=== PATIENT | female | born 2000 ===

== ENCOUNTER 2020-03-01 15:16 | Emergency (ER) | payer MEDICAID, SELFPAY ==
[2020-03-01 15:18] VITALS: BP 119/71; PULSE 86; RESP 17; TEMP 35.9; O2SAT 100; BMI 20.7
--- NOTE | 2020-03-01 15:30 | ED.EYEPROB ---
HPI - Eye Problem General Chief complaint: Eye Problems Stated complaint: swollen eye Time Seen by Provider: 03/01/20 15:27 Source: patient Mode of arrival: ambulatory Limitations: no limitations History of Present Illness HPI Narrative: Patient was putting lashes in her left eye and was having difficulty and slipped causing the lashes to hit her eye. She started itching her eye which she tells me she did persistently for about 15 minutes. She then started having pain, irritation, and drainage from the eye. No vision changes. She does not believe she got glue in the eye. MD chief complaint: eye pain and eye redness Onset (ago): minute(s) Onset description: gradual Duration: constant Location: left eye Eye Symptoms: burning, redness, pain, itching and discharge Place: home Mechanism: other (trying to put in lashes ) Severity: mild If Pain, Quality: burning Associated symptoms: none Treatments Prior to Arrival: none Related Data Previous Rx's Medication Instructions Recorded erythromycin 0.5 inch OPHTHALMIC (EYE) BID 7 03/01/20 Days #3.5 g ibuprofen 600 mg PO Q8H PRN #20 tab 03/01/20 Allergies Allergy/AdvReac Type Severity Reaction Status Date / Time No Known Allergies Allergy Unverified 01/23/20 17:01 Review of Systems Review of Systems: Yes all other systems are reviewed and are negative Constitutional: Constitutional: Reports no additional constitutional complaints, Denies body ache(s), Denies chills, Denies fever(s), Denies headache(s) and Denies weakness Eyes: Eyes: Reports no additional eye complaints, Denies change in vision, Reports eye discharge (clear ), Reports irritation, Reports itchy eyes and Reports eye pain ENT: Reports system reviewed and no additional complaints, except as documented, Denies dizziness, Denies headache(s), Denies nasal congestion, Denies nasal discharge and Denies neck pain Cardiovascular: Cardiovascular: Reports no additional cardiovascular complaints, Denies chest pain, Denies leg edema and Denies dyspnea Respiratory: Respiratory: Reports no additional respiratory complaints, Denies cough and Denies dyspnea Gastrointestinal: Gastrointestinal: Reports no additional gastrointestinal complaints, Denies abdominal pain, Denies diarrhea, Denies nausea and Denies vomiting Genitourinary: Genitourinary: Reports no additional female genitourinary complaints and Denies urinary incontinence Musculoskeletal: Musculoskeletal: Reports no additional musculoskeletal complaints, Denies back pain, Denies arthralgias, Denies joint swelling, Denies neck pain, Denies numbness and Denies tingling Integumentary/Breasts: Skin/Breast: Reports system reviewed and no additional complaints, except as docu and Denies rash Neurologic: Reports system reviewed and no additional complaints, except as documented, Denies Abnormal speech present, Denies dizziness, Denies headache(s), Denies numbness, Denies tingling and Denies weakness Allergic/Immunologic: Allergic/Immunologic: Reports itchy eyes PMFSH Past Medical History Attestation statement: The following information was validated with the patient. Source: obtained from family and nursing notes reviewed Social History Social History Advance Directives: No Advance Directives Information Provided: Yes Physical Exam Vital Signs: Vital Signs: Vital Signs Temp Pulse Resp BP Pulse Ox 03/01/20 15:18 96.7 F L 86 17 119/71 100 Body Mass Index 20.7 Const: General: cooperative, healthy appearing, comfortable and no acute distress Orientation/consciousness: patient oriented x3 Limitations: no limitations HENMT: Head: Yes normal to inspection Ears: hearing grossly normal bilaterally General nose exam: Normal external nose present Face and sinus: Yes normal facial exam Mouth: Normal oral and palatal mucosa present Throat: Yes posterior oropharynx normal Eyes: General: appearance normal, both eyes and all related structures Visual Gu: normal visual gu by confrontation Alignment and Position: alignment normal Periorbital: periorbital findings normal Eyelids: Yes eyelids normal Conjunctivae: conjunctival abnormal (injection ) left Sclerae: sclerae normal Corneas: corneas abnormal on the left fluorescein used and abrasion central and linear; without edema and with no foreign body noted Pupils: Equal, round and reactive pupils present EOM: EOMs intact bilaterally Direct Ophthalmoscopy: normal light reflex, no photophobia, no papilledema, fundi normal bilaterally and anterior chamber normal Neck: Neck: Yes normal visual inspection Chest: Chest palpation & inspection: normal inspection of the chest Resp: Effort & Inspection: normal respiratory effort Auscultation: clear to auscultation bilaterally Cardio: Rate: regular rate Rhythm: regular rhythm Peripheral pulses: Peripheral pulses 2+ throughout GI: Inspection: Yes normal to inspection Palpation (GI): Soft to palpation and nontender Auscultation: normal bowel sounds Back/Spine/Pelvis: Thoracic/Lumbar Spine: thoracic and lumbar spine normal to inspection Skin: General skin exam: no rashes or lesions noted Neuro: General: patient oriented x3, no focal motor deficits and normal sensation to monofilament Cranial nerves: Yes Equal, round and reactive pupils present Cognition (Neuro): normal cognition Speech: No Abnormal speech present Gait exam (Neuro): Normal gait present Motor exam (neuro): 5/5 motor strength present throughout Extrem: General: Yes normal to inspection Course Course Course Narrative: L corneal abrasion noted. pain improved with tetracaine. See visual acuity. 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 Reviewed worrisome signs and symptoms of when to return to the emergency department. Comfortable discharge home. Discharge Plan Discharge Clinical Impression: Corneal abrasion Patient Disposition: Home, Self-Care Instructions: Corneal Abrasion (ED) Additional Instructions: cool compresses to the eye If no improvement after several days follow-up with your eye doctor Prescriptions: New erythromycin 5 mg/gram (0.5 %) ointment 0.5 inch ophthalmic (eye) BID 7 Days Qty: 3.5 RF: 0 ibuprofen 600 mg tablet 600 mg PO Q8H PRN (Reason: fever or pain) Qty: 20 RF: 0 Referrals: Pamela Barakat DO [Primary Care Provider] - 2 days
[2020-03-01] MEDS: Tetracaine HCl/PF 0.5% Oph Sol 4 ML DROPS 1 DROP EYE-BOTH (15:33)
[2020-03-01] MEDS: Fluorescein Sodium STRIP 1 STRIP EYE-BOTH (15:33)
== END 2020-03-01 16:20 | disposition home or self-care (01) ==
PROVIDERS: Emergency Provider Emergency Medicine; PCP Pediatrics
DX: S05.02XA Injury of conjunctiva and corneal abrasion without foreign body, left eye, initial encounter (principal); X58.XXXA Exposure to other specified factors, initial encounter; Y93.89 Activity, other specified; Y92.012 Bathroom of single-family (private) house as the place of occurrence of the external cause; Y99.9 Unspecified external cause status
CPT/HCPCS: 99283; 99284

== ENCOUNTER → 2020-03-27 09:35 | Outpatient (BNVA) | payer MEDICAID, SELFPAY | PROVIDERS: PCP Pediatrics; Visit Provider Internal Medicine Gastroenterology | DX: Z76.89 Persons encountering health services in other specified circumstances (principal) ==

== ENCOUNTER 2020-06-11 08:36 | Inpatient (IN) | payer MEDICAID, SELFPAY ==
--- NOTE | ~2020-06-11 | CT_ITS ---
EXAMINATION: CT ANGIOGRAM OF THE CHEST WITH AND WITHOUT CONTRAST (CT PULMONARY ANGIOGRAM FOR PE) CLINICAL INFORMATION: Reason for Exam chest pain, tachycardic, new EKG changes COMPARISON: 12/25/2019 TECHNIQUE: Prior to contrast administration, noncontrast localization images were obtained. Subsequently, multidetector volumetric imaging was performed from the thoracic inlet to below the diaphragms following the administration of 65 mL Omnipaque 350 intravenous contrast. No contrast reaction reported Sagittal, coronal, and MIP oblique sagittal reformatted images were obtained on the CT workstation, uploaded to PACS, and reviewed. This CT examination was performed using dose optimization techniques as appropriate, variously including the following: *Automated exposure control *Adjustment of mA and/or kV according to patient size (this includes techniques or standardized protocols for targeted exams where dose is matched to indication/reason for exam; i.e. extremities or head) *Use of iterative reconstruction technique Total exam dose-length product 153 mGy-cm FINDINGS: QUALITY OF STUDY/CONTRAST BOLUS: Satisfactory. PULMONARY ARTERIES: No central or segmental pulmonary emboli. THORACIC AORTA: No aneurysm or dissection. 2 vessel branching configuration of the aortic arch. LUNG: No focal consolidation, nodules or masses. The central airways are patent. Suggestion of mild air trapping at the right base. PLEURA: No pleural effusion or pneumothorax. MEDIASTINUM: Normal heart size. No pericardial effusion. No hilar or mediastinal lymphadenopathy. No evidence of septal bowing or right heart strain. CHEST WALL/AXILLA: No axillary or internal mammary lymphadenopathy. OSSEOUS STRUCTURES: No acute or suspicious osseous abnormality. UPPER ABDOMEN: Mild intrahepatic biliary ductal dilatation involving the left hepatic ducts. No reflux of contrast into the hepatic veins to suggest elevated right heart pressures. CT/CT angio chest PE protocol IMPRESSION: 1. No pulmonary embolism or other acute intrathoracic abnormality. 2. There appears to be mild dilatation of the left intrahepatic ducts. This is increased from prior. Of note, prior ultrasound from 01/23/2017 showed biliary ductal dilatation with cholelithiasis. VTE: negative
[2020-06-11 09:11] VITALS: BP 132/80; PULSE 110; RESP 16; TEMP 37.1; O2SAT 98; BMI 21.9
--- NOTE | 2020-06-11 10:46 | ED_ITS ---
HPI - General Adult General Chief complaint: General Medical <Usha Fisher NP - Last Filed: 06/11/20 10:49> Stated complaint: arthritis flare up <Usha Fisher NP - Last Filed: 06/11/20 10:49> Time Seen by Provider: 06/11/20 10:13 <Usha Fisher NP - Last Filed: 06/11/20 10:49> Source: patient and old records reviewed <IRMA Mccarthy - Last Filed: 06/11/20 17:05> Mode of arrival: ambulatory <IRMA Mccarthy - Last Filed: 06/11/20 17:05> Limitations: no limitations <IRMA Mccarthy - Last Filed: 06/11/20 17:05> History of Present Illness HPI narrative: 19 y/o female with history of rheumatoid arthritis, autoimmune hepatitis, pericarditis in Apr 2020 who presents to the ED with 3-4 weeks of worsening pain all over her body. She states every muscle & joint hurts. She has significant chest pain that is worse when laying flat and taking deep breaths. It sometimes makes her SOB. She denies fever, chill, cough, abdominal pain, diarrhea. She was admitted at [facility] 04/23/20-04/26/20 for pericarditis - was treated with steroids and colchicine. She was weaned off of prednisone and her pain got worse. She denies COVID symptoms or exposure. <IRMA Mccarthy - Last Filed: 06/11/20 17:05> MD complaint: all over body pain <IRMA Mccarthy - Last Filed: 06/11/20 17:05> Onset (ago): week(s) (3-4) <IRMA Mccarthy - Last Filed: 06/11/20 17:05> Location: head, chest, back, left, right, upper extremity and lower extremity <IRMA Mccarthy - Last Filed: 06/11/20 17:05> Radiation: non-radiation <IRMA Mccarthy - Last Filed: 06/11/20 17:05> Severity: severe and similar to prior episodes <IRMA Mccarthy - Last Filed: 06/11/20 17:05> Severity scale (1-10): 10 <IRMA Mccarthy - Last Filed: 06/11/20 17:05> Quality: aching and constant <IRMA Mccarthy Last Filed: 06/11/20 17:05> Pain Consistency: constant <IRMA Mccarthy Last Filed: 06/11/20 17:05> Relieving factors: immobilization <IRMA Mccarthy Last Filed: 06/11/20 17:05> Exacerbating factors: movement <IRMA Mccarthy Last Filed: 06/11/20 17:05> Associated symptoms: chest pain and shortness of breath <IRMA Mccarthy Last Filed: 06/11/20 17:05> Treatments prior to arrival: NSAID <IRMA Mccarthy Last Filed: 06/11/20 17:05> Related Data Home medications: Home Medications Medication Instructions Recorded Confirmed hydroxychloroquine [Plaquenil] 200 mg PO DAILY 06/11/20 06/11/20 <Usha Fisher NP - Last Filed: 06/11/20 10:49> Allergies/adverse reactions: Allergies Allergy/AdvReac Type Severity Reaction Status Date / Time No Known Allergies Allergy Verified 06/11/20 09:11 <Usha Fisher NP - Last Filed: 06/11/20 10:49> Review of Systems Review of Systems: Constitutional: No Fever, No Chills ENT/Mouth: No sore throat, No Rhinorrhea, No Swallowing Difficulty Eyes: No Eye Pain, No Swelling, No Redness Cardiovascular: + Chest Pain, + SOB, No Orthopnea, No Edema Respiratory: No Cough, No Sputum, No Wheezing, No dyspnea Gastrointestinal: + Nausea, No Vomiting, No Diarrhea, No abdominal Pain Genitourinary: No Dysuria, No Urinary Frequency, No Hematuria Musculoskeletal: + joint pain, + Myalgias Skin: No Skin Lesions, No rash Neuro: No Weakness, No Numbness, No Dizziness, +Headache Psych: No Anxiety/Panic, + Depression Heme/Lymph: No Bruising, No Lymphadenopathy Endocrine: No Polyuria, No Polydipsia <IRMA Mccarthy Last Filed: 06/11/20 17:05> PMFSH Past Medical History Attestation statement: The following information was validated with the patient. <IRMA Mccarthy - Last Filed: 06/11/20 17:05> Surgical History: Surgical History (Updated 03/27/20 @ 09:32 by Jo-Ann Hopkins CMA) History of colonoscopy Hx of cholecystectomy Hx of endoscopy <Usha Fisher NP - Last Filed: 06/11/20 10:49> Family History Family History: Family History (Updated 03/27/20 @ 09:33 by Jo-Ann Hopkins CMA) Father Alive and well Mother Alive and well <Usha Fisher NP - Last Filed: 06/11/20 10:49> Social History Social History: Social History (Updated 03/27/20 @ 09:33 by Jo-Ann Hopkins CMA) Alcohol intake: never Smoking Status: Never smoker Use of substances other than those prescribed or required for medical reasons: No Advance Directives: No Advance Directives Information Provided: No <Usha Fisher NP - Last Filed: 06/11/20 10:49> Physical Exam Vital Signs: Vital Signs: Last Vital Signs Temp 98.8 F 06/11/20 09:11 Pulse 110 H 06/11/20 09:11 Resp 16 06/11/20 09:11 BP 132/80 06/11/20 09:11 Pulse Ox 98 06/11/20 09:11 Body Mass Index 21.9 <Usha Fisher NP - Last Filed: 06/11/20 10:49> Vital Signs: Last Vital Signs Temp 98.8 F 06/11/20 09:11 Pulse 110 H 06/11/20 09:11 Resp 16 06/11/20 09:11 BP 132/80 06/11/20 09:11 Pulse Ox 98 06/11/20 09:11 Body Mass Index 21.9 Appearance: Alert. Oriented X3. Appears uncomfortable. Eyes: Pupils equal, round and reactive to light. ENT: Pharynx normal. Neck: Normal inspection. Neck supple. CVS: Normal heart rate and rhythm. Pulses normal. Anterior chest wall tenderness Respiratory: No respiratory distress. Breath sounds normal. Abdomen: Soft and nontender. +BS x4 Skin: Skin warm and dry. Normal skin color. Normal skin turgor. No rashes. Extremities: Bilateral knee tenderness and swelling medially, no erythema or warmth. Diffuse muscle pain throughout. Bilateral hand swelling and tenderness, fingers swollen with painful flexion at DIP/PIP joints. Neuro: Oriented X 3. Flat affect. No motor or sensory deficits. <IRMA Mccarthy - Last Filed: 06/11/20 17:05> Course Course Course Narrative: 1045-This is a rapid medical exam. 19 yo female here with RA, lupus here with chest pain, body aches x 1 month. No fevers, chills. Will need EKG, CXR, labs including inflammatory markers. Seen at [facility] 2 months ago and diagnosed with ?pericarditis with admit x 1 week. Deferred additional HPI, ROS, PE to primary provider. <Usha Fisher NP - Last Filed: 06/11/20 10:49> 19 y/o female with hx RA and autoimmunne hepatitis here with chest pain and diffuse polyarthralgias x1 month since being off steroids. Concern for recurrent pericarditis with new EKG changed. Will give dose of prednisone, Toradol, and morphine now. Will get CTA chest to r/o PE given tachycardia, chest pain and SOB. Anticipate admission. <IRMA Mccarthy - Last Filed: 06/11/20 17:05> Reevaluation(s) Reevaluation #1: CTA negative for PE. No pericardial effusion seen. Case d/w Dr. Figueroa via TT - he has seen her in the office in the Fall. He is recommending ECHO - concern for pericarditis vs myocarditis with diffuse t-wave inversions on EKG. Compared to prior done in Apr 2020 at [facility] these are new. Will plan to admit. TT Jeniffer Ramone @ 16:20. <IRMA Mccarthy - Last Filed: 06/11/20 17:05> Consultations Consultation #1: Dr. Figueroa Cardiology - rec ECHO <IRMA Mccarthy - Last Filed: 06/11/20 17:05> Medical Decision Making Lab Data Result diagrams: : 06/11/20 11:10 06/11/20 11:10 <Usha Fisher NP - Last Filed: 02/04/21 10:49> Labs: Lab Results 06/11/20 06/11/20 06/11/20 Range/Units 11:10 11:10 11:10 WBC 3.3 L (4.8-10.8) X10*3/uL RBC 5.12 (4.20-5.50) X10*6/uL Hgb 11.8 L (12.0-16.0) g/dl Hct 38.5 (37-47) % MCV 75.2 L (80-98) fL MCH 23.0 L (27.0-33.0) pg MCHC 30.6 L (31.0-35.0) g/dl RDW 14.7 (11.0-16.0) % Plt Count 378 (160-400) X10*3/uL MPV 11.6 (9.4-12.3) fL Immature Gran % (Auto) 1.8 H (0.0-0.4) % Neut % (Auto) 67.4 (45-73) % Lymph % (Auto) 23.2 (20-40) % [place] % (Auto) 6.7 (2-11) % Eos % (Auto) 0.9 (0-4) % Baso % (Auto) 0.0 (0-2) % Lymph # (Auto) 0.8 L (1.2-4.9) X10*3/uL [place] # (Auto) 0.2 (0.1-1.2) X10*3/uL Eos # (Auto) 0.0 (0.0-0.4) X10*3/uL Baso # (Auto) 0.0 (0.0-0.2) X10*3/uL Abs Immat Gran (auto) 0.06 H (0.00-0.03) X10*3/uL Absolute Neuts (auto) 2.2 (2.0-8.3) X10*3/uL Absolute Nucleated RBC 0.000 (0.0-0.012) X10*3/uL Nucleated RBC % (auto) 0.0 (0.0-0.2) /100WBC ESR 43 H (0-20) MM/HR Sodium 137 (135-145) mmol/L Potassium 3.4 (3.3-5.1) mmol/L Chloride 105 (96-108) mmol/L Carbon Dioxide 24 (22-29) mmol/L Anion Gap 11 L (12-20) BUN 8 L (9-16) mg/dL Creatinine 0.64 (0.5-1.4) mg/dL Estim Creat Clear Calc 106.7 Estimated GFR > 60 Random Glucose 93 (60-115) mg/dL Calcium 8.4 (8.4-10.2) mg/dL Total Bilirubin 0.9 (0.0-1.0) mg/dL Direct Bilirubin 0.5 (0.0-0.5) mg/dL AST 63 H (5-31) U/L ALT 61 H (0-31) U/L Alkaline Phosphatase 74 (39-117) U/L Troponin I High Sens (<3.5-17.0) ng/L C-Reactive Protein 2.08 H (< or = 0.50) mg/dL Total Protein 7.9 (6.5-8.0) g/dL Albumin 3.6 (3.5-5.0) g/dL Urine Color Urine Appearance Urine pH (5.0-8.0) Ur Specific Nitro (1.005-1.025) Urine Protein (NEG-TRACE) MG/DL Urine Glucose (UA) (NEG) MG/DL Urine Ketones (NEG) MG/DL Urine Blood (NEG) Urine Nitrite (NEG) Ur Leukocyte Esterase (NEG) Urine Test (NEGATIVE) 06/11/20 06/11/20 06/11/20 Range/Units 11:10 11:30 11:35 WBC (4.8-10.8) X10*3/uL RBC (4.20-5.50) X10*6/uL Hgb (12.0-16.0) g/dl Hct (37-47) % MCV (80-98) fL MCH (27.0-33.0) pg MCHC (31.0-35.0) g/dl RDW (11.0-16.0) % Plt Count (160-400) X10*3/uL MPV (9.4-12.3) fL Immature Gran % (Auto) (0.0-0.4) % Neut % (Auto) (45-73) % Lymph % (Auto) (20-40) % [place] % (Auto) (2-11) % Eos % (Auto) (0-4) % Baso % (Auto) (0-2) % Lymph # (Auto) (1.2-4.9) X10*3/uL [place] # (Auto) (0.1-1.2) X10*3/uL Eos # (Auto) (0.0-0.4) X10*3/uL Baso # (Auto) (0.0-0.2) X10*3/uL Abs Immat Gran (auto) (0.00-0.03) X10*3/uL Absolute Neuts (auto) (2.0-8.3) X10*3/uL Absolute Nucleated RBC (0.0-0.012) X10*3/uL Nucleated RBC % (auto) (0.0-0.2) /100WBC ESR (0-20) MM/HR Sodium (135-145) mmol/L Potassium (3.3-5.1) mmol/L Chloride (96-108) mmol/L Carbon Dioxide (22-29) mmol/L Anion Gap (12-20) BUN (9-16) mg/dL Creatinine (0.5-1.4) mg/dL Estim Creat Clear Calc Estimated GFR Random Glucose (60-115) mg/dL Calcium (8.4-10.2) mg/dL Total Bilirubin (0.0-1.0) mg/dL Direct Bilirubin (0.0-0.5) mg/dL AST (5-31) U/L ALT (0-31) U/L Alkaline Phosphatase (39-117) U/L Troponin I High Sens < 3.5 (<3.5-17.0) ng/L C-Reactive Protein (< or = 0.50) mg/dL Total Protein (6.5-8.0) g/dL Albumin (3.5-5.0) g/dL Urine Color NADIA Urine Appearance HAZY Urine pH 6.5 (5.0-8.0) Ur Specific Nitro 1.020 (1.005-1.025) Urine Protein NEG (NEG-TRACE) MG/DL Urine Glucose (UA) NEG (NEG) MG/DL Urine Ketones NEG (NEG) MG/DL Urine Blood NEG (NEG) Urine Nitrite NEG (NEG) Ur Leukocyte Esterase NEG (NEG) Urine Test NEGATIVE (NEGATIVE) <Usha Natalia, [employer] - Last Filed: 06/11/20 10:49> Lab Results 06/11/20 06/11/20 06/11/20 Range/Units 11:10 11:10 11:10 WBC 3.3 L (4.8-10.8) X10*3/uL RBC 5.12 (4.20-5.50) X10*6/uL Hgb 11.8 L (12.0-16.0) g/dl Hct 38.5 (37-47) % MCV 75.2 L (80-98) fL MCH 23.0 L (27.0-33.0) pg MCHC 30.6 L (31.0-35.0) g/dl RDW 14.7 (11.0-16.0) % Plt Count 378 (160-400) X10*3/uL MPV 11.6 (9.4-12.3) fL Immature Gran % (Auto) 1.8 H (0.0-0.4) % Neut % (Auto) 67.4 (45-73) % Lymph % (Auto) 23.2 (20-40) % [place] % (Auto) 6.7 (2-11) % Eos % (Auto) 0.9 (0-4) % Baso % (Auto) 0.0 (0-2) % Lymph # (Auto) 0.8 L (1.2-4.9) X10*3/uL [place] # (Auto) 0.2 (0.1-1.2) X10*3/uL Eos # (Auto) 0.0 (0.0-0.4) X10*3/uL Baso # (Auto) 0.0 (0.0-0.2) X10*3/uL Abs Immat Gran (auto) 0.06 H (0.00-0.03) X10*3/uL Absolute Neuts (auto) 2.2 (2.0-8.3) X10*3/uL Absolute Nucleated RBC 0.000 (0.0-0.012) X10*3/uL Nucleated RBC % (auto) 0.0 (0.0-0.2) /100WBC ESR 43 H (0-20) MM/HR Sodium 137 (135-145) mmol/L Potassium 3.4 (3.3-5.1) mmol/L Chloride 105 (96-108) mmol/L Carbon Dioxide 24 (22-29) mmol/L Anion Gap 11 L (12-20) BUN 8 L (9-16) mg/dL Creatinine 0.64 (0.5-1.4) mg/dL Estim Creat Clear Calc 106.7 Estimated GFR > 60 Random Glucose 93 (60-115) mg/dL Calcium 8.4 (8.4-10.2) mg/dL Total Bilirubin 0.9 (0.0-1.0) mg/dL Direct Bilirubin 0.5 (0.0-0.5) mg/dL AST 63 H (5-31) U/L ALT 61 H (0-31) U/L Alkaline Phosphatase 74 (39-117) U/L Troponin I High Sens (<3.5-17.0) ng/L C-Reactive Protein 2.08 H (< or = 0.50) mg/dL Total Protein 7.9 (6.5-8.0) g/dL Albumin 3.6 (3.5-5.0) g/dL Urine Color Urine Appearance Urine pH (5.0-8.0) Ur Specific Nitro (1.005-1.025) Urine Protein (NEG-TRACE) MG/DL Urine Glucose (UA) (NEG) MG/DL Urine Ketones (NEG) MG/DL Urine Blood (NEG) Urine Nitrite (NEG) Ur Leukocyte Esterase (NEG) Urine Test (NEGATIVE) 06/11/20 06/11/20 06/11/20 Range/Units 11:10 11:30 11:35 WBC (4.8-10.8) X10*3/uL RBC (4.20-5.50) X10*6/uL Hgb (12.0-16.0) g/dl Hct (37-47) % MCV (80-98) fL MCH (27.0-33.0) pg MCHC (31.0-35.0) g/dl RDW (11.0-16.0) % Plt Count (160-400) X10*3/uL MPV (9.4-12.3) fL Immature Gran % (Auto) (0.0-0.4) % Neut % (Auto) (45-73) % Lymph % (Auto) (20-40) % [place] % (Auto) (2-11) % Eos % (Auto) (0-4) % Baso % (Auto) (0-2) % Lymph # (Auto) (1.2-4.9) X10*3/uL [place] # (Auto) (0.1-1.2) X10*3/uL Eos # (Auto) (0.0-0.4) X10*3/uL Baso # (Auto) (0.0-0.2) X10*3/uL Abs Immat Gran (auto) (0.00-0.03) X10*3/uL Absolute Neuts (auto) (2.0-8.3) X10*3/uL Absolute Nucleated RBC (0.0-0.012) X10*3/uL Nucleated RBC % (auto) (0.0-0.2) /100WBC ESR (0-20) MM/HR Sodium (135-145) mmol/L Potassium (3.3-5.1) mmol/L Chloride (96-108) mmol/L Carbon Dioxide (22-29) mmol/L Anion Gap (12-20) BUN (9-16) mg/dL Creatinine (0.5-1.4) mg/dL Estim Creat Clear Calc Estimated GFR Random Glucose (60-115) mg/dL Calcium (8.4-10.2) mg/dL Total Bilirubin (0.0-1.0) mg/dL Direct Bilirubin (0.0-0.5) mg/dL AST (5-31) U/L ALT (0-31) U/L Alkaline Phosphatase (39-117) U/L Troponin I High Sens < 3.5 (<3.5-17.0) ng/L C-Reactive Protein (< or = 0.50) mg/dL Total Protein (6.5-8.0) g/dL Albumin (3.5-5.0) g/dL Urine Color NADIA Urine Appearance HAZY Urine pH 6.5 (5.0-8.0) Ur Specific Nitro 1.020 (1.005-1.025) Urine Protein NEG (NEG-TRACE) MG/DL Urine Glucose (UA) NEG (NEG) MG/DL Urine Ketones NEG (NEG) MG/DL Urine Blood NEG (NEG) Urine Nitrite NEG (NEG) Ur Leukocyte Esterase NEG (NEG) Urine Test NEGATIVE (NEGATIVE) <IRMA Mccarthy - Last Filed: 06/11/20 17:05> ECG Data Attestation: I personally reviewed and interpreted this ECG as follows: <IRMA Mccarthy - Last Filed: 06/11/20 17:05> Prior ECG tracings: available for review <IRMA Mccarthy - Last Filed: 06/11/20 17:05> Interpretation: normal sinus rhythm - HR 96 bpm, diffuse t-wave inversions in leads II,III,aVF, V3-V6 which are new from prior EKG in December 2019 <IRMA Mccarthy - Last Filed: 06/11/20 17:05> Discharge Plan Discharge Clinical Impression: Pericarditis Qualifiers: Pericarditis type: associated with rheumatoid arthritis Chronicity: unspecified Qualified Code(s): I31.9 - Disease of pericardium, unspecified <Usha Fisher NP - Last Filed: 06/11/20 10:49> Patient Disposition: Admitted As Inpatient <Usha Fisher NP - Last Filed: 06/11/20 10:49>
--- NOTE | 2020-06-11 10:49 | XR_ITS ---
EXAMINATION: XR CHEST CLINICAL INFORMATION: Chest pain COMPARISON: 12/31/2019 TECHNIQUE: 2 views of the chest were obtained. FINDINGS: The lungs are well expanded. There is no focal consolidation, edema, or effusion. No pneumothorax. The cardiomediastinal silhouette is within normal limits. No acute osseous abnormality. XR/XR chest 2V IMPRESSION: Clear lungs.
--- NOTE | 2020-06-11 10:49 | ECG_ITS ---
Test Reason : GENERAL MEDICAL Blood Pressure : / mmHG Vent. Rate : 096 BPM Atrial Rate : 096 BPM P-R Int : 144 ms QRS Dur : 076 ms QT Int : 328 ms P-R-T Axes : 058 066 247 degrees QTc Int : 414 ms Normal sinus rhythm cannot exclude old Septal infarct (cited on or before but could be from body habitus and lead placement T wave abnormality, consider inferior ischemia T wave abnormality, consider anterolateral ischemia Abnormal ECG When compared with ECG of 31-DEC-2019 03:42, T wave inversion now evident in Inferior leads Inverted T waves have replaced nonspecific T wave abnormality in Lateral leads Referred By: Usha Fisher Electronically Signed By:DANAY JONES
[2020-06-11 11:18] LABS: MANUAL DIFF FLAG NO
[2020-06-11 11:21] LABS: Eosinophils Percent Auto 0.9 % (0-4); Hematocrit 38.5 % (37-47); Hemoglobin 11.8 g/dl (12.0-16.0); Imm Gran Abs Auto 0.06 X10*3/uL (0.00-0.03); Imm Gran Pct Auto 1.8 % (0.0-0.4); Lymphocytes Absolute Auto 0.8 X10*3/uL (1.2-4.9); Lymphocytes Percent Auto 23.2 % (20-40); Mean Corpuscular HGB Conc 30.6 g/dl (31.0-35.0); Mean Corpuscular Volume 75.2 fL (80-98); Mean Platelet Volume 11.6 fL (9.4-12.3); Monocytes Absolute Auto 0.2 X10*3/uL (0.1-1.2); Monocytes Percent Auto 6.7 % (2-11); Neutrophils Absolute Auto 2.2 X10*3/uL (2.0-8.3); Neutrophils Percent Auto 67.4 % (45-73); Platelet Count 378 X10*3/uL (160-400); Red Blood Count 5.12 X10*6/uL (4.20-5.50); Red Cell Distribution Width 14.7 % (11.0-16.0); White Blood Count 3.3 X10*3/uL (4.8-10.8)
[2020-06-11 11:47] LABS: Alanine Aminotransferase 61 U/L (0-31); Albumin Level 3.6 g/dL (3.5-5.0); Alkaline Phosphatase 74 U/L (39-117); Anion Gap 11 (12-20); Aspartate Amino Transferase 63 U/L (5-31); Bilirubin Direct 0.5 mg/dL (0.0-0.5); Bilirubin Total 0.9 mg/dL (0.0-1.0); Blood Urea Nitrogen 8 mg/dL (9-16); C Reactive Protein 2.08 mg/dL (< or = 0.50); Calcium 8.4 mg/dL (8.4-10.2); Carbon Dioxide 24 mmol/L (22-29); Chloride 105 mmol/L (96-108); Creatinine Clr Calc Pharmacy 106.7; Estimated Glomerular Filt Rate > 60; Glucose Random 93 mg/dL (60-115); Potassium 3.4 mmol/L (3.3-5.1); Sodium 137 mmol/L (135-145); Total Protein 7.9 g/dL (6.5-8.0)
[2020-06-11 11:51] LABS: Troponin-I High Sensitivity < 3.5 ng/L (<3.5-17.0)
[2020-06-11 11:53] LABS: UPreg QC Valid YES; Urine Pregnancy NEGATIVE (NEGATIVE)
[2020-06-11 12:11] LABS: Erythrocyte Sedimentation Rate 43 MM/HR (0-20)
[2020-06-11] MEDS: Ketorolac Tromethamine 30 MG/ML VIAL IVPUSH (13:35)
[2020-06-11] MEDS: predniSONE 20 MG TABLET 40 MG PO (13:37)
[2020-06-11] MEDS: Morphine Sulfate 2 MG/ML CARTRIDGE IVPUSH (13:40)
[2020-06-11 13:41] LABS: Glucose Urine UA NEG (NEG); Leukocyte Esterase Urine NEG (NEG); Nitrite Urine NEG (NEG); PH 6.5 (5.0-8.0); Urine Blood NEG (NEG); Urine Ketones NEG (NEG); Urine Protein NEG (NEG-TRACE)
[2020-06-11 13:42] LABS: Appearance Urine HAZY; Color Urine AMBER
[2020-06-11] MEDS: iohexoL 350 MG/ML 100 ML INFUS..BTL 65 ML IV (15:00)
--- NOTE | 2020-06-11 17:03 | PM.EVENT ---
Event Note Date of Service: 06/11/20 Event Note: Patient seen and examined independently and was present during campos portion of E/M service. Agree with midlevel's history, physical, assessment, and plan. 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
[2020-06-11 18:14] LABS: COVID-19 Test Negative (Negative); IDNOW Serial# 9DD0AD1C
--- NOTE | 2020-06-11 18:53 | HP_ITS ---
DATE OF SERVICE: 06/11/2020 CHIEF COMPLAINT: Chest pain. HISTORY OF PRESENT ILLNESS: This 19-year-old woman presenting with complaints of chest pain, body pain over the last several weeks. She reports multiple muscle and joint pain throughout her body. She had chest pain that became worse when lying flat and when taking deep breaths. She did report some occasional shortness of breath. She denied fever, chills, nausea, vomiting, diarrhea, recent illness. She was admitted to [facility] on April 23 and discharged on April 26 and at that time was treated with pericarditis. She was treated with steroids and colchicine. She denied any exposure to COVID-19. She did have a TTE during that hospitalization, which did show pericardial effusion, normal LV systolic function with EF of 55% to 65%, normal LV diastolic function, normal LV size, normal RV systolic function, and normal RV size. No significant valvular abnormalities. Small pericardial effusion and no suggestion of cardiac tamponade. She does have a history of connective tissue disorders including lupus, rheumatoid arthritis, autoimmune hepatitis. In the ED, she was noted to be mildly tachycardic with heart rate of 110, stable blood pressure, no hypoxia or fever. White blood cell count 3.3. CRP 2.08, AST 63, ALT 61. Urinalysis negative. Chest CTA showed no pulmonary embolus. She was given a dose of prednisone, Toradol, morphine. She will be admitted for further management and treatment of acute pericarditis. PAST MEDICAL HISTORY: 1. Pericarditis. 2. Rheumatoid arthritis. 3. Connective tissue disorder. 4. Lupus. 5. Autoimmune hepatitis. PAST SURGICAL HISTORY: Cholecystectomy. SOCIAL HISTORY: Denies any alcohol, tobacco, or illicit drug use. FAMILY HISTORY: Denies any cardiac disease. ALLERGIES: NO KNOWN ALLERGIES. MEDICATIONS: Plaquenil 200 mg daily. REVIEW OF SYSTEMS: CONSTITUTIONAL: Denies any recent fever, chills, or decrease in appetite. RESPIRATORY: See HPI. CARDIOVASCULAR: See HPI. GASTROINTESTINAL: Denies any dysphagia, abdominal pain, nausea, vomiting, or diarrhea. GENITOURINARY: Denies any dysuria, frequency, or hematuria. MUSCULOSKELETAL: Denies any joint pain or swelling. NEUROPSYCH: Denies any weakness or seizures. All other systems are reviewed and are negative. PHYSICAL EXAMINATION: CONSTITUTIONAL: Resting in bed, appearing in no acute distress. VITAL SIGNS: 98.8, 110, 16, 132/80, 98% on room air. SKIN: Intact without rash or open sores. HEENT: Head is normocephalic, atraumatic. Eyes, pupils are PERRLA. Sclerae are anicteric. Mouth and throat: Mucous membranes are intact and moist. NECK: Supple. No lymphadenopathy. No JVD noted. CHEST: Clear to auscultation without wheezes, rhonchi, or rales. HEART: Regular rate and rhythm. Clear S1, S2. No murmurs, rubs, or gallops. ABDOMEN: Positive bowel sounds. Soft, nontender. No hepatomegaly or splenomegaly noted. NEURO: The patient is alert and oriented x3. Cranial nerves II through XII grossly intact without focal deficits. LABORATORY DATA: WBC 3.3, hemoglobin 11.8, hematocrit 38.5, platelets 378. Sodium is 137, potassium is 3.4, chloride is 105, bicarb is 24, BUN is 8, creatinine is 0.64. COVID pending. ASSESSMENT AND PLAN: A 19-year-old woman, admitted with likely pericarditis secondary to lupus, connective tissue disorder. She was recently hospitalized at [facility] in April for similar symptoms. At that time, she was treated with steroids, NSAIDs, and at some point had colchicine as well. Echocardiogram showed normal heart function with pericarditis. 1. Pericarditis. We will treat with prednisone, NSAIDs, cardio consult, echocardiogram, supportive care. 2. Multiple autoimmune diseases. Continue Plaquenil. Should follow up with outpatient Rheumatology. 3. Deep vein thrombosis prophylaxis with early ambulation. 4. Case discussed with Dr. Jj. 5. Full code. KATERYNA Paula MD JR/ZAFAR / [id number] MTDD
[2020-06-11 18:54] VITALS: BP 95/53; PULSE 81; RESP 16; TEMP 36.4; O2SAT 98
[2020-06-11 20:00] VITALS: BP 102/66; PULSE 80; RESP 18; TEMP 36.4; O2SAT 98
[2020-06-11 22:00] VITALS: BP 105/68; PULSE 76; RESP 12; TEMP 37.1; O2SAT 98
[2020-06-12] VITALS (10 sets, daily range): BP systolic 98–117; BP diastolic 63–81; PULSE 64–77; RESP 13–18; TEMP 36.4–37.1; O2SAT 96–100
--- NOTE | 2020-06-12 01:14 | PC.NURSE ---
REPORT ON PT GIVEN TO SHERLYN MILLS. PT HAS BEEN EATING ANFD DRINKING WITHOUT ISSUE SEVERAL TIMES TONIGHT NOW SLEEPING COMFORTABLY.
--- NOTE | 2020-06-12 03:39 | PC.NURSE ---
pt reports pain. no prn orders for pain managment noted. contact made to hospitalist
[2020-06-12] MEDS: Ibuprofen 800 MG TABLET PO ×2 (04:28→14:35)
[2020-06-12 06:44] LABS: Basophils Percent Auto 0.2 % (0-2); Eosinophils Percent Auto 0.5 % (0-4); Hematocrit 36.6 % (37-47); Imm Gran Abs Auto 0.03 X10*3/uL (0.00-0.03); Imm Gran Pct Auto 0.7 % (0.0-0.4); Lymphocytes Absolute Auto 0.6 X10*3/uL (1.2-4.9); Lymphocytes Percent Auto 15.1 % (20-40); MANUAL DIFF FLAG SCAN; Mean Corpuscular HGB Conc 30.1 g/dl (31.0-35.0); Mean Corpuscular Hemoglobin 22.8 pg (27.0-33.0); Mean Corpuscular Volume 75.9 fL (80-98); Mean Platelet Volume 12.4 fL (9.4-12.3); Monocytes Absolute Auto 0.4 X10*3/uL (0.1-1.2); Monocytes Percent Auto 8.8 % (2-11); Neutrophils Absolute Auto 3.1 X10*3/uL (2.0-8.3); Neutrophils Percent Auto 74.7 % (45-73); Platelet Count 393 X10*3/uL (160-400); Red Blood Count 4.82 X10*6/uL (4.20-5.50); Red Cell Distribution Width 14.7 % (11.0-16.0); SCAN SMEAR FLAG 1; White Blood Count 4.1 X10*3/uL (4.8-10.8)
[2020-06-12 07:19] LABS: Anion Gap 12 (12-20); Blood Urea Nitrogen 13 mg/dL (9-16); Calcium 8.2 mg/dL (8.4-10.2); Carbon Dioxide 24 mmol/L (22-29); Chloride 107 mmol/L (96-108); Creatinine Clr Calc Pharmacy 106.7; Estimated Glomerular Filt Rate > 60; Glucose Random 90 mg/dL (60-115); Potassium 3.8 mmol/L (3.3-5.1); Sodium 139 mmol/L (135-145)
[2020-06-12 07:35] LABS: SLIDE REVIEW VERIFIED
[2020-06-12] MEDS: 0.9 % Sodium Chloride Flush 3 ML SYRINGE IVFLUSH ×2 (08:12→15:43)
--- NOTE | 2020-06-12 10:10 | PM.CNCAR ---
History of Present Illness History of Present Illness Date of Service: 06/12/20 Chief complaint: pericarditis Narrative: This is a cardiology consultation regarding chest pain and abnormal EKG. She has a history of rheumatoid arthritis as well as mixed connective tissue disease. And she also take steroids intermittently. It appears that she was in [facility] in April for presumed pericarditis. She was given steroids and colchicine. Subsequently it appears that the steroids were tapered over time. Patient states that whenever the steroids get tapered, she immediately gets chest pain again. Currently she is admitted for chest pain along with multiple other constitutional symptoms including body aches among others. Her EKG was also thought to be abnormal and hence we have been asked to see her. Review of Systems Review of Systems: Yes all other systems are reviewed and are negative Cardiovascular: Cardiovascular: Reports as per HPI, Reports no additional cardiovascular complaints, Denies acrocyanosis, Denies cool extremities, Denies painful fingertips, Reports chest pain, Reports chest pain at rest, Denies diaphoresis, Denies syncope, Denies irregular heart rhythm, Denies claudication, Denies leg edema, Denies lightheadedness, Denies palpitations and Reports dyspnea Respiratory: Respiratory: Reports dyspnea Neurologic: Denies syncope Endocrine: Endocrine: Denies palpitations [facility] Past Medical History Medical History (Updated 06/12/20 @ 10:13 by Maximiliano Figueroa MD) Rheumatoid arthritis Family History Family History (Updated 03/27/20 @ 09:33 by Jo-Ann Hopkins CMA) Father Alive and well Mother Alive and well Pertinent family history: No significant family history of any rheumatological or immunological illness Surgical History Surgical History (Updated 03/27/20 @ 09:32 by Jo-Ann Hopkins CMA) History of colonoscopy Hx of cholecystectomy Hx of endoscopy Social History Social History (Updated 03/27/20 @ 09:33 by Jo-Ann Hopkins CMA) Alcohol intake: never Smoking Status: Never smoker Use of substances other than those prescribed or required for medical reasons: No Advance Directives: No Advance Directives Information Provided: No Meds Allergies Allergy/AdvReac Type Severity Reaction Status Date / Time No Known Allergies Allergy Verified 06/11/20 09:11 Home Medications Medication Instructions Recorded Confirmed Type hydroxychloroquine [Plaquenil] 200 mg PO DAILY 06/11/20 06/11/20 History Physical Exam Vital Signs: Vital Signs: Last Vital Signs Temp 97.6 F 06/12/20 08:09 Pulse 64 06/12/20 08:09 Resp 18 06/12/20 08:09 BP 112/69 06/12/20 08:09 Pulse Ox 99 06/12/20 08:09 Body Mass Index 21.9 Const: General: cooperative, comfortable and no acute distress Orientation/consciousness: patient oriented x3 HENMT: Other: Unremarkable Neck: Neck: Yes normal visual inspection Chest: Chest palpation & inspection: normal inspection of the chest Resp: Auscultation: clear to auscultation bilaterally, no crackles and no wheezes Cardio: Jugular venous distension: no JVD Palpation: normal PMI Heart sounds: S1 normal heart sound present, S2 normal heart sound present, no gallops, no murmurs and no rubs GI: Palpation (GI): Soft to palpation Back/Spine/Pelvis: Other: unremarkable Skin: General skin exam: no rashes or lesions noted Neuro: General: patient oriented x3 Extrem: General: Yes no clubbing, cyanosis or edema Psych: Mental Status: mental status grossly normal Results Labs and Meds Result diagrams: 06/12/20 05:56 06/12/20 05:56 Lab results: Laboratory Results - last 24 hr 06/11/20 06/11/20 06/11/20 11:10 11:10 11:10 WBC 3.3 L RBC 5.12 Hgb 11.8 L Hct 38.5 MCV 75.2 L MCH 23.0 L MCHC 30.6 L RDW 14.7 Plt Count 378 MPV 11.6 Immature Gran % (Auto) 1.8 H Neut % (Auto) 67.4 Lymph % (Auto) 23.2 Jay % (Auto) 6.7 Eos % (Auto) 0.9 Baso % (Auto) 0.0 Lymph # (Auto) 0.8 L Jay # (Auto) 0.2 Eos # (Auto) 0.0 Baso # (Auto) 0.0 Abs Immat Gran (auto) 0.06 H Absolute Neuts (auto) 2.2 Absolute Nucleated RBC 0.000 Nucleated RBC % (auto) 0.0 Smear Tech's Comments ESR 43 H Sodium 137 Potassium 3.4 Chloride 105 Carbon Dioxide 24 Anion Gap 11 L BUN 8 L Creatinine 0.64 Estim Creat Clear Calc 106.7 Estimated GFR > 60 Random Glucose 93 Calcium 8.4 Total Bilirubin 0.9 Direct Bilirubin 0.5 AST 63 H ALT 61 H Alkaline Phosphatase 74 Troponin I High Sens C-Reactive Protein 2.08 H Total Protein 7.9 Albumin 3.6 Urine Color Urine Appearance Urine pH Ur Specific [place] Urine Protein Urine Glucose (UA) Urine Ketones Urine Blood Urine Nitrite Ur Leukocyte Esterase Urine Test COVID-19 ([facility]) COVID-19 Clin Com 06/11/20 06/11/20 06/11/20 11:10 11:30 11:35 WBC RBC Hgb Hct MCV MCH MCHC RDW Plt Count MPV Immature Gran % (Auto) Neut % (Auto) Lymph % (Auto) Jay % (Auto) Eos % (Auto) Baso % (Auto) Lymph # (Auto) Jay # (Auto) Eos # (Auto) Baso # (Auto) Abs Immat Gran (auto) Absolute Neuts (auto) Absolute Nucleated RBC Nucleated RBC % (auto) Smear Tech's Comments ESR Sodium Potassium Chloride Carbon Dioxide Anion Gap BUN Creatinine Estim Creat Clear Calc Estimated GFR Random Glucose Calcium Total Bilirubin Direct Bilirubin AST ALT Alkaline Phosphatase Troponin I High Sens < 3.5 C-Reactive Protein Total Protein Albumin Urine Color NADIA Urine Appearance HAZY Urine pH 6.5 Ur Specific [place] 1.020 Urine Protein NEG Urine Glucose (UA) NEG Urine Ketones NEG Urine Blood NEG Urine Nitrite NEG Ur Leukocyte Esterase NEG Urine Test NEGATIVE COVID-19 ([facility]) COVID-19 [place] 06/11/20 06/12/20 06/12/20 17:53 05:56 05:56 WBC 4.1 L RBC 4.82 Hgb 11.0 L Hct 36.6 L MCV 75.9 L MCH 22.8 L MCHC 30.1 L RDW 14.7 Plt Count 393 MPV 12.4 H Immature Gran % (Auto) 0.7 H Neut % (Auto) 74.7 H Lymph % (Auto) 15.1 L Jay % (Auto) 8.8 Eos % (Auto) 0.5 Baso % (Auto) 0.2 Lymph # (Auto) 0.6 L Jay # (Auto) 0.4 Eos # (Auto) 0.0 Baso # (Auto) 0.0 Abs Immat Gran (auto) 0.03 Absolute Neuts (auto) 3.1 Absolute Nucleated RBC 0.000 Nucleated RBC % (auto) 0.0 Smear Tech's Comments VERIFIED ESR Sodium 139 Potassium 3.8 Chloride 107 Carbon Dioxide 24 Anion Gap 12 BUN 13 D Creatinine 0.64 Estim Creat Clear Calc 106.7 Estimated GFR > 60 Random Glucose 90 Calcium 8.2 L Total Bilirubin Direct Bilirubin AST ALT Alkaline Phosphatase Troponin I High Sens C-Reactive Protein Total Protein Albumin Urine Color Urine Appearance Urine pH Ur Specific [place] Urine Protein Urine Glucose (UA) Urine Ketones Urine Blood Urine Nitrite Ur Leukocyte Esterase Urine Test COVID-19 ([facility]) Negative COVID-19 Clin Com See Note ECG Attestation: I personally reviewed and interpreted this ECG as follows: Interpretation: With sinus rhythm at 96/Min; inferior and anterolateral T inversions. Compared to prior EKG from April in [facility] these seem more prominent. Imaging Radiologist's impression: Impressions Chest X-Ray 06/11/20 10:49 IMPRESSION: Clear lungs. Chest CTA 06/11/20 12:39 IMPRESSION: 1. No pulmonary embolism or other acute intrathoracic abnormality. 2. There appears to be mild dilatation of the left intrahepatic ducts. This is increased from prior. Of note, prior ultrasound from 01/23/2017 showed biliary ductal dilatation with cholelithiasis. VTE: negative Assessment and Plan (1) Acute pericarditis: Qualifiers: Pericarditis type: associated with rheumatoid arthritis Qualified Code(s): I30.9 - Acute pericarditis, unspecified; M06.9 - Rheumatoid arthritis, unspecified Status: Acute (2) Rheumatoid arthritis: Qualifiers: Rheumatoid arthritis location: multiple sites Rheumatoid factor presence: unspecified presence Qualified Code(s): M06.9 - Rheumatoid arthritis, unspecified Status: Acute Labs show elevated CRP and sed rate. EKG changes are bit more pronounced than last study. Possibly pericarditic pain related to autoimmune disease. Need to discuss with rheumatology about her regimen. May need immunosuppressive therapy. Can consider resuming her on colchicine and keeping her long-term. Check echocardiogram for pericardial effusion. She had a small effusion in prior study at [facility] but no tamponade physiology.
[2020-06-12] MEDS: predniSONE 10 MG TABLET 30 MG PO (11:34)
[2020-06-12] MEDS: Famotidine 20 MG TABLET PO (11:35)
[2020-06-12] MEDS: Hydroxychloroquine Sulfate 200 MG TABLET PO (11:35)
--- NOTE | 2020-06-12 13:15 | HO.PM.IMPN ---
Subjective Subjective Date of Service: 06/12/20 Interval History: pain better today Cardiovascular Cardiovascular: Reports no additional cardiovascular complaints Respiratory Respiratory: Reports no additional respiratory complaints Physical Exam Vital Signs: Vital Signs: Last Vital Signs Temp 97.8 F 06/12/20 11:53 Pulse 68 06/12/20 11:53 Resp 16 06/12/20 11:53 BP 104/67 06/12/20 11:53 Pulse Ox 98 06/12/20 11:53 Body Mass Index 21.9 General: AO X 3, no acute distress Resp: CTA bilateral CVS: S1,S2,RRR GI: soft, non tender, non distended Neuro: motor grossly intact Psych: appropriate affect Objective Data Current Medications Generic Name Dose Route Start Last Admin Trade Name Freq PRN Reason Stop Dose Admin Famotidine 20 mg 06/12/20 09:00 06/12/20 11:35 Famotidine 20 Mg Tablet PO 20 mg DAILY RUPERTO Administration Hydroxychloroquine Sulfate 200 mg 06/12/20 09:00 06/12/20 11:35 Hydroxychloroquine Sulfate 200 Mg Tablet PO 200 mg DAILY RUPERTO Administration Ibuprofen 800 mg 06/12/20 03:41 06/12/20 04:28 Ibuprofen 800 Mg Tablet PO 800 mg Q8H PRN Administration Breakthrough Pain Ondansetron HCl 4 mg 06/11/20 17:41 Ondansetron Hcl 4 Mg/2 Ml Vial IVPUSH Q8H PRN Nausea and Vomiting Pharmacy Consult 1 each 06/11/20 16:21 Consult Rx Perform Med Rec MISCELLANE ONCE PRN Consult order Prednisone 40 mg 06/13/20 09:00 Prednisone 20 Mg Tablet PO DAILY RUPERTO Sodium Chloride 3 ml 06/12/20 00:00 06/12/20 08:12 0.9 % Sodium Chloride Flush 3 Ml Syringe IVFLUSH 3 ml QSHIFT RUPERTO Administration Labs CBC & Chem 7: 06/12/20 05:56 06/12/20 05:56 Assessment and Plan (1) Rheumatoid arthritis: Status: Acute (2) Acute pericarditis: Status: Acute (3) Pericarditis: Status: Acute (4) Mixed connective tissue disease: Status: Acute Assessment and Plan: 19F presented with chest pain and body aches mixed connective tissue diseaes with flare and recurrent acute pericarditis prednisone 40mg daily plaquenil echo discussed with dr. link (rheumatology), continue prednisone on discharge once better and follow up, may start back on rituxin.
--- NOTE | 2020-06-12 14:28 | MHC.CM.PN ---
EMR REVIEWED, CM MET WITH PT WHO IS ALERT AND ORIENTED, REPORTS SHE LIVES WITH HER MOM, PT IS INDEPENDENT WITH ALL CARE AND HAS NO DME OR HOME SERVICES. 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 PT REPORTS SHE HAD NO APPT FOR CARDIOLOGY AND HAS AN APPT WITH DR. RAMOS ON 06/18/20. 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 DISCHARGE PLAN: HOME SELF-CARE, MOTHER TO TRANSPORT MOTHER RUDI GOLDSTEIN [phone] RHEUMATOLOGY: DR RAMOS
--- NOTE | 2020-06-12 15:15 | CA_ITS ---
Transthoracic Echocardiogram Patient (Last, First, Middle): Gwendolyn Zuñiga, Gender: Female Date of : 2000 Age: 19 Procedure Date: 06/12/2020 Procedure Type: Transthoracic Echocardiogram Location: ER Height: 154.94 cm Weight: 52.62 kg BSA: 1.50 m2 Heart Rate: bpm BP: 107 / 69 mmHg [employer] Permit Agent: NANCY Referring MD: Tia SOLIS Symptoms: chest pain, new EKG changes, pericarditis vs myocarditis Study Quality: Good ECG Rhythm: Sinus Conclusions: - The left ventricular systolic function is normal. The visually estimated ejection fraction is between 60-65%. - There is mild tricuspid valve regurgitation. - There is no evidence of pericardial effusion. Findings Left Ventricle Normal left ventricular cavity size. There is normal left ventricular wall thickness. The left ventricular systolic function is normal. The visually estimated ejection fraction is between 60-65%. There is no evidence of regional wall motion abnormalities. Diastolic function is normal for age. Right Ventricle Normal right ventricular cavity size and systolic function. Atria Both atria are normal in size. Aortic Valve There is a normal trileaflet aortic valve. There is no aortic valve stenosis. There is no aortic valve regurgitation. Mitral Valve The mitral valve appears normal. There is trace mitral valve regurgitation. There is no mitral valve stenosis. Pulmonic Valve The pulmonic valve was not well visualized. There is trace pulmonic valve regurgitation. Tricuspid Valve Normal tricuspid valve structure. There is mild tricuspid valve regurgitation. The pulmonary artery systolic pressure is normal. Great Vessels The aortic annulus, sinuses of valsalva, and asc aorta are normal in size. Venous The inferior vena cava is normal in size and collapses greater than 50% with inspiration. Pericardium/Pleural There is no evidence of pericardial effusion. Prior Study Comparison No prior study available for comparison. Measurements 2D Linear Measurements IVSd: 0.93 0.6-0.9/0.6-1.0 cm LVIDd: 4.02 3.9-5.3/4.2-5.9 cm LVIDd Index: 2.68 2.4-3.2/2.2-3.1 cm/m2 LVIDs: 2.47 2.0-3.6 cm LVPWd: 0.89 0.7-1.1 cm Ao Root: 2.80 2.1-3.5 cm LA Diam: 2.50 2.7-3.8/3.0-4.0 cm LAIDs Index: 1.67 1.5-2.3 cm/m2 LV Mass: 139.69 67-162/88-224 g LV Mass Index: 93.12 43-95/49-115 g/m2 LVOT Diam: 2.00 3.0+(-)1.3 cm 2D Systolic Function EF 4C: 61.90 >55% EF 2C: 64.10 >55% EF BiP: 62.70 >55% Mitral Valve MV Pk E: 0.99 MV PK A: 0.61 MV Decel Time: 187.00 E/A: 1.60 E'Lateral: 11.30 E'Medial: 9.25 E/E' Med: 10.60 E/E' Lat: 8.70 PHT: 55.00 MVA PHT: 4.00 Decel [place]: 5.28 Aortic Valve AoV Pk Marc: 1.13 AoV Mn Marc: 0.71 AoV VTI: 0.23 AoV Pk Grad: 5.00 Aov Mn Grad: 2.00 INNA Cont.VTI: 2.67 LVOT LVOT Pk Marc: 0.91 LVOT Mn Marc: 0.61 LVOT VTI: 0.20 LVOT Pk Grad: 3.00 LVOT Mn Grad: 2.00 LVOT Diam: 2.00 LVOT Area: 3.14 Diastolic Function MV Pk E: 0.99 MV Pk A: 0.61 E/A: 1.60 E'Medial: 9.25 E/E' Med: 10.60 E' Laterial: 11.30 E/E' Lat: 8.70 Tricuspid Valve TR Pk Marc: 2.12 TR Pk Grad: 18.00 RA Press: 3.00 RVSP: 21.00 Great Vessels Aorta Ao Root-2D: 2.80 2.0-3.7 cm Ao Asc: 2.50 2.1-3.4 cm Ao Arch: 2.10 Updated in Other Vendor System with Status of Final Maximiliano Figueroa MD electronically signed on 06/12/2020 3:30:18 PM with status of Final
--- NOTE | 2020-06-12 18:00 | PC.NURSE ---
pt states she would rather be home in a more comfortable bed and if the md is only going to be giving her motrin for her 8/10 pain with is not effective she can be taking that at home dr. levine aware.
--- NOTE | 2020-06-12 18:18 | P.DS_ITS ---
DS: Providers Provider Date of Service: 06/12/20 Date of admission: 06/11/20 17:41 Primary care physician: Pamela Barakat DO Consults: 06/11/20 15:16 Consult to Cardiology Stat Consulting Provider: Maximiliano Figueroa Reason for consultation: pericarditis vs myocarditis Has provider been notified: Yes 06/11/20 17:43 Consult to Cardiology Routine Consulting Provider: Maximiliano Figueroa Reason for consultation: pericarditis Has provider been notified: No DS: Diagnosis Discharge Diagnosis (1) Rheumatoid arthritis: Status: Acute (2) Acute pericarditis: Status: Acute (3) Pericarditis: Status: Acute (4) Mixed connective tissue disease: Status: Acute DS: Medications Discharge Medications Home Medications: Home Medications Medication Instructions Recorded Confirmed hydroxychloroquine [Plaquenil] 200 mg PO DAILY 06/11/20 06/11/20 Previous Rx's Medication Instructions Recorded oxycodone 5 mg PO Q8H PRN #7 cap 06/12/20 prednisone 40 mg PO DAILY #28 tab 06/12/20 DS: Summary Hospital Course Hospital Course: patient was admitted for acute pericarditis due to mixed connective tissue disease. she was given prednisone and continued on plaquenil. her pain improved. echo was unremarkable. she will be discharged on prednisone 40mg daily and should follow up with rheumatology for further management. Time Spent with Patient Time attestation: Total time spent providing and/or coordinating discharge services: Discharge coordination time: Greater than 30 minutes Physical Exam Vital Signs: Vital Signs: Last Vital Signs Temp 97.7 F 06/12/20 17:56 Pulse 67 06/12/20 17:56 Resp 15 06/12/20 17:56 BP 113/75 06/12/20 17:56 Pulse Ox 100 06/12/20 17:56 Body Mass Index 21.9 General: AO X 3, no acute distress Resp: CTA bilateral CVS: S1,S2,RRR GI: soft, non tender, non distended Neuro: motor grossly intact Psych: appropriate affect DS: Data Data Completed and Pending Labs on day of discharge: Laboratory Tests 06/11/20 06/11/20 06/11/20 11:10 11:10 11:10 WBC 3.3 L RBC 5.12 Hgb 11.8 L Hct 38.5 MCV 75.2 L MCH 23.0 L MCHC 30.6 L RDW 14.7 Plt Count 378 MPV 11.6 Immature Gran % (Auto) 1.8 H Neut % (Auto) 67.4 Lymph % (Auto) 23.2 [place] % (Auto) 6.7 Eos % (Auto) 0.9 Baso % (Auto) 0.0 Lymph # (Auto) 0.8 L [place] # (Auto) 0.2 Eos # (Auto) 0.0 Baso # (Auto) 0.0 Abs Immat Gran (auto) 0.06 H Absolute Neuts (auto) 2.2 Absolute Nucleated RBC 0.000 Nucleated RBC % (auto) 0.0 Smear Tech's Comments ESR 43 H Sodium 137 Potassium 3.4 Chloride 105 Carbon Dioxide 24 Anion Gap 11 L BUN 8 L Creatinine 0.64 Estim Creat Clear Calc 106.7 Estimated GFR > 60 Random Glucose 93 Calcium 8.4 Total Bilirubin 0.9 Direct Bilirubin 0.5 AST 63 H ALT 61 H Alkaline Phosphatase 74 Troponin I High Sens C-Reactive Protein 2.08 H Total Protein 7.9 Albumin 3.6 Urine Color Urine Appearance Urine pH Ur Specific [place] Urine Protein Urine Glucose (UA) Urine Ketones Urine Blood Urine Nitrite Ur Leukocyte Esterase Urine Test COVID-19 ([facility]) COVIDFoodfly 06/11/20 06/11/20 06/11/20 11:10 11:30 11:35 WBC RBC Hgb Hct MCV MCH MCHC RDW Plt Count MPV Immature Gran % (Auto) Neut % (Auto) Lymph % (Auto) [place] % (Auto) Eos % (Auto) Baso % (Auto) Lymph # (Auto) [place] # (Auto) Eos # (Auto) Baso # (Auto) Abs Immat Gran (auto) Absolute Neuts (auto) Absolute Nucleated RBC Nucleated RBC % (auto) Smear Tech's Comments ESR Sodium Potassium Chloride Carbon Dioxide Anion Gap BUN Creatinine Estim Creat Clear Calc Estimated GFR Random Glucose Calcium Total Bilirubin Direct Bilirubin AST ALT Alkaline Phosphatase Troponin I High Sens < 3.5 C-Reactive Protein Total Protein Albumin Urine Color NADIA Urine Appearance HAZY Urine pH 6.5 Ur Specific [place] 1.020 Urine Protein NEG Urine Glucose (UA) NEG Urine Ketones NEG Urine Blood NEG Urine Nitrite NEG Ur Leukocyte Esterase NEG Urine Test NEGATIVE COVID-19 ([place]) COVID[employer]fly 06/11/20 06/12/20 06/12/20 17:53 05:56 05:56 WBC 4.1 L RBC 4.82 Hgb 11.0 L Hct 36.6 L MCV 75.9 L MCH 22.8 L MCHC 30.1 L RDW 14.7 Plt Count 393 MPV 12.4 H Immature Gran % (Auto) 0.7 H Neut % (Auto) 74.7 H Lymph % (Auto) 15.1 L [place] % (Auto) 8.8 Eos % (Auto) 0.5 Baso % (Auto) 0.2 Lymph # (Auto) 0.6 L [place] # (Auto) 0.4 Eos # (Auto) 0.0 Baso # (Auto) 0.0 Abs Immat Gran (auto) 0.03 Absolute Neuts (auto) 3.1 Absolute Nucleated RBC 0.000 Nucleated RBC % (auto) 0.0 Smear Tech's Comments VERIFIED ESR Sodium 139 Potassium 3.8 Chloride 107 Carbon Dioxide 24 Anion Gap 12 BUN 13 D Creatinine 0.64 Estim Creat Clear Calc 106.7 Estimated GFR > 60 Random Glucose 90 Calcium 8.2 L Total Bilirubin Direct Bilirubin AST ALT Alkaline Phosphatase Troponin I High Sens C-Reactive Protein Total Protein Albumin Urine Color Urine Appearance Urine pH Ur Specific [place] Urine Protein Urine Glucose (UA) Urine Ketones Urine Blood Urine Nitrite Ur Leukocyte Esterase Urine Test COVID-19 ([facility]) Negative COVID-19 Clin Com See Note Discharge Plan Discharge Patient Disposition: Home, Self-Care Referrals: Kika Diaz MD [Physician] - 1 Week Pamela Barakat DO [Primary Care Provider] - Discharge Medications: New prednisone 20 mg Tablet 40 mg PO DAILY Qty: 28 RF: 0 oxycodone 5 mg capsule 5 mg PO Q8H PRN (Reason: pain) Qty: 7 RF: 0 Continued hydroxychloroquine [Plaquenil] 200 mg Tablet 200 mg PO DAILY RF: 0 Discharge Orders: Discharge Order (Routine); Ordered 06/12/20 Ordered By: David Jj Activity on Discharge: As tolerated Stand Alone Forms: Patient Portal Discharge page, Work/School Release Visit Report Forms: Patient Portal Discharge page Care Plan Goals: recovery Health Concerns: mixed connective tissue disease pericarditis Plan of Treatment: prednisone
== END 2020-06-12 19:00 | disposition home or self-care (01) | DRG 207 ==
LOC: HO.ED 16:23 → HO.EDOVER 17:53
PROVIDERS: Nurse Practitioner Acute Care; Nurse Practitioner Family; Physician Assistant; Admitting Provider Internal Medicine; Emergency Provider Emergency Medicine; PCP Pediatrics; Visit Provider Internal Medicine
DX: I30.9 Acute pericarditis, unspecified (principal); M35.1 Other overlap syndromes; M06.9 Rheumatoid arthritis, unspecified; Z20.822 Contact with and (suspected) exposure to COVID-19; Z79.899 Other long term (current) drug therapy
CPT/HCPCS: 36415; 71046; 71275; 80048; 80076; 81003; 81025; 84484; 85025; 85652; 86140; 87635; 93005; 93306; 96374; 96375; 99284; 99285; J1885; J2270; Q9967

== ENCOUNTER 2020-06-13 07:31 | Outpatient (REF) | payer MEDICAID, SELFPAY | END 2020-06-13 07:32 | disposition home or self-care (01) | LOC: HO.LAB 07:31 | PROVIDERS: PCP Pediatrics; Visit Provider Internal Medicine | DX: Z20.822 Contact with and (suspected) exposure to COVID-19 (principal) | CPT/HCPCS: 36415; C9803; U0003; U0005 ==

== ENCOUNTER 2020-06-18 13:44 | Outpatient (REF) | payer MEDICAID, SELFPAY ==
[2020-06-18 15:07] LABS: Basophils Percent Auto 0.3 % (0-2); Hematocrit 39.9 % (37-47); Hemoglobin 11.8 g/dl (12.0-16.0); Imm Gran Abs Auto 0.13 X10*3/uL (0.00-0.03); Imm Gran Pct Auto 1.9 % (0.0-0.4); Lymphocytes Absolute Auto 0.5 X10*3/uL (1.2-4.9); MANUAL DIFF FLAG SCAN; Mean Corpuscular HGB Conc 29.6 g/dl (31.0-35.0); Mean Corpuscular Volume 77.6 fL (80-98); Mean Platelet Volume 11.4 fL (9.4-12.3); Monocytes Absolute Auto 0.1 X10*3/uL (0.1-1.2); Monocytes Percent Auto 2.1 % (2-11); Neutrophils Absolute Auto 5.9 X10*3/uL (2.0-8.3); Neutrophils Percent Auto 87.7 % (45-73); Platelet Count 514 X10*3/uL (160-400); Red Blood Count 5.14 X10*6/uL (4.20-5.50); Red Cell Distribution Width 15.8 % (11.0-16.0); SCAN SMEAR FLAG 1; White Blood Count 6.8 X10*3/uL (4.8-10.8)
[2020-06-18 15:28] LABS: Alanine Aminotransferase 56 U/L (0-31); Albumin Level 3.9 g/dL (3.5-5.0); Alkaline Phosphatase 66 U/L (39-117); Anion Gap 13 (12-20); Aspartate Amino Transferase 37 U/L (5-31); Bilirubin Total 0.5 mg/dL (0.0-1.0); Blood Urea Nitrogen 16 mg/dL (9-16); C Reactive Protein 0.18 mg/dL (< or = 0.50); Calcium 9.2 mg/dL (8.4-10.2); Carbon Dioxide 29 mmol/L (22-29); Chloride 104 mmol/L (96-108); Estimated Glomerular Filt Rate > 60; Glucose Random 116 mg/dL (60-115); Potassium 3.9 mmol/L (3.3-5.1); Sodium 142 mmol/L (135-145)
[2020-06-18 15:37] LABS: SLIDE REVIEW VERIFIED
[2020-06-18 16:06] LABS: Erythrocyte Sedimentation Rate 25 MM/HR (0-20)
[2020-06-18 17:23] LABS: Glucose Urine UA NEG (NEG); Leukocyte Esterase Urine NEG (NEG); Nitrite Urine NEG (NEG); Specific Gravity - Urine 1.025 (1.005-1.025); Urine Blood NEG (NEG); Urine Ketones NEG (NEG); Urine Protein NEG (NEG-TRACE)
[2020-06-18 17:48] LABS: Creatinine Urine 115.06 mg/dL; Total Protein Urine Random 11 mg/dL (<12)
[2020-06-18 17:56] LABS: Appearance Urine CLEAR; Color Urine YELLOW
[2020-06-18 17:57] LABS: Bacteria Urine 2+ /LPF; RBC Urine 0 /HPF (0); Squamous Epithelial Cell Urine 2+ /LPF
[2020-06-19 03:54] LABS: HBsAGNum1 0.18 S/CO (0.00-0.99); Hepatitis B Surface Antigen Negative (Negative)
[2020-06-19 04:08] LABS: HBS Num1 0.02 mIU/mL (0-7.99); HBc Num1 0.17 S/CO (0.00-0.79); Hepatitis A Antibody IgM 0.13 Index (0-0.79); Hepatitis B Core Antibody Nonreactive (Nonreactive); ~HepC Num1 0.13 S/CO (0.00-0.79); ~Hepatitis A Antibody IgM Nonreactive (Nonreactive); ~Hepatitis B Surface Antibody NONREACTIVE (Nonreactive); ~Hepatitis C Antibody Nonreactive (Nonreactive)
[2020-06-19 12:12] LABS: IgA 408 mg/dL (47-310); IgG 2450 mg/dL (600-1640); IgM 159 mg/dL (50-300)
[2020-06-19 12:32] LABS: Complement C3 78 mg/dL (83-193)
[2020-06-19 12:58] LABS: Anti DNA DS Antibody 52 IU/mL
== END 2020-06-18 13:45 | disposition home or self-care (01) ==
LOC: HO.LAB 13:44
PROVIDERS: PCP Pediatrics; Visit Provider Student in an Organized Health Care Education/Training Program
DX: M35.1 Other overlap syndromes (principal); M05.9 Rheumatoid arthritis with rheumatoid factor, unspecified; K75.4 Autoimmune hepatitis; Z79.52 Long term (current) use of systemic steroids; Z79.899 Other long term (current) drug therapy
CPT/HCPCS: 36415; 80053; 81001; 82784; 84156; 85025; 85652; 86140; 86160; 86225; 86704; 86706; 86709; 86803; 87340; 99212

== ENCOUNTER 2020-09-17 12:53 | Outpatient (REF) | payer MEDICAID, SELFPAY ==
[2020-09-17 14:23] LABS: Basophils Percent Auto 0.4 % (0-2); Eosinophils Percent Auto 0.8 % (0-4); Hematocrit 45.8 % (37-47); Hemoglobin 13.7 g/dl (12.0-16.0); Imm Gran Abs Auto 0.16 X10*3/uL (0.00-0.03); Lymphocytes Absolute Auto 0.5 X10*3/uL (1.2-4.9); Lymphocytes Percent Auto 9.6 % (20-40); MANUAL DIFF FLAG SCAN; Mean Corpuscular HGB Conc 29.9 g/dl (31.0-35.0); Mean Corpuscular Hemoglobin 23.2 pg (27.0-33.0); Mean Corpuscular Volume 77.6 fL (80-98); Monocytes Absolute Auto 0.3 X10*3/uL (0.1-1.2); Monocytes Percent Auto 5.7 % (2-11); Neutrophils Absolute Auto 4.3 X10*3/uL (2.0-8.3); Neutrophils Percent Auto 80.5 % (45-73); Platelet Count 311 X10*3/uL (160-400); Red Cell Distribution Width 15.1 % (11.0-16.0); SCAN SMEAR FLAG 1; White Blood Count 5.3 X10*3/uL (4.8-10.8)
[2020-09-17 14:46] LABS: Alanine Aminotransferase 21 U/L (0-31); Albumin Level 3.8 g/dL (3.5-5.0); Alkaline Phosphatase 58 U/L (39-117); Anion Gap 11 (12-20); Aspartate Amino Transferase 21 U/L (5-31); Bilirubin Total 0.6 mg/dL (0.0-1.0); Blood Urea Nitrogen 14 mg/dL (9-16); C Reactive Protein 0.31 mg/dL (< or = 0.50); Calcium 8.7 mg/dL (8.4-10.2); Carbon Dioxide 26 mmol/L (22-29); Chloride 106 mmol/L (96-108); Estimated Glomerular Filt Rate > 60; Glucose Random 93 mg/dL (60-115); Potassium 3.9 mmol/L (3.3-5.1); Sodium 139 mmol/L (135-145); Total Protein 6.9 g/dL (6.5-8.0)
[2020-09-17 15:01] LABS: SLIDE REVIEW VERIFIED
[2020-09-17 15:25] LABS: Glucose Urine UA NEG (NEG); Leukocyte Esterase Urine NEG (NEG); Nitrite Urine NEG (NEG); Specific Gravity - Urine 1.025 (1.005-1.025); Urine Blood NEG (NEG); Urine Ketones NEG (NEG); Urine Protein NEG (NEG-TRACE)
[2020-09-17 15:28] LABS: Appearance Urine HAZY; Color Urine YELLOW
[2020-09-17 15:39] LABS: Erythrocyte Sedimentation Rate 8 MM/HR (0-20)
[2020-09-17 16:06] LABS: RBC Urine 0-2 /HPF (0); WBC Urine 0-2 /HPF (0-4)
[2020-09-17 16:07] LABS: Mucus Urine 2+ /LPF
[2020-09-18 12:21] LABS: Anti DNA DS Antibody 15 IU/mL; SM/Ribonucleoprotein Ab >8.0 POS AI (<1.0 NEG); Smith Protein 1.8 POS AI (<1.0 NEG)
[2020-09-18 12:47] LABS: Complement C3 103 mg/dL (83-193)
== END 2020-09-17 12:54 | disposition home or self-care (01) ==
LOC: HO.LAB 12:53
PROVIDERS: PCP Pediatrics; Visit Provider Student in an Organized Health Care Education/Training Program
DX: M35.1 Other overlap syndromes (principal); M06.9 Rheumatoid arthritis, unspecified; K75.4 Autoimmune hepatitis
CPT/HCPCS: 36415; 80053; 81001; 85025; 85652; 86140; 86160; 86225; 86235; 99212

== ENCOUNTER → 2020-11-04 12:40 | Outpatient (BNVA) | payer MEDICAID, SELFPAY | PROVIDERS: PCP Pediatrics; Referring Provider Pediatrics; Visit Provider Physician Assistant | DX: K75.4 Autoimmune hepatitis (principal) | CPT/HCPCS: 99212 ==

== ENCOUNTER 2020-11-05 09:06 | Outpatient (REF) | payer MEDICAID, SELFPAY ==
--- NOTE | ~2020-11-05 | XR_ITS ---
EXAMINATION: XR LUMBOSACRAL SPINE CLINICAL INFORMATION: Lupus COMPARISON: January 23, 2015 TECHNIQUE: Three views of the lumbosacral spine. FINDINGS: There are 5 nonrib bearing lumbar vertebra. Disc spaces are maintained. No acute fracture, spondylolisthesis, or spondylolysis identified. Pedicles intact. Sacroiliac joints unremarkable. XR/XR lumbar spine 2-3V IMPRESSION: No significant bony abnormality of the lumbar spine identified.
[2020-11-05 10:10] LABS: MANUAL DIFF FLAG NO
[2020-11-05 10:19] LABS: Basophils Percent Auto 0.2 % (0-2); Eosinophils Absolute Auto 0.1 X10*3/uL (0.0-0.4); Eosinophils Percent Auto 1.4 % (0-4); Hematocrit 40.4 % (37-47); Hemoglobin 12.1 g/dl (12.0-16.0); Lymphocytes Absolute Auto 1.1 X10*3/uL (1.2-4.9); Lymphocytes Percent Auto 21.7 % (20-40); Mean Corpuscular Hemoglobin 23.4 pg (27.0-33.0); Mean Corpuscular Volume 78.3 fL (80-98); Mean Platelet Volume 10.4 fL (9.4-12.3); Monocytes Absolute Auto 0.5 X10*3/uL (0.1-1.2); Monocytes Percent Auto 10.1 % (2-11); Neutrophils Absolute Auto 3.1 X10*3/uL (2.0-8.3); Neutrophils Percent Auto 62.6 % (45-73); Platelet Count 345 X10*3/uL (160-400); Red Blood Count 5.16 X10*6/uL (4.20-5.50); Red Cell Distribution Width 14.8 % (11.0-16.0)
[2020-11-05 10:35] LABS: Alanine Aminotransferase 13 U/L (0-31); Albumin Level 3.7 g/dL (3.5-5.0); Alkaline Phosphatase 53 U/L (39-117); Anion Gap 11 (12-20); Aspartate Amino Transferase 15 U/L (5-31); Bilirubin Total 0.5 mg/dL (0.0-1.0); Blood Urea Nitrogen 13 mg/dL (9-16); Calcium 8.5 mg/dL (8.4-10.2); Carbon Dioxide 25 mmol/L (22-29); Chloride 108 mmol/L (96-108); Estimated Glomerular Filt Rate > 60; Glucose Random 93 mg/dL (60-115); Potassium 3.5 mmol/L (3.3-5.1); Sodium 140 mmol/L (135-145); Total Protein 6.7 g/dL (6.5-8.0)
[2020-11-05 11:24] LABS: Erythrocyte Sedimentation Rate 13 MM/HR (0-20)
[2020-11-06 04:30] LABS: HBS Num1 0.96 mIU/mL (0-7.99); HBc Num1 0.25 S/CO (0.00-0.79); HBsAGNum1 0.19 S/CO (0.00-0.99); Hepatitis A Antibody IgM 0.18 Index (0-0.79); Hepatitis B Core Antibody Nonreactive (Nonreactive); Hepatitis B Surface Antigen Negative (Negative); ~Hepatitis A Antibody IgM Nonreactive (Nonreactive); ~Hepatitis B Surface Antibody NONREACTIVE (Nonreactive)
[2020-11-06 04:39] LABS: ~HepC Num1 0.07 S/CO (0.00-0.79); ~Hepatitis C Antibody Nonreactive (Nonreactive)
[2020-11-06 11:31] LABS: Complement C3 72 mg/dL (83-193)
[2020-11-06 14:27] LABS: Anti DNA DS Antibody 17 IU/mL
[2020-11-08 14:27] LABS: TS Negative Control Passed; TS Panel A 1; TS Panel B 0; TS Positive Control Passed; TSpotTB Negative (SeeBelow)
== END 2020-11-05 09:07 | disposition home or self-care (01) ==
LOC: HO.XRAY 09:06
PROVIDERS: PCP Pediatrics; Visit Provider Student in an Organized Health Care Education/Training Program
DX: Z01.84 Encounter for antibody response examination (principal); Z11.59 Encounter for screening for other viral diseases; M35.1 Other overlap syndromes; M06.9 Rheumatoid arthritis, unspecified; M54.5 Low back pain; K75.4 Autoimmune hepatitis; Z79.899 Other long term (current) drug therapy
CPT/HCPCS: 36415; 72100; 80053; 85025; 85652; 86140; 86160; 86225; 86481; 86704; 86706; 86709; 86803; 87340; 99212

== ENCOUNTER 2020-12-24 15:10 | Outpatient (REF) | payer MEDICAID, SELFPAY ==
[2020-12-24 16:29] LABS: Glucose Urine UA NEG (NEG); Leukocyte Esterase Urine NEG (NEG); Nitrite Urine NEG (NEG); Specific Gravity - Urine >= 1.030 (1.005-1.025); Urine Blood NEG (NEG); Urine Ketones NEG (NEG); Urine Protein NEG (NEG-TRACE)
[2020-12-24 16:31] LABS: Appearance Urine CLEAR; Color Urine YELLOW
[2020-12-24 16:32] LABS: MANUAL DIFF FLAG NO
[2020-12-24 16:41] LABS: Basophils Percent Auto 0.3 % (0-2); Hematocrit 41.6 % (37-47); Hemoglobin 12.5 g/dl (12.0-16.0); Imm Gran Abs Auto 0.18 X10*3/uL (0.00-0.03); Imm Gran Pct Auto 2.6 % (0.0-0.4); Lymphocytes Absolute Auto 0.4 X10*3/uL (1.2-4.9); Lymphocytes Percent Auto 5.7 % (20-40); Mean Corpuscular Hemoglobin 23.1 pg (27.0-33.0); Mean Corpuscular Volume 76.9 fL (80-98); Mean Platelet Volume 10.5 fL (9.4-12.3); Monocytes Absolute Auto 0.3 X10*3/uL (0.1-1.2); Monocytes Percent Auto 3.7 % (2-11); Neutrophils Percent Auto 87.7 % (45-73); Platelet Count 340 X10*3/uL (160-400); Red Blood Count 5.41 X10*6/uL (4.20-5.50); Red Cell Distribution Width 14.7 % (11.0-16.0); White Blood Count 6.8 X10*3/uL (4.8-10.8)
[2020-12-24 17:12] LABS: Alanine Aminotransferase 28 U/L (0-31); Alkaline Phosphatase 61 U/L (39-117); Anion Gap 14 (12-20); Aspartate Amino Transferase 20 U/L (5-31); Bilirubin Total 0.5 mg/dL (0.0-1.0); Blood Urea Nitrogen 16 mg/dL (9-16); Calcium 8.9 mg/dL (8.4-10.2); Carbon Dioxide 21 mmol/L (22-29); Chloride 107 mmol/L (96-108); Estimated Glomerular Filt Rate > 60; Glucose Random 133 mg/dL (60-115); Sodium 138 mmol/L (135-145); Total Protein 7.4 g/dL (6.5-8.0)
[2020-12-24 19:21] LABS: Amorphous Sediment Urine 3+ /LPF; RBC Urine 0 /HPF (0); Squamous Epithelial Cell Urine 2+ /LPF; WBC Urine 0 /HPF (0-4)
== END 2020-12-24 15:11 | disposition home or self-care (01) ==
LOC: HO.LAB 15:10
PROVIDERS: Visit Provider Student in an Organized Health Care Education/Training Program
DX: M35.1 Other overlap syndromes (principal)
CPT/HCPCS: 36415; 80053; 81001; 85025

== ENCOUNTER → 2020-12-25 13:53 | Outpatient (BNVA) | payer MEDICAID, SELFPAY | PROVIDERS: PCP Pediatrics; Visit Provider Student in an Organized Health Care Education/Training Program | DX: M06.9 Rheumatoid arthritis, unspecified (principal); M35.1 Other overlap syndromes; M32.9 Systemic lupus erythematosus, unspecified; K75.4 Autoimmune hepatitis; Z79.52 Long term (current) use of systemic steroids; Z79.899 Other long term (current) drug therapy | CPT/HCPCS: 99212 ==

== ENCOUNTER 2021-09-14 16:56 | Emergency (ER) | payer MEDICAID, SELFPAY ==
--- NOTE | 2021-09-14 17:18 | PC.NURSE ---
no repsonse for triage call at this time
== END 2021-09-14 21:19 | disposition left against medical advice (07) ==
PROVIDERS: Emergency Provider Emergency Medicine; PCP Nurse Practitioner
DX: R10.30 Lower abdominal pain, unspecified (principal)

== ENCOUNTER 2021-10-21 15:28 | Outpatient (REF) | payer MEDICAID, SELFPAY ==
--- NOTE | ~2021-10-21 | XR_ITS ---
EXAMINATION: XR ANKLE, LEFT CLINICAL INFORMATION: Left lateral posterior ankle pain after rolling injury COMPARISON: Left ankle radiograph from 02/16/2014 TECHNIQUE: AP, lateral, and mortise views of the left ankle. FINDINGS: No acute visible fracture or dislocation. Ankle mortise is symmetric. Joint spaces and alignment are maintained. No large ankle joint effusion. Soft tissue prominence about the ankle. XR/XR ankle LT min 3V IMPRESSION: 1. No acute visible fracture or dislocation. 2. Soft tissue prominence about the ankle.
== END 2021-10-21 15:29 | disposition home or self-care (01) ==
LOC: HO.XRAY 15:28
PROVIDERS: PCP Nurse Practitioner; Visit Provider Emergency Medicine
DX: M25.472 Effusion, left ankle (principal); M25.572 Pain in left ankle and joints of left foot
CPT/HCPCS: 73610

== ENCOUNTER 2022-12-30 18:46 | Outpatient (REF) | payer MEDICAID, SELFPAY ==
[2022-12-30 19:46] LABS: Influenza A PCR NEGATIVE (Negative); Influenza B PCR NEGATIVE (Negative); Resp Syncy Virus RNA Qual PCR NEGATIVE (Negative); SARS COV2 PCR INHOUSE POSITIVE (Negative)
== END 2022-12-30 18:47 | disposition home or self-care (01) ==
LOC: HO.LNP 18:46
PROVIDERS: Visit Provider Emergency Medicine
DX: Z20.822 Contact with and (suspected) exposure to COVID-19 (principal)
CPT/HCPCS: 0241U

== ENCOUNTER 2023-03-07 18:29 | Outpatient (REF) | payer MEDICAID, SELFPAY | END 2023-03-07 18:30 | disposition home or self-care (01) | LOC: HO.HHCLNP 18:29 | PROVIDERS: Visit Provider Emergency Medicine | DX: R10.9 Unspecified abdominal pain (principal) | CPT/HCPCS: 87086; 87088; 87186 ==

== ENCOUNTER 2023-06-12 11:27 | Emergency (ER) | payer MEDICAID, SELFPAY ==
--- NOTE | ~2023-06-12 | CT_ITS ---
EXAMINATION: CT ABDOMEN AND PELVIS WITH CONTRAST CLINICAL INFORMATION: Right lower quadrant pain and tenderness. COMPARISON: Abdomen ultrasound 01/23/2017. TECHNIQUE: Multidetector volumetric images were obtained from the superior aspect of the liver through the pubic symphysis following administration 85 mL of Omnipaque 350 intravenous contrast. Sagittal and coronal reformatted images were obtained on the technologist's workstation. Oral contrast: No This CT examination was performed using dose optimization techniques as appropriate, variously including the following: *Automated exposure control *Adjustment of mA and/or kV according to patient size (this includes techniques or standardized protocols for targeted exams where dose is matched to indication/reason for exam; i.e. extremities or head) *Use of iterative reconstruction technique DLP: 503 mGy-cm FINDINGS: LUNG BASES: The visualized lung bases are unremarkable. LIVER, GALLBLADDER, AND BILIARY TREE: The liver is normal in size, shape, and attenuation. No focal hepatic lesion or biliary ductal dilatation is present. The gallbladder is surgically absent.. PANCREAS: Unremarkable. SPLEEN: Unremarkable. ADRENAL GLANDS: Unremarkable. KIDNEYS AND URETERS: The kidneys are normal in size, shape, and attenuation. No hydronephrosis, hydroureter, or calculi seen. No perinephric stranding. BLADDER: Unremarkable. GASTROINTESTINAL TRACT: There is moderate stool and gas seen throughout the colon especially right lower quadrant without significant distention. The small bowel loops are normal caliber. Appendix is normal caliber. ABDOMINAL WALL: Tiny umbilical hernia containing fat. LYMPH NODES: Normal. VASCULAR: Unremarkable. PELVIC VISCERA: The uterus is anteverted and appears unremarkable. There is no free fluid or free air. OSSEOUS STRUCTURES: No aggressive lytic or sclerotic process seen. CT/CT abdomen pelvis w IV con IMPRESSION: 1. No acute intra-abdominal process seen. 2. Moderate constipation with stool most prominent in the right ascending colon and cecum. Appendix is normal. Fleischner guidelines were followed.
[2023-06-12 13:14] VITALS: BP 147/89; PULSE 97; RESP 18; TEMP 36.5; O2SAT 100; BMI 30.9
[2023-06-12 13:46] LABS: Basophils Percent Auto 0.2 % (0-2); Hematocrit 43.5 % (37.0-47.0); Hemoglobin 13.1 g/dl (12.0-16.0); Imm Gran Abs Auto 0.28 X10*3/uL (0.00-0.03); Imm Gran Pct Auto 2.3 % (0.0-0.4); Lymphocytes Absolute Auto 0.5 X10*3/uL (1.2-4.9); Lymphocytes Percent Auto 3.9 % (20-40); MANUAL DIFF FLAG SCAN; Mean Corpuscular HGB Conc 30.1 g/dl (31.0-35.0); Mean Corpuscular Hemoglobin 21.7 pg (27.0-33.0); Mean Corpuscular Volume 71.9 fL (80.0-98.0); Mean Platelet Volume 9.9 fL (9.4-12.3); Monocytes Absolute Auto 0.3 X10*3/uL (0.1-1.2); Monocytes Percent Auto 2.2 % (2-11); Neutrophils Absolute Auto 11.1 x10*3/uL (2.0-8.3); Neutrophils Percent Auto 91.4 % (45-73); Platelet Count 423 X10*3/uL (160-400); Red Blood Count 6.05 X10*6/uL (4.20-5.50); SCAN SMEAR FLAG 1; White Blood Count 12.1 X10*3/uL (4.8-10.8)
[2023-06-12 14:01] LABS: Alanine Aminotransferase 17 U/L (0-31); Albumin Level 3.9 g/dL (3.5-5.0); Alkaline Phosphatase 72 U/L (39-117); Anion Gap 14 (12-20); Aspartate Amino Transferase 16 U/L (5-31); Bilirubin Total 0.3 mg/dL (0.0-1.0); Blood Urea Nitrogen 12 mg/dL (9-16); Calcium 8.8 mg/dL (8.4-10.2); Carbon Dioxide 22 mmol/L (22-29); Chloride 109 mmol/L (96-108); Creatinine Clr Calc Pharmacy 108.5; Estimated Glomerular Filt Rate > 60; Glucose Random 119 mg/dL (60-115); Potassium 4.2 mmol/L (3.3-5.1); Sodium 141 mmol/L (135-145); Total Protein 7.6 g/dL (6.5-8.0)
[2023-06-12 14:04] LABS: SLIDE REVIEW VERIFIED
[2023-06-12 14:22] LABS: HCG Quantitative < 2 mIU/mL
--- NOTE | 2023-06-12 16:24 | ED.ABDPAIN ---
HPI - Abdominal Pain General Chief Complaint: Abdominal Pain Stated Complaint: Lower abd pain sent by [facility] Time Seen by Provider: 06/12/23 20:55 History of Present Illness HPI narrative: The patient is a 22-year-old female with a history of lupus on chronic prednisone who presents with 2 weeks of worsening right lower quadrant pain. This has not been associated with any nausea or vomiting or loss of appetite. It has not been associated with any change in bowel habits. She has not had any flank pain. She has had no dysuria. She has had some dyspareunia but no vaginal discharge. No fever, sweats, chills. The patient had a 6 months ago. She says she has not followed up recently with gynecology. She sees a vp project at [facility] in [place]. Related Data Previous Rx's Medication Instructions Recorded omeprazole 40 mg capsule,delayed 40 mg PO DAILY #30 caps 06/18/20 release cyclobenzaprine 5 mg tablet 5 mg PO BEDTIME PRN muscle spasm 11/05/20 #30 tabs hydroxychloroquine 200 mg tablet 200 mg PO DAILY #30 tabs 12/25/20 (Plaquenil) prednisone 20 mg tablet 20 mg PO DAILY #30 tabs 12/25/20 cephalexin 500 mg capsule 500 mg PO BID #10 caps 06/12/23 Allergies Allergy/AdvReac Type Severity Reaction Status Date / Time No Known Allergies Allergy Verified 12/25/20 13:58 Review of Systems Review of Systems Yes all other systems are reviewed and are negative COUNTS INCLUDE 234 BEDS AT THE [facility] Past Medical History Medical History (Updated 06/12/23 @ 23:47 by Kirk Castro MD) Screening for viral disease Encounter for testing for latent tuberculosis infection Systemic lupus Autoimmune hepatitis Mixed connective tissue disease Rheumatoid arthritis Surgical History Hx of cholecystectomy Hx of endoscopy History of colonoscopy Family History Family History Father Alive and well Mother Alive and well Social History Social History Household Members Other:: lives with mom and sisters Alcohol intake: never Patient Tobacco Use Status: Never used Tobacco Smoked in Last 30 Days: No Use of substances other than those prescribed or required for medical reasons: No Advance Directives: No Advance Directives Information Provided: No Patient : No service: No Current occupational status: employed Current occupation: [employer] Physical Exam ED Vital Signs: Vital Signs - 24 hr 06/12/23 13:14 06/12/23 16:45 06/12/23 23:27 Temperature 97.7 F 98.0 F 98.1 F Pulse Rate 97 70 76 Respiratory Rate 18 18 14 Blood Pressure 147/89 H 147/94 H 129/89 Pulse Oximetry 100 99 100 Oxygen Delivery Method Room Air Room Air Room Air BMI result Body Mass Index 30.9 Const Other: The patient has a cushingoid appearance. She is awake and alert. Pleasant cooperative. No obvious distress. HENMT Other: The patient has a cushingoid appearance to her face. Face is otherwise unremarkable. Face is symmetrical. Mucous membranes moist. Eyes Other: Pupils are round equal, conjunctivae are clear, extraocular movements intact Neck Other: Moving her neck easily Resp Effort & Inspection: normal respiratory effort Auscultation: clear to auscultation bilaterally Cardio Rate: regular rate Rhythm: regular rhythm Heart sounds: S1 normal heart sound present and S2 normal heart sound present GI Other: The patient has diffuse abdominal tenderness, most tender in the right lower quadrant. General: Yes no CVA tenderness Back/Spine/Pelvis Back: no CVA tenderness Skin Other: Pale and dry Neuro Other: Awake, alert, pleasant, normal mental status, grossly neurologically intact Extrem Other: No peripheral edema Course Course Course Narrative: This is an RME: Additional HPI, ROS, PE not included below will be deferred to primary provider. This is a 22-year-old female presenting to the emergency department for evaluation of abdominal pain x2 weeks. Patient states that the pain is right under her incision site from , delivered 6 months ago. Also reporting urinary frequency and urgency. No fevers or chills. Further ER evaluation needed. Plan: labs, UA Medical Decision Making Medical Decision Making MDM Narrative: Patient is a 22-year-old female with a history of lupus on chronic prednisone who presents with 2 weeks of right lower quadrant pain. She has a mild white count elevation but labs are otherwise unremarkable aside from a urinalysis which is potentially consistent with a urinary tract infection. The patient does not really have symptoms highly suggestive of urinary tract infection however. She has no CVA percussion tenderness on either side. She is tender in the right lower quadrant but her history is not highly suggestive of appendicitis. A CT scan of the abdomen and pelvis does not show any obvious acute abnormalities to explain the patient's symptoms. The initial reading of the CT scan did not comment on the patient's ovaries. I called Radiology and spoke to radiologist (not the radiologist with the original reading who had gone off duty) and was told that the ovaries are unremarkable. Given the unremarkable CT of the abdomen and pelvis in the patient's unremarkable labs (aside from the urinalysis) think the patient may be discharged. Patient will be put on a course of cephalexin in case she does have urinary tract infection which might account for her symptoms. She should follow up with regular doctor. She should also follow-up with her vp project. Lab Data 06/12/23 13:40 06/12/23 13:40 Labs: Lab Results 06/12/23 06/12/23 Range/Units 13:40 Unknown WBC 12.1 H (4.8-10.8) X10*3/uL RBC 6.05 H (4.20-5.50) X10*6/uL Hgb 13.1 (12.0-16.0) g/dl Hct 43.5 (37.0-47.0) % MCV 71.9 L (80.0-98.0) fL MCH 21.7 L (27.0-33.0) pg MCHC 30.1 L (31.0-35.0) g/dl RDW 19.0 H (11.0-16.0) % Plt Count 423 H (160-400) X10*3/uL MPV 9.9 (9.4-12.3) fL Immature Gran % (Auto) 2.3 H (0.0-0.4) % Neut % (Auto) 91.4 H (45-73) % Lymph % (Auto) 3.9 L (20-40) % [place] % (Auto) 2.2 (2-11) % Eos % (Auto) 0.0 (0-4) % Baso % (Auto) 0.2 (0-2) % Lymph # (Auto) 0.5 L (1.2-4.9) X10*3/uL [place] # (Auto) 0.3 (0.1-1.2) X10*3/uL Eos # (Auto) 0.0 (0.0-0.4) X10*3/uL Baso # (Auto) 0.0 (0.0-0.2) X10*3/uL Abs Immat Gran (auto) 0.28 H (0.00-0.03) X10*3/uL Absolute Neuts (auto) 11.1 H (2.0-8.3) x10*3/uL Absolute Nucleated RBC 0.000 (0.0-0.012) X10*3/uL Nucleated RBC % (auto) 0.0 (0.0-0.2) /100WBC Smear Tech's Comments VERIFIED Sodium 141 (135-145) mmol/L Potassium 4.2 (3.3-5.1) mmol/L Chloride 109 H (96-108) mmol/L Carbon Dioxide 22 (22-29) mmol/L Anion Gap 14 (12-20) BUN 12 (9-16) mg/dL Creatinine 0.75 (0.5-1.4) mg/dL Estim Creat Clear Calc 108.5 Estimated GFR > 60 Random Glucose 119 H (60-115) mg/dL Calcium 8.8 (8.4-10.2) mg/dL Total Bilirubin 0.3 (0.0-1.0) mg/dL AST 16 (5-31) U/L ALT 17 (0-31) U/L Alkaline Phosphatase 72 (39-117) U/L C-Reactive Protein 0.39 (< or = 0.50) mg/dL Total Protein 7.6 (6.5-8.0) g/dL Albumin 3.9 (3.5-5.0) g/dL Beta HCG, Quant < 2 mIU/mL Urine Color Yellow Urine Appearance Cloudy Urine pH 6.0 (5.0-9.0) Ur Specific [place] 1.025 (1.005-1.025) Urine Protein Negative (Neg-Trace) mg/dL Urine Glucose (UA) Negative (Negative) mg/dL Urine Ketones Trace (Negative) mg/dL Urine Blood Negative (Negative) Urine Nitrite Positive H (Negative) Ur Leukocyte Esterase Moderate (2+) H (Negative) Urine RBC 0-2 (0-2) /HPF Urine WBC 21-50 H (0-5) /HPF Ur Squamous Epith Cells 6-10 (0-2) /HPF Urine Bacteria 4+ (None Seen) Hyaline Casts 3-5 (0-2) /LPF Medications Administered Discontinued Medications Generic Name Dose Route Start Last Admin Trade Name Ida PRN Reason Stop Dose Admin Iohexol 100 ml 06/12/23 21:54 06/12/23 21:55 Iohexol 350 Mg/Ml 100 Ml Infus..Btl IV 06/12/23 21:55 85 ml ONCE ONE Administration Discharge Plan Discharge Clinical Impression: Right lower quadrant abdominal pain, Abnormal urinalysis Patient Disposition: Home, Self-Care Additional Instructions: You have an abnormal urinalysis today that might indicate the presence of urinary tract infection. You have been started on a course of antibiotics, cephalexin. Please take this 2 times a day, approximately every 12 hours. Otherwise your testing in the emergency room today is very reassuring from the point of view of any acutely dangerous process. Drink lot of fluids. Use acetaminophen as needed for pain. Please follow-up soon with your regular doctor. Also please contact your vp project to try to make follow-up appointment with your vp project. Return to the emergency room if significantly worse. Prescriptions: New cephalexin 500 mg capsule 500 mg PO BID Qty: 10 0RF No Action omeprazole 40 mg capsule,delayed release(DR/EC) 40 mg PO DAILY Qty: 30 4RF cyclobenzaprine 5 mg tablet 5 mg PO BEDTIME PRN (Reason: muscle spasm) Qty: 30 2RF prednisone 20 mg tablet 20 mg PO DAILY Qty: 30 3RF hydroxychloroquine [Plaquenil] 200 mg tablet 200 mg PO DAILY Qty: 30 3RF Referrals: [facility] [Primary Care Provider] - (abdominal pain, abnormal urinalysis)
[2023-06-12 16:45] VITALS: BP 147/94; PULSE 70; RESP 18; TEMP 36.7; O2SAT 99
[2023-06-12 16:56] LABS: Appearance Urine Cloudy; Color Urine Yellow; Glucose Urine UA Negative (Negative); Leukocyte Esterase Urine Moderate (2+) (Negative); Nitrite Urine Positive (Negative); Specific Gravity - Urine 1.025 (1.005-1.025); UMIC TRIGGER UACC YES; Urine Blood Negative (Negative); Urine Ketones Trace mg/dL (Negative); Urine Protein Negative (Neg-Trace)
[2023-06-12 16:58] LABS: Bacteria Urine 4+ (None Seen); RBC Urine 0-2 /HPF (0-2); UACC Culture Trigger YES; WBC Urine 21-50 /HPF (0-5)
[2023-06-12 21:10] LABS: C Reactive Protein 0.39 mg/dL (< or = 0.50)
[2023-06-12] MEDS: iohexoL 350 MG/ML 100 ML INFUS..BTL IV (21:55)
[2023-06-12 23:27] VITALS: BP 129/89; PULSE 76; RESP 14; TEMP 36.7; O2SAT 100
[2023-06-13] MEDS: cephALEXin 500 MG CAPSULE PO (00:12)
--- NOTE | 2023-06-13 00:17 | PC.NURSE ---
pt medicated according to mar calm and cooperative vss. pt ambulatory at discharge. iv removed at discharge. pt provided with discharge packet pt verbalized understanding of discharge plan
== END 2023-06-13 00:19 | disposition home or self-care (01) ==
PROVIDERS: Physician Assistant Medical; Emergency Provider Emergency Medicine
DX: R10.31 Right lower quadrant pain (principal); R11.2 Nausea with vomiting, unspecified; R79.89 Other specified abnormal findings of blood chemistry; Z79.899 Other long term (current) drug therapy
CPT/HCPCS: 36415; 74177; 80053; 81001; 84702; 85025; 86140; 87086; 87088; 87186; 99284; Q9967

== ENCOUNTER 2023-07-04 13:48 | Outpatient (AMB) | payer MEDICAID, SELFPAY ==
--- NOTE | 2023-07-04 13:49 | A.OFFVIS_ITS ---
Intake Vital Signs 07/04/23 14:01 Height 5 ft 1 in Weight 167 lb 15.876 oz BMI 31.7 BP 110/96 H Blood Pressure Location Rt brachial Position Sitting Pulse 84 Pulse Source Pulse Oximeter Temp 97 F Temp Source Skin Pulse Oximetry (%) 98 Oxygen Delivery Method Room Air Intake Visit Reasons: Raynauds phenomenon Intake Note: Patient last seen 12/25/[address] Diaz, presents today for [facility]'s follow up. Referred back by [facility]. 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 Snow 22yoF with a history of overlap autoimmune disease including MCTD (diagnosed at age 8), seropositive rheumatoid arthritis (RF++ CCP-) and autoimmune hepatitis presents for follow-up. She has been lost to follow up the past 2 years. Her PCP has been prescribing her rheumatology medications. She was told by her PCP to come back to reestablish rheumatology care. The patient presents today with complaint of groin pain that radiates down the front of her right thigh. She describes the pain as starting from her pelvic, just below the C-sections incision site. She describes the pain as sudden and gripping ? and sometimes makes it difficult to walk (additional information on work up is outlined below in her hospital visit). She continues with pain, swelling and redness to all fingers and low back pain with very tender paraspinal areas to the lower back. She is currently on prednisone 30 mg q.d. and hydroxychloroquine 200 mg q.d.. Recent hospital visit HPI 06/11/2023 Patient is a 22-year-old female with a history of lupus on chronic prednisone who presents with 2 weeks of right lower quadrant pain. She has a mild white count elevation but labs are otherwise unremarkable aside from a urinalysis which is potentially consistent with a urinary tract infection. The patient does not really have symptoms highly suggestive of urinary tract infection however. She has no CVA percussion tenderness on either side. She is tender in the right lower quadrant but her history is not highly suggestive of appendicitis. A CT scan of the abdomen and pelvis does not show any obvious acute abnormalities to explain the patient's symptoms. The initial reading of the CT scan did not comment on the patient's ovaries. I called Radiology and spoke to radiologist (not the radiologist with the original reading who had gone off duty) and was told that the ovaries are unremarkable. Given the unremarkable CT of the abdomen and pelvis in the patient's unremarkable labs (aside from the urinalysis) think the patient may be discharged. Patient will be put on a course of cephalexin in case she does have urinary tract infection which might account for her symptoms. She should follow up with regular doctor. She should also follow-up with her breaker engineer. Last visit 12/25/2020 Dr. Diaz 20yoF with a history of overlap autoimmu ne disease including MCTD (diagnosed at age 8), seropositive rheumatoid arthritis (RF++ CCP-) and autoimmune hepatitis presents for follow-up. Last seen in November 2020. On Plaquenil 200 mg daily and Prednisone 20mg daily. She was previously taking azathioprine 75mg daily for autoimmune hepatitis but has been off the medication for some time as she stopped following with her previous bisque brusher. No hospitalizations since her last visit. Patient continues to have pain and swelling in her hands but it is stable with prednisone. The low-back pain she had reported at the last visit has improved. She has not yet seen Gastroenterology for her autoimmune hepatitis. She currently denies any chest pain or shortness of breath. September 2020: After last visit, patient received 1 dose of rituximab 1000 mg on 07/13/2020. She then began to experience worsening shortness breath and stabbing chest pain. She was admitted to [facility] on 07/17/2020 for chest pain and ST changes on her EKG. It was thought she may possibly have pericarditis. She did not receive a 2nd dose of rituximab due to her adverse reaction to the 1st dose. While at [facility], she was given pulse dose steroid 1000 mg IV Solu-Medrol x3 and then placed on a prednisone taper. She completed the prednisone taper yesterday. Since being off prednisone, she has worsening swelling in her joints. She denies any chest pain or dyspnea today. Initial history: Patient was being treated with Plaquenil 400 mg daily, azathioprine 75 mg once daily for autoimmune hepatitis. In the past, she was also treated with Humira for her rheumatoid arthritis as well as rituximab x 2 (03/04/19 and 03/19/19). Patient states that she felt the best when she was receiving rituximab infusions. Pt is currently on Plaquenil 200mg daily and Prednisone 40mg daily. Pt states that she re-started the Prednisone a few days ago when she started to experience L sided chest pain that radiated into her L arm. She was seen in the ER at [facility] yesterday and had a CT chest done which was negative. Also had a troponin drawn which was normal. She continues to have left-sided chest pain but states it is now moved down under her breast area. She does get some dyspnea with the chest pain. Her chest pain is not relieved when she bends forward, it is actually worsened. She does not have any tenderness to palpation of her chest wall. Pt denies Raynauds, photosensitivity, oral or nasal ulcers, Sicca symptoms, fevers, alopecia. [facility] Medical History (Updated 07/09/23 @ 19:00 by EDIN Wong) Long-term use of immunosuppressant medication Screening for viral disease Encounter for testing for latent tuberculosis infection Systemic lupus Autoimmune hepatitis Mixed connective tissue disease Rheumatoid arthritis Surgical History Hx of cholecystectomy Hx of endoscopy History of colonoscopy Family History Father Alive and well Mother Alive and well Social History Household Members Other:: lives with mom and sisters Alcohol intake: never Patient Tobacco Use Status: Never used Tobacco service: No Current occupational status: employed Current occupation: [employer] All systems reviewed & are unremarkable except as noted in HPI and below Physical Exam Vital Signs: Last Vital Signs Temp 97 F 07/04/23 14:01 Pulse 84 07/04/23 14:01 BP 110/96 H 07/04/23 14:01 Pulse Ox 98 07/04/23 14:01 Oxygen Delivery Method Room Air 07/04/23 14:01 BMI result Body Mass Index 31.7 APPEARANCE: Patient in no acute distress, cushingoid appearance EYES no redness, normal EARS:? External ear normal. NOSE/SINUS:? Airflow through both nares, no nasal discharge, no bleeding THROAT:? Oral mucosa moist, no ulcerations NECK:? No thyromegaly or masses, no adenopathy, trachea midline. HEART:? Regular rhythm, S1-S2 heard, no murmurs, rubs or gallops. LUNG:? Clear to percussion and auscultation EXTREMITIES:? No edema, no calf tenderness, normal peripheral pulses. NEURO:? Oriented and alert x3.? No focal weakness.? Reflexes symmetric.? Gait normal. SKIN:? There are no skin lesions evident. No objective signs of Raynaud's phenomenon. JOINT EXAM: Cervical Spine:.? Full range of motion without pain; no tenderness. Thoracic Spine:.? No scoliosis.? No tenderness on palpation. Lumbar Spine:.? Alignment normal.? Full range of motion without pain, no tenderness. Chest Wall:.? No tenderness, swelling, increased warmth or erythema. Hands:.? Normal range of motion with tenderness, swelling, increased warmth and erythema. Able to make a full fist with diminished advance scout strength. Wrists:.? Normal pain-free range of motion without tenderness, swelling, increased warmth or erythema. Elbows:. Normal pain-free range of motion without tenderness, swelling, increased warmth or erythema. Shoulders:.?? Full range of motion without pain. No tenderness, weakness, swelling, increased warmth or erythema. Hips:.? Full range of motion without pain. Hip bursa:.? No tenderness. Knees:.?? Normal pain-free range of motion without tenderness, swelling, increased warmth or erythema.? There is no effusion or crepitation Ankles:.? Normal pain-free range of motion without tenderness, swelling, increased warmth or erythema. Feet:.? Normal pain-free range of motion without tenderness, swelling, increased warmth or erythema. Tender points:?Tenderness to digital palpation at the occiput, trapezius, second rib, lateral epicondyle, knees, greater trochanter and gluteal area bilaterally. ? Results Reviewed Results Reviewed: Laboratory Tests 12/24/20 12/24/20 12/24/20 15:21 15:21 15:21 WBC 6.8 Hgb 12.5 Plt Count 340 Creatinine 0.71 Calcium 8.9 AST 20 ALT 28 Urine Protein NEG Laboratory Tests 09/17/20 09/17/20 11/05/20 13:49 13:49 09:50 WBC RBC Hgb Hct Urine Color Urine Appearance Urine pH Ur Specific [place] Urine Protein Urine Nitrite Ur Leukocyte Esterase Urine WBC Sm (Duran) Antibody 1.8 POS A SM/SENIOR JAVA SOFTWARE ENGINEER IgG Antibody >8.0 POS A Double Strand DNA Ab 15 H Complement C3 72 L Complement C4 13 L 11/05/20 06/12/23 06/12/23 09:50 13:40 13:40 WBC 12.1 H RBC 6.05 H Hgb 13.1 Hct 43.5 Urine Color Urine Appearance Urine pH Ur Specific [place] Urine Protein Urine Nitrite Ur Leukocyte Esterase Urine WBC Sm (Duran) Antibody SM/SENIOR JAVA SOFTWARE ENGINEER IgG Antibody Double Strand DNA Ab 17 H Complement C3 Complement C4 06/12/23 06/12/23 06/12/23 Unknown Unknown Unknown WBC RBC Hgb Hct Urine Color Yellow Urine Appearance Cloudy Urine pH 6.0 Ur Specific [place] 1.025 Urine Protein Negative Urine Nitrite Positive H Ur Leukocyte Esterase Moderate (2+) H Urine WBC 21-50 H Sm (Duran) Antibody SM/SENIOR JAVA SOFTWARE ENGINEER IgG Antibody Double Strand DNA Ab Complement C3 Complement C4 Assessment & Plan Assessment & Plan (1) Mixed connective tissue disease: Code(s): M35.1 - Other overlap syndromes (2) Rheumatoid arthritis: Code(s): M06.9 - Rheumatoid arthritis, unspecified Qualifiers: Rheumatoid arthritis location: multiple sites Rheumatoid factor presenc e: unspecified presence Qualified Code(s): M06.9 - Rheumatoid arthritis, unspecified Plan: Patient has had worsening of her overlap syndrome with features of mixed connective tissue disease, rheumatoid arthritis and a history of autoimmune hepatitis. She has symmetric small joint polyarthritis as well as elevated immunoglobulin levels, an elevated rheumatoid factor, and high titer SENIOR JAVA SOFTWARE ENGINEER antibodies. The primary manifestation of her disease has been arthritis and now pericarditis. She failed therapy with Humira in the past and did previously respond well to Rituxan infusion in 2019. An attempt was made to repeat her rituximab infusion in July 2020 however patient had an adverse reaction. She only received 1 dose of 1000 mg rituximab on 07/13/2020. She will continue taking 20 mg prednisone daily. May consider alternative Biologic to manage her RA symptoms. (3) Autoimmune hepatitis: Code(s): K75.4 - Autoimmune hepatitis Plan: History of autoimmune hepatitis, previously treated with azathioprine 75 mg daily. Patient states she stopped this medication as her old bisque brusher retired. She was evaluated once by GI at [facility] but per documentation, patient expressed interest in having her care continued at [facility]. Per patient, she never attended her follow-up with the bisque brusher at [facility] and would prefer to have her specialists all at [facility] at this time. She has been referred to GI at [facility]. (4) Long-term use of immunosuppressant medication: Code(s): Z79.60 - terminal operator (current) use of unspecified immunomodulators and immunosuppressants Plan #SLE/RA/MCTD: Gwendolyn is a 22-year-old female who returns to establish rheumatology care for lupus/mixed connective tissue disease after 2 years absent. 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 She does seem overwhelmed with her health care and this may also be compounded by the fact that she has a young mother. For now, we will continue her hydroxychloroquine but increase it to 200 mg b.i.d. and prednisone 30 mg q.d.. We will also consider to wean her off the prednisone and for this Benlysta and azathioprine may be appropriate alternatives. We will obtain updated labs to help assess the level disease activity. I think the pain that radiates from her pelvic may possibly be scar tissue or adhesions from her . All workup to date has been unremarkable. Follow-up in 2 weeks I spent 55 minutes reviewing history, evaluating and counseling patient and documenting Prior visit 12/25/2020 Dr. Diaz 20yoF with a history of overlap autoimmune disease including MCTD (diagnosed at age 8), RA and autoimmune hepatitis. Patient was being treated with Plaquenil 400 mg daily, azathioprine 75 mg once daily for autoimmune hepatitis. In the past, she was also treated with Humira for her rheumatoid arthritis as well as rituximab x 2 (03/04/19 and 03/19/19). An attempt was made to repeat rituximab infusions due to her previous positive response. Patient received the 1st infusion on 07/13/2020 of 1000 mg however she had an adverse reaction and ended up hospitalized at [facility] for possible pericarditis. She did not receive the 2nd rituximab infusion because of this. She was treated with pulse dose steroid 1000 mg IV Solu-Medrol x3 and then discharged on a prednisone taper which she has now completed. She is currently on Plaquenil and Prednisone 20mg daily. She continues to have signs of active synovitis on exam. Because patient received rituximab in July, it is too soon to start her on any other type of immunosuppressive medication. Per literature review, will need to wait 6 months before initiating any other type of biologic therapy. MTX and Leflunomide are not options for therapy due to her history of autoimmune hepatitis. Discussed with patient that she will continue prednisone at this time. I will send refills for both Plaquenil and prednisone to her pharmacy. Advised her to proceed immediately to the ER if she begins to feel unwell. Orders: Orders Aldolase 07/04/23 M60.9 - Myositis, unspecified Complement C4 Today M06.9 - Rheumatoid arthritis, unspecified, M32.9 - Systemic lupus erythematosus, unspecified, M35.1 - Other overlap syndromes, Z79.60 - terminal operator (current) use of unspecified immunomodulators and immunosuppressants Erythrocyte Sedimentation Rate Today M06.9 - Rheumatoid arthritis, unspecified, M32.9 - Systemic lupus erythematosus, unspecified, M35.1 - Other overlap syndromes, Z79.60 - senior living (current) use of unspecified immunomodulators and immunosuppressants Anti DNA DS Antibody Today M06.9 - Rheumatoid arthritis, unspecified, M32.9 - Systemic lupus erythematosus, unspecified, M35.1 - Other overlap syndromes, Z79.60 - terminal operator (current) use of unspecified immunomodulators and immunosuppressants Hepatitis A,B,C Profile Today M06.9 - Rheumatoid arthritis, unspecified, M32.9 - Systemic lupus erythematosus, unspecified, M35.1 - Other overlap syndromes, Z79.60 - senior living (current) use of unspecified immunomodulators and immunosuppressants T Spot TB Today M06.9 - Rheumatoid arthritis, unspecified, M32.9 - Systemic lupus erythematosus, unspecified, M35.1 - Other overlap syndromes, Z79.60 - senior living (current) use of unspecified immunomodulators and immunosuppressants Complement C3 Today M06.9 - Rheumatoid arthritis, unspecified, M32.9 - Systemic lupus erythematosus, unspecified, M35.1 - Other overlap syndromes, Z79.60 - senior living (current) use of unspecified immunomodulators and immunosuppressants C Reactive Protein Today M06.9 - Rheumatoid arthritis, unspecified, M32.9 - Systemic lupus erythematosus, unspecified, M35.1 - Other overlap syndromes, Z7 9.60 - senior living (current) use of unspecified immunomodulators and immunosuppressants Complete Blood Count Auto Diff Today M06.9 - Rheumatoid arthritis, unspecified, M32.9 - Systemic lupus erythematosus, unspecified, M35.1 - Other overlap syndromes, Z79.60 - terminal operator (current) use of unspecified immunomodulators and immunosuppressants Comprehensive Met. Panel Today M06.9 - Rheumatoid arthritis, unspecified, M32.9 - Systemic lupus erythematosus, unspecified, M35.1 - Other overlap syndromes, Z79.60 - senior living (current) use of unspecified immunomodulators and immunosuppressants Vitamin D 25-OH (D2 and D3) Today M06.9 - Rheumatoid arthritis, unspecified, M32.9 - Systemic lupus erythematosus, unspecified, M35.1 - Other overlap syndromes, Z79.60 - senior living (current) use of unspecified immunomodulators and immunosuppressants Immunoglobulins,IgG IgA IgM Today M06.9 - Rheumatoid arthritis, unspecified, M32.9 - Systemic lupus erythematosus, unspecified, M35.1 - Other overlap syndromes, Z79.60 - terminal operator (current) use of unspecified immunomodulators and immunosuppressants Coding Level of Care Code Est Pt Level 4 (52018) Diagnoses Mixed connective tissue disease M35.1 Rheumatoid arthritis involving multiple sites, unspecified whether rheumatoid factor present M06.9 Rheumatoid arthritis location: multiple sites Rheumatoid factor presence: unspecified presence Autoimmune hepatitis K75.4 Long-term use of immunosuppressant medication Z79.60
[2023-07-04 14:01] VITALS: BP 110/96; PULSE 84; TEMP 36.1; O2SAT 98; BMI 31.7
== END 2023-07-04 14:22 | disposition home or self-care (01) ==
PROVIDERS: PCP Registered Nurse; Visit Provider Nurse Practitioner Family
DX: M35.1 Other overlap syndromes (principal); M06.9 Rheumatoid arthritis, unspecified; K75.4 Autoimmune hepatitis; Z79.60 Long term (current) use of unspecified immunomodulators and immunosuppressants
CPT/HCPCS: 99214

== ENCOUNTER → 2023-07-04 13:48 | Outpatient (BNVA) | payer MEDICAID, SELFPAY | PROVIDERS: PCP Registered Nurse; Visit Provider Nurse Practitioner Family | DX: M35.1 Other overlap syndromes (principal); M06.9 Rheumatoid arthritis, unspecified; K75.4 Autoimmune hepatitis; Z79.60 Long term (current) use of unspecified immunomodulators and immunosuppressants | CPT/HCPCS: 99212 ==

== ENCOUNTER 2023-07-10 09:02 | Outpatient (REF) | payer MEDICAID, SELFPAY ==
[2023-07-10 11:32] LABS: MANUAL DIFF FLAG NO
[2023-07-10 11:55] LABS: INTERNATIONAL NORM RATIO 0.9 (0.9-1.1); Prothrombin Time 11.3 SEC (11.1-13.3)
[2023-07-10 11:57] LABS: Alanine Aminotransferase 22 U/L (0-31); Albumin Level 3.8 g/dL (3.5-5.0); Alkaline Phosphatase 77 U/L (39-117); Anion Gap 11 (12-20); Aspartate Amino Transferase 16 U/L (5-31); Bilirubin Total 0.5 mg/dL (0.0-1.0); Blood Urea Nitrogen 13 mg/dL (9-16); C Reactive Protein 0.19 mg/dL (< or = 0.50); Calcium 8.9 mg/dL (8.4-10.2); Carbon Dioxide 25 mmol/L (22-29); Chloride 109 mmol/L (96-108); Estimated Glomerular Filt Rate > 60; Glucose Random 92 mg/dL (60-115); Potassium 3.3 mmol/L (3.3-5.1); Sodium 142 mmol/L (135-145); Total Protein 7.3 g/dL (6.5-8.0)
[2023-07-10 11:58] LABS: Basophils Percent Auto 0.3 % (0-2); Eosinophils Absolute Auto 0.1 X10*3/uL (0.0-0.4); Eosinophils Percent Auto 0.7 % (0-4); Hemoglobin 13.5 g/dl (12.0-16.0); Imm Gran Abs Auto 0.26 X10*3/uL (0.00-0.03); Imm Gran Pct Auto 3.6 % (0.0-0.4); Lymphocytes Percent Auto 13.4 % (20-40); Mean Corpuscular Hemoglobin 21.8 pg (27.0-33.0); Mean Corpuscular Volume 72.7 fL (80.0-98.0); Mean Platelet Volume 10.6 fL (9.4-12.3); Monocytes Absolute Auto 0.5 X10*3/uL (0.1-1.2); Monocytes Percent Auto 6.8 % (2-11); Neutrophils Absolute Auto 5.4 x10*3/uL (2.0-8.3); Neutrophils Percent Auto 75.2 % (45-73); Partial Thromboplastin Time 30.4 SEC (26.0-36.8); Red Blood Count 6.19 X10*6/uL (4.20-5.50); White Blood Count 7.2 X10*3/uL (4.8-10.8)
[2023-07-10 11:59] LABS: Platelet Count 317 X10*3/uL (160-400)
[2023-07-10 12:43] LABS: HBc Num1 0.08 S/CO (0.00-0.79); HBsAGNum1 0.44 S/CO (0.00-0.99); Hepatitis A Antibody IgM 0.25 Index (0-0.79); Hepatitis B Core Antibody Nonreactive (Nonreactive); Hepatitis B Surface Antigen Negative (Negative); ~HepC Num1 0.13 S/CO (0.00-0.79); ~Hepatitis A Antibody IgM Nonreactive (Nonreactive); ~Hepatitis B Surface Antibody NONREACTIVE (Nonreactive); ~Hepatitis C Antibody Nonreactive (Nonreactive)
[2023-07-10 13:02] LABS: Erythrocyte Sedimentation Rate 11 MM/HR (0-20)
[2023-07-11 11:58] LABS: Complement C3 136 mg/dL (83-193)
[2023-07-11 13:37] LABS: Anti DNA DS Antibody 7 IU/mL
[2023-07-11 15:14] LABS: IgA 299 mg/dL (47-310); IgG 1592 mg/dL (600-1640); IgM 64 mg/dL (50-300)
[2023-07-13 00:28] LABS: TS Negative Control Passed; TS Panel A 0; TS Panel B 0; TS Positive Control Passed; TSpotTB Negative (Negative)
[2023-07-14 06:39] LABS: Aldolase 6.6 U/L (<=8.1)
[2023-07-14 13:53] LABS: Vitamin D 25-OH, D2 <4 ng/mL; Vitamin D 25-OH, D3 14 ng/mL; Vitamin D 25-OH, Total 14 ng/mL (30-100)
== END 2023-07-10 09:03 | disposition home or self-care (01) ==
LOC: HO.HHCL 09:02
PROVIDERS: Nurse Practitioner Family; Visit Provider Emergency Medicine
DX: O16.5 Unspecified maternal hypertension, complicating the puerperium (principal); O26.899 Other specified pregnancy related conditions, unspecified trimester; M32.9 Systemic lupus erythematosus, unspecified; R23.3 Spontaneous ecchymoses; M35.1 Other overlap syndromes; M06.9 Rheumatoid arthritis, unspecified; Z79.60 Long term (current) use of unspecified immunomodulators and immunosuppressants
CPT/HCPCS: 36415; 80053; 82085; 82306; 82784; 85025; 85610; 85652; 85730; 86140; 86160; 86225; 86481; 86704; 86706; 86709; 86803; 87340

== ENCOUNTER 2023-10-13 08:28 | Outpatient (AMB) | payer MEDICAID, SELFPAY ==
--- NOTE | 2023-10-13 08:30 | MHC.OFFVIS ---
Vital Signs 10/13/23 08:36 Height 5 ft 1 in Weight 169 lb 1.513 oz BMI 31.9 BP 120/82 Blood Pressure Location Rt brachial Position Sitting Pulse 87 Pulse Oximetry (%) 99 Intake Visit Reasons: MCTD Intake Note: Patient last seen 07/04/23 by Farhan, presents today for follow up and test results. Requesting prednisone refill today. Allergies No Known Allergies Allergy (Verified 10/13/23 08:36) HPI Comments Details: Ms. Gwendolyn AbebeyoAngelique with a history of overlap autoimmune disease including MCTD (diagnosed at age 8), seropositive rheumatoid arthritis (RF++ CCP-) and autoimmune hepatitis presents for follow-up to review labs and discuss treatment going forward. Ms. Gwendolyn AbebeyoAngelique with a history of overlap autoimmune disease including MCTD (diagnosed at age 8), seropositive rheumatoid arthritis (RF++ CCP-) and autoimmune hepatitis presents for follow-up. She has been lost to follow up the past 2 years. Her PCP has been prescribing her rheumatology medications. She was told by her PCP to come back to reestablish rheumatology care. The patient presents today with complaint of groin pain that radiates down the front of her right thigh. She describes the pain as starting from her pelvic, just below the C-sections incision site. She describes the pain as sudden and gripping ? and sometimes makes it difficult to walk (additional information on work up is outlined below in her hospital visit). She continues with pain, swelling and redness to all fingers and low back pain with very tender paraspinal areas to the lower back. She is currently on prednisone 30 mg q.d. and hydroxychloroquine 200 mg q.d.. Recent hospital visit HPI 06/11/2023 Patient is a 22-year-old female with a history of lupus on chronic prednisone who presents with 2 weeks of right lower quadrant pain. She has a mild white count elevation but labs are otherwise unremarkable aside from a urinalysis which is potentially consistent with a urinary tract infection. The patient does not really have symptoms highly suggestive of urinary tract infection however. She has no CVA percussion tenderness on either side. She is tender in the right lower quadrant but her history is not highly suggestive of appendicitis. A CT scan of the abdomen and pelvis does not show any obvious acute abnormalities to explain the patient's symptoms. The initial reading of the CT scan did not comment on the patient's ovaries. I called Radiology and spoke to radiologist (not the radiologist with the original reading who had gone off duty) and was told that the ovaries are unremarkable. Given the unremarkable CT of the abdomen and pelvis in the patient's unremarkable labs (aside from the urinalysis) think the patient may be discharged. Patient will be put on a course of cephalexin in case she does have urinary tract infection which might account for her symptoms. She should follow up with regular doctor. She should also follow-up with her joint finisher. Last visit 12/25/2020 Dr. Diaz 20yoF with a history of overlap autoimmune disease including MCTD (diagnosed at age 8), seropositive rheumatoid arthritis (RF++ CCP-) and autoimmune hepatitis presents for follow-up. Last seen in November 2020. On Plaquenil 200 mg daily and Prednisone 20mg daily. She was previously taking azathioprine 75mg daily for autoimmune hepatitis but has been off the medication for some time as she stopped following with her previous combination machine tool setter. No hospitalizations since her last visit. Patient continues to have pain and swelling in her hands but it is stable with prednisone. The low-back pain she had reported at the last visit has improved. She has not yet seen Gastroenterology for her autoimmune hepatitis. She currently denies any chest pain or shortness of breath. September 2020: After last visit, patient received 1 dose of rituximab 1000 mg on 07/13/2020. She then began to experience worsening shortness breath and stabbing chest pain. She was admitted to [facility] on 07/17/2020 for chest pain and ST changes on her EKG. It was thought she may possibly have pericarditis. She did not receive a 2nd dose of rituximab due to her adverse reaction to the 1st dose. While at [facility], she was given pulse dose steroid 1000 mg IV Solu-Medrol x3 and then placed on a prednisone taper. She completed the prednisone taper yesterday. Since being off prednisone, she has worsening swelling in her joints. She denies any chest pain or dyspnea today. Initial history: Patient was being treated with Plaquenil 400 mg daily, azathioprine 75 mg once daily for autoimmune hepatitis. In the past, she was also treated with Humira for her rheumatoid arthritis as well as rituximab x 2 (03/04/19 and 03/19/19). Patient states that she felt the best when she was receiving rituximab infusions. Pt is currently on Plaquenil 200mg daily and Prednisone 40mg daily. Pt states that she re-started the Prednisone a few days ago when she started to experience L sided chest pain that radiated into her L arm. She was seen in the ER at [facility] yesterday and had a CT chest done which was negative. Also had a troponin drawn which was normal. She continues to have left-sided chest pain but states it is now moved down under her breast area. She does get some dyspnea with the chest pain. Her chest pain is not relieved when she bends forward, it is actually worsened. She does not have any tenderness to palpation of her chest wall. Pt denies Raynauds, photosensitivity, oral or nasal ulcers, Sicca symptoms, fevers, alopecia. [facility] Medical History (Updated 10/13/23 @ 09:09 by JULES Wong-) Long-term use of immunosuppressant medication Screening for viral disease Encounter for testing for latent tuberculosis infection Systemic lupus Autoimmune hepatitis Mixed connective tissue disease Rheumatoid arthritis Surgical History Hx of cholecystectomy Hx of endoscopy History of colonoscopy Family History Father Alive and well Mother Alive and well Social History Household Members Other:: lives with mom and sisters Alcohol intake: never Patient Tobacco Use Status: Never used Tobacco service: No Current occupational status: employed Current occupation: [employer] Review of Systems Const All systems reviewed & are unremarkable except as noted in HPI and below Physical Exam Vital Signs: Last Vital Signs Pulse 87 10/13/23 08:36 BP 120/82 10/13/23 08:36 Pulse Ox 99 10/13/23 08:36 BMI result Body Mass Index 31.9 APPEARANCE: Patient in no acute distress, cushingoid appearance EYES no redness, normal EARS:? External ear normal. NOSE/SINUS:? Airflow through both nares, no nasal discharge, no bleeding THROAT:? Oral mucosa moist, no ulcerations NECK:? No thyromegaly or masses, no adenopathy, trachea midline. HEART:? Regular rhythm, S1-S2 heard, no murmurs, rubs or gallops. LUNG:? Clear to percussion and auscultation EXTREMITIES:? No edema, no calf tenderness, normal peripheral pulses. NEURO:? Oriented and alert x3.? No focal weakness.? Reflexes symmetric.? Gait normal. SKIN:? There are no skin lesions evident. No objective signs of Raynaud's phenomenon. JOINT EXAM: Cervical Spine:.? Full range of motion without pain; no tenderness. Thoracic Spine:.? No scoliosis.? No tenderness on palpation. Lumbar Spine:.? Alignment normal.? Full range of motion without pain, no tenderness. Chest Wall:.? No tenderness, swelling, increased warmth or erythema. Hands:.? Normal range of motion with tenderness, swelling, increased warmth and erythema. Able to make a full fist with diminished air purifier servicer strength. Wrists:.? Normal pain-free range of motion without tenderness, swelling, increased warmth or erythema. Elbows:. Normal pain-free range of motion without tenderness, swelling, increased warmth or erythema. Shoulders:.?? Full range of motion without pain. No tenderness, weakness, swelling, increased warmth or erythema. Hips:.? Full range of motion without pain. Hip bursa:.? No tenderness. Knees:.?? Normal pain-free range of motion without tenderness, swelling, increased warmth or erythema.? There is no effusion or crepitation Ankles:.? Normal pain-free range of motion without tenderness, swelling, increased warmth or erythema. Feet:.? Normal pain-free range of motion without tenderness, swelling, increased warmth or erythema. Tender points:?Tenderness to digital palpation at the occiput, trapezius, second rib, lateral epicondyle, knees, greater trochanter and gluteal area bilaterally. ? Results Reviewed Results Reviewed: Laboratory Tests 07/10/23 09:08 WBC 7.2 RBC 6.19 H Hgb 13.5 Hct 45.0 ESR 11 Chloride 109 H Creatinine 0.77 AST 16 ALT 22 Alkaline Phosphatase 77 C-Reactive Protein 0.19 25-OH Vitamin D Total 14 L IgG Total 1592 IgA Total 299 IgM 64 Double Strand DNA Ab 7 H Complement C3 136 Complement C4 31 Assessment & Plan Assessment & Plan (1) Mixed connective tissue disease: Comment: History: Patient has had worsening of her overlap syndrome with features of mixed connective tissue disease, rheumatoid arthritis and a history of autoimmune hepatitis. She has symmetric small joint polyarthritis as well as elevated immunoglobulin levels, an elevated rheumatoid factor, and high titer ASSISTANT SALES DIRECTOR antibodies. The primary manifestation of her disease has been arthritis and now pericarditis. She failed therapy with Humira in the past and did previously respond well to Rituxan infusion in 2019. An attempt was made to repeat her rituximab infusion in July 2020 however patient had an adverse reaction. She only received 1 dose of 1000 mg rituximab on 07/13/2020. She was then put on 20 mg prednisone daily. May consider alternative Biologic to manage her RA symptoms. Code(s): M35.1 - Other overlap syndromes Category: Medical (2) Rheumatoid arthritis: Comment: History: Patient has had worsening of her overlap syndrome with features of mixed connective tissue disease, rheumatoid arthritis and a history of autoimmune hepatitis. She has symmetric small joint polyarthritis as well as elevated immunoglobulin levels, an elevated rheumatoid factor, and high titer ASSISTANT SALES DIRECTOR antibodies. The primary manifestation of her disease has been arthritis and now pericarditis. She failed therapy with Humira in the past and did previously respond well to Rituxan infusion in 2019. An attempt was made to repeat her rituximab infusion in July 2020 however patient had an adverse reaction. She only received 1 dose of 1000 mg rituximab on 07/13/2020. She will continue taking 20 mg prednisone daily. May consider alternative Biologic to manage her RA symptoms. Code(s): M06.9 - Rheumatoid arthritis, unspecified Category: Medical Qualifiers: Rheumatoid arthritis location: multiple sites Rheumatoid factor presence: unspecified presence Qualified Code(s): M06.9 - Rheumatoid arthritis, unspecified (3) Autoimmune hepatitis: Comment: History of autoimmune hepatitis, previously treated with azathioprine 75 mg daily. Patient states she stopped this medication as her old combination machine tool setter retired. She was evaluated once by GI at [facility] but per documentation, patient expressed interest in having her care continued at [facility]. Per patient, she never attended her follow-up with the combination machine tool setter at [facility] and would prefer to have her specialists all at [facility] at this time. She has been referred to GI at [facility]. Code(s): K75.4 - Autoimmune hepatitis Category: Medical Plan: (4) Long-term use of immunosuppressant medication: Code(s): Z79.60 - retirement (current) use of unspecified immunomodulators and immunosuppressants Category: Medical Plan #MCTD:SLE overlapp RA: Gwendolyn is a 23-year-old returns for follow-up for lupus/mixed connective tissue disease. She is doing well and really wants to get off the Prednisone and I agree. She has developed a cushingoid appearance. We will continue her hydroxychloroquine 200 mg b.i.d. and start a biologic with the goal to wean her off the prednisone 30 mg q.d.. The initial thought was for Benlysta. However, her Lupus markers are grossly normal and she physically demonstrate more of an RA component. She also prefers an infusion over the self-injectables. Orencia infusion may be an appropriation option so I will order that. We will obtain updated labs to help assess the level disease activity. #UTI Symptoms: She inquired about treatment for UTI and wants to wait to discuss with the PCP. I reaffirm to her that this would need to be resolved if she is to start Orencia. Patient will call when ready. Patient will continue Prednisone for now. #Snf Use: We will monitor CBC and CMP. Patient knows to report fevers, infection and seek immediate medical attention if develops while taking immunosuppressives. Follow-up in 12 weeks I spent 20 minutes reviewing history, evaluating and counseling patient and documenting Prior visit 12/25/2020 Dr. Diaz 20yoF with a history of overlap autoimmune disease including MCTD (diagnosed at age 8), RA and autoimmune hepatitis. Patient was being treated with Plaquenil 400 mg daily, azathioprine 75 mg once daily for autoimmune hepatitis. In the past, she was also treated with Humira for her rheumatoid arthritis as well as rituximab x 2 (03/04/19 and 03/19/19). An attempt was made to repeat rituximab infusions due to her previous positive response. Patient received the 1st infusion on 07/13/2020 of 1000 mg however she had an adverse reaction and ended up hospitalized at [facility] for possible pericarditis. She did not receive the 2nd rituximab infusion because of this. She was treated with pulse dose steroid 1000 mg IV Solu-Medrol x3 and then discharged on a prednisone taper which she has now completed. She is currently on Plaquenil and Prednisone 20mg daily. She continues to have signs of active synovitis on exam. Because patient received rituximab in July, it is too soon to start her on any other type of immunosuppressive medication. Per literature review, will need to wait 6 months before initiating any other type of biologic therapy. MTX and Leflunomide are not options for therapy due to her history of autoimmune hepatitis. Discussed with patient that she will continue prednisone at this time. I will send refills for both Plaquenil and prednisone to her pharmacy. Advised her to proceed immediately to the ER if she begins to feel unwell. Medications: New prednisone 30 mg (1.5 x 20 mg) PO DAILY 60 tabs 1RF M35.1 - Other overlap syndromes Refilled prednisone 30 mg (1.5 x 20 mg) PO DAILY 60 tabs 1RF M35.1 - Other overlap syndromes Coding Level of Care Code Est Pt Level 4 (56537) Complex EM visit Add On G2211 Diagnoses Mixed connective tissue disease M35.1 Rheumatoid arthritis involving multiple sites, unspecified whether rheumatoid factor present M06.9 Rheumatoid arthritis location: multiple sites Rheumatoid factor presence: unspecified presence Autoimmune hepatitis K75.4 Long-term use of immunosuppressant medication Z79.60
[2023-10-13 08:36] VITALS: BP 120/82; PULSE 87; O2SAT 99; BMI 31.9
== END 2023-10-13 08:54 | disposition home or self-care (01) ==
PROVIDERS: PCP Registered Nurse; Referring Provider Registered Nurse; Visit Provider Nurse Practitioner Family
DX: M35.1 Other overlap syndromes (principal); M06.9 Rheumatoid arthritis, unspecified; K75.4 Autoimmune hepatitis; Z79.60 Long term (current) use of unspecified immunomodulators and immunosuppressants
CPT/HCPCS: 99214; G2211

== ENCOUNTER → 2023-10-13 08:28 | Outpatient (BNVA) | payer MEDICAID, SELFPAY | PROVIDERS: PCP Registered Nurse; Visit Provider Nurse Practitioner Family | DX: M35.1 Other overlap syndromes (principal); M06.9 Rheumatoid arthritis, unspecified; K75.4 Autoimmune hepatitis; Z79.60 Long term (current) use of unspecified immunomodulators and immunosuppressants | CPT/HCPCS: 99212 ==

== ENCOUNTER 2023-10-20 16:11 | Outpatient (REF) | payer MEDICAID, SELFPAY ==
[2023-10-25 12:07] LABS: C. trachomatis RNA TMA NOT DETECTED (NOT DETECTED); N. gonorrhoeae RNA TMA NOT DETECTED (NOT DETECTED); Trichomonas (NAAT) NOT DETECTED (NOT DETECTED)
== END 2023-10-20 16:12 | disposition home or self-care (01) ==
LOC: HO.HHCLNP 16:11
PROVIDERS: Visit Provider Advanced Practice Midwife
DX: R82.90 Unspecified abnormal findings in urine (principal)
CPT/HCPCS: 36415; 87086; 87088; 87186; 87491; 87591; 87661; 88142

== ENCOUNTER 2023-12-05 18:25 | Outpatient (REF) | payer MEDICAID, SELFPAY | END 2023-12-05 18:26 | disposition home or self-care (01) | LOC: HO.HHCLNP 18:25 | PROVIDERS: Visit Provider Internal Medicine | DX: N30.01 Acute cystitis with hematuria (principal) | CPT/HCPCS: 87086; 87088; 87186 ==

== ENCOUNTER → 2024-01-03 15:08 | Outpatient (RCR) | payer MEDICAID, SELFPAY ==
[2020-07-09 08:37] VITALS: BP 134/86; PULSE 101; RESP 18; TEMP 36.9; O2SAT 98; BMI 22.9
[2020-07-09 09:14] LABS: Basophils Percent Auto 0.3 % (0-2); Eosinophils Absolute Auto 0.1 X10*3/uL (0.0-0.4); Eosinophils Percent Auto 3.7 % (0-4); Hematocrit 37.8 % (37-47); Hemoglobin 11.5 g/dl (12.0-16.0); Imm Gran Abs Auto 0.06 X10*3/uL (0.00-0.03); Lymphocytes Absolute Auto 0.6 X10*3/uL (1.2-4.9); Lymphocytes Percent Auto 21.7 % (20-40); MANUAL DIFF FLAG SCAN; Mean Corpuscular HGB Conc 30.4 g/dl (31.0-35.0); Mean Corpuscular Hemoglobin 24.2 pg (27.0-33.0); Mean Corpuscular Volume 79.6 fL (80-98); Mean Platelet Volume 11.6 fL (9.4-12.3); Monocytes Absolute Auto 0.2 X10*3/uL (0.1-1.2); Monocytes Percent Auto 7.5 % (2-11); Neutrophils Absolute Auto 1.9 X10*3/uL (2.0-8.3); Neutrophils Percent Auto 64.8 % (45-73); Platelet Count 370 X10*3/uL (160-400); Red Blood Count 4.75 X10*6/uL (4.20-5.50); Red Cell Distribution Width 16.7 % (11.0-16.0); SCAN SMEAR FLAG 1
[2020-07-09 09:36] LABS: Alanine Aminotransferase 69 U/L (0-31); Albumin Level 3.6 g/dL (3.5-5.0); Alkaline Phosphatase 76 U/L (39-117); Anion Gap 13 (12-20); Aspartate Amino Transferase 57 U/L (5-31); Bilirubin Total 0.8 mg/dL (0.0-1.0); Blood Urea Nitrogen 11 mg/dL (9-16); Calcium 8.5 mg/dL (8.4-10.2); Carbon Dioxide 22 mmol/L (22-29); Chloride 108 mmol/L (96-108); Creatinine Clr Calc Pharmacy 111.9; Estimated Glomerular Filt Rate > 60; Glucose Random 95 mg/dL (60-115); Potassium 3.9 mmol/L (3.3-5.1); Sodium 139 mmol/L (135-145); Total Protein 7.7 g/dL (6.5-8.0)
[2020-07-09 09:42] LABS: SLIDE REVIEW VERIFIED
[2020-07-09] MEDS: Acetaminophen 325 MG TABLET 650 MG PO (10:21)
[2020-07-09] MEDS: diphenhydrAMINE HCL 25 MG TABLET 50 MG PO (10:22)
[2020-07-09] MEDS: methylPREDNISolone Sod Succ/PF 125 MG/2 ML VIAL 100 MG IVPUSH (10:23)
[2020-07-09] MEDS: ondansetron HCL 4 MG/2 ML VIAL IVPUSH (10:32)
--- NOTE | 2020-07-09 15:28 | MHC.HEMONC ---
Pt here for Rituximab cycle 1 day 1. Labs drawn by director of design. # 22 angio inserted in right hand without difficulty. 0.9% NS infusing. Lab results reviewed. Clinical summary updated by nurse. Bilateral pedal/ankle edema. C/O fatigue. Pre medicated with tylenol 650mg orally,benadryl 50mg orally, solumedrol 100mg IV and zofran 4mg IV for c/o nausea. Rituximab IV given as ordered with no apparent immediate reaction. Peripheral IV removed-site without edema or redness. Follow up appointment made.
--- NOTE | 2020-07-24 16:20 | MHC.HEMONC ---
I called pt as she cancelled c1d15 Rituxin which was scheduled for yesterday. She stated she talked with Dr Diaz and it was fine with to omit.
== END | disposition home or self-care (01) ==
LOC: HO.ONC 07-08 11:37
PROVIDERS: Visit Provider Student in an Organized Health Care Education/Training Program
DX: M05.79 Rheumatoid arthritis with rheumatoid factor of multiple sites without organ or systems involvement (principal)
CPT/HCPCS: 36415; 80053; 85025; 96375; 96413; 96415; J2405; J2930; J9312; Q0163

== ENCOUNTER 2024-01-25 13:10 | Outpatient (REF) | payer MEDICAID, SELFPAY | END 2024-01-25 13:11 | disposition home or self-care (01) | LOC: HO.CHCLNP 13:10 | PROVIDERS: Visit Provider Pediatrics | DX: R30.0 Dysuria (principal) | CPT/HCPCS: 87086; 87088; 87186 ==

== ENCOUNTER 2024-03-29 11:11 | Outpatient (RCR) | payer MEDICAID, SELFPAY | END 2024-04-29 08:50 | disposition home or self-care (01) | LOC: HO.PT 11:11 | PROVIDERS: PCP Registered Nurse; Visit Provider Registered Nurse | DX: M54.50 Low back pain, unspecified (principal) | CPT/HCPCS: 97110; 97161; 97535 ==

== ENCOUNTER 2024-04-11 11:23 | Outpatient (AMB) | payer MEDICAID, SELFPAY ==
--- NOTE | 2024-04-11 11:24 | MHC.OFFVIS ---
Vital Signs 04/11/24 11:31 Height 5 ft 1 in Weight 173 lb 4.533 oz BMI 32.7 BP 120/80 Blood Pressure Location Rt brachial Position Sitting Respiration 16 Pulse 88 Pulse Source Pulse Oximeter Pulse Oximetry (%) 99 Oxygen Delivery Method Room Air Intake Visit Reasons: SLE/Overlap Symdrome/cm Intake Note: Patient presents for SLE/Overlap Syndrome. Allergies No Known Allergies Allergy (Verified 04/11/24 11:27) Medication List - Last Reconciled 04/11/24 by Trenton Salinas MD amlodipine 5 mg PO DAILY cyclobenzaprine 5 mg PO BEDTIME PRN hydrochlorothiazide 25 mg PO DAILY hydroxychloroquine (Plaquenil) 200 mg PO BID prednisone 30 mg (3 x 10 mg) PO DAILY prednisone Take 5 tabs daily for 1 month then reduce to 4 tabs daily HPI Comments Details: This is a 23-year-old female with MCTD (seropositive RA, autoimmune hepatitis) who presents for follow-up. Patient is on prednisone 30 mg a day. She is not doing well. She continues to have diffuse pain. She is not on hydroxychloroquine. History by Dr. Diaz 20yoAngelique with a history of overlap autoimmune disease including MCTD (diagnosed at age 8), seropositive rheumatoid arthritis (RF++ CCP-) and autoimmune hepatitis presents for follow-up. Last seen in November 2020. On Plaquenil 200 mg daily and Prednisone 20mg daily. 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 No hospitalizations since her last visit. Patient continues to have pain and swelling in her hands but it is stable with prednisone. The low-back pain she had reported at the last visit has improved. She has not yet seen Gastroenterology for her autoimmune hepatitis. She currently denies any chest pain or shortness of breath. September 2020: After last visit, patient received 1 dose of rituximab 1000 mg on 07/13/2020. She then began to experience worsening shortness breath and stabbing chest pain. She was admitted to [facility] on 07/17/2020 for chest pain and ST changes on her EKG. It was thought she may possibly have pericarditis. She did not receive a 2nd dose of rituximab due to her adverse reaction to the 1st dose. While at [facility], she was given pulse dose steroid 1000 mg IV Solu-Medrol x3 and then placed on a prednisone taper. She completed the prednisone taper yesterday. Since being off prednisone, she has worsening swelling in her joints. She denies any chest pain or dyspnea today. Initial history: Patient was being treated with Plaquenil 400 mg daily, azathioprine 75 mg once daily for autoimmune hepatitis. In the past, she was also treated with Humira for her rheumatoid arthritis as well as rituximab x 2 (03/04/19 and 03/19/19). Patient states that she felt the best when she was receiving rituximab infusions. Pt is currently on Plaquenil 200mg daily and Prednisone 40mg daily. Pt states that she re-started the Prednisone a few days ago when she started to experience L sided chest pain that radiated into her L arm. She was [place] [facility] [place] and had a CT chest done which was negative. Also had a troponin drawn which was normal. She continues to have left-sided chest pain but states it is now moved down under her breast area. She does get some dyspnea with the chest pain. Her chest pain is not relieved when she bends forward, it is actually worsened. She does not have any tenderness to palpation of her chest wall. Pt denies Raynauds, photosensitivity, oral or nasal ulcers, Sicca symptoms, fevers, alopecia. [facility] Medical History (Updated 04/11/24 @ 12:44 by Trenton Salinas MD) Systemic lupus Autoimmune hepatitis Mixed connective tissue disease Rheumatoid arthritis Surgical History Hx of cholecystectomy Hx of endoscopy History of colonoscopy Family History Father Alive and well Mother Alive and well Social History Household Members Other:: lives with mom and sisters Alcohol intake: never Patient Tobacco Use Status: Never used Tobacco service: No Current occupational status: employed Current occupation: [employer] Review of Systems Const Reports fatigue, Reports weakness and Reports weight gain Resp Reports no additional complaints Musc Reports arthralgias and Reports joint swelling Skin/Breast Reports lesions, Reports rash and Reports unusual bruising Neuro Reports weakness Endo Reports fatigue Physical Exam Vital Signs: Last Vital Signs Pulse 88 04/11/24 11:31 Resp 16 04/11/24 11:31 BP 120/80 04/11/24 11:31 Pulse Ox 99 04/11/24 11:31 Oxygen Delivery Method Room Air 04/11/24 11:31 BMI result Body Mass Index 32.7 Const Other: Cushingoid General: cooperative, healthy appearing and comfortable Nutritional Appearance: obese Orientation/consciousness: patient oriented x3 Limitations: no limitations HEENT Other: Torres facies Head: Yes atraumatic Mouth: moist mucous membranes Resp Effort & Inspection: normal respiratory effort and able to speak in complete sentences Auscultation: clear to auscultation bilaterally Skin Other: Few superficial bruises on the flexor aspect of both forearms Multiple telangiectasias on face Subtle malar rash Neuro General: patient oriented x3 Extrem Other: There are no swollen joints today but she has diffuse fibromyalgia tender points Cool tapered digits consistent with Raynaud's Results Reviewed Results Reviewed: Laboratory Tests 01/08/20 06/18/20 09/17/20 11:30 14:40 13:49 ZOYA Titer >=1:1280 H Sm (Duran) Antibody 4.3 H 1.8 POS A SmRNP Antibodies >8.0 H SM/RADIATION PROTECTION SPECIALIST IgG Antibody >8.0 POS A Double Strand DNA Ab 37 H 52 H 15 H Complement C3 78 L 103 Complement C4 15 20 11/05/20 07/10/23 09:50 09:08 ZOYA Titer Sm (Duran) Antibody SmRNP Antibodies SM/RADIATION PROTECTION SPECIALIST IgG Antibody Double Strand DNA Ab 17 H 7 H Complement C3 72 L Complement C4 13 L Assessment & Plan Assessment & Plan (1) Systemic lupus: Comment: Initially diagnosed with MCTD at age 8 (inflammatory arthritis, Raynaud's, telangiectasias, autoimmune hepatitis, pericarditis +++ZOYA+++RADIATION PROTECTION SPECIALIST ++Duran +++Dsdna low C3 & low C4 failed azthiopurine Rituximab was effective but had a reaction to it 2020 Code(s): M32.9 - Systemic lupus erythematosus, unspecified Category: Medical Plan: This is a 23-year-old female with MCTD with features of SLE and rheumatoid arthritis who presents for follow-up. This is her 1st visit with me. Patient has been continuously on high doses of prednisone and has gained significant weight. She is cushingoid on exam. Discussed the numerous risks associated with prednisone and the need to taper it and add other DMARDs. I think patient's serologies are consistent with SLE given positive Duran, dsDNA and low complements. Advised patient to restart hydroxychloroquine at 200 mg Twice daily. This is slightly above the recommended dose of 5 milligram/kilogram, dose can be adjusted in subsequent visits In the past hydroxychloroquine was in adequate to treat her inflammatory arthritis. She will need additional DMARDs. Discussed risks and benefits of Benlysta infusions. Patient agreed to proceed. Will start prior authorization for Benlysta infusions Reduce prednisone to 25 mg daily for 1 month then 20 mg daily until next visit Labs today and before next visit in 2 months (2) Raynauds phenomenon: Code(s): I73.00 - Raynaud's syndrome without gangrene Category: Medical Qualifiers: Raynaud?s-associated gangrene presence: without gangrene Qualified Code(s): I73.00 - Raynaud's syndrome without gangrene Plan: Active Raynaud's today. Patient states that she gets wounds intermittently on her fingertips. Discussed management of Raynaud's. Advised patient on the importance of adhering to conservative measures for Raynaud's such as keeping core and extremity temperature warmth. Wearing gloves, glove warmers. Start amlodipine 5 mg daily (3) Long-term use of immunosuppressant medication: Code(s): Z79.60 - long term care administrator (current) use of unspecified immunomodulators and immunosuppressants Category: Medical Plan: Side effects of Benlysta were discussed with the patient in detail including increased risk of infection, demyelinating disease, reactivation of latent TB, possible increased risk of solid and skin tumors. Patient fully aware. Advised patient to seek medical care RAFI if patient has an infection and advised patient to stop the medication until the infection is resolved. (4) Long-term use of hydroxychloroquine: Code(s): Z79.899 - Other terminal operations manager (current) drug therapy Category: Medical Plan: Discussed risk of retinopathy associated with hydroxychloroquine. Advised patient to make an appointment with atomic welder Plan I spent 46 minutes reviewing patient's chart, evaluating patient, ordering diagnostic workup, counseling patient and documenting in the chart Orders: Orders C Reactive Protein 2 Months M32.9 - Systemic lupus erythematosus, unspecified Complement C4 2 Months M32.9 - Systemic lupus erythematosus, unspecified UA w Microscopic 2 Months M32.9 - Systemic lupus erythematosus, unspecified Comprehensive Met. Panel Today M32.9 - Systemic lupus erythematosus, unspecified Erythrocyte Sedimentation Rate Today M32.9 - Systemic lupus erythematosus, unspecified Anti DNA DS Antibody Today M32.9 - Systemic lupus erythematosus, unspecified Protein Creatinine Ratio, Ur Today M32.9 - Systemic lupus erythematosus, unspecified UA w Microscopic Today M32.9 - Systemic lupus erythematosus, unspecified Beta-2 Glycoprotein Antibody 2 Months D68.61 - Antiphospholipid syndrome Cardiolipin Antibodies 2 Months D68.61 - Antiphospholipid syndrome Lupus Anticoagulant Panel 2 Months D68.61 - Antiphospholipid syndrome Complete Blood Count Auto Diff 2 Months M32.9 - Systemic lupus erythematosus, unspecified Comprehensive Met. Panel 2 Months M32.9 - Systemic lupus erythematosus, unspecified Erythrocyte Sedimentation Rate 2 Months M32.9 - Systemic lupus erythematosus, unspecified Creatine Kinase Total 2 Months M32.9 - Systemic lupus erythematosus, unspecified Anti DNA DS Antibody 2 Months M32.9 - Systemic lupus erythematosus, unspecified Complement C3 2 Months M32.9 - Systemic lupus erythematosus, unspecified Protein Creatinine Ratio, Ur 2 Months M32.9 - Systemic lupus erythematosus, unspecified Complete Blood Count Auto Diff Today M32.9 - Systemic lupus erythematosus, unspecified C Reactive Protein Today M32.9 - Systemic lupus erythematosus, unspecified Complement C3 Today M32.9 - Systemic lupus erythematosus, unspecified Complement C4 Today M32.9 - Systemic lupus erythematosus, unspecified Medications: New amlodipine 5 mg PO DAILY 30 tabs 2RF prednisone Take 5 tabs daily for 1 month then reduce to 4 tabs daily 270 tabs 0RF Changed From hydroxychloroquine (Plaquenil) 200 mg PO DAILY 30 tabs 3RF To hydroxychloroquine (Plaquenil) 200 mg PO BID 180 tabs 1RF Coding Level of Care Code Est Pt Level 5 (34668) Complex EM visit Add On G2211 Diagnoses Systemic lupus M32.9 Raynaud's phenomenon without gangrene I73.00 Raynaud?s-associated gangrene presence: without gangrene Long-term use of immunosuppressant medication Z79.60 Long-term use of hydroxychloroquine Z79.899
[2024-04-11 11:31] VITALS: BP 120/80; PULSE 88; RESP 16; O2SAT 99; BMI 32.7
== END 2024-04-11 12:02 | disposition home or self-care (01) ==
PROVIDERS: PCP Registered Nurse; Visit Provider Student in an Organized Health Care Education/Training Program
DX: M32.9 Systemic lupus erythematosus, unspecified (principal); I73.00 Raynaud's syndrome without gangrene; Z79.60 Long term (current) use of unspecified immunomodulators and immunosuppressants; Z79.899 Other long term (current) drug therapy
CPT/HCPCS: 99215

== ENCOUNTER → 2024-04-11 11:23 | Outpatient (BNVA) | payer MEDICAID, SELFPAY | PROVIDERS: PCP Registered Nurse; Visit Provider Student in an Organized Health Care Education/Training Program | DX: M32.9 Systemic lupus erythematosus, unspecified (principal); I73.00 Raynaud's syndrome without gangrene; Z79.60 Long term (current) use of unspecified immunomodulators and immunosuppressants; Z79.899 Other long term (current) drug therapy | CPT/HCPCS: 99212 ==

== ENCOUNTER 2024-05-23 11:35 | Outpatient (AMB) | payer MEDICAID, SELFPAY ==
--- NOTE | 2024-05-23 11:44 | MHC.OFFVIS ---
Vital Signs 05/23/24 11:47 Height 5 ft 1 in Weight 173 lb 4.533 oz BMI 32.7 BP 120/90 H Blood Pressure Location Rt brachial Position Sitting Respiration 16 Pulse 88 Pulse Source Pulse Oximeter Pulse Oximetry (%) 99 Oxygen Delivery Method Room Air Intake Visit Reasons: Discuss possible reaction to Benlysta Intake Note: Patient presents to clydeuss possible reaction to Benlysta. Allergies No Known Allergies Allergy (Verified 05/23/24 11:47) Medication List - Last Reconciled 05/23/24 by Trenton Salinas MD amlodipine 5 mg PO DAILY cyclobenzaprine 5 mg PO BEDTIME PRN hydrochlorothiazide 25 mg PO DAILY hydroxychloroquine (Plaquenil) 200 mg PO BID prednisone 30 mg (3 x 10 mg) PO DAILY prednisone Take 5 tabs daily for 1 month then reduce to 4 tabs daily HPI Comments Details: This is a 23-year-old female with MCTD (seropositive RA, autoimmune hepatitis) who presents for an urgent visit. She received her 1st 2 loading doses of Benlysta infusion. Two days after her 1st Benlysta infusion she had a rash on the inner aspect of both her thighs, the rash was not burning itch PE on painful,. She did not feel well, she was tired and he all over after the infusion, she received her 2nd infusion 2 days ago. That infusion was uneventful. She is down to prednisone 20 mg a day. History by Dr. Diaz 20yoF with a history of overlap autoimmune disease including MCTD (diagnosed at age 8), seropositive rheumatoid arthritis (RF++ CCP-) and autoimmune hepatitis presents for follow-up. Last seen in November 2020. On Plaquenil 200 mg daily and Prednisone 20mg daily. 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 No hospitalizations since her last visit. Patient continues to have pain and swelling in her hands but it is stable with prednisone. The low-back pain she had reported at the last visit has improved. She has not yet seen Gastroenterology for her autoimmune hepatitis. She currently denies any chest pain or shortness of breath. September 2020: After last visit, patient received 1 dose of rituximab 1000 mg on 07/13/2020. She then began to experience worsening shortness breath and stabbing chest pain. She was admitted to [facility] on 07/17/2020 for chest pain and ST changes on her EKG. It was thought she may possibly have pericarditis. She did not receive a 2nd dose of rituximab due to her adverse reaction to the 1st dose. While at [facility], she was given pulse dose steroid 1000 mg IV Solu-Medrol x3 and then placed on a prednisone taper. She completed the prednisone taper yesterday. Since being off prednisone, she has worsening swelling in her joints. She denies any chest pain or dyspnea today. Initial history: Patient was being treated with Plaquenil 400 mg daily, azathioprine 75 mg once daily for autoimmune hepatitis. In the past, she was also treated with Humira for her rheumatoid arthritis as well as rituximab x 2 (03/04/19 and 03/19/19). Patient states that she felt the best when she was receiving rituximab infusions. Pt is currently on Plaquenil 200mg daily and Prednisone 40mg daily. Pt states that she re-started the Prednisone a few days ago when she started to experience L sided chest pain that radiated into her L arm. She was seen in the ER at [facility] [place] yesterday and had a CT chest done which was negative. Also had a troponin drawn which was normal. She continues to have left-sided chest pain but states it is now moved down under her breast area. She does get some dyspnea with the chest pain. Her chest pain is not relieved when she bends forward, it is actually worsened. She does not have any tenderness to palpation of her chest wall. Pt denies Raynauds, photosensitivity, oral or nasal ulcers, Sicca symptoms, fevers, alopecia. REPLACED BY [facility] Medical History Systemic lupus Autoimmune hepatitis Mixed connective tissue disease Rheumatoid arthritis Surgical History Hx of cholecystectomy Hx of endoscopy History of colonoscopy Family History Father Alive and well Mother Alive and well Social History Household Members Other:: lives with mom and sisters Alcohol intake: never Patient Tobacco Use Status: Never used Tobacco service: No Current occupational status: employed Current occupation: [employer] Review of Systems Const Reports fatigue, Reports weakness and Reports weight gain Resp Reports no additional complaints Musc Reports arthralgias Skin/Breast Reports lesions, Reports rash and Reports unusual bruising Neuro Reports weakness Endo Reports fatigue Physical Exam Vital Signs: Last Vital Signs Pulse 88 05/23/24 11:47 Resp 16 05/23/24 11:47 BP 120/90 H 05/23/24 11:47 Pulse Ox 99 05/23/24 11:47 Oxygen Delivery Method Room Air 05/23/24 11:47 BMI result Body Mass Index 32.7 Const Other: Cushingoid General: cooperative, healthy appearing and comfortable Nutritional Appearance: obese Orientation/consciousness: patient oriented x3 Limitations: no limitations HEENT Other: Torres facies Head: Yes atraumatic Mouth: moist mucous membranes Resp Effort & Inspection: normal respiratory effort and able to speak in complete sentences Auscultation: clear to auscultation bilaterally Skin Other: Few superficial bruises on the flexor aspect of both forearms Multiple telangiectasias on face Subtle malar rash Neuro General: patient oriented x3 Extrem Other: Skin inspection was done with CARLY Dumont present in the room as a project/production manager imaging The rashes on her thighs have resolved Her MSK exam is similar to last visit, there are no swollen joints, she has numerous fibromyalgia tender points She has bluish discoloration of her fingertips as well as some tapering of her fingertips all consistent with Raynaud's Assessment & Plan Assessment & Plan (1) Systemic lupus: Comment: Initially diagnosed with MCTD at age 8 (inflammatory arthritis, Raynaud's, telangiectasias, autoimmune hepatitis, pericarditis +++ZOYA+++BACTERIOLOGIST INDUSTRIAL ++Duran +++Dsdna low C3 & low C4 failed azthiopurine Rituximab was effective but had a reaction to it 2020 Hydroxychloroquine restarted 04/2024 Benlysta infusion started 04/2024 Code(s): M32.9 - Systemic lupus erythematosus, unspecified Category: Medical Plan: This is a 23-year-old female with MCTD with features of SLE and rheumatoid arthritis who presents for follow-up. She received a couple of the loading doses of Benlysta infusion. Two days after the 1st Benlysta infusion she developed rashes on the inner aspect of her thighs, rashes were not painful burning or itching. They self-resolved, they did not recur with the 2nd infusion of Benlysta. She also mentioned some fatigue and achiness after the infusions It is not clear to me whether this is a side effects to Benlysta. Patient has known history of lupus and rashes are a feature of lupus. She also has fibromyalgia which can cause generalized fatigue and achiness. Thankfully those rashes did not recur after her 2nd Benlysta infusion For now we will cautiously continue Benlysta infusions Continue hydroxychloroquine 200 mg daily Continue with prednisone 20 mg daily until June then reduce to 15 mg daily Labs today and before next visit in 2 months (2) Raynauds phenomenon: Code(s): I73.00 - Raynaud's syndrome without gangrene Category: Medical Qualifiers: Raynaud?s-associated gangrene presence: without gangrene Qualified Code(s): I73.00 - Raynaud's syndrome without gangrene Plan: Active Raynaud's today. Patient states that she gets wounds intermittently on her fingertips. Discussed management of Raynaud's. Advised patient on the importance of adhering to conservative measures for Raynaud's such as keeping core and extremity temperature warmth. Wearing gloves, glove warmers. Continue with amlodipine 5 mg daily (3) Long-term use of immunosuppressant medication: Code(s): Z79.60 - technician terminal and repeater (current) use of unspecified immunomodulators and immunosuppressants Category: Medical Plan: Side effects of Benlysta were discussed with the patient in detail including increased risk of infection, demyelinating disease, reactivation of latent TB, possible increased risk of solid and skin tumors. Patient fully aware. Advised patient to seek medical care RAFI if patient has an infection and advised patient to stop the medication until the infection is resolved. (4) Long-term use of hydroxychloroquine: Code(s): Z79.899 - Other technician terminal and repeater (current) drug therapy Category: Medical Plan: Discussed risk of retinopathy associated with hydroxychloroquine. Advised patient to make an appointment with solderer (5) Fibromyalgia, primary: Code(s): M79.7 - Fibromyalgia Category: Medical Plan: Discussed management of fibromyalgia with patient. Is a noninflammatory, non-autoimmune central afferent processing disorder leading to a diffuse pain syndrome. I suggested that patient try to address her underlying psychiatric issues, anxiety/depression. I suggested evaluation by a therapist and/or a psychiatrist. Consider a referral for a sleep study by PCP to rule out LOVE. Try to follow sleep hygiene practices. Discuss CBT for sleep with psychotherapist. Patient would benefit from increased physical activity, either through formal physical therapy or by joining a gym. Advised patient that she should start activity slowly and increase as tolerated. Consider low-impact exercises such as walking, swimming, aqua therapy stretching, yoga. Plan I spent 46 minutes reviewing patient's chart, evaluating patient, ordering diagnostic workup, counseling patient and documenting in the chart Orders: Orders Anti DNA DS Antibody 2 Months M06.9 - Rheumatoid arthritis, unspecified, Z79.60 - technician terminal and repeater (current) use of unspecified immunomodulators and immunosuppressants Complement C4 2 Months M06.9 - Rheumatoid arthritis, unspecified, Z79.60 - correction (current) use of unspecified immunomodulators and immunosuppressants C Reactive Protein 2 Months M06.9 - Rheumatoid arthritis, unspecified, Z79.60 - technician terminal and repeater (current) use of unspecified immunomodulators and immunosuppressants Erythrocyte Sedimentation Rate 2 Months M06.9 - Rheumatoid arthritis, unspecified, Z79.60 - correction (current) use of unspecified immunomodulators and immunosuppressants Protein Creatinine Ratio, Ur 2 Months M06.9 - Rheumatoid arthritis, unspecified, Z79.60 - technician terminal and repeater (current) use of unspecified immunomodulators and immunosuppressants Comprehensive Met. Panel 2 Months M06.9 - Rheumatoid arthritis, unspecified, Z79.60 - correction (current) use of unspecified immunomodulators and immunosuppressants Complement C3 2 Months M06.9 - Rheumatoid arthritis, unspecified, Z79.60 - technician terminal and repeater (current) use of unspecified immunomodulators and immunosuppressants UA w Microscopic 2 Months M06.9 - Rheumatoid arthritis, unspecified, Z79.60 - technician terminal and repeater (current) use of unspecified immunomodulators and immunosuppressants Complete Blood Count Auto Diff 2 Months M06.9 - Rheumatoid arthritis, unspecified, Z79.60 - correction (current) use of unspecified immunomodulators and immunosuppressants Coding Level of Care Code Est Pt Level 4 (88240) Complex EM visit Add On G2211 Diagnoses Systemic lupus M32.9 Raynaud's phenomenon without gangrene I73.00 Raynaud?s-associated gangrene presence: without gangrene Long-term use of immunosuppressant medication Z79.60 Long-term use of hydroxychloroquine Z79.899 Fibromyalgia, primary M79.7
[2024-05-23 11:47] VITALS: BP 120/90; PULSE 88; RESP 16; O2SAT 99; BMI 32.7
== END 2024-05-23 12:29 | disposition home or self-care (01) ==
PROVIDERS: PCP Registered Nurse; Visit Provider Student in an Organized Health Care Education/Training Program
DX: M32.9 Systemic lupus erythematosus, unspecified (principal); I73.00 Raynaud's syndrome without gangrene; Z79.60 Long term (current) use of unspecified immunomodulators and immunosuppressants; Z79.899 Other long term (current) drug therapy; M79.7 Fibromyalgia
CPT/HCPCS: 99214

== ENCOUNTER 2024-05-23 12:35 | Outpatient (REF) | payer MEDICAID, SELFPAY ==
[2024-05-23 13:10] LABS: Appearance Urine Clear; Color Urine Yellow; Glucose Urine UA Negative (Negative); Leukocyte Esterase Urine Trace (Negative); Nitrite Urine Negative (Negative); UMIC TRIGGER UA YES; Urine Blood Negative (Negative); Urine Ketones Negative (Negative); Urine Protein Negative (Neg-Trace)
[2024-05-23 13:11] LABS: Hemoglobin 13.5 g/dl (12.0-16.0); Mean Corpuscular HGB Conc 29.3 g/dl (31.0-35.0); Mean Corpuscular Hemoglobin 22.3 pg (27.0-33.0); Mean Corpuscular Volume 75.9 fL (80.0-98.0); Mean Platelet Volume 9.8 fL (9.4-12.3); Platelet Count 357 X10*3/uL (160-400); Red Blood Count 6.06 X10*6/uL (4.20-5.50); Red Cell Distribution Width 16.4 % (11.0-16.0); White Blood Count 2.7 X10*3/uL (4.8-10.8)
[2024-05-23 13:14] LABS: Bacteria Urine Trace (None Seen); Hyaline Casts Urine 0-2 /LPF (0-2); RBC Urine 0-2 /HPF (0-2); Squamous Epithelial Cell Urine 0-2 /HPF (0-2); WBC Urine 0-5 /HPF (0-5)
[2024-05-23 13:36] LABS: C Reactive Protein 0.71 mg/dL (< or = 0.50)
[2024-05-23 13:42] LABS: Creatinine Urine 111.37 mg/dL; Total Protein Urine Random < 7 mg/dL (<12)
[2024-05-23 14:02] LABS: Erythrocyte Sedimentation Rate 14 MM/HR (0-20)
[2024-05-23 15:20] LABS: Band Neutrophils Percent 10 % (3-5); Lymphocytes Absolute Manual 0.4 X10*3/uL (1.2-4.9); Lymphocytes Percent Manual 13 % (20-40); Metamyelocytes Absolute 0.1 X10*3/uL; Metamyelocytes Percent 2 %; Monocytes Absolute Manual 0.4 X10*3/uL (0.1-1.2); Monocytes Percent Manual 14 % (2-11); Myelocytes Percent 1 %; Neutrophils Absolute Manual 1.9 X10*3/uL (2.0-8.3); Neutrophils Percent Manual 60 % (45-73)
[2024-05-23 15:22] LABS: RBC Morphology NOTED
[2024-05-23 15:23] LABS: Burr Cells 1+ (0-2) /OIF; Microcytosis 2+ (15-30) /OIF; Ovalocytes 2+ (15-30) /OIF; Platelet Estimate NORMAL (NORMAL); Platelet Morphology Comment NORMAL; Schistocytes 1+ (0-2) /OIF; Tear Drop Cells 1+ (0-2) /OIF
[2024-05-25 06:28] LABS: Complement C3 150 mg/dL (83-193)
[2024-05-27 23:14] LABS: Anti DNA DS Antibody 4 IU/mL
== END 2024-05-23 12:36 | disposition home or self-care (01) ==
LOC: HO.10HDL 12:35
PROVIDERS: Visit Provider Student in an Organized Health Care Education/Training Program
DX: M32.9 Systemic lupus erythematosus, unspecified (principal)
CPT/HCPCS: 36415; 81001; 82570; 84156; 85007; 85027; 85652; 86140; 86160; 86225; 99212

== ENCOUNTER 2024-09-02 12:45 | Outpatient (REF) | payer MEDICAID, SELFPAY ==
--- OUTSIDE RECORDS SUMMARY | 2024-09-02 15:05 | XMS_ITS | Encounter Summary ---
Author Organization [employer] Address [address] [place] [address] 7 [place] [address] Care Team Providers Care Phone Screener Name Role Phone Cassie Saldana Primary Care Provider [phone] Reason for Visit * Reason Comments Med Refill Encounter Details Date Type Department Care Team ([facility] st Contact Info) Description 09/07/2023 Refill [facility] MED & PEDS [address] [place], [place] [phone] Cassie Saldana FNP [address] [place] [address] Rheumatoid arthritis involving multiple sites with positive rheumatoid factor (CMS/HCC) Social History Tobacco Use Types Packs/Day Years Used Date Smoking Tobacco: Never Smokeless Tobacco: Never Alcohol Use Standard Drinks/Week Comments Never 0 (1 standard drink = 0.6 oz pur e alcohol) Housing Stability Answer Date Recorded What is your housing situation today? I have housing today, but I am worried about losing housing in the future 04/28/[address] you li ve. Do you have problems with any of the following? None of the above 04/28/2023 Food Insecurity Answer Date Recorded Within the past 12 months, y ou worried that your food would run out before you got money to buy more: Never True 04/28/2023 Within the past 12 months,th e food you bought just didn't last and you didn't have enough money to get more: Never True Transportation Answer Date Recorded In the past 12 months, has l ack of transportation kept you from medical appts, meetings, work or from getting things needed for daily living? No 04/28/2023 Utilities Answer Date Recorded In the past 12 months, has t he electric, gas, oil or water company threatened to shut off services in your home? No 04/28/2023 Depression Answer Date Recorded Patient Health Questionnaire-2 Score 0 05/13/2022 Comments Unknown Sex and Gender Information Value Date Recorded Sex Assigned at Female 03/07/2022 10:16 AM EDT Legal Sex Female 10:16 AM EDT Gender Identity Female 03/07/2022 10:16 AM EDT Sexual Orientation Choose not to disclose 2021 10:16 AM EDT documented as of this encounter Plan of Treatment Upcoming Encounters Date Type Department Care Team (Late st Contact Info) Description 10/07/2024 3:30 PM EDT Office Visit [facility]EDS [address] [place], [place] [phone] Cassie Saldana FNP [address] [place] [address] 10/21/2024 10:30 AM EDT Procedure Visit [facility] MED[facility]INE [address] [place] [address] Elaine Bill CNM [address] [place] [address] documented as of this encounter Visit Diagnoses Diagnosis Rheumatoid arthritis involving multiple sites with positive rheumatoid factor (CMS/[facility]) documented in this encounter Care Teams Phone Screener Relationship Specialty Start Date End Date Cassie Saldana FNP [address] [place] [address] PCP - General Family Medicine 12/30/21 documented as of this encounter
--- OUTSIDE RECORDS SUMMARY | 2024-09-02 15:05 | XMS_ITS | Encounter Summary ---
Author Organization [employer] Address [address] [facility] 7 [place] [address] Care Team Providers Care Brand Advocate Name Role Phone Cassie Saldana Primary Care Provider [phone] Reason for Visit * Reason Comments Med Refill Encounter Details Date Type Department Care Team ([facility] st Contact Info) Description 03/30/2024 Refill [facility] [address] [place] [address] Cassie Saldana FNP [address] [place] [address] Social History Tobacco Use Types Packs/Day Years Used Date Smoking Tobacco: Never Passive Smoke Exposure: Never Smokeless Tobacco: Never Alcohol Use Standard Drinks/Week Comments Never 0 (1 standard drink = 0.6 oz pur e alcohol) Depression Answer Date Recorded Patient Health Questionnaire-9 Score 10 01/29/2024 Patient Health Questionnaire-9 Score 10 01/29/2024 Last PHQ-9: Questionnaire Data Not on file 0 01/29/2024 Housing Stability Answer Date Recorded What is [...] Answer Date Recorded Patient Health Questionnaire-2 Score 1 01/29/2024 Comments No Sex and Gender Information Value Date Recorded [...] Description 10/07/2024 3:30 PM EDT Office Visit [facility] MED [facility]EDS [address] [place], [place] [phone] Cassie Saldana FNP [address] [place] [address] 10/21/2024 10:30 AM EDT Procedure Visit [facility] [address] [place] [address] Elaine Bill CNM [address] [place] [address] documented as of this encounter Visit Diagnoses Not on filedocumented in this encounter Additional Health Concerns Assessment Noted Time PHQ-9 Depression Total Score: 10 024 11:22 AM EDT documented as of this encounter Care Teams Brand Advocate Relationship Specialty Start Date End Date Cassie Saldana FNP [address] [place] [address] PCP - General Family Medicine 12/30/21 documented as of this encounter
--- OUTSIDE RECORDS SUMMARY | 2024-09-02 15:05 | XMS_ITS | Encounter Summary ---
Author Organization [employer] Address [address] [facility] 7 [place] [address] Care Team Providers Care Epic Analyst Name Role Phone Cassie Saldana Primary Care Provider [phone] Reason for Visit * Reason Onset Date Comments Nurse Triage 04/02/2024 Encounter Details Date Type Department Care Team ([facility] Contact Info) Description 04/02/2024 Telephone [facility] MEDICINE [address] [place] [address] Cassie Saldana FNP [address] [place] [address] Nurse Triage Social History Tobacco Use Types Packs/Day Years [...] enough money to get more: Never True 12/ Transportation Answer Date Recorded In the past [...] AM EDT documented as of this encounter Miscellaneous Notes * Telephone Encounter - Mary Vincent RN - 04/02/2024 10:24 AM EST TC placed to pt to inform that PCP Cassie Saldana sent a two week supply of Prednisone to the pt preferred pharmacy. Pt advised that management for her current pain will need to be managed by [facility] rheumatology. Pt confirms that she missed her appt in February and [facility] Pt would also like PCP to be aware that she is now with a different underwriter solicitation director as her longstanding one has left the practice. * Telephone Encounter - JULES Macdonald - 04/02/2024 9:37 AM EST Hi, please call Gwendolyn to review Rheum plan. She is following with [facility] Rheum, and plan per last consult note in October 2023, plan was to wean off prednisone and start Orencia infusion. I just sent in another bridge rx for her x 2 weeks, but she needs to contact Rheum and follow up with them regarding further management. She was scheduled for [facility] Rheum Appt in Feb 2024, but I have not yet received their consult notes. Please ask if she attending appt. Thank you! * Telephone Encounter - Olga Hitchcock RN - 04/02/2024 8:37 AM EST Called pt. She states that she has no Prednisone left. Pt takes 30mg Prednisone daily for her Rheumatoid Arthritis and Lupus. Pt. States she has been on this medication everyday since she was 8 yearsold. Pt. States that the provider has been trying to ween her off the medication but every time sheruns out, her body shuts down. Pt has been without medication x 2 days now. Whole body, joints, muscles are hurting 9/10 pain scale. Pt. States she was given a RX on 03/18/24 for #30 pills but she takes Prednisone 10mg- 3tablets daily which would be a #90 supply. Pt. States I am in excruciating pain and I don't know if the RX. Was written wrong by mistake because I only got 30 pills instead of #90. Please advise as I see that pt. Is supposed to take Prednisone 10mg 3 tablets daily which wouldbe a total of #90 pills for the month. Please have team nurse call pt with update on RX. As pt. States she has been out for 2 days and needs her medication. Will send this message to PCP and also another provider working in [facility] today. * Telephone Encounter - Crow Pack - 04/02/2024 8:33 AM EST Symptom: Pain - Severe Outcome: Schedule an urgent appointment (within 1 hour) or talk to a nurse or provider soon Reason: Caller denied all higher acuity questions documented in this encounter Plan of Treatment Upcoming Encounters Date Type Department Care Team (Late st Contact Info) Description 10/07/2024 3:30 PM EDT Office Visit [facility] MED [facility] PEDS [address] [place] [address] Cassie Saldana FNP [address] [place] [address] 10/21/2024 10:30 AM EDT Procedure Visit [facility] MED[facility]INE [address] [place] [address] Elaine Bill CNM [address] [place] [address] documented as of this encounter Visit Diagnoses Diagnosis Systemic lupus erythematosus, unspecified SLE type, unspecified organ involvement status (CMS/HCC)- Primary documented in this encounter Additional Health Concerns Assessment Noted Time PHQ-9 Depression Total Score: 10 024 11:22 AM EDT documented as of this encounter Care Teams Epic Analyst Relationship Specialty Start Date End Date Cassie Saldana FNP [address] [place] [address] PCP - General Family Medicine 12/30/21 documented as of this encounter
--- OUTSIDE RECORDS SUMMARY | 2024-09-02 15:05 | XMS_ITS | Encounter Summary ---
Author Organization [employer] Address [address] [place] [address] 7 [place] [address] Care Team Providers Care Repair Tech Name Role Phone Cassie Saldana Primary Care Provider [phone] Reason for Visit * Reason Comments Med Refill Encounter Details Date Type Department Care Team ([facility] st Contact Info) Description 10/08/2023 Refill [facility] MED & PEDS [address] [place], [place] [phone] Cassie Saldana FNP [address] [place] [address] Rheumatoid arthritis involving multiple sites with positive [...] Patient Health Questionnaire-2 Score 0 05/13/2022 Comments No Sex and Gender Information Value [...] Description 10/07/2024 3:30 PM EDT Office Visit [facility] MED & PEDS [address] [place], [place] [phone] Cassie aSldana FNP [address] [place] [address] 10/21/2024 10:30 AM EDT Procedure Visit [facility] MEDICINE [address] [place] [address] Elaine Bill CNM [address] [place] [address] documented as of this encounter Visit Diagnoses Diagnosis Rheumatoid arthritis involving multiple sites with positive rheumatoid factor (CMS/[facility]) documented in this encounter Care Teams Repair Tech Relationship Specialty Start Date End Date Cassie Saldana FNP [address] [place] [address] PCP - General Family Medicine 12/30/21 documented as of this encounter
--- OUTSIDE RECORDS SUMMARY | 2024-09-02 15:05 | XMS_ITS | Clinical Summary ---
Author Organization [employer] Address [address] [facility] 7 [place] [address] Care Team Providers Care Bill Recapitulation Clerk Name Role Phone Teodoradawson Cassie JULES Primary Care Provider [phone] Allergies No known active allergies Medications Misc. Devices (Pulse Oximeter For Finger) miscIndications:R outine health maintenance Use as needed to monitor oxygen saturation at home 1 each 3 Active Blood Pressure Monitor kitIndications:Ro utine health maintenance Use as needed to monitor Blood pressure at home 1 kit 3 Active acetaminophen (Tylenol) 500 MG tablet Take 2 tablets (1,000 mg) by mouth every 6 (six) hours if needed for moderate pain or fever for up to 25 doses. 50 tablet 3 Active multivitamin () 27-0.8 MG tabletIndications :Family planning Take 1 tablet by mouth Once per day. 30 tablet 11 4 Active hydroCHLOROthiazi de 12.5 MG tabletIndications :Primary hypertension Take 1 tablet (12.5 mg) by mouth Once per day. 90 tablet 1 4 01/29/20 25 Active losartan (Cozaar) 50 MG tablet TAKE 1 TABLET BY MOUTH EVERY DAY 90 tablet 1 4 Active 28-0.8 MG tabletIndications :Menses, irregular Take 1 tablet by mouth Once per day. 90 tablet 3 5 09/03/19 26 Active labetalol (Normodyne) 100 MG tabletIndications :Primary hypertension Take 1 tablet (100 mg) by mouth Once per day. 90 tablet 1 5 Active Active Problems Problem Noted Date Diagnosed Date Alpha thalassemia silent carrier 01/23/2024 Anxiety 01/23/2024 Current chronic use of systemic steroids 024 Mixed collagen vascular disease 01/23/2024 Hypertension 07/10/2023 Assessment & Plan (01/29/2024 9:08 PM EDT): -Continues to be elevated despite increase in losartan to 50mg daily -Non-smoker, hx of alf prednisone use -Plan: start hydrochlorothiazide. Reviewed med safety and SE. Check BMP in 2 weeks -Cont monitoring home BP readings and bring to f/up appt in 2-4 weeks Assessment & Plan (12/05/2023 6:17 PM EDT): Repeatedly elevated, new onset HTN Start Losartan 25mg, her recent GFR is normal. She will get BMP in 2-3w to monitor K and change in GFR FU BP with RN in 2-3w and with PCP in 4-6w. Advised to discuss with rheumatology re changing PRD to another medication Counseled re low salt diet/increase moderate physical activity. Check home BP BIW and prn CP/BUENO/BOYD Non smoking patient. Assessment & Plan (09/26/2023 2:10 PM EDT): Elevated BP in office, asymptomatic Previously tx with nifedipine & followed by Cards Follow up precautions Myopericarditis 04/29/2023 Overview (01/29/2024): 10/20/22: Hx myopericarditis. Appt to establish with [facility] Cardiology. EKG stable, planning for an echo Following with Dr. Matthews Assessment & Plan (01/29/2024 9:06 PM EDT): ED precautions Scheduled for visit later this week 02/01/24 Assessment & Plan (04/29/2023 9:35 AM EST): Asymptomatic today in office, reviewed ED precautions Follow up with specialist History of pre-eclampsia 04/29/2023 Overview (04/29/2023): -Hx severe pre-eclampsia during -Prescribed Nifedipine 60mg daily upon post- discharge in November 2022 from [facility] Assessment & Plan (04/29/2023 9:37 AM EST): -DBP elevated, denies any chest pain, BUENO, SOB, palpitations, or other associated symptoms -Nifedipine 60mg daily sent to pharmacy -Encouraged to monitor BP readings at home, return precautions Healthcare maintenance 04/29/2023 Overview (04/29/2023): ?? Contraception: Nexplanon placed post- November 2022 at [facility] Raynaud's phenomenon (secondary) 05/13/2022 Rheumatoid arthritis 06/19/2020 Overview (01/29/2024): -Seropositive RA (RF++ CCP-) -Currently following with [facility] Current med regimen: hydroxychloroquine 200mg BID and prednisone 30mg daily Previous med trials: Humira, Rituxan infusion Per consult October 2023 - Goal: start biologic with plan to wean off prednisone daily. Plan to order Orencia infusion, follow up in 12 weeks Assessment & Plan (01/29/2024 9:19 PM EDT): Called [facility] with pt to discuss f/up regarding Orencia as Gwendolyn reports she has not heard from office since last appt. LVM with request to return call directly to pt. Assessment & Plan (05/13/2022 6:50 PM EST): -Seropositive RA (RF++ CCP-) previously managed with Plaquenil and prednisone by Dr. Diaz of [facility], who has since left. Has not followed up with Rheum > 6 months -Previously on plaquenil 200mg daily, not currently taking. Appears to be safe option for . Nonetheless pt reports she has not used med for > 1 year. -Currently using prednisone 40mg daily as monotherapy for symptom control -Previous [facility] referral suggested referral to rheumatology for initiation of DMARD therapy, although DMARD would not be ideal during -Pt currently with significant joint pains that impact daily functioning -Case discussion with [facility] pharmacy - risk of untreated RA/SLE > risk of prednisone to fetus. Discussed safest range of prednisone during , and per latest research, goal is the lowest dose needed to tx person's symptoms, but there is no ideal range/maximum dose. -DECREASE to prednisone 30mg daily. Reviewed med SE and safety regarding patient and fetus (I.e. delivery) -Follow up via televisit in 1 week to re-eval pain control. Consider increase to previous dose of prednisone 40mg if 30mg daily not sufficient. Consider referral to Rheum pending initial consult with OBGYN. Autoimmune hepatitis 03/25/2013 Assessment & Plan (04/29/2023 9:29 AM EST): -Previously tx w/ azathioprine 75 mg daily for autoimmune hepatitis -08/04/22: Established with [facility] GI for autoimmune hepatitis. Dr. Nhi white. 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 -Established with [facility] GI in September 2021 Low vision, both eyes 10/14/2011 Systemic lupus erythematosus 10/14/2011 Overview (09/23/2023): Seropositive RA (RF++ CCP-) previously managed with Plaquenil and prednisone by Dr. Diaz of [facility] Previously following with [facility], currently following with [facility] (last consult appt Jun 2023) Medication regimen through Rheum: -Hydroxychloroquine 200mg daily -Prednisone 30mg daily Assessment & Plan (09/23/2023 4:24 PM EDT): -Continues with arthralgias and swelling of hands despite adherence to tx above -Consideration of DMARD therapy now that pt no longer - pt has trialed Humira in the past w/o noted improvement. Plan to discuss further tx options with Rheum. -Pt to call to schedule follow up with specialist for further discussion of options Assessment & Plan (04/29/2023 9:41 AM EST): -Continues with arthralgias and swelling of hands despite adherence to tx above -Consideration of DMARD therapy now that pt no longer - pt has trialed Humira in the past w/o noted improvement. Plan to discuss further tx options with Rheum. Called office today with provider, they will plan to reach back out to pt to schedule. Assessment & Plan (06/05/2022 6:49 PM EST): -Called [facility] with patient to schedule appt. Discussed importance that pt be seen soon due to high risk -Continue with prednisone 30mg daily -Consider bridge rx of hydroxychloroquine in primary care until pt able to be established with Rheum. Will place [facility] consult Assessment & Plan (05/24/2022 12:43 PM EST): -Seropositive RA (RF++ CCP-) previously managed with Plaquenil and prednisone by Dr. Diaz of [facility], who has since left. Has not followed up with Rheum > 6 months -Previously on plaquenil 200mg daily, not currently taking. Appears to be safe option for . Nonetheless pt reports she has not used med for > 1 year. -Previously using prednisone 40mg daily as monotherapy for symptom control -Previous [facility] referral suggested referral to rheumatology for initiation of DMARD therapy, although DMARD would not be ideal during -Pt currently with significant joint pains that impact daily functioning -Case discussion with [facility] pharmacy - risk of untreated RA/SLE > risk of prednisone to fetus. Discussed safest range of prednisone during , and per latest research, goal is the lowest dose needed to tx person's symptoms, but there is no ideal range/maximum dose. -Decreased prednisone 30mg daily on 05/13/22. Reviewed med SE and safety regarding patient and fetus (I.e. delivery) -Referral to Rheum [facility]FI for assistance with management Assessment & Plan (05/13/2022 6:41 PM EST): -See RA Resolved Problems Problem Noted Date Diagnosed Date Resolved Date Abnormal liver enzymes 01/23/202401/28 Hepatitis, autoimmune 01/23/20242023 Myocarditis 01/23/2024 01/29/2024 Supervision of high-risk 01/23/2024 01/29/2024 Systemic lupus erythematosus affecting in second trimester 01/23/2024 01/29/2024 Acute cystitis with hematuria 12/05/2023 01/29/2024 Assessment & Plan (12/05/2023 6:20 PM EDT): Take levofloxacin x 5d (based on last Urine Cx) Order urine cx Nexplanon in place 09/23/2023 Assessment & Plan (09/26/2023 2:02 PM EDT): - Nexplanon placed November 2022 by [facility] following delivery - Pt reported interested in removal due to SE - feelings of weight gain, fatigue - Nexplanon removal 09/26/23 at [facility] Assessment & Plan (09/23/2023 4:17 PM EDT): - Nexplanon placed November 2022 by [facility] following delivery - Pt reported interested in removal due to SE - feelings of weight gain, fatigue - Plan to call next week to schedule appt for Nexplanon removal - List of alternative contraceptive methods provided for pt to review 06/05/2022 04/29/2023 Overview (06/05/2022): -LMP 04/02/22 -Referred to [facility] OBG[facility] - initial appt Jun 15, 2022 -Continue daily vitamins Eczema 05/13/2022 09/26/2023 Assessment & Plan (05/13/2022 6:41 PM EST): -Clinical presentation consistent with atopic derm -START compound triamcinolone 0.1% cream with CeraVe, may use daily from the neck down for control and prevention -Routine education from [employer] handout: ?? Moisturizing skin-care routines are essential. ?? Non-soap cleansers, such as Cetaphil, or moisturizing soaps, such as Dove, are recommended. ?? Thick moisturizers such as petroleum jelly, Aquaphor ointment, Eucerin cream, CeraVe cream, and Cetaphil cream should be applied to damp skin after daily bathing. ?? Attempt to minimize exposure to heat, humidity, detergents/soaps, abrasive clothing, chemicals, smoke, and stress. ?? Fragrance-free laundry detergent may be beneficial. ?? Keep the home from getting too dry by using a humidifier or by setting out bowls of water, especially in the bedroom. Helicobacter pylori gastritis 07/14/2016 01/29/2024 Chronic pain syndrome 08/06/20142023 Encounters Date Type Department Care Team Description 09/02/2024 10:00 AM EDT Office Visit [facility] MED & PEDS [address] [place] [address] Cassie Saldana FNP Menses, irregular (Primary Dx); Primary hypertension 09/02/2024 Travel 09/02/2024 Telephone [facility] MEDICINE [address] [place] [address] Cassie Saldana FNP Nurse Triage 08/09/2024 Outside Procedure [facility] OPTOMETRY [address] [place] [address] Alber, Camelia, OD Myopia of both eyes (Primary Dx); Regular astigmatism of both eyes 07/19/2024 Population Health Risk Score [facility] () Department [address] [place] [phone] Provider, Population Health Generic from Last 3 Months Immunizations Name Administration Dates Next Due DTaP 07/29/2005, 2,06/11/2001,03/26,2000 HPV, Quadrivalent 08/27/2014,12/31/2012,10/14/19 12 Hep A, Unspecified 10/21/2016,09/04/2015 Hep A, ped/adol, 2 dose 10/21/2016,09/04/2015 Hep B, Adolescent or Pediatric 11/01/2001,2001,2000 Hib (HbOC) 01/10/2002, 2,03/26/2001,12/05 IPV 07/29/2005, 2,03/26/2001,12/05 Influenza injectable quadriv alent preservative free 04/28/2023,06/24/2022,01/23/2015,04/23 Influenza, IIV3, injectable 01/23/2015,0 08/05/2014,04/23/2014,03/16 Influenza, Split (incl. salma fied surface antigen) 03/28/2012 Influenza, seasonal, injecta ble, preservative free 01/29/2024 MMR 07/29/2005,11/01/2001 Meningococcal ACWY, unspecified 10/21/2016,10/13 Meningococcal MCV4P ACYW-135 10/21/2016,10/14/19 12 Pneumococcal Conjugate PCV 7 05/05/2003, 06/11/2001,03/26/2001,12/05 Tdap 04/28/2023,10/14/2011 Varicella 11/29/2007,01/10/2002 Social History Tobacco Use Types Packs/Day Years [...] not to disclose 2021 10:16 AM EDT Last Filed Vital Signs Vital Sign Reading Time Taken Comments Blood Pressure 136/94 09/02/2024 10:12 AM EDT Pulse 100 09/02/2024 10:11 AM EDT Temperature 36.1 ??C (97 ??F) 09/02/2024 10:11 AM EDT Respiratory Rate 18 09/02/2024 10:11 AM EDT Oxygen Saturation 99% 09/02/2024 10:11 AM EDT Inhaled Oxygen Concentration - - Weight 78.6 kg (173 lb 4 oz) 09/02/2024 10:11 AM EDT Height 154.9 cm (5' 1 ) 09/02/2024 10:11 AM EDT Body Mass Index 32.74 09/02/2024 10:11 AM EDT Plan of Treatment Upcoming Encounters Date Type Department Care Team (Late st Contact Info) Description 10/07/2024 3:30 PM EDT Office Visit [facility] MED & PEDS [address] [place] [address] Cassie Saldana, JULES [address] [place] [address] 10/21/2024 10:30 AM EDT Procedure Visit [facility] MEDICINE [address] [place] [address] Elizabeth Wright CNM [address] [place], [place] [phone] Health Maintenance Due Date Last Done Comments HIV Screening 2000 Lipid Panel 2000 Alcohol/Substance Use Screening 2012 COVID-19 Vaccine ( season) 2024 SDOH Screening 04/28/2024 04/28/2023 Chlamydia and Gonorrhea Screening 10/18/2024 10/19/2023 Family Planning (PISQ) 10/18/2024 10/19/2023 Pap Smear 10/18/2024 10/19/2023 Depression Screening 01/28/2025 01/29/2024, 01/29/20 24 Tobacco Screening 09/02/2025 09/02/2024 DTaP/Tdap/Td Vaccines (8 - Td or Tdap) 04/28/2033 04/28/2023, 10/14/2011, 07/29/2005, Additional history exists Zoster Vaccines (1 of 2) 2050 RSV Patients and Patients Aged 60 years or older (1 - 1-dose 75+ series) 09/29/2075 Hepatitis B Vaccines Completed 11/01/2001, 06/11/2001, 2000 HIB Vaccines Completed 01/10/2002, 08/2001, 03/26/2001, Additional history exists Pneumococcal Vaccine: Pediatrics (0 to 5 Years) and At-Risk Patients (6 to 49) Years) Aged Out 05/05/2003, 06/11/2001, 03/26/2001, Additional history exists No longer eligible based on patient's age to complete this topic IPV Vaccines Completed 07/29/2005, 10/07, 03/26/2001, Additional history exists HPV Vaccines Completed 08/27/2014, 12/07, 10/14/2011 Hepatitis A Vaccines Completed 10/21/2016, 10/21/2016, 09/04/2015, Additional history exists Meningococcal Vaccine Completed 10/21/2016 , 10/21/2016, 10/14/2011, Additional history exists Hepatitis C Screening Completed 07/10/2023, 020 Influenza Vaccine Completed 01/29/2024, , 06/24/2022, Additional history exists RSV under 20 months Aged Out No longe r eligible based on patient's age to complete this topic Rotavirus Vaccines Aged Out No longer eligible based on patient's age to complete this topic Procedures Procedure Name Priority Date/Time Associated Diagnosis Comments POCT , URINE Routine 09/02/2024 10:52 AM EDT Menses, irregular PAP SMEAR Routine 10/19/2023 2:46 PM EDT Routine cervical smear Screening examination for venereal disease CHLAMYDIA/N. GONORRHOEAE AND T. VAGINALIS RNA, QUAL,TMA Routine 10/19/2023 2:46 PM EDT Routine cervical smear Screening examination for venereal disease HEPATITIS PANEL, GENERAL Routine 07/10/2023 9:08 AM EST from Last 3 Months or Most Recently Relevant to Health Maintenance Results * POCT Urine (09/02/2024 10:52 AM EDT) Preg Test, Ur Negative Negative, Indeterminate, None Detected, Invalid, Specimen unsatisfactory for evaluation, Weakly Positive QC Media Lot # [id number] Lot# Expiration Date [id number] Urine 09/02/2024 10:5 2 AM EDT Cassie Saldana [facility] POINT OF CARE TEST ENTER/EDIT ORDERABLES Final Result * Pap with NG,CT,Trich (10/19/2023 2:46 PM EDT) Trichomonas (NAAT) NOT DETECTED NOT DETECTED [facility] Comment:The analytical perfo rmance characteristics of thisassay have been determined by [employer]. Themodifications have not been cleared or approved bythe FDA. This assay has been validated pursuant to theIA regulations and is used for clinical purposes.For additional information, please refer tohttp://education.[employer]ia/faq/Trichomonastma(This link is being provided for information/educational purposes only.)THIS TEST WAS PERFORMED AT:[employer] [place] [phone] MARTINEZ MD CTNG Ref Lab NOT DETECTED NOT DETECTED [facility] NG Ref Lab NOT DETECTED NOT DETECTED [facility] ThinPrep?? vial Cervix uteri structure / Unknown 10/19/2023 2:46 PM EDT 10/20/2023 6:00 AM EDT us Elizabeth MCQUEEN LAB CYTOLOGY ORDERABLES F inal Result [facility] [address] [place] [phone] * Pap Smear (10/19/2023 2:46 PM EDT) Swab Cervix uteri structure / Unknown 10/19/2023 2:46 PM EDT 10/20/2023 6:00 AM EDT Narrative [facility] - 11/08/2023 11:52 AM EDT ----- ------- Name: Gwendolyn Zuñiga ? Age/Sex: 23/F ? : 2000 Unit#: [id number] ?? Attend Dr: ELIZABETH WRIGHT CNM ?Re10/20/23 ?Status: DEP REF ? Location: HO.HHCLNP ? Disch: ? ----- ------- SPEC : [id number] ?RECD: 10/20/23 ? STATUS: ??SOUT ? REQ NUM: [id number] ? GOPI: 10/19/23-1446 ? SUBM DR: ELIZABETH WRIGHT CNM ? ENTERED: ??10/20/23 ?SP TYPE: Pap Smr ?OTHR DR: ? ORDERED: ??Pap Smear, PAP path review ? Interpretation ?? General Category: ? Epithelial cell abnormality. ?? Adequacy: ? Endocervical component present. ?? Interpretation: ? Low grade squamous intraepithelial lesion (DAVID I). ?Fungal organisms consistent with Britta species. ?Clinical Information LMP: Unknown date/findings Previous PAP test: Initial PAP ? Material Received ?? ThinPrep-Cervical ----- ------- Signed (signature on file) Doreen Emeka 11/08/23 1152 ? ----- ------- ? END OF REPORT ? us Elizabeth Wright [facility] CYTOLOGY ORDERABLES F inal Result Performing Organization Address [facility] de Phone Number [facility] [address] [place] [phone] * Hepatitis Panel, General (07/10/2023 9:08 AM EST) Hepatitis A IgM Nonreactive Nonreactive [facility] Comment:IgM antibodies to BUENO V not detected; does not exclude earlyacute or recovered HAV infection. ~Hepatitis B Surface Antibody NONREACTIVE Nonreactive [facility] Comment:Nonreactive: < 8.00 mIU/mL Hepatitis B Core Antibody Nonreactive Nonreactive [facility] Hepatitis C Antibody Nonreactive Nonreactive [facility] Comment:Antibodies to HCV no t detected; does not exclude early acuteHCV infection. Hepatitis B Surface Ag Negative Negative [facility] 07/10/2023 9:08 AM EST 07/10/2023 11:31 AM EST us Generic External Data Provider LAB BLOOD ORDERAB LES Final Result Performing Organization Address [facility] Co de Phone Number [facility] [address] [place] [phone] from Last 3 Months or Most Recently Relevant to Health Maintenance Insurance [facility] C3 Care Teams Bill Recapitulation Clerk Relationship Specialty Start Date End Date Cassie Saldana FNP [address] [place] [phone] PCP - General Family Medicine 12/30/21
--- OUTSIDE RECORDS SUMMARY | 2024-09-02 15:06 | XMS_ITS | Encounter Summary ---
Author Organization [employer] Address [address] [facility] [address] [place] [address] Care Team Providers Care Forestry Conservation Worker Name Role Phone Cassie Saldana JULES Primary Care Provider [phone] Encounter Details Date Type Department Care Team (Latest Contact Info) Description 09/02/2024 Travel Social History Tobacco Use Types Packs/Day Years [...] 10/07/2024 3:30 PM EDT Office Visit [facility] [address] [place] [address] Cassie Saldana FNP [address] [place] [address] 10/21/2024 10:30 AM EDT Procedure Visit [facility] MED[facility] [address] [place] [address] Elaine Bill CNM [address] [place] [address] documented as of this encounter Visit Diagnoses Not on filedocumented in this encounter Additional Health Concerns Assessment Noted Time PHQ-9 Depression Total Score: 10 024 11:22 AM EDT documented as of this encounter Care Teams Forestry Conservation Worker Relationship Specialty Start Date End Date Cassie Saldana FNP [address] [place] [address] PCP - General Family Medicine 12/30/21 documented as of this encounter
--- OUTSIDE RECORDS SUMMARY | 2024-09-02 15:06 | XMS_ITS | Clinical Summary ---
Author Organization [facility] ity Address [address] [place] [address] Care Team Providers Care Operations Intelligence Superintendent Name Role Phone Unavailable Primary Care Provider Unavailabl e Social History Tobacco Use Types Packs/Day Years Used Date Smoking Tobacco: Never Assessed Comments Unknown Sex and Gender Information Value Date Recorded Sex Assigned at Not on file Legal Sex Female 8:28 PM EST Gender Identity Not on file Sexual Orientation Not on file Plan of Treatment Health Maintenance Due Date Last Done Comments Gonorrhea/Chlamydia Screening 2000 HPV Vaccines (1 - 3-dose series) 09/29/2015 Meningococcal B Vaccine (1 o f 2 - Standard) 2016 DTaP,Tdap,and Td Vaccines (1 - Tdap) 09/29/2019 Hepatitis B Vaccines (1 of 3 - 19+ 3-dose series) 09/29/2019 Cervical Cancer Screening: P ap Smear 2021 Depression Screening 06/02/2023 HIV Screening 06/02/2023 Hepatitis C Screening 06/02/2023 Social Influencers of Health Screening 06/02/2023 COVID-19 Vaccine (1 - 2023-2 5 season) 2024 Influenza Vaccine (Season Ended) 2025 HIB Vaccines Aged Out No longer eligi ble based on patient's age to complete this topic Hepatitis A Vaccines Aged Out No long er eligible based on patient's age to complete this topic IPV Vaccines Aged Out No longer eligi ble based on patient's age to complete this topic MMR Vaccines Aged Out No longer eligi ble based on patient's age to complete this topic Meningococcal ACWY Vaccine Aged Out N o longer eligible based on patient's age to complete this topic Pneumococcal Vaccine: Pediat rics (0 to 5 Years) and At-Risk Patients (6 to 64 Years) Aged Out No longer eligible b ased on patient's age to complete this topic RSV Immunization Patients Un yancy 20 months Aged Out No longer eligible b ased on patient's age to complete this topic Varicella Vaccines Aged Out No longer eligible based on patient's age to complete this topic
--- OUTSIDE RECORDS SUMMARY | 2024-09-02 15:06 | XMS_ITS | Encounter Summary ---
Author Organization [employer] Address [address] [facility] 7 [place] [address] Care Team Providers Care Fibre Optic Cable Splicer Name Role Phone Cassie Saldana Primary Care Provider [phone] Reason for Visit * Reason Onset Date Comments Nurse Triage 01/12/2024 Encounter Details Date Type Department Care Team ([facility] st Contact Info) Description 01/12/2024 Telephone [facility] [address] [place] [address] Cassie Saldana FNP [address] [place] [address] Nurse Triage Social History Tobacco Use Types [...] t he electric, gas, oil or water [employer] threatened to shut off services in your [...] encounter Miscellaneous Notes * Telephone Encounter - Zeinab Pelaez LPN - 01/12/2024 1:21 PM EDT Triage call returned to patient who reports concern with ongoing high blood pressures. Pressures 155-165 systolic and > 100 diastolic. Confirms compliance with BP medication as ordered Cozaar. Hasgeneralized fatigue and headaches. No loss of vision no limb weakness. No chest pain or pressure. Disposition reviewed and patient in agreement with plan. No PCP or team appts at time of call. Unable to come to [facility] today. Will attempt visit Monday. Reviewed with patient home care recommendations, reasons to call back and symptoms that require immediate evaluation in UC or ER. Pt verbalizedunderstanding and agrees. Team tasked to follow now with PCP and update patient if changes are indicated. Protocol Used: Blood Pressure - High (Adult) Protocol-Based Disposition: See in Office or Video Visit Today Override (Final) Disposition: Discuss with PCP and Callback by Nurse Today Override Reason: Nurse judgment Video visit not offered Positive Triage Question: * Systolic BP >= 180 OR Diastolic >= 110 * All higher-acuity triage questions were negative Care Advice Discussed: * High Blood Pressure * Reasons To Call Back - Headache, blurred vision, difficulty talking, or difficulty walking occurs - Chest pain or difficulty breathing occurs - You want to go into the office for a blood pressure check - You become worse * Telephone Encounter - Crow Pack - 01/12/2024 1:00 PM EDT Symptoms: Lethargic (Tired), Headache, High Blood Pressure - Caller Reports Outcome: Transfer to a nurse or provider NOW! Reason: Hard to wake up documented in this encounter Plan of Treatment Upcoming Encounters Date Type Department Care Team (Late st Contact Info) Description 10/07/2024 3:30 PM EDT Office Visit [facility] MED & PEDS [address] [place], [place] [phone] Cassie Saldana FNP [address] [place], [place] [phone] 10/21/2024 10:30 AM EDT Procedure [facility] [address] [place] [address] Elaine Bill CNM [address] [place] [address] documented as of this encounter Visit Diagnoses Not on filedocumented in this encounter Care Teams Fibre Optic Cable Splicer Relationship Specialty Start Date End Date Cassie Saldana FNP [address] [place] [address] PCP - General Family Medicine 12/30/21 documented as of this encounter
--- OUTSIDE RECORDS SUMMARY | 2024-09-02 15:06 | XMS_ITS | Encounter Summary ---
Author Organization [employer] Address [address] [place] [address] 7 [place] [address] Care Team Providers Care Director Enterprise Sales Name Role Phone Cassie Saldana Primary Care Provider [phone] Reason for Referral * Imaging (Routine) - Authorized Specialty Diagnoses / Procedures Referred By Contac t Referred To Contact Radiology Diagnoses Menses, irregular Procedures US Pelvis Transvaginal Cassie Saldana FNP [address] [place] [address] Phone: tel: fax: [address] Phone: tel: fax: Referral ID Status Reason Start Date Expiration Date V isits Requested Visits Authorized [id number] Authorized 09/02/2024 09/02/2025 1 1 * Imaging (Urgent) - Authorized Specialty Diagnoses / Procedures Referred By Contac t Referred To Contact Radiology Diagnoses Menses, irregular Procedures Us Pelvis complete Cassie Saldana FNP [address] [place] [address] Phone: tel: fax: [address] Phone: tel: fax: Referral ID Status Reason Start Date Expiration Date V isits Requested Visits Authorized [id number] Authorized 09/02/2024 09/02/2025 1 1 Encounter Details Date Type Department Care Team (Late st Contact Info) Description 09/02/2024 10:00 AM EDT Office Visit [facility]EDS [address] [place] [address] Cassie Saldana FNP [address] [place] [address] Menses, irregular (Primary Dx); Primary hypertension Social History Tobacco Use Types Packs/Day Years [...] AM EDT documented as of this encounter Last Filed Vital Signs Vital Sign Reading [...] Mass Index 32.74 09/02/2024 10:11 AM EDT documented in this encounter Plan of Treatment Upcoming Encounters Date Type Department Care Team (Late st Contact Info) Description 10/07/2024 3:30 PM EDT Office Visit [facility] MED [facility]EDS [address] [place] [address] Cassie Saldana, SAND CASTER APPRENTICE [address] [place] [address] 10/21/2024 10:30 AM EDT Procedure Visit [facility] MEDICINE [address] [place] [address] Elaine Bill, ODIN [address] [place] [address] Scheduled Orders Name Type Priority Associated Diagnoses Orde r Schedule hCG, Total, Quantitative Lab Routine Menses, irregular Expected: 09/02/2024 (Approximate), Expires: 09/02/2025 Us Pelvis complete Imaging Urgent Menses, irregular Expected: 09/02/2024, Expires: 09/02/2025 US Pelvis Transvaginal Imaging Routine Menses, irregular Expected: 09/02/2024, Expires: 09/02/2025 Chlamydia/N. Gonorrhoeae RNA, TMA, Urogenitial Microbiology Routine Menses, irregular Ordered: 09/02/2024 Bacterial Vaginosis Microbiology Routine Menses, irregular Ordered: 09/02/2024 documented as of this encounter Procedures Procedure Name Priority Date/Time Associated Diagnosis Comments POCT , URINE Routine 09/02/2024 10:52 AM EDT Menses, irregular documented in this encounter Results * POCT Urine (09/02/2024 10:52 AM EDT) Preg Test, Ur Negative Negative, Indeterminate, None Detected, Invalid, Specimen unsatisfactory for evaluation, Weakly Positive QC Media Lot # [id number] Lot# Expiration Date [id number] Urine 09/02/2024 10:5 2 AM EDT Cassie VICENTE POINT OF CARE TEST ENTER/EDIT ORDERABLES Final Result documented in this encounter Visit Diagnoses Diagnosis Menses, irregular- Primary Primary hypertension Unspecified essential hypertension documented in this encounter Additional Health Concerns Assessment Noted Time PHQ-9 Depression Total Score: 10 024 11:22 AM EDT documented as of this encounter Care Teams Director Enterprise Sales Relationship Specialty Start Date End Date Cassie Saldana FNP [address] [place] [address] PCP - General Family Medicine 12/30/21 documented as of this encounter
--- OUTSIDE RECORDS SUMMARY | 2024-09-02 15:06 | XMS_ITS | Encounter Summary ---
Author Organization [employer] Address [address] [facility] 7t [place] [address] Care Team Providers Care Concrete Smoother Name Role Phone Cassie Saldana Primary Care Provider [phone] Encounter Details Date Type Department Care Team (Late Contact Info) Description 03/09/2023 Orders Only [facility] [address] [place] [phone] Andrew Jorge MD [address] [place] [address] Social History Tobacco Use Types Packs/Day Years Used Date Smoking Tobacco: Never Smokeless Tobacco: Never Alcohol Use Standard Drinks/Week Comments Never 0 (1 standard drink = 0.6 oz pur e alcohol) Depression Answer Date Recorded Patient Health Questionnaire-2 [...] Description 10/07/2024 3:30 PM EDT Office Visit [facility] MED [facility] PEDS [address] [place], [place] [phone] Cassie Saldana FNP [address] [place], [place] [phone] 10/21/2024 10:30 AM EDT Procedure Visit [facility] MEDICINE [address] [place] [address] Elaine Bill CNM [address] [place] [address] documented as of this encounter Visit Diagnoses Not on filedocumented in this encounter Care Teams Concrete Smoother Relationship Specialty Start Date End Date Cassie Saldana FNP [address] [place] [address] PCP - General Family Medicine 12/30/21 Jeimy Hall water treatment technician 05/30/23 08/06/23 documented as of this encounter
--- OUTSIDE RECORDS SUMMARY | 2024-09-02 15:06 | XMS_ITS | Encounter Summary ---
Author Organization [employer] Address [address] [place] [address] 7 [place] [address] Care Team Providers Care Carver Hand Name Role Phone Cassie Saldana Primary Care Provider [phone] Reason for Visit * Reason Onset Date Comments Returning Call Back 05/26/2022 Encounter Details Date Type Department Care Team ([facility] st Contact Info) Description 05/26/2022 Telephone [facility] MEDICINE [address] [place] [address] Cassie Saldana FNP [address] [place] [address] Returning Call Back Social History Tobacco Use Types Packs/Day Years Used Date Smoking Tobacco: Never Smokeless Tobacco: Never Alcohol Use Standard Drinks/Week Comments Never 0 (1 standard drink = 0.6 oz pur e alcohol) Depression Answer Date Recorded Patient Health Questionnaire-2 Score 0 05/13/2022 Comments Yes Sex and Gender Information Value Date Recorded Sex Assigned at Female 03/07/2022 10:16 AM EDT Legal Sex Female 10:16 AM EDT Gender Identity Female 03/07/2022 10:16 AM EDT Sexual Orientation Choose not to disclose 2021 10:16 AM EDT COVID-19 Exposure Response Date Recorded In the last 10 days, have yo u been in contact with someone who was confirmed or suspected to have Coronavirus/COVID-19? No / Unsure 05/20/2022 1:55 PM EST documented as of this encounter Miscellaneous Notes * Telephone Encounter - Sayda Almendarez - 05/27/2022 10:09 AM EST Tc from patient returning call back, in regards to message below. documented in this encounter Plan of Treatment Upcoming Encounters Date Type Department Care Team (Late st Contact Info) Description 10/07/2024 3:30 PM EDT Office Visit [facility] MED & PEDS [address] [place], [place] [phone] Cassie Saldana FNP [address] [place], [place] [phone] 10/21/2024 10:30 AM EDT Procedure Visit [facility] MEDICINE [address] [place] [address] Elaine Bill CNM [address] [place] [address] documented as of this encounter Visit Diagnoses Not on filedocumented in this encounter Care Teams Carver Hand Relationship Specialty Start Date End Date Cassie Saldana FNP [address] [place] [address] PCP - General Family Medicine 12/30/21 Jeimy Hall paper machine supervisor 05/30/23 08/06/23 documented as of this encounter
--- OUTSIDE RECORDS SUMMARY | 2024-09-02 15:06 | XMS_ITS | Encounter Summary ---
Author Organization [employer] Address [address] [facility] 7 [place] [address] Care Team Providers Care Costuming Supervisor Name Role Phone Cassie Saldana Primary Care Provider [phone] Reason for Visit * Reason Onset Date Comments Nurse Triage 09/02/2024 Encounter Details Date Type Department Care Team ([facility] st Contact Info) Description 09/02/2024 Telephone [facility] MEDICINE [address] [place] [address] Cassie Saldana FNP [address] [place] [address] Nurse Triage Social History Tobacco Use Types [...] encounter Miscellaneous Notes * Telephone Encounter - Farzaneh Urena RN - 09/02/2024 8:14 AM EDT Call returned to Gwendolyn Yogesh to triage below. Reports having abnormal vaginal bleeding. Per ptLMP was on 08/12/24. Normal amount and duration. Per pt having iuntermittent vaginal bleeding. Lasting about 1-2 days then stops then recurs. Having vaginal bleeding today. Pt saturating a pad within 1to 2 hours. No large blood clots. No severe abd pain. Per pt not currently on any oral birthcontrol. No new meds. Pt endorses mild fatigue. Pt advised of disposition, agrees to sick on site today with PCP to discuss. Protocol Used: Vaginal Bleeding - Abnormal (Adult) Protocol-Based Disposition: See in Office or Video Visit within 2 Weeks Future Appointments Date Time Provider Department Center 09/02/2024 10:00 AM JULES Macdonald [facility] 10/21/2024 10:30 AM Elaine Bill CNM [facility] Insurance verified as active per Real Time Eligibility in [facility]. Positive Triage Question: * Periods with > 6 soaked pads or tampons per day * All higher-acuity triage questions were negative Care Advice Discussed: * Reassurance and Education - Normal Menses * Iron and Anemia * Reasons To Call Back - Severe abdomen pain or lightheadedness occurs - Bleeding worsens - You become worse * Telephone Encounter - Janell Arnoldo Carreno - 09/02/2024 8:02 AM EDT Symptom: Menstrual Periods Symptom Outcome: Schedule an appointment to be seen within 24 hours Reason: This is the only possible outcome for this symptom The caller accepted this outcome. [phone] documented in this encounter Plan of Treatment Upcoming Encounters Date Type Department Care Team (Late st Contact Info) Description 10/07/2024 3:30 PM EDT Office Visit [facility] MED & PEDS [address] [place], [place] [phone] Cassie Saldana FNP [address] [place] [address] 10/21/2024 10:30 AM EDT Procedure Visit [facility] MEDICINE [address] [place] [address] Elaine Bill CNM [address] [place] [address] documented as of this encounter Visit Diagnoses Not on filedocumented in this encounter Additional Health Concerns Assessment Noted Time PHQ-9 Depression Total Score: 10 024 11:22 AM EDT documented as of this encounter Care Teams Costuming Supervisor Relationship Specialty Start Date End Date Cassie Saldana FNP [address] [place] [address] PCP - General Family Medicine 12/30/21 documented as of this encounter
--- OUTSIDE RECORDS SUMMARY | 2024-09-02 15:06 | XMS_ITS | Encounter Summary ---
Author Organization [employer] Address [address] [facility] 7 [place] [address] Care Team Providers Care Channeling Machine Operator Name Role Phone Cassie Saldana Primary Care Provider [phone] Reason for Visit * Reason Onset Date Comments Call Back Request 12/11/2023 Encounter Details Date Type Department Care Team ([facility] Contact Info) Description 12/11/[address] [facility] MEDICINE [address] [place] [address] Cassie Saldana FNP [address] [place] [address] Call Back Request Social History Tobacco Use Types Packs/Day Years [...] encounter Miscellaneous Notes * Telephone Encounter - Amparo Benjamin RN - 12/11/2023 4:14 PM EDT Gwendolyn Zuñiga stating she dropped off housing paperwork and wants to ensure it is done quickly as she is currently couch surfing. Patient verbalized understanding and denied having any further questions or concerns at this time. * Telephone Encounter - Helga Munguia - 12/11/2023 3:19 PM EDT Tc from pt requesting a call back from PCP in regards paperwork drop at [facility] that pt needs to be filled out ivette. documented in this encounter Plan of Treatment Upcoming Encounters Date Type Department Care Team (Late st Contact Info) Description 10/07/2024 3:30 PM EDT Office Visit [facility] MED & PEDS [address] [place] [address] Cassie Saldana FNP [address] [place] [address] 10/21/2024 10:30 AM EDT Procedure Visit [facility] MEDICINE [address] [place] [address] Elaine Bill CNM [address] [place] [address] documented as of this encounter Visit Diagnoses Not on filedocumented in this encounter Care Teams Channeling Machine Operator Relationship Specialty Start Date End Date Cassie Saldana FNP [address] [place] [address] PCP - General Family Medicine 12/30/21 documented as of this encounter
[2024-09-02 15:49] LABS: Bacterial Vaginosis PCR POSITIVE (Negative); Candida Group PCR DETECTED (Not Detect); Candida glab krusei PCR NOT DETECTED (Not Detect); Trichomonas vaginalis PCR NOT DETECTED (Not Detect)
[2024-09-02 16:22] LABS: CT PCR NOT DETECTED (Not Detect.); NG PCR NOT DETECTED (Not Detect.)
== END 2024-09-02 12:46 | disposition home or self-care (01) ==
LOC: HO.CHCLNP 12:45
PROVIDERS: Visit Provider Registered Nurse
DX: N92.6 Irregular menstruation, unspecified (principal)
CPT/HCPCS: 81515; 87491; 87591

== ENCOUNTER 2024-09-06 10:07 | Outpatient (REF) | payer MEDICAID, SELFPAY ==
--- OUTSIDE RECORDS SUMMARY | 2024-09-06 11:06 | XMS_ITS | Encounter Summary ---
Author Organization [employer] Address [address] [place] [address] 7 [place] [address] Care Team Providers Care Heating Unit Mechanic Name Role Phone Cassie Saldana Primary Care Provider [phone] Reason for Visit * Reason Comments Med Refill Encounter Details Date Type Department Care Team ([facility] st Contact Info) Description 09/07/2023 Refill [facility] MED [facility] PEDS [address] [place], [place] [phone] Cassie aSldana FNP [address] [place] [address] Rheumatoid arthritis involving multiple sites with positive [...] Description 10/07/2024 3:30 PM EDT Office Visit [facility] MED [facility] PEDS [address] [place], [place] [phone] Cassie Saldana FNP [address] [place] [address] 10/21/2024 10:30 AM EDT Procedure Visit [facility] MEDICINE [address] [place] [address] Elaine Bill CNM [address] [place] [address] documented as of this encounter Visit Diagnoses Diagnosis Rheumatoid arthritis involving multiple sites with positive rheumatoid factor (CMS/[facility]) documented in this encounter Care Teams Heating Unit Mechanic Relationship Specialty Start Date End Date Cassie Saldana FNP [address] [place] [address] PCP - General Family Medicine 12/30/21 documented as of this encounter
--- OUTSIDE RECORDS SUMMARY | 2024-09-06 11:06 | XMS_ITS | Encounter Summary ---
Author Organization [employer] Address [address] [facility] 7 [place] [address] Care Team Providers Care Change Agent Name Role Phone Cassie Saldana Primary Care Provider [phone] Reason for Visit * Reason Comments Med Refill Encounter Details Date Type Department Care Team ([facility] st Contact Info) Description 03/30/2024 Refill [facility] MEDICINE [address] [place] [address] Cassie Saldana FNP [address] [place] [address] Social History Tobacco Use Types Packs/Day Years [...] Description 10/07/2024 3:30 PM EDT Office Visit [facility] MED [facility] PEDS [address] [place], [place] [phone] Cassie Saldana FNP [address] [place] [address] 10/21/2024 10:30 AM EDT Procedure Visit [facility] MEDICINE [address] [place] [address] Elaine Bill CNM [address] [place] [address] documented as of this encounter Visit Diagnoses Not on filedocumented in this encounter Additional Health Concerns Assessment Noted Time PHQ-9 Depression Total Score: 10 024 11:22 AM EDT documented as of this encounter Care Teams Change Agent Relationship Specialty Start Date End Date Cassie Saldana FNP [address] [place] [address] PCP - General Family Medicine 12/30/21 documented as of this encounter
--- OUTSIDE RECORDS SUMMARY | 2024-09-06 11:06 | XMS_ITS | Clinical Summary ---
Author Organization [employer] Address 75 [facility] 7 [place] [address] Care Team Providers Care Immigration Case Manager Name Role Phone Shana Cassie JULES Primary Care Provider [phone] Allergies No known active allergies Medications Misc. [...] per day. 90 tablet 1 5 Active metroNIDAZOLE (Flagyl) 500 MG tablet Take 1 tablet (500 mg) by mouth 2 times daily for 7 days. 14 tablet 5 09/11/19 25 Active fluconazole (Diflucan) 150 MG tablet Take 1 tablet by mouth today. Repeat in 72 hours if symptoms persist. 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 Reviewed med [...] 10/20/22: Hx myopericarditis. Appt to establish with [facility]. EKG stable, planning for an echo [...] upon post- discharge in November 2022 from [facility] Assessment & Plan (04/29/2023 9:37 AM EST): -DBP elevated, denies any chest pain, BUENO, SOB, palpitations, or other associated symptoms -Nifedipine 60mg daily sent to pharmacy -Encouraged to monitor BP readings at home, return precautions Healthcare maintenance 04/29/2023 Overview (04/29/2023): ?? Contraception: Nexplanon placed post- November 2022 at [facility] Raynaud's phenomenon (secondary) 05/13/2022 Rheumatoid arthritis 06/19/2020 Overview (01/29/2024): -Seropositive RA (RF++ CCP-) -Currently following with [facility] Rheum Current med regimen: hydroxychloroquine 200mg BID and prednisone 30mg daily Previous med trials: Humira, Rituxan infusion Per consult October 2023 - Goal: start biologic with plan to wean off prednisone daily. Plan to order Orencia infusion, follow up in 12 weeks Assessment & Plan (01/29/2024 9:19 PM EDT): Called [facility] Rheum with pt to discuss f/up regarding Orencia as Gwendolyn reports she has not heard from office since last appt. LVM with request to return call directly to pt. Assessment & Plan (05/13/2022 6:50 PM EST): -Seropositive RA (RF++ CCP-) previously managed with Plaquenil and prednisone by Dr. Diaz of [facility] Rheumatology, who has since left. Has [...] that impact daily functioning -Case discussion with [facility] pharmacy - risk of untreated RA/SLE [...] daily for autoimmune hepatitis -08/04/22: Established with [facility] for autoimmune hepatitis. Dr. Nhi white. They would like follow up first with lab work and then possibly liver biopsy if needed Assessment & Plan (05/13/2022 7:18 AM EST): -Previously took azathioprine 75 mg daily for autoimmune hepatitis, however she has not taken this medication in some time since she stopped seeing her electrician second. -Established with [facility] in September 2021 Low vision, both eyes 10/14/2011 Systemic lupus erythematosus 10/14/2011 Overview (09/23/2023): Seropositive RA (RF++ CCP-) previously managed with Plaquenil and prednisone by Dr. Diaz of [facility] Rheumatology Previously following with [facility], currently following with [facility] Rheum (last consult appt Jun 2023) [...] & Plan (06/05/2022 6:49 PM EST): -Called [facility] rheum with patient to schedule appt. [...] Plaquenil and prednisone by Dr. Diaz of [facility] Rheumatology, who has since left. Has [...] that impact daily functioning -Case discussion with [facility] pharmacy - risk of untreated RA/SLE [...] EDT): - Nexplanon placed November 2022 by [facility] following delivery - Pt reported interested in removal due to SE - feelings of weight gain, fatigue - Nexplanon removal 09/26/23 at [facility] Assessment & Plan (09/23/2023 4:17 PM EDT): - Nexplanon placed November 2022 by [facility] following delivery - Pt reported interested in removal due to SE - feelings of weight gain, fatigue - Plan to call next week to schedule appt for Nexplanon removal - List of alternative contraceptive methods provided for pt to review 06/05/2022 04/29/2023 Overview (06/05/2022): -LMP 04/02/22 -Referred to [facility] - initial appt Jun 15, 2022 [...] Encounters Date Type Department Care Team Description 09/03/2024 Orders Only [facility] [address] [place] [address] Cassie Saldana FNP 09/02/2024 10:00 AM EDT Office Visit [facility] [address] [place] [address] Cassie Saldana FNP Menses, irregular (Primary Dx); Primary hypertension 09/02/2024 Travel 09/02/2024 Telephone [facility] [address] [place] [address] Cassie Saldana FNP Nurse Triage 08/09/2024 Outside Procedure [facility] OPTOM[facility] [address] [place] [address] Alber, Camelia, OD Myopia of both eyes (Primary Dx); Regular astigmatism of both eyes 07/19/2024 Population Health Risk Score [facility] ([facility]) Department [address] [address] Provider, Population Health Generic from Last 3 Months Immunizations Name Administration Dates Next Due DTaP 07/29/2005, 2,06/11/2001,03/26,2000 HPV, Quadrivalent 08/27/2014,12/31/2012,06/08/20 12 Hep A, Unspecified 10/21/2016,09/04/2015 Hep A, [...] Description 10/07/2024 3:30 PM EDT Office Visit [facility] [address] [place] [address] Cassie Saldana FNP [address] [place] [address] 10/21/2024 10:30 AM EDT Procedure Visit [facility] MED[facility] [address] [place] [address] Elizabeth Wright, CNM [address] [place] [address] Health Maintenance Due Date Last Done Comments HIV Screening 2000 Lipid Panel 2000 Alcohol/Substance Use Screening 2012 COVID-19 Vaccine ( season) 2024 SDOH Screening 04/28/2024 04/28/2023 Family Planning (PISQ) 10/18/2024 10/19/2023 Pap Smear 10/18/2024 10/19/2023 Depression Screening 01/28/2025 01/29/2024, 01/29/20 Chlamydia and Gonorrhea Screening 09/02/2025 09/02/2024, 10/19/2023 Tobacco Screening 09/02/2025 09/02/2024 DTaP/Tdap/Td Vaccines (8 [...] Procedure Name Priority Date/Time Associated Diagnosis Comments BACTERIAL VAGINOSIS PANEL Routine 09/02/2024 10:59 AM EDT Menses, irregular CHLAMYDIA/N. GONORRHOEAE RNA, TMA, UROGENITAL Routine 09/02/2024 10:59 AM EDT Menses, irregular POCT , URINE Routine 09/02/2024 10:52 AM EDT Menses, irregular PAP SMEAR Routine 10/19/2023 2:46 PM EDT Routine cervical smear Screening examination for venereal disease HEPATITIS PANEL, GENERAL Routine 07/10/2023 9:08 AM EST from Last 3 Months or Most Recently Relevant to Health Maintenance Results * (ABNORMAL) Bacterial Vaginosis (09/02/2024 10:59 AM EDT) TRICHOMONAS VAGINALIS DETECTION BY PCR NOT DETECTED Not Detect [facility] BACTERIAL VAGINOSIS DETECTION BY PCR POSITIVE(A) Negative [facility] Comment:The BV organism targ ets of the Xpert Xpress MVP test can becommensal in women; Xpert Xpress MVP positive results forbacterial vaginosis should be considered in conjunction withother clinical and patient information to determine thedisease status. Organisms that are not detected by the XpertXpress MVP test have also been reported to be associatedwith BV and aerobic vaginitis.The Xpert Xpress MVP test performance has not been evaluatedin patients under the age of 14. BRITTA GROUP DETECTION BY PCR DETECTED(A) Not Detect [facility] Britta glab krusei PCR NOT DETECTED Not Detect [facility] Swab Vaginal structure / Unknown 09/02/2024 10:59 AM EDT 09/02/2024 1:59 PM EDT Cassie Saldana [facility] MICROBIOLOGY - GENERAL ORD ERABLES Final Result [facility] [address] [place] [phone] [phone] * Chlamydia/N. Gonorrhoeae RNA, TMA, Urogenitial (09/02/2024 10:59 AM EDT) CT PCR NOT DETECTED Not Detect. [facility] Comment:A not detected test result does not exclude the possibilityof infection because test results can be affected byimproper specimen collection, concurrent antibiotic therapy,or the number of organisms in the specimen which may bebelow the sensitivity of the test. As with many diagnostictests, results from the Xpert CT/NG assay should beinterpreted in conjunction with other laboratory andclinical data available to the clinician.Xpert CT/NG performance has not been evaluated in patientsless than 14 years of age. The assay should not be used forthe evaluationof suspected sexual abuse or for other medico-legalindications. Additional testing is recommended in anycircumstance when false positive or false negative resultscould lead to adverse medical, social or psychologicalconsequences. NG PCR NOT DETECTED Not Detect. [facility] Comment:A not detected test result does not exclude the possibilityof infection because test results can be affected byimproper specimen collection, concurrent antibiotic therapy,or the number of organisms in the specimen which may bebelow the sensitivity of the test. As with many diagnostictests, results from the Xpert CT/NG assay should beinterpreted in conjunction with other laboratory andclinical data available to the clinician.Xpert CT/NG performance has not been evaluated in patientsless than 14 years of age. The assay should not be used forthe evaluationof suspected sexual abuse or for other medico-legalindications. Additional testing is recommended in anycircumstance when false positive or false negative resultscould lead to adverse medical, social or psychologicalconsequences. Swab (Vaginal Swab) 09/02/2024 10:59 AM EDT 09/02/2024 1:59 PM EDT Narrative [facility] - 09/02/2024 4:22 PM EDT Vaginal Cassie Saldana [facility] MICROBIOLOGY - GENERAL ORD ERABLES Final Result [facility] [address] [place] [phone] * POCT Urine (09/02/2024 10:52 AM EDT) Preg Test, Ur Negative Negative, Indeterminate, None Detected, Invalid, Specimen unsatisfactory for evaluation, Weakly Positive QC Media Lot # [id number] Lot# Expiration Date ,[id number] Urine 09/02/2024 10:5 2 AM EDT Cassie Saldana [facility] POINT OF CARE TEST ENTER/EDIT ORDERABLES Final Result * Pap Smear (10/19/2023 2:46 PM EDT) Swab Cervix uteri structure / Unknown 10/19/2023 2:46 PM EDT 10/20/2023 6:00 AM EDT [facility] - 11/08/2023 11:52 AM EDT ----- ------- Name: Gwendolyn Zuñiga ? Age/Sex: 23/F ? : 2000 Unit#: [id number] ?? Attend Dr: ELIZABETH WRIGHT CNM ?Re10/20/23 ?Status: DEP REF ? Location: [facility] ? Disch: ? ----- ------- SPEC : [id number] ?RECD: 10/20/23 ? STATUS: ??SOUT ? REQ NUM: [id number] ? GOPI: 10/19/23-4732 ? SUBM DR: ELIZABETH WRIGHT CNM ? ENTERED: ??10/20/2320 ?SP TYPE: Pap Smr ?OTHR DR: ? [...] ----- ------- Signed (signature on file) Doreen Tavernier 11/08/23 1152 ? ----- ------- ? END OF REPORT ? us Elizabeth Wright [facility] CYTOLOGY ORDERABLES F inal Result [facility] [address] [place] [phone] * Hepatitis Panel, General (07/10/2023 9:08 AM EST) Hepatitis A IgM Nonreactive Nonreactive [facility] Comment:IgM antibodies to BUENO V not detected; does not exclude earlyacute or recovered HAV infection. ~Hepatitis B Surface Antibody NONREACTIVE Nonreactive [facility] Comment:Nonreactive: < 8.00 mIU/mL Hepatitis B Core Antibody Nonreactive Nonreactive [facility] Hepatitis C Antibody Nonreactive Nonreactive [facility] Comment:Antibodies to HCV no t detected; does not exclude early acuteHCV infection. Hepatitis B Surface Ag Negative Negative [facility] 07/10/2023 9:08 AM EST 07/10/2023 11:31 AM EST us Generic External Data Provider LAB BLOOD ORDERAB LES Final Result [facility] [address] [place] [address] [phone] from Last 3 Months or Most Recently Relevant to Health Maintenance Insurance [facility] C3 Care Teams Immigration Case Manager Relationship Specialty Start Date End Date Cassie Saldana FNP [address] [place] [address] PCP - General Family Medicine 12/30/21
--- OUTSIDE RECORDS SUMMARY | 2024-09-06 11:06 | XMS_ITS | Encounter Summary ---
Author Organization [employer] Address [address] [facility] 7 [place] [address] Care Team Providers Care Genetic Technologist Name Role Phone Cassie Saldana Primary Care Provider Reason for Visit * Reason Onset Date Comments Nurse Triage 04/02/2024 Encounter Details Date Type Department Care Team ([facility] Contact Info) Description 04/02/2024 Telephone [facility] [address] [place] [address] Cassie Saldana FNP [address] [place] [address] Nurse Triage Social History Tobacco Use Types [...] pain will need to be managed by [facility] rheumatology. Pt confirms that she missed her appt in February and [facility] [address] [facility] 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 * Telephone Encounter - JULES Madconald - 04/02/2024 9:37 AM EST Hi, please call Gwendolyn to review Rheum plan. She is following with [facility] Rheum, and plan per last consult note in October 2023, plan was to wean off prednisone and start Orencia infusion. I just sent in another bridge rx for her x 2 weeks, but she needs to contact Rheum and follow up with them regarding further management. She was scheduled for [facility] Rheum Appt in Feb 2024, but I [...] PCP and also another provider working in [facility] today. * Telephone Encounter - Crow [...] Description 10/07/2024 3:30 PM EDT Office Visit [facility] [address] [place] [address] Cassie Saldana FNP [address] [place] [address] 10/21/2024 10:30 AM EDT Procedure Visit [facility] [address] [place] [address] Elaine Bill CNM [address] [place] [address] documented as of this encounter Visit Diagnoses Diagnosis Systemic lupus erythematosus, unspecified SLE type, unspecified organ involvement status (CMS/HCC)- Primary documented in this encounter Additional Health Concerns Assessment Noted Time PHQ-9 Depression Total Score: 10 024 11:22 AM EDT documented as of this encounter Care Teams Genetic Technologist Relationship Specialty Start Date End Date Cassie Saldana FNP [address] [place] [address] PCP - General Family Medicine 12/30/21 documented as of this encounter
--- OUTSIDE RECORDS SUMMARY | 2024-09-06 11:07 | XMS_ITS | Clinical Summary ---
Author Organization [facility] ity Address [address] [place] [address] Care Team Providers Care Drilling Machine Operator Name Role Phone Unavailable Primary Care Provider [...] [employer] of Health Screening 06/02/2023 COVID-19 Vaccine ( - 2023-2 5 season) 2024 Influenza Vaccine [...]
--- OUTSIDE RECORDS SUMMARY | 2024-09-06 11:07 | XMS_ITS | Encounter Summary ---
Author Organization [email or web address] Address [address] [facility] 7t [place] [address] Care Team Providers Care Supervisor Assembly Department Name Role Phone Cassie Saldana JULES Primary Care Provider [phone] Encounter Details Date Type Department Care Team [...] Description 10/07/2024 3:30 PM EDT Office Visit [facility] [address] [place] [address] Cassie Saldana FNP [address] [place] [address] 10/21/2024 10:30 AM EDT Procedure Visit [facility] MEDICINE [address] [place] [address] Elaine Bill CNM [address] [place] [address] documented as of this encounter Visit Diagnoses Not on filedocumented in this encounter Additional Health Concerns Assessment Noted Time PHQ-9 Depression Total Score: 10 024 11:22 AM EDT documented as of this encounter Care Teams Supervisor Assembly Department Relationship Specialty Start Date End Date Cassie Saldana FNP [address] [place] [address] PCP - General Family Medicine 12/30/21 documented as of this encounter
--- OUTSIDE RECORDS SUMMARY | 2024-09-06 11:07 | XMS_ITS | Encounter Summary ---
Author Organization [employer] Address [address] [place] [address] [address] [place] [address] Care Team Providers Care Strategy Execution Consultant Name Role Phone Cassie Saldana Primary Care Provider [phone] Reason for Referral * Imaging (Routine) - Authorized Specialty Diagnoses / Procedures Referred By Contac t Referred To Contact Radiology Diagnoses Menses, irregular Procedures US Pelvis Transvaginal Cassie Saldana FNP [address] [place] [address] Phone: tel: fax: [address] Phone: tel: fax: Referral ID Status Reason Start Date Expiration Date V isits Requested Visits Authorized [id number] Authorized 09/02/2024 09/02/2025 1 1 * Imaging (Urgent) - Authorized Specialty Diagnoses / Procedures Referred By Contac t Referred To Contact Radiology Diagnoses Menses, irregular Procedures Us Pelvis complete Cassie Saldana FNP [address] [place] [address] Phone: tel: fax: [address] Phone: tel: fax: Referral ID Status Reason Start Date Expiration Date V isits Requested Visits Authorized [id number] Authorized 09/02/2024 09/02/2025 1 1 Encounter Details Date Type Department Care Team (Late st Contact Info) Description 09/02/2024 10:00 AM EDT Office Visit [facility] [address] [place] [address] Cassie Saldana FNP [address] [place] [address] Menses, irregular (Primary Dx); Primary hypertension Social [...] [facility] [address] [place] [address] Cassie Saldana, EGG BUYER [address] [place] [address] 10/21/2024 10:30 AM EDT Procedure Visit [facility] [address] [place] [address] Elaine Bill, ODIN [address] [place] [address] Scheduled Orders Name Type Priority Associated Diagnoses Orde r Schedule hCG, Total, Quantitative Lab Routine Menses, irregular Expected: 09/02/2024 (Approximate), Expires: 09/02/2025 Us Pelvis complete Imaging Urgent Menses, irregular Expected: 09/02/2024, Expires: 09/02/2025 US Pelvis Transvaginal Imaging Routine Menses, irregular Expected: 09/02/2024, Expires: 09/02/2025 documented as of this encounter Procedures Procedure Name Priority Date/Time Associated Diagnosis Comments BACTERIAL VAGINOSIS PANEL Routine 09/02/2024 10:59 AM EDT Menses, irregular CHLAMYDIA/N. GONORRHOEAE RNA, TMA, UROGENITAL Routine 09/02/2024 10:59 AM EDT Menses, irregular POCT , URINE Routine 09/02/2024 10:52 AM EDT Menses, irregular documented in this encounter Results * (ABNORMAL) Bacterial Vaginosis (09/02/2024 10:59 AM EDT) TRICHOMONAS VAGINALIS DETECTION BY PCR NOT DETECTED Not Detect [facility] BACTERIAL VAGINOSIS DETECTION BY PCR POSITIVE(A) Negative [facility] Comment:The BV organism targ ets of [...] GROUP DETECTION BY PCR DETECTED(A) Not Detect [facility] Britta glab krusei PCR NOT DETECTED Not Detect [facility] Swab Vaginal structure / Unknown 09/02/2024 10:59 AM EDT 09/02/2024 1:59 PM EDT Cassie Saldana [facility] MICROBIOLOGY - GENERAL ORD ERABLES Final Result [facility] [address] [place] [phone] * Chlamydia/N. Gonorrhoeae RNA, TMA, Urogenitial (09/02/2024 10:59 AM EDT) CT PCR NOT DETECTED Not Detect. [facility] Comment:A not detected test result does [...] psychologicalconsequences. NG PCR NOT DETECTED Not Detect. [facility] Comment:A not detected test result does [...] AM EDT 09/02/2024 1:59 PM EDT Narrative [facility] - 09/02/2024 4:22 PM EDT Vaginal us Cassie Saldana [facility] MICROBIOLOGY - GENERAL ORD ERABLES Final Result [facility] [address] [place] [phone] * POCT Urine (09/02/2024 10:52 AM EDT) Preg Test, Ur Negative Negative, Indeterminate, None Detected, Invalid, Specimen unsatisfactory for evaluation, Weakly Positive QC Media Lot # [id number] Lot# Expiration Date ,[id number] Urine 09/02/2024 10:5 2 AM EDT Cassie VICENTE POINT OF CARE TEST ENTER/EDIT ORDERABLES Final Result documented in this encounter Visit Diagnoses Diagnosis Menses, irregular- Primary Primary hypertension Unspecified essential hypertension documented in this encounter Additional Health Concerns Assessment Noted Time PHQ-9 Depression Total Score: 10 024 11:22 AM EDT documented as of this encounter Care Teams Strategy Execution Consultant Relationship Specialty Start Date End Date Cassie Saldana FNP [address] [place] [address] PCP - General Family Medicine 12/30/21 documented as of this encounter
--- OUTSIDE RECORDS SUMMARY | 2024-09-06 11:07 | XMS_ITS | Encounter Summary ---
Author Organization [employer] Address [address] [facility] 7t [place] [address] Care Team Providers Care Manager Process Improvement Name Role Phone Cassie Saldana Primary Care Provider [phone] Encounter Details Date Type Department Care Team (Late st Contact Info) Description 03/09/2023 Orders Only [facility] [address] [place] [address] [phone] Andrew Jorge MD [address] [place] [address] Social History Tobacco Use Types Packs/Day Years [...] Description 10/07/2024 3:30 PM EDT Office Visit [facility] P[facility]S [address] [place], [place] [phone] Cassie Saldana FNP [address] [place], [place] [phone] 10/21/2024 10:30 AM EDT Procedure Visit [facility] MEDICINE [address] [place] [address] Elaine Bill CNM [address] [place] [address] documented as of this encounter Visit Diagnoses Not on filedocumented in this encounter Care Teams Manager Process Improvement Relationship Specialty Start Date End Date Cassie Saldana FNP [address] [place] [address] PCP - General Family Medicine 12/30/21 Jeimy Hall director of housing 05/30/23 08/06/23 documented as of this encounter
--- OUTSIDE RECORDS SUMMARY | 2024-09-06 11:07 | XMS_ITS | Encounter Summary ---
Author Organization [email or web address] Address [address] [facility] 7 [place] [address] Care Team Providers Care Nnp Name Role Phone Cassie Saldana Primary Care Provider [phone] Reason for Visit * Reason Onset Date Comments Nurse Triage 01/12/2024 Encounter Details Date Type Department Care Team ([facility] st Contact Info) Description 01/12/2024 Telephone [facility] MED[facility] [address] [place] [address] Cassie Saldana FNP [address] [place] [address] Nurse Triage Social History Tobacco Use Types [...] t he electric, gas, oil or water [employer] threatened to shut off services in your [...] time of call. Unable to come to [facility] today. Will attempt visit Monday. Reviewed with [...] 3:30 PM EDT Office Visit [facility] [address] [place], [place] [phone] Cassie Saldana FNP [address] [place], [place] [phone] 10/21/2024 10:30 AM EDT Procedure Visit [facility] [address] [place] [address] Elaine Bill CNM [address] [place] [address] documented as of this encounter Visit Diagnoses Not on filedocumented in this encounter Care Teams Nnp Relationship Specialty Start Date End Date Cassie Saldana FNP [address] [place] [address] PCP - General Family Medicine 12/30/21 documented as of this encounter
--- OUTSIDE RECORDS SUMMARY | 2024-09-06 11:07 | XMS_ITS | Encounter Summary ---
Author Organization [employer] Address [address] [facility] 7 [place] [address] Care Team Providers Care Rn Hemo Dialysis Name Role Phone Cassie Saldana Primary Care Provider [phone] Reason for Visit * Reason Onset Date Comments Nurse Triage 09/02/2024 Encounter Details Date Type Department Care Team ([facility] st Contact Info) Description 09/02/2024 Telephone [facility] MEDICINE [address] [place] [address] Cassie Saldana FNP [address] [place] [address] Nurse Triage Social History Tobacco Use Types [...] Miscellaneous Notes * Telephone Encounter - Farzaneh rUena RN - 09/02/2024 8:14 AM EDT Call [...] Department Center 09/02/2024 10:00 AM JULES Macdonald [facility] 10/21/2024 10:30 AM Elaine Bill CNM [facility] Insurance verified as active per Real Time Eligibility in [facility]. Positive Triage Question: * Periods with [...] this symptom The caller accepted this outcome. [phone] documented in this encounter Plan of Treatment Upcoming Encounters Date Type Department Care Team (Late st Contact Info) Description 10/07/2024 3:30 PM EDT Office Visit [facility] CHC MED & PEDS [address] [place], [place] [phone] Cassie Saldana FNP [address] [place] [address] 10/21/2024 10:30 AM EDT Procedure Visit [facility] MEDICINE [address] [place] [address] Elaine Bill CNM [address] [place] [address] documented as of this encounter Visit Diagnoses Not on filedocumented in this encounter Additional Health Concerns Assessment Noted Time PHQ-9 Depression Total Score: 10 024 11:22 AM EDT documented as of this encounter Care Teams Rn Hemo Dialysis Relationship Specialty Start Date End Date Cassie Saldana FNP [address] [place] [address] PCP - General Family Medicine 12/30/21 documented as of this encounter
--- OUTSIDE RECORDS SUMMARY | 2024-09-06 11:07 | XMS_ITS | Encounter Summary ---
Author Organization [employer] Address [address] [facility] [address] 7[address] [place] [address] Care Team Providers Care Paster Hat Lining Name Role Phone Cassie Saldana Primary Care Provider [phone] Encounter Details Date Type Department Care Team ([facility] st Contact Info) Description 09/03/2024 Orders Only [facility] [address] [place] [address] Cassie Saldana FNP [address] [place] [address] Social History Tobacco Use Types Packs/Day Years [...] Description 10/07/2024 3:30 PM EDT Office Visit [facility] CH[facility] MED & PEDS [address] [place] [address] Cassie Saldana FNP 505 [place] [address] 10/21/2024 10:30 AM EDT Procedure Visit [facility] MEDICINE [address] [place] [address] Elaine Blil CNM [address] [place] [address] documented as of this encounter Visit Diagnoses Not on filedocumented in this encounter Additional Health Concerns Assessment Noted Time PHQ-9 Depression Total Score: 10 024 11:22 AM EDT documented as of this encounter Care Teams Paster Hat Lining Relationship Specialty Start Date End Date Cassie Saldana FNP [address] [place] [address] PCP - General Family Medicine 12/30/21 documented as of this encounter
--- OUTSIDE RECORDS SUMMARY | 2024-09-06 11:07 | XMS_ITS | Encounter Summary ---
Author Organization [employer] Address [address] [facility] 7 [place] [address] Care Team Providers Care Concrete Swimming Pool Installer Name Role Phone Cassie Saldana Primary Care Provider [phone] Reason for Visit * Reason Onset Date Comments Call Back Request 12/11/2023 Encounter Details Date Type Department Care Team ([facility] Contact Info) Description 12/11/2023 Telephone [facility] MEDICINE [address] [place] [address] Cassie Saldana FNP [address] [place] [address] Call Back Request Social History Tobacco Use [...] from PCP in regards paperwork drop at [facility] that pt needs to be filled out ivette. documented in this encounter Plan of Treatment Upcoming Encounters Date Type Department Care Team (Late st Contact Info) Description 10/07/2024 3:30 PM EDT Office Visit [facility] CHC MED & PEDS 505 [place] [address] Cassie Saldana FNP [address] [place] [address] 10/21/2024 10:30 AM EDT Procedure Visit [facility] MEDICINE [address] [place] [address] Elaine Bill CNM [address] [place] [address] documented as of this encounter Visit Diagnoses Not on filedocumented in this encounter Care Teams Concrete Swimming Pool Installer Relationship Specialty Start Date End Date Cassie Saldana FNP [address] [place] [address] PCP - General Family Medicine 12/30/21 documented as of this encounter
--- OUTSIDE RECORDS SUMMARY | 2024-09-06 11:07 | XMS_ITS | Encounter Summary ---
Author Organization [employer] Address [address] [place] [address] 7 [place] [address] Care Team Providers Care Gang Ripsaw Operator Name Role Phone Cassie Saldana Primary Care Provider [phone] Reason for Visit * Reason Onset Date Comments Returning Call Back 05/26/2022 Encounter Details Date Type Department Care Team ([facility] st Contact Info) Description 05/26/2022 Telephone [facility] MEDICINE [address] [place] [address] Cassie Saldana FNP [address] [place] [address] Returning Call Back Social History Tobacco Use [...] Description 10/07/2024 3:30 PM EDT Office Visit [facility] CHC MED & PEDS [address] [place], [place] [phone] Cassie Saldana FNP [address] [place], [place] [phone] 10/21/2024 10:30 AM EDT Procedure Visit [facility] MEDICINE [address] [place] [address] Elaine Bill CNM [address] [place] [address] documented as of this encounter Visit Diagnoses Not on filedocumented in this encounter Care Teams Gang Ripsaw Operator Relationship Specialty Start Date End Date Cassie Saldana FNP [address] [place] [address] PCP - General Family Medicine 12/30/21 Jeimy Hall tea plantation worker 05/30/23 08/06/23 documented as of this encounter
--- OUTSIDE RECORDS SUMMARY | 2024-09-06 11:07 | XMS_ITS | Encounter Summary ---
Author Organization [employer] Address [address] [place] [address] 7 [place] [address] Care Team Providers Care Billet Inspector Name Role Phone Cassie Saldana Primary Care Provider [phone] Reason for Visit * Reason Comments Med Refill Encounter Details Date Type Department Care Team ([facility] st Contact Info) Description 10/08/2023 Refill [facility] CHC MED & PEDS [address] [place], [place] [phone] Cassie Saldana FNP [address] [place] [address] Rheumatoid arthritis involving multiple sites with positive [...] 3:30 PM EDT Office Visit [facility] CHC MED & PEDS [address] [place], [place] [phone] Cassie Saldana FNP 505 [place] [address] 10/21/2024 10:30 AM EDT Procedure Visit [facility] MEDICINE [address] [place] [address] Elaine Bill CNM [address] [place] [address] documented as of this encounter Visit Diagnoses Diagnosis Rheumatoid arthritis involving multiple sites with positive rheumatoid factor (CMS/[facility]) documented in this encounter Care Teams Billet Inspector Relationship Specialty Start Date End Date Cassie Saldana FNP [address] [place] [address] PCP - General Family Medicine 12/30/21 documented as of this encounter
[2024-09-06 14:33] LABS: Appearance Urine Turbid; Color Urine Dark Yellow; Glucose Urine UA Negative (Negative); Leukocyte Esterase Urine Small (1+) (Negative); Nitrite Urine Positive (Negative); PH 5.5 (5.0-9.0); Specific Gravity - Urine 1.025 (1.005-1.025); UMIC TRIGGER UA YES; Urine Blood Negative (Negative); Urine Ketones Trace mg/dL (Negative); Urine Protein Negative (Neg-Trace)
[2024-09-06 14:36] LABS: Bacteria Urine 1+ (None Seen); Hyaline Casts Urine 0-2 /LPF (0-2); RBC Urine 0-2 /HPF (0-2)
[2024-09-06 14:41] LABS: Basophils Percent Auto 0.4 % (0-2); Eosinophils Percent Auto 0.1 % (0-4); Hemoglobin 13.3 g/dl (12.0-16.0); Imm Gran Abs Auto 0.14 X10*3/uL (0.00-0.03); Imm Gran Pct Auto 1.7 % (0.0-0.4); Lymphocytes Absolute Auto 0.4 X10*3/uL (1.2-4.9); Lymphocytes Percent Auto 4.7 % (20-40); MANUAL DIFF FLAG SCAN; Mean Corpuscular HGB Conc 30.2 g/dl (31.0-35.0); Mean Corpuscular Hemoglobin 23.1 pg (27.0-33.0); Mean Corpuscular Volume 76.5 fL (80.0-98.0); Mean Platelet Volume 10.9 fL (9.4-12.3); Monocytes Absolute Auto 0.2 X10*3/uL (0.1-1.2); Monocytes Percent Auto 2.4 % (2-11); Neutrophils Absolute Auto 7.7 x10*3/uL (2.0-8.3); Neutrophils Percent Auto 90.7 % (45-73); Platelet Count 353 X10*3/uL (160-400); Red Blood Count 5.75 X10*6/uL (4.20-5.50); Red Cell Distribution Width 15.8 % (11.0-16.0); SCAN SMEAR FLAG 1; White Blood Count 8.5 X10*3/uL (4.8-10.8)
[2024-09-06 14:48] LABS: Alanine Aminotransferase 31 U/L (0-31); Albumin Level 3.8 g/dL (3.5-5.0); Alkaline Phosphatase 73 U/L (39-117); Anion Gap 13 (12-20); Aspartate Amino Transferase 36 U/L (5-31); Bilirubin Total 0.3 mg/dL (0.0-1.0); Blood Urea Nitrogen 14 mg/dL (9-16); C Reactive Protein 0.54 mg/dL (< or = 0.50); Calcium 8.8 mg/dL (8.4-10.2); Carbon Dioxide 23 mmol/L (22-29); Chloride 111 mmol/L (96-108); Estimated Glomerular Filt Rate > 60; Glucose Random 119 mg/dL (60-115); Potassium 3.8 mmol/L (3.3-5.1); Sodium 143 mmol/L (135-145)
[2024-09-06 14:52] LABS: HCG Quantitative < 2 mIU/mL
[2024-09-06 15:16] LABS: Creatinine Urine 164.71 mg/dL; Protein/Creatinine Ratio, Ur 0.05 (<0.2); Total Protein Urine Random 9 mg/dL (<12)
[2024-09-06 15:21] LABS: SLIDE REVIEW VERIFIED
[2024-09-06 15:23] LABS: Erythrocyte Sedimentation Rate 11 MM/HR (0-20)
[2024-09-09 11:03] LABS: Complement C3 135 mg/dL (83-193)
[2024-09-09 22:07] LABS: Anti DNA DS Antibody 12 IU/mL
== END 2024-09-06 10:08 | disposition home or self-care (01) ==
LOC: HO.CHCLDS 10:07
PROVIDERS: PCP Registered Nurse; Referring Provider Student in an Organized Health Care Education/Training Program; Visit Provider Registered Nurse
DX: M06.9 Rheumatoid arthritis, unspecified (principal); Z79.60 Long term (current) use of unspecified immunomodulators and immunosuppressants; N92.6 Irregular menstruation, unspecified
CPT/HCPCS: 36415; 80053; 81001; 82570; 84156; 84702; 85025; 85652; 86140; 86160; 86225

== ENCOUNTER 2024-09-09 14:55 | Outpatient (REF) | payer MEDICAID, SELFPAY ==
--- NOTE | ~2024-09-09 | US_ITS ---
EXAMINATION: US PELVIS CLINICAL INFORMATION: Abnormal uterine bleeding. COMPARISON: None available. TECHNIQUE: Ultrasound of the pelvis is performed using both transabdominal and transvaginal transducers along with Doppler. Transvaginal imaging is performed due to inadequate visualization transabdominally. FINDINGS: Uterus: The uterus is anteverted and measures 3 x 3 x 4 cm. There is an heterogeneous endocervical canal with likely nabothian cysts. The double wall endometrial thickness is 6 mm. The uterus is smooth in contour and has normal myometrial echogenicity. No visible fibroid. Adnexa: Both ovaries are visualized. There is normal color flow to the adnexa. There is no ovarian torsion. There is no pelvic ascites or fluid collection. Right ovary measures 4 x 3 x 5 cm. Volume: 38 cc. There is a 3.9 cm septated anechoic lesion without flow on color Doppler interrogation. Left ovary measures 3 x 2 x 1. cm. 3 cc. No gross solid or cystic lesion. US/US pelvic and transvaginal IMPRESSION: 3.9 cm septated cyst, right ovary. No ovarian torsion. 6 mm endometrial stripe. Please correlate with menstrual cycle. No gross uterine fibroid. Electronically signed by: Jordy Biggs MD 09/09/2024 03:30 PM EDT RP
--- OUTSIDE RECORDS SUMMARY | 2024-09-09 16:30 | XMS_ITS | Encounter Summary ---
Author Organization [employer] Address [address] [place] [address] 7 [place] [address] Care Team Providers Care Health Sciences Program Coordinator Name Role Phone Cassie Saldana Primary Care Provider [phone] Reason for Visit * Reason Comments Med Refill Encounter Details Date Type Department Care Team ([facility] st Contact Info) Description 09/07/2023 Refill [facility] CHC MED & PEDS [address] [place], [place] [phone] Cassie Saldana FNP [address] [place] [address] Rheumatoid arthritis involving multiple sites with positive [...] Description 10/07/2024 3:30 PM EDT Office Visit [facility] CHC MED & PEDS [address] [place], [place] [phone] Cassie Saldana FNP [address] [place] [address] 10/21/2024 10:30 AM EDT Procedure Visit [facility] MEDICINE [address] [place] [address] Elaine Bill CNM [address] [place] [address] documented as of this encounter Visit Diagnoses Diagnosis Rheumatoid arthritis involving multiple sites with positive rheumatoid factor (CMS/[facility]) documented in this encounter Care Teams Health Sciences Program Coordinator Relationship Specialty Start Date End Date aCssie Saldana FNP [address] [place] [address] PCP - General Family Medicine 12/30/21 documented as of this encounter
--- OUTSIDE RECORDS SUMMARY | 2024-09-09 16:30 | XMS_ITS | Encounter Summary ---
Author Organization [employer] Address [address] [facility] 7 [place] [address] Care Team Providers Care Head Banquet Waitress Name Role Phone Cassie Saldana Primary Care Provider [phone] Reason for Visit * Reason Comments Med Refill Encounter Details Date Type Department Care Team ([facility] st Contact Info) Description 03/30/2024 Refill [facility] MEDICINE [address] [place] [address] Cassie Saldana FNP [address] [place] [address] Social History Tobacco Use Types Packs/Day Years [...] Description 10/07/2024 3:30 PM EDT Office Visit [facility] CHC MED & PEDS [address] [place], [place] [phone] Cassie Saldana FNP [address] [place] [address] 10/21/2024 10:30 AM EDT Procedure Visit [facility] MEDICINE [address] [place] [address] Elaine Bill CNM [address] [place] [address] documented as of this encounter Visit Diagnoses Not on filedocumented in this encounter Additional Health Concerns Assessment Noted Time PHQ-9 Depression Total Score: 10 024 11:22 AM EDT documented as of this encounter Care Teams Head Banquet Waitress Relationship Specialty Start Date End Date Cassie Saldana FNP [address] [place] [address] PCP - General Family Medicine 12/30/21 documented as of this encounter
--- OUTSIDE RECORDS SUMMARY | 2024-09-09 16:30 | XMS_ITS | Encounter Summary ---
Author Organization [employer] Address [address] [facility] 7 [place] [address] Care Team Providers Care Floral Assistant Name Role Phone Cassie Saldana Primary Care Provider [phone] Reason for Visit * Reason Onset Date Comments Nurse Triage 04/02/2024 Encounter Details Date Type Department Care Team ([facility] Contact Info) Description 04/02/2024 Telephone [facility] MEDICINE [address] [place] [address] Cassie Saldana FNP [address] [place] [address] Nurse Triage Social History Tobacco Use Types [...] pain will need to be managed by [facility] rheumatology. Pt confirms that she missed her appt in February and [facility] Pt would also like PCP to be aware that she is now with a different salesperson hearing aids as her longstanding one has left the practice. * Telephone Encounter - JULES Macdonald - 04/02/2024 9:37 AM EST Hi, please call Gwendolyn to review Rheum plan. She is following with [facility] Rheum, and plan per last consult note in October 2023, plan was to wean off prednisone and start Orencia infusion. I just sent in another bridge rx for her x 2 weeks, but she needs to contact Rheum and follow up with them regarding further management. She was scheduled for [facility] Rheum Appt in Feb 2024, but I [...] PCP and also another provider working in [facility] today. * Telephone Encounter - Crow [...] 3:30 PM EDT Office Visit [facility] MED & PEDS [address] [place] [address] Cassie Saldana FNP [address] [place] [address] 10/21/2024 10:30 AM EDT Procedure Visit [facility] MEDICINE [address] [place] [address] Elaine Bill CNM [address] [place] [address] documented as of this encounter Visit Diagnoses Diagnosis Systemic lupus erythematosus, unspecified SLE type, unspecified organ involvement status (CMS/HCC)- Primary documented in this encounter Additional Health Concerns Assessment Noted Time PHQ-9 Depression Total Score: 10 024 11:22 AM EDT documented as of this encounter Care Teams Floral Assistant Relationship Specialty Start Date End Date Cassie Saldana FNP [address] [place] [address] PCP - General Family Medicine 12/30/21 documented as of this encounter
--- OUTSIDE RECORDS SUMMARY | 2024-09-09 16:31 | XMS_ITS | Encounter Summary ---
Author Organization [employer] Address [address] [facility] 7 [place] [address] Care Team Providers Care Java J2Ee Architect Name Role Phone Cassie Saldana JULES Primary Care Provider Encounter Details Date Type Department Care Team (Late st Contact Info) Description 09/06/2024 Orders Only GENERIC EXTERNAL DATA DEPARTMENT Provider, Generic External Data Social History Tobacco Use Types Packs/Day Years [...] Description 10/07/2024 3:30 PM EDT Office Visit [facility] CHC MED & PEDS [address] [place], [place] [phone] Cassie Saldana, OVEREDGE MACHINE OPERATOR [address] [place] [address] 10/21/2024 10:30 AM EDT Procedure Visit [facility] MEDICINE [address] [place] [address] Elaine Bill, CNM [address] [place] [address] documented as of this encounter Procedures Procedure Name Priority Date/Time Associated Diagnosis Comments PROTEIN CREATININE RATIO, URINE Routine 09/06/2024 10:15 AM EDT URINALYSIS, COMPLETE Routine 09/06/2024 10:15 AM EDT SLIDE REVIEW Routine 09/06/2024 10:11 AM EDT CBC WITH AUTO DIFFERENTIAL Routine 09/06/2024 10:11 AM EDT SED RATE BY MODIFIED WESTERGREN Routine 09/06/2024 10:11 AM EDT COMPLEMENT COMPONENT C3C Routine 09/06/2024 10:11 AM EDT COMPLEMENT COMPONENT C4C Routine 09/06/2024 10:11 AM EDT C-REACTIVE PROTEIN Routine 09/06/2024 10 :11 AM EDT COMPREHENSIVE METABOLIC PANEL Routine 09/06/2024 10:11 AM EDT documented in this encounter Results * Protein Creatinine Ratio, Urine (09/06/2024 10:15 AM EDT) Creatinine, Urine 164.71 mg/dL [facility] Protein, Total, Random Urine 9 <12 mg/dL [facility] Protein/Creati nine Ratio, Ur 0.05 <0.2 [facility] Comment:The spot urine prote in:creatinine ratio may increase to 0.3during normal . 09/06/2024 10:1 5 AM EDT 09/06/2024 2:25 PM EDT us Generic External Data Provider LAB URINE ORDERAB LES Final Result Performing Organization Address City/State/[facility] Co de Phone Number [facility] [address] [place] [phone] * (ABNORMAL) Urinalysis Complete (09/06/2024 10:15 AM EDT) Color Urine Dark Yellow [facility] Appearance Urine Turbid [facility] PH 5.5 5.0 - 9.0 [facility] Glucose Urine UA Negative Negative mg/dL [facility] Urine Blood Negative Negative [facility] Specific [place] - Urine 1.025 1.005 - 1.025 [facility] Urine Protein Negative Neg-Trace mg/dL [facility] Urine Ketones Trace Negative mg/dL [facility] Nitrite Urine Positive(A) Negative [facility] Leukocyte Esterase Urine Small (1+)(A) Negative [facility] RBC Urine 0-2 0 - 2 /HPF [facility] Urine WBC 11-20(A) 0 - 5 /HPF [facility] Urine Squamous Epithelial Cell 11-20 0 - 2 /HPF [facility] Urine Bacteria 1+ None Seen [facility] Hyaline Casts, Urine 0-2 0 - 2 /LPF [facility] 09/06/2024 10:1 5 AM EDT 09/06/2024 2:25 PM EDT us Generic External Data Provider LAB URINE ORDERAB LES Final Result Performing Organization Address City/[facility]/ZIP Co de Phone Number [facility] [address] [place] [address] [phone] * Complement Component C4c (09/06/2024 10:11 AM EDT) Complement C4 26 15 - 57 mg/dL [facility] Comment:THIS TEST WAS PERFOR MED AT:[facility] [place] [phone] MARTINEZ MD 09/06/2024 10:1 1 AM EDT 09/06/2024 2:23 PM EDT us Generic External Data Provider LAB BLOOD ORDERAB LES Final Result Performing Organization Address [facility] Co de Phone Number [facility] [address] [place] [phone] * Complement Component C3c (09/06/2024 10:11 AM EDT) Complement C3 135 83 - 193 mg/dL [facility] Comment:THIS TEST WAS PERFOR MED AT:[employer] [id number] [place] [phone] MARTINEZ MD 09/06/2024 10:1 1 AM EDT 09/06/2024 2:23 PM EDT us Generic External Data Provider LAB BLOOD ORDERAB LES Final Result Performing Organization Address City/[facility]/ZIP Co de Phone Number [facility] [address] [place] [address] [phone] * Sed Rate by Demi Dong (09/06/2024 10:11 AM EDT) Erythrocyte Sedimentation Rate 11 0 - 20 MM/HR [facility] Comment:Patients with polycy themia and many hemoglobin abnormalitiesmay have depressed sed rates whereas patients with anemiamay have elevated sed rates. 09/06/2024 10:1 1 AM EDT 09/06/2024 2:23 PM EDT us Generic External Data Provider LAB BLOOD ORDERAB LES Final Result Performing Organization Address [facility]/ZIP Co de Phone Number [facility] [address] [place] [phone] * Slide Review (09/06/2024 10:11 AM EDT) Slide Review VERIFIED [facility] 09/06/2024 10:1 1 AM EDT 09/06/2024 2:23 PM EDT us Generic External Data Provider LAB BLOOD ORDERAB LES Final Result Performing Organization Address [facility] Co de Phone Number [facility] [address] [place] [address] [phone] * (ABNORMAL) CBC auto differential (09/06/2024 10:11 AM EDT) White Blood Count 8.5 4.8 - 10.8 X10*3/uL [facility] Red Blood Count 5.75(H) 4.20 - 5.50 X10*6/uL [facility] Hemoglobin 13.3 12.0 - 16.0 g/dl [facility] Hematocrit 44.0 37.0 - 47.0 % [facility] Mean Corpuscular Volume 76.5(L) 80.0 - 98.0 fL [facility] Mean Corpuscular Hemoglobin 23.1(L) 27.0 - 33.0 pg [facility] Mean Corpuscular HGB Conc 30.2(L) 31.0 - 35.0 g/dl [facility] Red Cell Distribution Width 15.8 11.0 - 16.0 % [facility] Platelet Count 353 160 - 400 X10*3/uL [facility] Mean Platelet Volume 10.9 9.4 - 12.3 fL [facility] Neutrophils Percent Auto 90.7(H) 45 - 73 % [facility] Imm Gran Pct Auto 1.7(H) 0.0 - 0.4 % [facility] Lymphocytes Percent Auto 4.7(L) 20 - 40 % [facility] Monocytes Percent Auto 2.4 2 - 11 % [facility] Eosinophils Percent Auto 0.1 0 - 4 % [facility] Basophils Percent Auto 0.4 0 - 2 % [facility] NRBC Pct Auto 0.0 0.0 - 0.2 /100WBC [facility] Neutrophils Absolute Auto 7.7 2.0 - 8.3 x10*3/uL [facility] Imm Gran Abs Auto 0.14(H) 0.00 - 0.03 X10*3/uL [facility] Lymphocytes Absolute Auto 0.4(L) 1.2 - 4.9 X10*3/uL [facility] Monocytes Absolute Auto 0.2 0.1 - 1.2 X10*3/uL [facility] Eosinophils Absolute Auto 0.0 0.0 - 0.4 X10*3/uL [facility] Basophils Absolute Auto 0.0 0.0 - 0.2 X10*3/uL [facility] NRBC Abs Auto 0.000 0.0 - 0.012 X10*3/uL [facility] 09/06/2024 10:1 1 AM EDT 09/06/2024 2:23 PM EDT us Generic External Data Provider LAB BLOOD ORDERAB LES Edited Result - Final [facility] [address] [place], [place] [phone] * (ABNORMAL) C-reactive Protein (09/06/2024 10:11 AM EDT) C Reactive Protein 0.54(H) < or = 0.50 mg/dL [facility] 09/06/2024 10:1 1 AM EDT 09/06/2024 2:23 PM EDT us Generic External Data Provider LAB BLOOD ORDERAB LES Final Result [facility] [address] [place] [address] [phone] * (ABNORMAL) Comprehensive Metabolic Panel (09/06/2024 10:11 AM EDT) Pathologist [facility] Sodium 143 135 - 145 mmol/L [facility] Potassium 3.8 3.3 - 5.1 mmol/L [facility] Chloride 111(H) 96 - 108 mmol/L [facility] Carbon Dioxide 23 22 - 29 mmol/L [facility] Anion Gap 13 12 - 20 [facility] Urea Nitrogen (BUN) 14 9 - 16 mg/dL [facility] Creatinine, Serum 0.64 0.5 - 1.4 mg/dL [facility] Estimated Glomerular Filt Rate >60 [facility] Comment:Chronic Kidney Disea se: Estimated GFR < 60 mL/min/1.18d1Kkjytj Kidney Disease: Estimated GFR < 15 mL/min/1.73m2 Glucose 119(H) 60 - 115 mg/dL [facility] Calcium 8.8 8.4 - 10.2 mg/dL [facility] Bilirubin, Total 0.3 0.0 - 1.0 mg/dL [facility] Aspartate Amino Transferase 36(H) 5 - 31 U/L [facility] Alanine Aminotransferase 31 0 - 31 U/L [facility] Total Protein 7.0 6.5 - 8.0 g/dL [facility] Albumin Level 3.8 3.5 - 5.0 g/dL [facility] Alkaline Phosphatase 73 39 - 117 U/L [facility] 09/06/2024 10:1 1 AM EDT 09/06/2024 2:23 PM EDT us Generic External Data Provider LAB BLOOD ORDERAB LES Final Result [facility] [address] [place] [phone] [phone] documented in this encounter Visit Diagnoses Not on filedocumented in this encounter Additional Health Concerns Assessment Noted Time PHQ-9 Depression Total Score: 10 024 11:22 AM EDT documented as of this encounter Care Teams Java J2Ee Architect Relationship Specialty Start Date End Date Cassie Saldana FNP [address] [place] [address] PCP - General Family Medicine 12/30/21 documented as of this encounter
--- OUTSIDE RECORDS SUMMARY | 2024-09-09 16:31 | XMS_ITS | Encounter Summary ---
Author Organization [employer] Address [address] [place] [address] Care Team Providers Care Tax Audit Manager Name Role Phone Cassie Saldana Primary Care Provider [phone] Reason for Visit * Reason Onset Date Comments Call Back Request 12/11/2023 Encounter Details Date Type Department Care Team ([facility] Contact Info) Description 12/11/2023 Telephone [facility] MEDICINE [address] [place] [address] Cassie Saldana FNP [address] [place] [address] Call Back Request Social History Tobacco Use [...] from PCP in regards paperwork drop at [facility] that pt needs to be filled out ivette. documented in this encounter Plan of Treatment Upcoming Encounters Date Type Department Care Team (Late st Contact Info) Description 10/07/2024 3:30 PM EDT Office Visit [facility] MED & PEDS [address] [place] [address] Cassie Saldana FNP [address] [place] [address] 10/21/2024 10:30 AM EDT Procedure Visit [facility] MEDICINE [address] [place] [address] Elaine Bill CNM [address] [place] [address] documented as of this encounter Visit Diagnoses Not on filedocumented in this encounter Care Teams Tax Audit Manager Relationship Specialty Start Date End Date Cassie Saldana FNP [address] [place] [address] PCP - General Family Medicine 12/30/21 documented as of this encounter
--- OUTSIDE RECORDS SUMMARY | 2024-09-09 16:31 | XMS_ITS | Clinical Summary ---
Author Organization [employer] Address [address] [facility] 7 [place] [address] Care Team Providers Care Manager Metrology Name Role Phone Shana Cassie JULES Primary Care Provider [phone] Allergies No known active allergies Medications Misc. 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 Reviewed med [...] 10/20/22: Hx myopericarditis. Appt to establish with [facility] Cardiology. EKG stable, planning for an [...] upon post- discharge in November 2022 from [facility] Assessment & Plan (04/29/2023 9:37 AM EST): -DBP elevated, denies any chest pain, BUENO, SOB, palpitations, or other associated symptoms -Nifedipine 60mg daily sent to pharmacy -Encouraged to monitor BP readings at home, return precautions Healthcare maintenance 04/29/2023 Overview (04/29/2023): ?? Contraception: Nexplanon placed post- November 2022 at [facility] Raynaud's phenomenon (secondary) 05/13/2022 Rheumatoid arthritis 06/19/2020 Overview (01/29/2024): -Seropositive RA (RF++ CCP-) -Currently following with [facility] Rheum Current med regimen: hydroxychloroquine 200mg BID and prednisone 30mg daily Previous med trials: Humira, Rituxan infusion Per consult October 2023 - Goal: start biologic with plan to wean off prednisone daily. Plan to order Orencia infusion, follow up in 12 weeks Assessment & Plan (01/29/2024 9:19 PM EDT): Called [facility] Rheum with pt to discuss f/up regarding Orencia as Gwendolyn reports she has not heard from office since last appt. LVM with request to return call directly to pt. Assessment & Plan (05/13/2022 6:50 PM EST): -Seropositive RA (RF++ CCP-) previously managed with Plaquenil and prednisone by Dr. Diaz of [facility] Rheumatology, who has since left. Has not [...] that impact daily functioning -Case discussion with [facility] pharmacy - risk of untreated RA/SLE > [...] daily for autoimmune hepatitis -08/04/22: Established with [facility] GI for autoimmune hepatitis. Dr. Nhi white. They would like follow up first with lab work and then possibly liver biopsy if needed Assessment & Plan (05/13/2022 7:18 AM EST): -Previously took azathioprine 75 mg daily for autoimmune hepatitis, however she has not taken this medication in some time since she stopped seeing her suction operator. -Established with [facility] GI in September 2021 Low vision, both eyes 10/14/2011 Systemic lupus erythematosus 10/14/2011 Overview (09/23/2023): Seropositive RA (RF++ CCP-) previously managed with Plaquenil and prednisone by Dr. Diaz of [facility] Rheumatology Previously following with [facility], currently following with [facility] Rheum (last consult appt Jun 2023) Medication [...] & Plan (06/05/2022 6:49 PM EST): -Called [facility] rheum with patient to schedule appt. Discussed importance that pt be seen soon due to high risk -Continue with prednisone 30mg daily -Consider bridge rx of hydroxychloroquine in primary care until pt able to be established with Rheum. Will place [facility] consult Assessment & Plan (05/24/2022 12:43 PM EST): -Seropositive RA (RF++ CCP-) previously managed with Plaquenil and prednisone by Dr. Diaz of [facility] Rheumatology, who has since left. Has not [...] that impact daily functioning -Case discussion with [facility] pharmacy - risk of untreated RA/SLE > [...] EDT): - Nexplanon placed November 2022 by [facility] following delivery - Pt reported interested in removal due to SE - feelings of weight gain, fatigue - Nexplanon removal 09/26/23 at [facility] Assessment & Plan (09/23/2023 4:17 PM EDT): - Nexplanon placed November 2022 by [facility] following delivery - Pt reported interested in removal due to SE - feelings of weight gain, fatigue - Plan to call next week to schedule appt for Nexplanon removal - List of alternative contraceptive methods provided for pt to review 06/05/2022 04/29/2023 Overview (06/05/2022): -LMP 04/02/22 -Referred to [facility] OBGYN - initial appt Jun 15, [...] Encounters Date Type Department Care Team Description 09/06/2024 Orders Only GENERIC EXTERNAL DATA DEPARTMENT Provider, Generic External Data 09/03/2024 Orders Only [facility] [address] [place] [address] Cassie Saldana FNP 09/02/2024 10:00 AM EDT Office Visit [facility] [address] [place], [place] [phone] Cassie Saldana FNP Menses, irregular (Primary Dx); Primary hypertension 09/02/2024 Travel 09/02/2024 Telephone [facility] MEDICINE [address] [place] [phone] Cassie Saldana FNP Nurse Triage 08/09/2024 Outside Procedure [facility] OPTOMETRY [address] [place] [address] Alber, Camelia, OD Myopia of both eyes (Primary Dx); Regular astigmatism of both eyes 07/19/2024 Population [facility] Department [address] [phone] Provider, Population Health Generic from [...] the past 12 months, has t he [employer], gas, oil or water company threatened to [...] Description 10/07/2024 3:30 PM EDT Office Visit [facility] [address] [place] [address] Cassie Saldana FNP [address] [place], [place] [phone] 10/21/2024 10:30 AM EDT Procedure Visit [facility] MEDICINE [address] [place] [address] Elizabeth Wright, CNM [address] [place] [address] Health Maintenance Due Date Last Done Comments [...] Procedure Name Priority Date/Time Associated Diagnosis Comments US PELVIS TRANSVAGINAL Routine 3:05 PM EDT Menses, irregular PROTEIN CREATININE RATIO, URINE Routine 09/06/2024 10:15 AM EDT URINALYSIS, COMPLETE Routine 09/06/2024 10:15 AM EDT COMPLEMENT COMPONENT C4C Routine 09/06/2024 10:11 AM EDT COMPLEMENT COMPONENT C3C Routine 09/06/2024 10:11 AM EDT SED RATE BY MODIFIED WESTERGREN Routine 09/06/2024 10:11 AM EDT SLIDE REVIEW Routine 09/06/2024 10:11 AM EDT CBC WITH AUTO DIFFERENTIAL Routine 09/06/2024 10:11 AM EDT C-REACTIVE PROTEIN Routine 09/06/2024 10 :11 AM EDT COMPREHENSIVE METABOLIC PANEL Routine 09/06/2024 10:11 AM EDT HCG, TOTAL, QN Routine 09/06/2024 10:11 AM EDT Menses, irregular BACTERIAL VAGINOSIS PANEL Routine 09/02/2024 10:59 AM [...] Recently Relevant to Health Maintenance Results * US Pelvis Transvaginal (09/09/2024 3:05 PM EDT) Anatomical Region Laterality Modality Pelvis Ultrasound 09/09/2024 3:05 PM EDT Narrative 09/09/2024 3:32 PM EDT ? [facility] ?[address] ?[place] [address] ? Ultrasound Report ? Signed ? Patient: Yogesh,Gwendolyn ?MR#: [id number] ?? [id number] ? : 2000 ?Acct:[id number] ? Age/Sex: 23 / F ?ADM Date: 09/09/24 ? Loc: HO.US ? Attending Dr: Cassie VICENTE ? Ordering Physician: Cassie Saldana ?? Date of Service: 09/09/24 ?? Procedure(s): US pelvic and transvaginal ?? Accession Number(s): [id number] ? cc: Cassie Saldana ? EXAMINATION: ? US PELVIS ? CLINICAL INFORMATION: ? Abnormal uterine bleeding. ? COMPARISON: ?? None available. ? TECHNIQUE: ?? Ultrasound of the pelvis is performed using both transabdominal and ?? transvaginal transducers along with Doppler. Transvaginal imaging is ?? performed due to inadequate visualization transabdominally. ? FINDINGS: ?? Uterus: ?? The uterus is anteverted and measures 3 x 3 x 4 cm. ??There is an ?? heterogeneous endocervical canal with likely nabothian cysts. ? The double wall endometrial thickness is 6 mm. ? The uterus is smooth in contour and has normal myometrial echogenicity. ?No visible fibroid. ? Adnexa: ?? Both ovaries are visualized. There is normal color flow to the adnexa. ?? There is no ovarian torsion. ??There is no pelvic ascites or fluid ?? collection. ? Right ovary measures 4 x 3 x 5 cm. Volume: 38 cc. There is a 3.9 cm ?? septated anechoic lesion without flow on color Doppler interrogation. ? Left ovary measures 3 x 2 x 1. cm. 3 cc. No gross solid or cystic ?? lesion. ? US/US pelvic and transvaginal ?? IMPRESSION: ?? 3.9 cm septated cyst, right ovary. ?? No ovarian torsion. ?? 6 mm endometrial stripe. Please correlate with menstrual cycle. ?? No gross uterine fibroid. ? Electronically signed by: ??Jordy Biggs MD ??09/09/2024 03:30 PM ?? EDT ? Dictated By: ?Jordy Frederick MD ? Signed By: ?<Electronically signed by Jordy Mcclure MD in OV> ? 09/09/24 1530 ? DD/ 1505 ? TD/TT: 09/09/24 1515 ? Director Of Direct Marketing: ? Procedure Note Victor Hugo Tamayo - 09/09/2024 [place] [address] Ultrasound Report Signed Patient: Melissa Zuñiga#: [id number] : 2000Acct:[id number] Age/Sex: M Date: 09/09/24 Loc: HO.US Attending Dr: Cassie VICENTE Ordering Physician: Cassie Saldana Date of Service: 09/09/24 Procedure(s): US pelvic and transvaginal Accession Number(s): [id number] cc: Cassie Saldana EXAMINATION: US PELVIS CLINICAL INFORMATION: Abnormal uterine bleeding. COMPARISON: None available. TECHNIQUE: Ultrasound of the pelvis is performed using both transabdominal and transvaginal transducers along with Doppler. Transvaginal imaging is performed due to inadequate visualization transabdominally. FINDINGS: Uterus: The uterus is anteverted and measures 3 x 3 x 4 cm. There is an heterogeneous endocervical canal with likely nabothian cysts. The double wall endometrial thickness is 6 mm. The uterus is smooth in contour and has normal myometrial echogenicity. No visible fibroid. Adnexa: Both ovaries are visualized. There is normal color flow to the adnexa. There is no ovarian torsion. There is no pelvic ascites or fluid collection. Right ovary measures 4 x 3 x 5 cm. Volume: 38 cc. There is a 3.9 cm septated anechoic lesion without flow on color Doppler interrogation. Left ovary measures 3 x 2 x 1. cm. 3 cc. No gross solid or cystic lesion. US/US pelvic and transvaginal IMPRESSION: 3.9 cm septated cyst, right ovary. No ovarian torsion. 6 mm endometrial stripe. Please correlate with menstrual cycle. No gross uterine fibroid. Electronically signed by: Jordy Biggs MD 09/09/2024 03:30 PM EDT RP Dictated By: Jordy Frederick MD Signed By: <Electronically signed by Jordy Mcclure MDin OV> 09/09/24 1530 DD/ 1505 TD/TT: 09/09/24 1515 Director Of Direct Marketing: Cassie VICENTE IMG US PROCEDURES Final Result * Protein Creatinine Ratio, Urine (09/06/2024 10:15 AM EDT) Creatinine, Urine 164.71 mg/dL [facility] Protein, Total, Random Urine 9 <12 mg/dL [facility] Protein/Creati nine Ratio, Ur 0.05 <0.2 [facility] Comment:The spot urine prote in:creatinine ratio may increase to 0.3during normal . 09/06/2024 10:1 5 AM EDT 09/06/2024 2:25 PM EDT us Generic External Data Provider LAB URINE ORDERAB LES Final Result [facility] [address] [place] [phone] * (ABNORMAL) Urinalysis Complete (09/06/2024 10:15 AM EDT) Color Urine Dark Yellow [facility] Appearance Urine Turbid [facility] PH 5.5 5.0 - 9.0 [facility] Glucose Urine UA Negative Negative mg/dL [facility] Urine Blood Negative Negative [facility] Specific [place] - Urine 1.025 1.005 - 1.025 [facility] Urine Protein Negative Neg-Trace mg/dL [facility] Urine Ketones Trace Negative mg/dL [facility] Nitrite Urine Positive(A) Negative [facility] Leukocyte Esterase Urine Small (1+)(A) Negative [facility] RBC Urine 0-2 0 - 2 /HPF [facility] Urine WBC 11-20(A) 0 - 5 /HPF [facility] Urine Squamous Epithelial Cell 11-20 0 - 2 /HPF [facility] Urine Bacteria 1+ None Seen [facility] Hyaline Casts, Urine 0-2 0 - 2 /LPF [facility] 09/06/2024 10:1 5 AM EDT 09/06/2024 2:25 PM EDT us Generic External Data Provider LAB URINE ORDERAB LES Final Result Performing Organization Address City/[facility]/ZIP Co de Phone Number [facility] [address] [place] [phone] * Slide Review (09/06/2024 10:11 AM EDT) Slide Review VERIFIED [facility] 09/06/2024 10:1 1 AM EDT 09/06/2024 2:23 PM EDT us Generic External Data Provider LAB BLOOD ORDERAB LES Final Result Performing Organization Address City/[facility]/ZIP Co de Phone Number [facility] [address] [place] [phone] * (ABNORMAL) CBC auto differential (09/06/2024 10:11 AM EDT) White Blood Count 8.5 4.8 - 10.8 X10*3/uL [facility] Red Blood Count 5.75(H) 4.20 - 5.50 X10*6/uL [facility] Hemoglobin 13.3 12.0 - 16.0 g/dl [facility] Hematocrit 44.0 37.0 - 47.0 % [facility] Mean Corpuscular Volume 76.5(L) 80.0 - 98.0 fL [facility] Mean Corpuscular Hemoglobin 23.1(L) 27.0 - 33.0 pg [facility] Mean Corpuscular HGB Conc 30.2(L) 31.0 - 35.0 g/dl [facility] Red Cell Distribution Width 15.8 11.0 - 16.0 % [facility] Platelet Count 353 160 - 400 X10*3/uL [facility] Mean Platelet Volume 10.9 9.4 - 12.3 fL [facility] Neutrophils Percent Auto 90.7(H) 45 - 73 % [facility] Imm Gran Pct Auto 1.7(H) 0.0 - 0.4 % [facility] Lymphocytes Percent Auto 4.7(L) 20 - 40 % [facility] Monocytes Percent Auto 2.4 2 - 11 % [facility] Eosinophils Percent Auto 0.1 0 - 4 % [facility] Basophils Percent Auto 0.4 0 - 2 % [facility] NRBC Pct Auto 0.0 0.0 - 0.2 /100WBC [facility] Neutrophils Absolute Auto 7.7 2.0 - 8.3 x10*3/uL [facility] Imm Gran Abs Auto 0.14(H) 0.00 - 0.03 X10*3/uL [facility] Lymphocytes Absolute Auto 0.4(L) 1.2 - 4.9 X10*3/uL [facility] Monocytes Absolute Auto 0.2 0.1 - 1.2 X10*3/uL [facility] Eosinophils Absolute Auto 0.0 0.0 - 0.4 X10*3/uL [facility] Basophils Absolute Auto 0.0 0.0 - 0.2 X10*3/uL [facility] NRBC Abs Auto 0.000 0.0 - 0.012 X10*3/uL [facility] 09/06/2024 10:1 1 AM EDT 09/06/2024 2:23 PM EDT us Generic External Data Provider LAB BLOOD ORDERAB LES Edited Result - Final Performing Organization Address [facility]/ZIP Co de Phone Number [facility] [address] [place] [phone] * Sed Rate by Modified Patrickren (09/06/2024 10:11 AM EDT) Erythrocyte Sedimentation Rate 11 0 - 20 MM/HR [facility] Comment:Patients with polycy themia and many hemoglobin abnormalitiesmay have depressed sed rates whereas patients with anemiamay have elevated sed rates. 09/06/2024 10:1 1 AM EDT 09/06/2024 2:23 PM EDT us Generic External Data Provider LAB BLOOD ORDERAB LES Final Result Performing Organization Address [facility] Co de Phone Number [facility] [address] [place] [phone] * Complement Component C3c (09/06/2024 10:11 AM EDT) Complement C3 135 83 - 193 mg/dL [facility] Comment:THIS TEST WAS PERFOR MED AT:[facility] [place] [id number] MARTINEZ MD 09/06/2024 10:1 1 AM EDT 09/06/2024 2:23 PM EDT us Generic External Data Provider LAB BLOOD ORDERAB LES Final Result Performing Organization Address [facility] de Phone Number [facility] [address] [place] [phone] * Complement Component C4c (09/06/2024 10:11 AM EDT) Complement C4 26 15 - 57 mg/dL [facility] Comment:THIS TEST WAS PERFOR MED AT:[facility] [place] [phone] MARTINEZ MD 09/06/2024 10:1 1 AM EDT 09/06/2024 2:23 PM EDT Generic External Data Provider LAB BLOOD ORDERAB LES Final Result Performing Organization Address [facility] [place] Number [facility] [address] [place] [phone] * (ABNORMAL) C-reactive Protein (09/06/2024 10:11 AM EDT) C Reactive Protein 0.54(H) < or = 0.50 mg/dL [facility] 09/06/2024 10:1 1 AM EDT 09/06/2024 2:23 PM EDT Generic External Data Provider LAB BLOOD ORDERAB LES Final Result Performing Organization Address [facility] de Phone Number [facility] [address] [place] [phone] * hCG, Total, Quantitative (09/06/2024 10:11 AM EDT) HCG Quantitative <2 mIU/mL [facility] Comment:Weeks post LMP Appro ximate hCG(Last Menstrual Period) Range (mIU/ml)3 - 4 weeks 9 - 1304 - 5 weeks 75 - 2,6005 - 6 weeks 850 - 20,8006 - 7 weeks 4000 - 100,2007 - 12 weeks 11,500 - 289,16186 - 16 weeks 18,300 - 137,91697 - 29 weeks (2nd trimester) 1,400 - 53,38264 - 41 weeks (3rd trimester) 940 - 60,000The Elder B- hCG assay is used for the early detection ofpregnancy; it cannot be used to diagnose any conditionunrelated to . If a B-hCG level is not supportedby the clinical evidence, results should be confirmed by analternative method (qualitative urine hCG, for example). Blood Venous blood specimen / Unknown 09/06/2024 10:11 AM EDT 09/06/2024 2:23 PM EDT us Cassie Saldana [employer] LAB BLOOD ORDERABLES Final Res ult [facility] [address] [place] [phone] * (ABNORMAL) Comprehensive Metabolic Panel (09/06/2024 10:11 AM EDT) Sodium 143 135 - 145 mmol/L [facility] Potassium 3.8 3.3 - 5.1 mmol/L [facility] Chloride 111(H) 96 - 108 mmol/L [facility] Carbon Dioxide 23 22 - 29 mmol/L [facility] Anion Gap 13 12 - 20 [facility] Urea Nitrogen (BUN) 14 9 - 16 mg/dL [facility] Creatinine, Serum 0.64 0.5 - 1.4 mg/dL [facility] Estimated Glomerular Filt Rate >60 [facility] Comment:Chronic Kidney Disea se: Estimated GFR < 60 mL/min/[id number] Kidney Disease: Estimated GFR < 15 mL/min/1.73m2 Glucose 119(H) 60 - 115 mg/dL [facility] Calcium 8.8 8.4 - 10.2 mg/dL [facility] Bilirubin, Total 0.3 0.0 - 1.0 mg/dL [facility] Aspartate Amino Transferase 36(H) 5 - 31 U/L [facility] Alanine Aminotransferase 31 0 - 31 U/L [facility] Total Protein 7.0 6.5 - 8.0 g/dL [facility] Albumin Level 3.8 3.5 - 5.0 g/dL [facility] Alkaline Phosphatase 73 39 - 117 U/L [facility] 09/06/2024 10:1 1 AM EDT 09/06/2024 2:23 PM EDT Generic External Data Provider LAB BLOOD ORDERAB LES Final Result Performing Organization Address [facility]/ZIP Co de Phone Number [facility] [address] [place] [phone] * (ABNORMAL) Bacterial Vaginosis (09/02/2024 10:59 AM EDT) TRICHOMONAS VAGINALIS DETECTION BY PCR NOT DETECTED Not Detect [facility] BACTERIAL VAGINOSIS DETECTION BY PCR POSITIVE(A) Negative [facility] Comment:The BV organism targ ets [...] GROUP DETECTION BY PCR DETECTED(A) Not Detect [facility] Britta glab krusei PCR NOT DETECTED Not Detect [facility] Swab Vaginal structure / Unknown 09/02/2024 10:59 AM EDT 09/02/2024 1:59 PM EDT Cassie DE DIOSP LAB MICROBIOLOGY - GENERAL ORD ERABLES Final Result Performing Organization Address [facility]/ZIP Co de Phone Number [facility] [address] [place] [phone] * Chlamydia/N. Gonorrhoeae RNA, TMA, Urogenitial (09/02/2024 10:59 AM EDT) CT PCR NOT DETECTED Not Detect. [facility] Comment:A not detected test result [...] psychologicalconsequences. NG PCR NOT DETECTED Not Detect. [facility] Comment:A not detected test result [...] AM EDT 09/02/2024 1:59 PM EDT Narrative [facility] - 09/02/2024 4:22 PM EDT Vaginal us Cassie Saldana [facility] MICROBIOLOGY - GENERAL ORD ERABLES Final Result [facility] [address] [place] [phone] * POCT Urine (09/02/2024 10:52 AM EDT) Preg Test, Ur Negative Negative, Indeterminate, None Detected, Invalid, Specimen unsatisfactory for evaluation, Weakly Positive QC Media Lot # [id number] Lot# Expiration Date [id number] Urine 09/02/2024 10:5 2 AM EDT Cassie Teodoradawson [employer] POINT OF CARE TEST ENTER/EDIT ORDERABLES Final Result * Pap Smear (10/19/2023 2:46 PM EDT) Swab Cervix uteri structure / Unknown 10/19/2023 2:46 PM EDT 10/20/2023 6:00 AM EDT Narrative [facility] - 11/08/2023 11:52 AM EDT ----- ------- Name: Gwendolyn Zuñiga ? Age/Sex: 23/F ? : 2000 Unit#: [id number] ?? Attend Dr: ELIZABETH WRIGHT CNM ?Re10/20/23 ?Status: DEP REF ? Location: HO[facility] ? Disch: ? ----- ------- SPEC : [id number] ?RECD: 10/20/23 ? STATUS: ??SOUT ? REQ NUM: [id number] ? GOPI: 10/19/23 ? SUBM DR: ELIZABETH WRIGHT CNM ? ENTERED: ??10/20/23 ?SP TYPE: Pap Smr ?OTHR : ? ORDERED: ??Pap Smear, PAP path review ? Interpretation ?? General Category: ? Epithelial cell abnormality. ?? Adequacy: ? Endocervical component present. ?? Interpretation: ? Low grade squamous intraepithelial lesion (DAVID I). ?Fungal organisms consistent with Britta species. ?Clinical Information LMP: Unknown date/findings Previous PAP test: Initial PAP ? Material Received ?? ThinPrep-Cervical ----- ------- Signed (signature on file) Doreen Hendrickson 11/08/23 1152 ? ----- ------- ? END OF REPORT ? Elizabeth Wright [facility] CYTOLOGY ORDERABLES F inal Result Performing Organization Address [facility] de Phone Number [facility] [address] [place] [phone] * Hepatitis Panel, General (07/10/2023 9:08 AM EST) Hepatitis A IgM Nonreactive Nonreactive [facility] Comment:IgM antibodies to BUENO V not detected; does not exclude earlyacute or recovered HAV infection. ~Hepatitis B Surface Antibody NONREACTIVE Nonreactive [facility] Comment:Nonreactive: < 8.00 mIU/mL Hepatitis B Core Antibody Nonreactive Nonreactive [facility] Hepatitis C Antibody Nonreactive Nonreactive [facility] Comment:Antibodies to HCV no t detected; does not exclude early acuteHCV infection. Hepatitis B Surface Ag Negative Negative [facility] 07/10/2023 9:08 AM EST 07/10/2023 11:31 AM EST Generic External Data Provider LAB BLOOD ORDERAB LES Final Result Performing Organization Address [facility] Co de Phone Number [facility] [address], [place] [phone] from Last 3 Months or Most Recently Relevant to Health Maintenance Insurance [facility] C3 Care Teams Manager Metrology Relationship Specialty Start Date End Date Cassie Saldana FNP [address] [place] [phone] PCP - General Family Medicine 12/30/21
--- OUTSIDE RECORDS SUMMARY | 2024-09-09 16:31 | XMS_ITS | Encounter Summary ---
Author Organization [employer] Address [address] [place] [address] [address] [place] [address] Care Team Providers Care Key Sander Name Role Phone Cassie Saldana Primary Care Provider [phone] Reason for Visit * Reason Onset Date Comments Returning Call Back 05/26/2022 Encounter Details Date Type Department Care Team ([facility] st Contact Info) Description 05/26/2022 Telephone [facility] MEDICINE [address] [place] [address] Cassie Saldana FNP [address] [place] [address] Returning Call Back Social History Tobacco Use [...] Description 10/07/2024 3:30 PM EDT Office Visit [facility] MED & PEDS [address] [place], [place] [phone] Cassie Saldana FNP [address] [place], [place] [phone] 10/21/2024 10:30 AM EDT Procedure Visit [facility] [address] [place] [address] Elaine Bill CNM [address] [place] [address] documented as of this encounter Visit Diagnoses Not on filedocumented in this encounter Care Teams Key Sander Relationship Specialty Start Date End Date Cassie Saldana FNP [address] [place] [address] PCP - General Family Medicine 12/30/21 Jeimy Hall power shovel operator helper 05/30/23 08/06/23 documented as of this encounter
--- OUTSIDE RECORDS SUMMARY | 2024-09-09 16:31 | XMS_ITS | Encounter Summary ---
Author Organization [employer] Address [address] [place] [address] 7 [place] [address] Care Team Providers Care Refrigeration Tech Name Role Phone Cassie Saldana Primary Care Provider [phone] Reason for Visit * Reason Comments Med Refill Encounter Details Date Type Department Care Team ([facility] st Contact Info) Description 10/08/2023 Refill [facility] MED & PEDS [address] [place], [place] [phone] Cassie Saldana FNP [address] [place] [address] Rheumatoid arthritis involving multiple sites with positive [...] Description 10/07/2024 3:30 PM EDT Office Visit [facility] MED & PEDS [address] [place], [place] [phone] Cassie Saldana FNP [address] [place] [address] 10/21/2024 10:30 AM EDT Procedure Visit [facility] MEDICINE [address] [place] [address] Elaine Bill CNM [address] [place] [address] documented as of this encounter Visit Diagnoses Diagnosis Rheumatoid arthritis involving multiple sites with positive rheumatoid factor (CMS/[facility]) documented in this encounter Care Teams Refrigeration Tech Relationship Specialty Start Date End Date aCssie Saldana FNP [address] [place] [address] PCP - General Family Medicine 12/30/21 documented as of this encounter
--- OUTSIDE RECORDS SUMMARY | 2024-09-09 16:31 | XMS_ITS | Encounter Summary ---
Author Organization [email or web address] Address [address] [facility] 7t [place] [address] Care Team Providers Care Stripper Cutter Machine Name Role Phone Cassie Saldana Primary Care Provider [phone] Encounter Details Date Type Department Care Team (Late Contact Info) Description 03/09/2023 Orders Only [facility] [address] [place] [address] [phone] Andrew Jorge MD [address] [place] [address] Social History Tobacco Use Types Packs/Day Years [...] Description 10/07/2024 3:30 PM EDT Office Visit [facility] MED & PEDS [address] [place], [place] [phone] Cassie Saldana FNP [address] [place], [place] [phone] 10/21/2024 10:30 AM EDT Procedure Visit [facility] [address] [place] [address] Elaine Bill CNM [address] [place] [address] documented as of this encounter Visit Diagnoses Not on filedocumented in this encounter Care Teams Stripper Cutter Machine Relationship Specialty Start Date End Date Cassie Saldana FNP [address] [place] [address] PCP - General Family Medicine 12/30/21 Jeimy Hall medicaid billing clerk 05/30/23 08/06/23 documented as of this encounter
--- OUTSIDE RECORDS SUMMARY | 2024-09-09 16:31 | XMS_ITS | Clinical Summary ---
Author Organization [facility] Address [address] [place] [address] Care Team Providers Care Network Operations Center Technician Name Role Phone Unavailable Primary Care Provider [...]
--- OUTSIDE RECORDS SUMMARY | 2024-09-09 16:31 | XMS_ITS | Encounter Summary ---
Author Organization [employer] Address [address] [facility] 7 [place] [address] Care Team Providers Care Customs Compliance Director Name Role Phone Cassie Saldana Primary Care Provider [phone] Reason for Visit * Reason Onset Date Comments Nurse Triage 01/12/2024 Encounter Details Date Type Department Care Team ([facility] st Contact Info) Description 01/12/[address] [facility] MEDICINE [address] [place] [address] Cassie Saldana FNP [address] [place] [address] Nurse Triage Social History Tobacco Use Types [...] t he electric, gas, oil or water [employer] threatened to shut off services in your [...] time of call. Unable to come to [facility] today. Will attempt visit Monday. Reviewed [...] Description 10/07/2024 3:30 PM EDT Office Visit [facility] MED & PEDS [address] [place], [place] [phone] Cassie Saldana FNP [address] [place], [place] [phone] 10/21/2024 10:30 AM EDT Procedure Visit [facility] [address] [place] [address] Elaine Bill CNM [address] [place] [address] documented as of this encounter Visit Diagnoses Not on filedocumented in this encounter Care Teams Customs Compliance Director Relationship Specialty Start Date End Date Cassie Saldana FNP [address] [place] [address] PCP - General Family Medicine 12/30/21 documented as of this encounter
== END 2024-09-09 14:56 | disposition home or self-care (01) ==
LOC: HO.US 14:55
PROVIDERS: PCP Registered Nurse; Visit Provider Registered Nurse
DX: N92.6 Irregular menstruation, unspecified (principal)
CPT/HCPCS: 76830; 76856

== ENCOUNTER → 2024-09-09 14:58 | Outpatient (BNV) | payer MEDICAID, SELFPAY | PROVIDERS: PCP Registered Nurse; Visit Provider Radiology Diagnostic Radiology | DX: N83.201 Unspecified ovarian cyst, right side (principal) | CPT/HCPCS: 76830; 76856 ==

== ENCOUNTER 2024-10-11 10:16 | Outpatient (AMB) | payer MEDICAID, SELFPAY ==
[2024-10-11 10:17] VITALS: BP 120/64; PULSE 78; O2SAT 98; BMI 32.5
--- NOTE | 2024-10-11 10:17 | A.OFFVIS_ITS ---
Vital Signs 10/11/24 10:17 Height 5 ft 1 in Weight 171 lb 15.369 oz BMI 32.5 BP 120/64 Blood Pressure Location Lt brachial Position Sitting Pulse 78 Pulse Source Pulse Oximeter Pulse Oximetry (%) 98 Oxygen Delivery Method Room Air Intake Visit Reasons: SLE/FMS Intake Note: Patient last seen by doctor Trenton Salinas on 05/23/24. Presents today for SLE/FMS follow up and test results. Allergies No Known Allergies Allergy (Verified 10/11/24 10:21) Medication List - Last Reconciled 10/11/24 by Eunice Apodaca MD amlodipine 5 mg PO DAILY cyclobenzaprine 5 mg PO BEDTIME PRN hydrochlorothiazide 25 mg PO DAILY hydroxychloroquine (Plaquenil) 200 mg PO BID prednisone 15 mg (3 x 5 mg) PO DAILY 60 days HPI Comments Details: Patient is a 24-year-old female with hypertension and MCTD (seropositive RA, autoimmune hepatitis, SLE features) here today for follow up Interval History: Patient last seen 05/23/[address] Salinas. At that time she was there for an urgent visit for a rash after Benlysta infusion. It was determined that the rashes unlikely due to Benlysta and her Benlysta infusion was continued. Since that visit she has not been taking her hydroxychloroquine regularly and she was hospitalized recently for lupus flare. During the hospitalization she was told that her LFTs were significantly elevated and she was started on prednisone IV. The hospitalist reach out to me and I recommended decreasing the IV dosage to 40 mg of prednisone and then following up. Today she states that her flare was evidenced by joint pain, swelling and chest pain. Symptoms have improved but still persists Rheumatologic History: Initially diagnosed with MCTD at age 8 (inflammatory arthritis, Raynaud's, telangiectasias, autoimmune hepatitis, pericarditis +++ZOYA+++TRANSMISSION ENGINEER ++Duran +++Dsdna low C3 & low C4 failed azthiopurine Rituximab was effective but had a reaction to it 2020 Hydroxychloroquine restarted 04/2024 Benlysta infusion started 04/[address] Diaz 20yoF with a history of overlap autoimmune disease including MCTD (diagnosed at age 8), seropositive rheumatoid arthritis (RF++ CCP-) and autoimmune hepatitis presents for follow-up. Last seen in November 2020. On Plaquenil 200 mg daily and Prednisone 20mg daily. She was previously taking azathioprine 75mg daily for autoimmune hepatitis but has been off the medication for some time as she stopped following with her previous slunk skinner. No hospitalizations since her last visit. Patient continues to have pain and swelling in her hands but it is stable with prednisone. The low-back pain she had reported at the last visit has improved. She has not yet seen Gastroenterology for her autoimmune hepatitis. She currently denies any chest pain or shortness of breath. September 2020: After last visit, patient received 1 dose of rituximab 1000 mg on 07/13/2020. She then began to experience worsening shortness breath and stabbing chest pain. She was admitted to [facility] on 07/17/2020 for chest pain and ST c hanges on her EKG. It was thought she may possibly have pericarditis. She did not receive a 2nd dose of rituximab due to her adverse reaction to the 1st dose. While at [facility], she was given pulse dose steroid 1000 mg IV Solu-Medrol x3 and then placed on a prednisone taper. She completed the prednisone taper yesterday. Since being off prednisone, she has worsening swelling in her joints. She denies any chest pain or dyspnea today. Initial history: Patient was being treated with Plaquenil 400 mg daily, azathioprine 75 mg once daily for autoimmune hepatitis. In the past, she was also treated with Humira for her rheumatoid arthritis as well as rituximab x 2 (03/04/19 and 03/19/19). Patient states that she felt the best when she was receiving rituximab infusions. Pt is currently on Plaquenil 200mg daily and Prednisone 40mg daily. Pt states that she re-started the Prednisone a few days ago when she started to experience L sided chest pain that radiated into her L arm. She was seen in the ER at [facility] yesterday and had a CT chest done which was negative. Also had a troponin drawn which was normal. She continues to have left-sided chest pain but states it is now moved down under her breast area. She does get some dyspnea with the chest pain. Her chest pain is not relieved when she bends forward, it is actually worsened. She does not have any tenderness to palpation of her chest wall. Pt denies Raynauds, photosensitivity, oral or nasal ulcers, Sicca symptoms, fevers, alopecia. Current Rheumatology Medication(s): Benlysta infusions every 28 days Hydroxychloroquine 200mg bid [facility] Medical History Systemic lupus Autoimmune hepatitis Mixed connective tissue disease Rheumatoid arthritis Surgical History Hx of cholecystectomy Hx of endoscopy History of colonoscopy Family History Father Alive and well Mother Alive and well Social History Household Members Other:: lives with mom and sisters Alcohol intake: never Patient Tobacco Use Status: Never used Tobacco service: No Current occupational status: employed Current occupation: [employer] Review of Systems Const Details: Review of Systems Constitutional: Denies fever, chills, weight loss ENT: Denies vision changes, eye pain or eye redness, dental caries, dry mouth GI: Denies nausea, vomiting, diarrhea, abdominal pain, change in BM Pulm: Denies SOB, BOYD, hemoptysis, wheezing Cards: Denies chest pain, palpitations Skin: Denies Raynaud's, rash, nail changes, photosensitivity, CONSTRUCTION FLAGGER: Denies headaches, weakness, paresthesias, recurrent falls MSK: as per HPI All other systems reviewed and are unremarkable except noted above Physical Exam Vital Signs: Last Vital Signs Pulse 78 10/11/24 10:17 BP 120/64 10/11/24 10:17 Pulse Ox 98 10/11/24 10:17 Oxygen Delivery Method Room Air 10/11/24 10:17 BMI result Body Mass Index 32.5 Vital signs reviewed Physical Examination CONSTITUITIONAL Patient alert and cooperative. Well appearing and in no apparent painful distress HEENT Conjunctiva and sclera clear. ?No lymphadenopathy. ? Torres faces CHEST/RESPIRATORY SYSTEM Normal respiratory effort and able to speak in complete sentences. ?Clear to auscultation bilaterally. ?No crackles, rales, rhonchi, wheezes heard. CARDIAC SYSTEM Regular rate and rhythm. ?S1 and S2 heard no murmurs. ?Radial pulses intact bilaterally MSK Hands: ?Able to make a fist. No synovitis noted to the MCPs, PIPs or DIPs. ?No tenderness to palpation of these joints. No deformities noted. ? Wrists: ?Full range of motion at the wrists without pain. ?No tenderness to palpation or synovitis noted to the wrists. Elbows: Full range of motion without pain. No tenderness, weakness, swelling, increased warmth or erythema. Shoulders: Full range of active range of motion without pain. No tenderness, weakness, swelling, increased warmth or erythema. Knees: ?Full range of motion. ?No tenderness, swelling, increased warmth or erythema.?No effusion or crepitations Ankles: Full range of motion. ?Swelling noted to lower extremities with erythema and tenderness to palpation of the ankles Feet: ?Positive squeeze test bilaterally Tender points:?No tenderness to palpation of the bilateral trapezius, supraspinatus, greater trochanters, anterior costochondral junctions, bilateral gluteal areas, bilateral suboccipital muscle insertions SKIN Increased erythema throughout her skin Results Reviewed Results Reviewed: Laboratory Tests 05/23/24 09/06/24 12:45 10:11 WBC 8.5 RBC 5.75 H Hgb 13.3 Hct 44.0 Plt Count 353 ESR 11 Sodium 143 Potassium 3.8 Chloride 111 H Carbon Dioxide 23 BUN 14 Creatinine 0.64 AST 36 H ALT 31 Alkaline Phosphatase 73 C-Reactive Protein 0.71 H 0.54 H Laboratory Tests 05/23/24 09/06/24 12:45 10:11 Double Strand DNA Ab 4 12 H Complement C3 150 135 Complement C4 27 26 Assessment & Plan Assessment & Plan (1) Systemic lupus: Comment: Initially diagnosed with MCTD at age 8 (inflammatory arthritis, Raynaud's, telangiectasias, autoimmune hepatitis, pericarditis +++ZOYA+++TRANSMISSION ENGINEER ++Duran +++Dsdna low C3 & low C4 failed azthiopurine Rituximab was effective but had a reaction to it 2020 Hydroxychloroquine restarted 04/2024 Benlysta infusion started 04/2024 Code(s): M32.9 - Systemic lupus erythematosus, unspecified Category: Medical Qualifiers: Systemic lupus erythematosus type: unspecified Systemic lupus erythematosus organ involvement: unspecified Qualified Code(s): M32.9 - Systemic lupus erythematosus, unspecified Plan: #SLE Patient is a 24-year-old female with MCTD (Lupus, RA) here today for follow up after recent hospitalization for his lupus flare. After reviewing medication with the patient patient is not consistently taking her Plaquenil. Had a long discussion with patient that the goal is to taper her off steroids but in order for us to do that she needs to be on immunosuppression. At this time I think we should do Benlysta, azathioprine and Plaquenil which we will ensure to start at this visit. Decrease prednisone to 30 mg for 2 weeks and then 20 mg for 2 weeks and then follow up. She is to do blood work today including a CT chest and echo to ensure that she does not have any pleuritis or pericarditis. Also in a long discussion with patient about fertility desires. She does have current fertility desires but I impressed upon her the need to avoid conception for the next 6 months while we get her lupus under control. Plan - Prednisone 30mg x 2 weeks then 20mg x 2 weeks - Labs today: CBC, CMP, ESR, CRP, C3, C4, dsDNA, UA, UPC - ECHO - CT chest - Plaquenil 400mg daily - Azathioprine 150mg daily - Benlysta infusions 10mg/kg every 4 weeks - RTC 4 weeks (2) Long-term use of hydroxychloroquine: Code(s): Z79.899 - Other terminal press operator (current) drug therapy Category: Medical Plan: #Long-term Use of Hydroxychloroquine Discussed with patient the risks and benefits of hydroxychloroquine in managing the rheumatic condition Benefits include: - Reduced pain, reduce mortality, maintenance of remission and reduction of flares Risks include: - GI upset, skin hyperpigmentation, retinal toxicity (especially after more than 5 years of use), myopathy Advised yearly ophthalmology visits (3) Encounter for monitoring of belimumab therapy: Code(s): Z51.81 - Encounter for therapeutic drug level monitoring; Z79.620 - shelter (current) use of immunosuppressive biologic Plan: #terminal press operator Belimumab Discussed with patient the risks and benefits of hydroxychloroquine in managing the rheumatic condition Benefits include: - Reduced pain, reduce mortality, maintenance of remission and reduction of flares Risks include: - insomnia, injection site reactions, psychiatric events such as worsening depression/anxiety or suicidal ideation, increased risk of infection (4) Encounter for monitoring azathioprine therapy: Code(s): Z51.81 - Encounter for therapeutic drug level monitoring; Z79.624 - terminal press operator (current) use of inhibitors of nucleotide synthesis Plan: #Long-term use of azathioprine Discussed with patient the benefits and risks of azathioprine for the management of the rheumatic condition Benefits include: ? - Reduced pain, maintenance of remission and reduction of flares Risks include: - Bone marrow suppression, GI upset, lymphoma, hepatotoxicity, pancreatitis, hypersensitivity syndrome TPMT enzyme ordered 10/11/24 Drug monitoring: CBC every 4 weeks for the 1st 3 months then CBC BMP LFTs every 3 months Avoid concomitant sulfasalazine, allopurinol or febuxostat Plan I spent 46 minutes reviewing the record and labs, taking a history, examining the patient, discussing the treatment plan, ordering diagnostic work up and documenting in the medical record Orders: Orders Complement C4 Today M32.9 - Systemic lupus erythematosus, unspecified Complete Blood Count Auto Diff Today M32.9 - Systemic lupus erythematosus, unspecified Comprehensive Met. Panel Today M32.9 - Systemic lupus erythematosus, unspecified Erythrocyte Sedimentation Rate Today M32.9 - Systemic lupus erythematosus, unspecified UA w Microscopic Today M32.9 - Systemic lupus erythematosus, unspecified Protein Creatinine Ratio, Ur Today M32.9 - Systemic lupus erythematosus, unspecified ZOYA Reflex Titer and Pattern Today M32.9 - Systemic lupus erythematosus, unspecified Anti DNA DS Antibody Today M32.9 - Systemic lupus erythematosus, unspecified Sm Sm/TRANSMISSION ENGINEER Antibodies Today M32.9 - Systemic lupus erythematosus, unspecified Sjogren's Antibodies Today M32.9 - Systemic lupus erythematosus, unspecified CA echo transthoracic complete Today M32.9 - Systemic lupus erythematosus, unspecified, R07.9 - Chest pain, unspecified CT chest wo con - High Res Today M32.9 - Systemic lupus erythematosus, unspecified, R07.9 - Chest pain, unspecified Complement C3 Today M32.9 - Systemic lupus erythematosus, unspecified C Reactive Protein Today M32.9 - Systemic lupus erythematosus, unspecified Creatine Kinase Total Today M32.9 - Systemic lupus erythematosus, unspecified Prometheus TPMT Enzyme Today M35.1 - Other overlap syndromes Medications: New azathioprine 150 mg (1.5 x 100 mg) PO DAILY 90 days 135 tabs 1RF M32.9 - Syste wendy lupus erythematosus, unspecified prednisone see taper instructions 30 mg (3 x 10 mg) PO DIRECTED 14 days 42 tabs 0RF M32.9 - Systemic lupus erythematosus, unspecified Refilled hydroxychloroquine (Plaquenil) 200 mg PO BID 180 tabs 1RF Discontinued prednisone Discontinued Reason: Doctor's Order 15 mg (3 x 5 mg) PO DAILY 60 days 180 tabs 1RF M32.9 - Systemic lupus erythematosus, unspecified Coding Level of Care Code Est Pt Level 5 (13837) Complex EM visit Add On G2211 Diagnoses Systemic lupus erythematosus, unspecified SLE type, unspecified organ involvement status M32.9 Systemic lupus erythematosus type: unspecified Systemic lupus erythematosus organ involvement: unspecified Long-term use of hydroxychloroquine Z79.899 Encounter for monitoring of belimumab therapy Z51.81; Z79.620 Encounter for monitoring azathioprine therapy Z51.81; Z79.624
--- OUTSIDE RECORDS SUMMARY | 2024-10-11 11:02 | XMS_ITS | Encounter Summary ---
Author Organization [employer] Address [address] [place] [address] 7 [place] [address] Care Team Providers Care Palliative Care Specialist Name Role Phone Cassie Saldana Primary Care Provider [phone] Fina Mckinnon Unavailable [phone] Jaqueline Carver Unavailable Unavailable Reason for Visit * Reason Onset Date Comments Nurse Triage 04/02/2024 Encounter Details Date Type Department Care Team ([facility] st Contact Info) Description 04/02/[address] [facility] MEDICINE [address] [place] [address] Cassie Saldana FNP [address] [place] [address] Nurse Triage Social History Tobacco Use Types [...] pain will need to be managed by [facility] rheumatology. Pt confirms that she missed her appt in February and is r/s for late April 2024 with [facility]. Pt would also like PCP to be aware that she is now with a different sewing machine operator zipper as her longstanding one has left the practice. * Telephone Encounter - JULES Macdonald - 04/02/2024 9:37 AM EST Hi, please call Gwendolyn to review Rheum plan. She is following with [facility] Rheum, and plan per last consult note in October 2023, plan was to wean off prednisone and start Orencia infusion. I just sent in another bridge rx for her x 2 weeks, but she needs to contact Rheum and follow up with them regarding further management. She was scheduled for [facility] Rheum Appt in Feb 2024, but I [...] PCP and also another provider working in [facility] today. * Telephone Encounter - Crow Pack - 04/02/2024 8:33 AM EST Symptom: Pain - Severe Outcome: Schedule an urgent appointment (within 1 hour) or talk to a nurse or provider soon Reason: Caller denied all higher acuity questions documented in this encounter Plan of Treatment Upcoming Encounters Date Type Department Care Team (Late st Contact Info) Description 10/21/2024 10:30 AM EDT Procedure Visit [facility] [address] [place] [address] Elaine Bill CNM [address] [place], [place] [phone] 10/28/2024 9:30 AM EDT Office Visit [facility] PEDS [address] [place] [address] Cassie Saldana FNP [address] [place] [address] documented as of this encounter Visit Diagnoses Diagnosis Systemic lupus erythematosus, unspecified SLE type, unspecified organ involvement status (CMS/HCC)- Primary documented in this encounter Additional Health Concerns Assessment Noted Time PHQ-9 Depression Total Score: 10 024 11:22 AM EDT documented as of this encounter Care Teams Palliative Care Specialist Relationship Specialty Start Date End Date Cassie Saldana FNP [address] [place] [id number] PCP - General Family Medicine 12/30/21 Fina Mckinnon Registered Nurse 10/07/24 10/07/24 Jaqueline Carver 10/07/24 10/07/24 documented as of this encounter
== END 2024-10-11 10:54 | disposition home or self-care (01) ==
LOC: HO.RHE 10:16
PROVIDERS: PCP Registered Nurse; Visit Provider Student in an Organized Health Care Education/Training Program
DX: M32.9 Systemic lupus erythematosus, unspecified (principal); Z79.899 Other long term (current) drug therapy; Z51.81 Encounter for therapeutic drug level monitoring; Z79.620 Long term (current) use of immunosuppressive biologic; Z79.624 Long term (current) use of inhibitors of nucleotide synthesis
CPT/HCPCS: 99215

== ENCOUNTER → 2024-10-11 10:16 | Outpatient (BNVA) | payer MEDICAID, SELFPAY | PROVIDERS: PCP Registered Nurse; Visit Provider Student in an Organized Health Care Education/Training Program | DX: M32.9 Systemic lupus erythematosus, unspecified (principal); Z79.899 Other long term (current) drug therapy; Z51.81 Encounter for therapeutic drug level monitoring; Z79.620 Long term (current) use of immunosuppressive biologic; Z79.624 Long term (current) use of inhibitors of nucleotide synthesis | CPT/HCPCS: 99212 ==

== ENCOUNTER 2025-01-15 08:23 | Outpatient (AMB) | payer MEDICAID, SELFPAY ==
--- OUTSIDE RECORDS SUMMARY | 2025-01-13 15:29 | XMS_ITS | Encounter Summary ---
Author Organization [facility] Address [address] [place] [address] Care Team Providers Care Mail Courier Name Role Phone Physician, No Pcp Primary Care Provider Unavaila ble Reason for Visit * Reason Comments Weakness - Generalized Pt to ED with rep orts of BL leg weakness, back pain. Hx of lupus, RA. Encounter Details Date Type Department Care Team (Late st Contact Info) Description 01/13/2025 3:29 PM EDT - 01/14/2025 12:20 AM EDT Emergency [facility] Emergency [address] [place] [phone] Neal Avery MD [address] [place] [phone] Gordon Hilario MD [address] [place] [id number] Acute midline low back pain without sciatica (Primary Dx) Discharge Disposition: Home or Self Care Social History Tobacco Use Types Packs/Day Years Used Date Smoking Tobacco: Never Assessed Comments Unknown Sex and Gender Information Value Date Recorded Sex Assigned at Female 01/13/2025 5:55 PM EDT Legal Sex Female 8:28 PM EST Gender Identity Female 01/13/2025 5:55 PM EDT Sexual Orientation Not on file documented as of this encounter Last Filed Vital Signs Vital Sign Reading Time Taken Comments Blood Pressure 126/73 01/13/2025 9:55 PM EDT Pulse 98 01/13/2025 9:55 PM EDT Temperature 36.7 C (98.1 F) 01/13/2025 7:00 PM EDT Respiratory Rate 16 01/13/2025 9:55 PM EDT Oxygen Saturation 98% 01/13/2025 9:55 PM EDT Inhaled Oxygen Concentration - - Weight - - Height - - Body Mass Index - - documented in this encounter Discharge Instructions * Discharge Instructions* Neal Avery MD - 01/13/2025 11:25 PM EDT You were seen for evaluation of lower back pain. Your blood work and CT scans were reassuring without significant abnormality. Take prednisone 60mg daily for 5 days, then resume 30mg daily. For pain, I would take Tylenol 650 mg and ibuprofen 600 mg every 6 hours as needed. You can take these medications together or alternating. Take [id number] lidocaine patches for additional pain control. Take the prescribed Robaxin every 8 hours as needed for muscle spasms. Only take the prescribed oxycodone for breakthrough pain, be aware that this medication is addicting and sedating, you should not drive or work while taking these medications. Follow-up closely with your primary care doctor. Return to the emergency department for worsening symptoms despite treatment or any other concerns. documented in this encounter Medications at Time of Discharge ibuprofen (ADVIL,MOTRIN) 600 mg tablet Take 1 tablet (600 mg total) by mouth every 6 (six) hours if needed for mild pain (for pain) for up to 10 days. 30 tablet 01/13/2025 01/23/2025 methocarbamoL (ROBAXIN) 500 mg tablet Take 1 tablet (500 mg total) by mouth 3 (three) times a day if needed for muscle spasms for up to 10 days. 10 tablet 01/13/2025 01/23/2025 oxyCODONE (ROXICODONE) 5 mg immediate release tablet Take 1 tablet (5 mg total) by mouth every 6 (six) hours if needed for severe pain. Max Daily Amount: 20 mg 8 tablet 01/13/2025 predniSONE (DELTASONE) 20 mg tablet Take 3 tablets (60 mg total) by mouth 1 (one) time each day for 5 days. Then resume 30mg daily 15 each 01/14/2025 01/19/2025 documented as of this encounter Ordered Prescriptions Prescription Sig Dispense Quantity Refills Last Filled Start Date End Date predniSONE (DELTASONE) 20 mg tablet Take 3 tablets (60 mg total) by mouth 1 (one) time each day for 5 days. Then resume 30mg daily 15 each 01/14/2025 5 oxyCODONE (ROXICODONE) 5 mg immediate release tablet Take 1 tablet (5 mg total) by mouth every 6 (six) hours if needed for severe pain. Max Daily Amount: 20 mg 8 tablet 01/13/2025 methocarbamoL (ROBAXIN) 500 mg tablet Take 1 tablet (500 mg total) by mouth 3 (three) times a day if needed for muscle spasms for up to 10 days. 10 tablet 01/13/2025 5 ibuprofen (ADVIL,MOTRIN) 600 mg tablet Take 1 tablet (600 mg total) by mouth every 6 (six) hours if needed for mild pain (for pain) for up to 10 days. 30 tablet 01/13/2025 5 methocarbamoL (ROBAXIN) 500 mg tablet Take 1 tablet (500 mg total) by mouth 3 (three) times a day if needed for muscle spasms for up to 10 days. 10 tablet 01/13/2025 5 ibuprofen (ADVIL,MOTRIN) 600 mg tablet Take 1 tablet (600 mg total) by mouth every 6 (six) hours if needed for mild pain (for pain) for up to 10 days. 30 tablet 01/13/2025 5 oxyCODONE (ROXICODONE) 5 mg immediate release tablet Take 1 tablet (5 mg total) by mouth every 6 (six) hours if needed for severe pain. Max Daily Amount: 20 mg 8 tablet 01/13/2025 5 documented in this encounter Discharge Disposition Disposition Code Departure Means Destination Comment s Home or Self Care documented in this encounter Progress Notes * IRMA Ramos - 01/13/2025 3:28 PM EDT Date and Time of Assessment: 3:28 PM EDT 01/13/25 Chief Complaint Patient presents with Weakness - Generalized Pt to ED with reports of BL leg weakness, back pain. Hx of lupus, RA. Brief HPI: Patient is a 24 y.o. female presenting today with b/l leg weakness with back pain. Has h/o lupus and RA. Physical Exam: Vitals: 01/13/25 1523 BP: (!) 143/110 Pulse: (!) 133 Resp: 18 Temp: 36.8 ??C (98.2 ??F) SpO2: 100% Non-labored breathing Non-toxic appearing A&Ox3 Tachycardic hypertensive Preliminary Plan: Labs, ekg Patient has been counseled on the risk of leaving prior to work up and treatment being completed. The patient is mentally competent and capable of making decisions for him/herself. The patient understood risks /benefits of the decision made and also understood that should he/she change his/her mindthat they are encouraged to return to the ED for work up and likely admission. * Neal Avery MD - 01/13/2025 3:20 PM EDTAssociated Order(s): ECG Rhythm Interpretation and Report HPI Chief Complaint Patient presents with Weakness - Generalized Pt to ED with reports of BL leg weakness, back pain. Hx of lupus, RA. HPI 24-year-old female history of SLE, rheumatoid arthritis on daily prednisone, hypertension, myopericarditis presenting for evaluation of chest pain, back pain, and bilateral leg weakness. Symptoms ongoing x 1 month, worsening. She has been trying Tylenol at home without improvement. She states that pain is radiating from her chest to her back, and she has weakness and discomfort in bilateral legs.She denies back trauma and states this is different from her typical lupus/RA flare. She does not difficulty urinating and feeling of incomplete bladder emptying. No data recorded Patient History History reviewed. No pertinent past medical history. History reviewed. No pertinent surgical history. No family history on file. Social History Tobacco Use Smoking status: Not on file Smokeless tobacco: Not on file Substance Use Topics Alcohol use: Not on file Drug use: Not on file Review of Systems Review of Systems Constitutional: Positive for chills. Negative for fever. HENT: Negative for sore throat. Eyes: Negative for visual disturbance. Respiratory: Negative for cough. Cardiovascular: Positive for chest pain and leg swelling. Gastrointestinal: Negative for abdominal pain. Genitourinary: Positive for difficulty urinating. Negative for dysuria. Musculoskeletal: Positive for back pain. Neurological: Positive for weakness. Negative for headaches. Physical Exam Visit Vitals BP (!) 143/110 (BP Location: Left arm, Patient Position: Sitting) Pulse (!) 133 Temp 36.8 ??C (98.2 ??F) (Oral) Resp 18 SpO2 100% Physical Exam Vitals and nursing note reviewed. Constitutional: Comments: uncomfortable Eyes: Extraocular Movements: Extraocular movements intact. Cardiovascular: Rate and Rhythm: Regular rhythm. Tachycardia present. Pulmonary: Effort: No respiratory distress. Abdominal: General: There is no distension. Musculoskeletal: General: Tenderness (to light palpation) present. No deformity. Cervical back: Normal range of motion. Comments: TTP b/l lower extremities, no deformities or significant edema appreciated. DP pulses present There is midline lower lumbar ttp no deformities appreciated Neurological: Mental Status: She is alert. Comments: 4/5 hip flexion b/l, limited by pain. Able to wiggle toes. ED Course & MDM 24 y.o. female hx SLE, RA, myopericarditis presenting for chest pain radiating to back with leg weakness. DDx includes: arthritis flare, pericarditis. Given degree of tachycardia and discomfort, Aortic dissection is considered. Also considered demyelinating disease of spine although severe discomfort would be atypical. Plan: labs, EKG, pain control, CTA-c/a/p Meds considered: pain medications Imaging considered: CXR, CTA-c/a/p Course: ED Course as of 01/13/25 2337 MonJan 13, 20251725 ED RN notes that patient is eating chips and appears more comfortable after morphine and Toradol [AF] 1725 Lipase(!): 123 [AF] 1827 High Sensitivity Troponin I: 7 [AF] 2049 CT Angio Chest/Abdomen/Pelvis wo and/or w Contrast IMPRESSION: 1. Negative for acute process in the chest, abdomen, or pelvis. 2. Small hiatal hernia. 3. Findings suggestive of bilateral medullary nephrocalcinosis. [AF] 2210 Urinalysis with reflex microscopic and culture(!) Dirty catch but nitrite positive [AF] 2224 Tachycardia resolved with fluids and pain meds [AF] 2255 Patient reports initially improved pain with morphine and Toradol however pain has returned. She was informed of overall reassuring workup. [AF] 2316 Bladder scan 110cc, will dc with pain medications [AF] ED Course User Index [AF] Neal Avery MD Clinical Impressions as of 01/13/25 2337 Acute midline low back pain without sciatica Medical Decision Making Admission/observation considered: No Clinical information obtained by: Patient I have independently interpreted: CT Imaging, notable findings include no acute abnormality Comorbidities that add complexity to management include SLE, RA Presentation problem descriptor: Acute Illness Social determinants of health affecting care: N/A ECG Rhythm Interpretation and Report Date/Time: 01/13/2025 6:26 PM Performed by: Neal Avery MD Authorized by: Neal Avery MD Comments: NSR rate 95, normal axis, ST, T waves Labs Reviewed CBC AND DIFFERENTIAL Narrative: The following orders were created for panel order CBC and differential. Procedure Abnormality Status --------- ------ CBC auto differential[[id number]] In process Please view results for these tests on the individual orders. COMPREHENSIVE METABOLIC PANEL TROPONIN I HIGH SENSITIVITY TROPONIN I HIGH SENSITIVITY B-TYPE NATRIURETIC PEPTIDE MAGNESIUM LIPASE HCG, SERUM, QUALITATIVE CBC WITH AUTO DIFFERENTIAL URINALYSIS WITH REFLEX MICROSCOPIC AND CULTURE Narrative: The following orders were created for panel order Urinalysis with reflex microscopic and culture. Procedure Abnormality Status --------- ------ Urinalysis with reflex ...[[id number]] Chao urine culture tube[[id number]] Please view results for these tests on the individual orders. URINALYSIS WITH REFLEX MICROSCOPIC AND CULTURE CT Angio Chest/Abdomen/Pelvis wo and/or w Contrast Final Result 1. Negative for acute process in the chest, abdomen, or pelvis. 2. Small hiatal hernia. 3. Findings suggestive of bilateral medullary nephrocalcinosis. -------- FINAL REPORT -------- Dictated By: Lala Callahan Dictated Date: 01/13/2025 19:57 ET Assigned Physician: Lala Callahan Reviewed and Electronically Signed By: Lala Callahan Signed Date: 01/13/2025 20:11 ET Workstation ID: [id number] Transcribed By: Self Edit Transcribed Date: 01/13/2025 19:57 ET XR Chest 1 View Final Result 1. No acute process in the chest. -------- FINAL REPORT -------- Dictated By: Garry Gates Dictated Date: 01/13/2025 17:59 ET Assigned Physician: Garry Gates Reviewed and Electronically Signed By: Garry Gates Signed Date: 01/13/2025 18:08 ET Workstation ID: [id number] Transcribed By: Self Edit Transcribed Date: 01/13/2025 17:59 ET Neal Avery MD 01/13/25 1647 Neal Avery MD 01/13/25 1827 Neal Avery MD 01/13/25 2337 documented in this encounter Plan of Treatment Not on file documented as of this encounter Procedures Procedure Name Priority Date/Time Associated Diagnosis Comments ECG ANNOTATED 01/14/2025 URINALYSIS WITH REFLEX MICROSCOPIC AND CULTURE STAT 01/13/2025 9:03 PM EDT CHAO URINE CULTURE TUBE STAT 01/13/2025 9:03 PM EDT URINALYSIS WITH REFLEX MICROSCOPIC AND CULTURE STAT 01/13/2025 9:03 PM EDT TROPONIN I HIGH SENSITIVITY Timed 01/13/2025 7:[address] ANGIO CHEST/ABDOMEN/PELVIS WO AND/OR W CONTRAST STAT 01/13/2025 7:38 PM EDT Acute midline low back pain without sciatica RHYTHM ECG, REPORT Routine 01/13/2025 6: 26 PM EDT ECG 12-LEAD STAT 01/13/2025 5:23 PM EDT XR CHEST 1 VIEW STAT 01/13/2025 4:52 PM EDT TROPONIN I HIGH SENSITIVITY Timed 01/13/2025 4:21 PM EDT CBC WITH AUTO DIFFERENTIAL STAT 01/13/2025 4:21 PM EDT CBC AND DIFFERENTIAL STAT 01/13/2025 4:21 PM EDT HCG, SERUM, QUALITATIVE STAT 01/13/2025 4:21 PM EDT B-TYPE NATRIURETIC PEPTIDE STAT 01/13/2025 4:21 PM EDT MAGNESIUM STAT 01/13/2025 4:21 PM EDT LIPASE STAT 01/13/2025 4:21 PM EDT CREATINE KINASE Add-On 01/13/2025 4:21 PM EDT COMPREHENSIVE METABOLIC PANEL STAT 01/13/2025 4:21 PM EDT documented in this encounter Results * ECG-Annotated (01/14/2025) us Provider Onbase MD ECG ORDERABLES Final Result * Chao urine culture tube (01/13/2025 9:03 PM EDT) Extra Tube Hold for add-ons. 01/13/2025 11:01 PM EDT [facility] Comment:Auto resulted. Urine Urine specimen obtained by clean catch procedure / Unknown Non-blood Collection / Unknown 01/13/2025 9:03 PM EDT 01/13/2025 9:14 PM EDT us Neal Avery MD LAB URINE ORDERABLES Final Re sult [facility] [address] [place] [address], [place] [phone] * (ABNORMAL) Urinalysis with reflex microscopic and culture (01/13/2025 9:03 PM EDT) Color, Urine Yellow Yellow, Colorless LAB URINALYSIS - AUTOMATED METHOD 01/13/2025 9:47 PM EDT [facility] Clarity, Urine Clear Clear LAB URINALYSIS - AUTOMATED METHOD [facility]/13[facility]2025 9:[facility] Specific [place] Urine 1.015 1.005 - 1.030 LAB URINALYSIS - AUTOMATED METHOD 01/13/2025 9:47 [facility] pH, Urine 5.0(A) 5.0 - 8.0 pH LAB URINALYSIS - AUTOMATED METHOD 01/13/2025 9:47 [facility] Leukocytes, Urine Negative Negative WBCs/mcL LAB URINALYSIS - AUTOMATED METHOD 01/13/2025 9:47 PM EDT [facility] Nitrite, Urine Positive(A) Negative LAB URINALYSIS - AUTOMATED METHOD 01/13/2025 9:47 [facility] Protein, Urine Trace Negative, Trace mg/dL LAB URINALYSIS - AUTOMATED METHOD 01/13/2025 9:47 PM [facility] Glucose, Urine Negative Negative mg/dL LAB URINALYSIS - AUTOMATED METHOD 01/13/2025 9:47 PM [facility] Ketones, Urine Negative Negative mg/dL LAB URINALYSIS - AUTOMATED METHOD 01/13/2025 9:47 PM [facility] Blood, Urine Negative Negative, Trace mg/dL LAB URINALYSIS - AUTOMATED METHOD 01/13/2025 9:47 PM [facility] RBC, Urine 1 0 - 3 /HPF LAB URINALYSIS - AUTOMATED METHOD 01/13/2025 9:47 PM EDT [facility] WBC, Urine <1 0 - 5 /HPF LAB URINALYSIS - AUTOMATED METHOD 01/13/2025 9:47 PM EDT [facility] Bacteria, Urine Present(A) Not Present /HPF LAB URINALYSIS - AUTOMATED METHOD 01/13/2025 9:47 PM EDT [facility] Squamous Epithelial, Urine >100(H) 0 - 5 /HPF LAB URINALYSIS - AUTOMATED METHOD 01/13/2025 9:47 PM EDT [facility] Mucus, Urine Present(A) Not Present /HPF LAB URINALYSIS - AUTOMATED METHOD 01/13/2025 9:47 PM EDT [facility] Hyaline Casts, Urine 22(H) <=0 /LPF LAB URINALYSIS - AUTOMATED METHOD 01/13/2025 9:47 PM EDT [facility] Urine Urine specimen obtained by clean catch procedure / Unknown Non-blood Collection / Unknown 01/13/2025 9:03 PM EDT 01/13/2025 9:14 PM EDT us Neal Avery MD LAB URINE ORDERABLES Final Re sult [facility] [address] [place] [id number], * Troponin I high sensitivity (01/13/2025 7:46 PM EDT) High Sensitivity Troponin I 4 0 - 14 ng/L LAB CHEMISTRY METHOD 01/13/2025 8:35 PM EDT [facility] Blood Venous blood specimen / Unknown Venipuncture / Unknown 01/13/2025 7:46 PM EDT 01/13/2025 7:55 PM EDT Narrative [facility] - 01/13/2025 8:35 PM EDT HSTnI results stratify to HIGH RISK category if any value >100 ng/L or delta at 1 hour is greater than or equal to 15 ng/L (male and female). Note: Delta values are not applicable if symptoms began more than 12 hours pre-arrival. Risk stratification should include the calculation of the HEART score. The testing method is an immunoenzymatic assay manufactured by [employer] and performed on the [employer] DxI 800. Wally SOLIS LAB BLOOD ORDERABLES Final Resul t [facility] ([facility]) [facility] [address] [place] [address], * CT Angio Chest/Abdomen/Pelvis wo and/or w Contrast (01/13/2025 7:38 PM EDT) Anatomical Region Laterality Modality Body Computed Tomogra phy 01/13/2025 7:57 PM EDT Impressions 01/13/2025 8:11 PM EDT 1. Negative for acute process in the chest, abdomen, or pelvis. 2. Small hiatal hernia. 3. Findings suggestive of bilateral medullary nephrocalcinosis. -------- FINAL REPORT -------- Dictated By: Lala Callahan Dictated Date: 01/13/2025 19:57 ET Assigned Physician: Lala Callahan Reviewed and Electronically Signed By: Lala Callahan Signed Date: 01/13/2025 20:11 ET Workstation ID: [id number] Transcribed By: Self Edit Transcribed Date: 01/13/2025 19:57 ET Narrative 01/13/2025 8:[address] ANGIOGRAM OF THE CHEST/ABDOMEN/PELVIS WITH AND WITHOUT IV CONTRAST CLINICAL HISTORY: Abdominal pain, aortic dissection suspected abd pain radiating to back with b/l LE weakness TECHNIQUE: Serial axial images obtained. Sagittal reconstructed images obtained. Coronal reconstructed images obtained. Post-processing, MIPS were obtained. Exam is performed with and without 100 mL of Isovue-300 intravenous contrast. Per PQRS, CT exam is performed using one or more of the following dose reduction techniques: Automated exposure control, adjustment of the mA and/or KV according to patient size, or use of iterative reconstruction techniques. COMPARISON: None FINDINGS: HEART: A normal-sized heart is seen. VASCULATURE: Post-contrast appearance of the pulmonary arteries shows no evidence for filling defect. Negative for aortic aneurysm or aortic dissection. There is normal caliber of the pulmonary artery trunk in relation to the aorta. The celiac artery, superior mesenteric artery, splenic artery, bilateral renal arteries, and inferior mesenteric artery are patent without evidence for stenosis or aneurysm. THORAX: Mild dependent atelectasis in the right lung. No suspicious pulmonary nodule or consolidation, and no pneumothorax or pleural effusion. THYROID: Appearance is unremarkable. CHEST BUNDY: Appearance is unremarkable. VISCERA: Appearance is unremarkable. ESOPHAGUS: Appearance is unremarkable. STOMACH: Small hiatal hernia. PANCREAS: Appearance is unremarkable. GALLBLADDER: Status post cholecystectomy with postoperative biliary dilatation. LIVER: Appearance is unremarkable. ADRENALS: Appearance is unremarkable. SPLEEN: Appearance is unremarkable. KIDNEYS: Diffusely increased density of the bilateral renal medullary pyramids is suggestive of medullary nephrocalcinosis. BLADDER: Unremarkable. GENITAL: There is a 2.5 cm physiologic left ovarian cyst which requires no follow-up. SMALL BOWEL: Appearance is unremarkable. Negative for small bowel dilatation. APPENDIX: Normal appendix. COLON: Appearance is unremarkable. ABDOMINAL/PELVIC BUNDY: Small fat-containing umbilical hernia. BONES: Old fractures of the right superior and inferior pubic rami. Procedure Note Lala Callahan MD - 01/13/2025 CT ANGIOGRAM OF THE CHEST/ABDOMEN/PELVIS WITH AND WITHOUT IV CONTRAST CLINICAL HISTORY: Abdominal pain, aortic dissection suspected abd pain radiating to back with b/l LE weakness TECHNIQUE: Serial axial images obtained. Sagittal reconstructed images obtained. Coronal reconstructed images obtained. Post-processing, MIPS wereobtained. Exam is performed with and without 100 mL of Isovue-300 intravenouscontrast. Per PQRS, CT exam is performed using one or more of the following dosereduction techniques: Automated exposure control, adjustment of the mAand/or KV according to patient size, or use of iterative reconstructiontechniques. COMPARISON: None FINDINGS: HEART: A normal-sized heart is seen. VASCULATURE: Post-contrast appearance of the pulmonary arteries shows no evidence forfilling defect. Negative for aortic aneurysm or aortic dissection. There is normal caliber of the pulmonary artery trunk in relation to theaorta. The celiac artery, superior mesenteric artery, splenic artery, bilateralrenal arteries, and inferior mesenteric artery are patent without evidencefor stenosis or aneurysm. THORAX: Mild dependent atelectasis in the right lung. No suspiciouspulmonary nodule or consolidation, and no pneumothorax or pleuraleffusion. THYROID: Appearance is unremarkable. CHEST BUNDY: Appearance is unremarkable. VISCERA: Appearance is unremarkable. ESOPHAGUS: Appearance is unremarkable. STOMACH: Small hiatal hernia. PANCREAS: Appearance is unremarkable. GALLBLADDER: Status post cholecystectomy with postoperative biliarydilatation. LIVER: Appearance is unremarkable. ADRENALS: Appearance is unremarkable. SPLEEN: Appearance is unremarkable. KIDNEYS: Diffusely increased density of the bilateral renal medullarypyramids is suggestive of medullary nephrocalcinosis. BLADDER: Unremarkable. GENITAL: There is a 2.5 cm physiologic left ovarian cyst which requires nofollow-up. SMALL BOWEL: Appearance is unremarkable. Negative for small boweldilatation. APPENDIX: Normal appendix. COLON: Appearance is unremarkable. ABDOMINAL/PELVIC BUNDY: Small fat-containing umbilical hernia. BONES: Old fractures of the right superior and inferior pubic rami. IMPRESSION: 1. Negative for acute process in the chest, abdomen, or pelvis. 2. Small hiatal hernia. 3. Findings suggestive of bilateral medullary nephrocalcinosis. -------- FINAL REPORT -------- Dictated By: Lala Callahan Dictated Date: 01/13/2025 19:57 ET Assigned Physician: Lala Callahan Reviewed and Electronically Signed By: Lala Callahan Signed Date: 01/13/2025 20:11 ET Workstation ID: [id number] Transcribed By: Self Edit Transcribed Date: 01/13/2025 19:57 ET us Neal Avery MD IMG CT PROCEDURES Final Resul t * RHYTHM ECG, REPORT (01/13/2025 6:26 PM EDT) Narrative Neal Avery MD - 01/13/2025 6:26 PM EDT Neal Avery MD 01/13/2025 11:37 PM ECG Rhythm Interpretation and Report Date/Time: 01/13/2025 6:26 PM Performed by: Neal Avery MD Authorized by: Neal Avery MD Comments: NSR rate 95, normal axis, ST, T waves us Neal Avery MD ECG ORDERABLES Final Result * ECG 12 lead (01/13/2025 5:23 PM EDT) Ventricular Rate ECG 95 BPM GEMUSE Atrial Rate 95 BPM GEMUSE P-R Interval 150 ms GEMUSE QRS Duration 74 ms GEMUSE Q-T Interval 364 ms GEMUSE QTc 457 ms GEMUSE P Wave [place] 26 degrees GEMUSE R [place] 12 degrees GEMUSE T [place] 7 degrees GEMUSE ECG Interpretation Normal sinus rhythm Normal ECG No previous ECGs available Confirmed by Amee Desai ([id number]) on 01/14/2025 2:21:06 PM GEMUSE 01/13/2025 5:23 PM EDT 01/14/2025 2:21 PM EDT us Wally SOLIS ECG ORDERABLES Final Result GEMUSE * XR Chest 1 View (01/13/2025 4:52 PM EDT) Anatomical Region Laterality Modality Body Radiographic Grace ging 01/13/2025 5:59 PM EDT Impressions 01/13/2025 6:08 PM EDT 1. No acute process in the chest. -------- FINAL REPORT -------- Dictated By: Garry Gates Dictated Date: 01/13/2025 17:59 ET Assigned Physician: Garry Gates Reviewed and Electronically Signed By: Garry Gates Signed Date: 01/13/2025 18:08 ET Workstation ID: [id number] Transcribed By: Self Edit Transcribed Date: 01/13/2025 17:59 ET Narrative 01/13/2025 6:08 PM EDT EXAMINATION: Radiography of the Chest CLINICAL INDICATION: chest pain NUMBER OF VIEWS: 1 COMPARISON: None. FINDINGS: LUNGS/PLEURA: Lungs are clear. No pleural effusion. No pneumothorax. MEDIASTINUM AND WILLIAM: Unremarkable. HEART AND VESSELS: Normal sized heart. BONES: No acute osseous abnormality. LINES/TUBES/DEVICES: None Procedure Note Garry Gates MD - 01/13/2025 EXAMINATION: Radiography of the Chest CLINICAL INDICATION: chest pain NUMBER OF VIEWS: 1 COMPARISON: None. FINDINGS: LUNGS/PLEURA: Lungs are clear. No pleural effusion. No pneumothorax. MEDIASTINUM AND WILLIAM: Unremarkable. HEART AND VESSELS: Normal sized heart. BONES: No acute osseous abnormality. LINES/TUBES/DEVICES: None IMPRESSION: 1. No acute process in the chest. -------- FINAL REPORT -------- Dictated By: Garry Gates Dictated Date: 01/13/2025 17:59 ET Assigned Physician: Garry Gates Reviewed and Electronically Signed By: Garry Gates Signed Date: 01/13/2025 18:08 ET Workstation ID: [id number] Transcribed By: Self Edit Transcribed Date: 01/13/2025 17:59 ET us Neal Avery MD IMG XR PROCEDURES Final Resul t * (ABNORMAL) Creatine kinase (01/13/2025 4:21 PM EDT) Total CK 28(L) 30 - 135 unit/L LAB CHEMISTRY METHOD 01/13/2025 5:12 PM EDT [facility] Blood Venous blood specimen / Unknown Venipuncture / Unknown 01/13/2025 4:21 PM EDT 01/13/2025 4:37 PM EDT us Neal Avery MD LAB BLOOD ORDERABLES Final Re sult [facility] [address] [place] [address], [place] [phone] * (ABNORMAL) CBC auto differential (01/13/2025 4:21 PM EDT) WBC 7.4 4.0 - 10.5 K/mcL LAB HEMETOLOGY METHOD 01/13/2025 4:43 PM EDT [facility] RBC 5.63(H) 4.20 - 5.40 M/mcL LAB HEMETOLOGY METHOD 01/13/2025 4:[address] [facility] Hemoglobin 13.3 12.5 - 16.0 g/dL LAB HEMETOLOGY METHOD 01/13/2025 4:43 PM EDT [facility] Hematocrit 41.7 37.0 - 47.0 % LAB HEMETOLOGY METHOD 01/13/2025 4:43 PM EDT [facility] MCV 74.0(L) 78.0 - 100.0 FL LAB HEMETOLOGY METHOD 01/13/2025 4:43 PM EDT [facility] MCH 23.6(L) 25.0 - 33.0 pcg LAB HEMETOLOGY METHOD 01/13/2025 4:43 PM EDT [facility] MCHC 31.9(L) 32.0 - 36.0 g/dL LAB HEMETOLOGY METHOD 01/13/2025 4:43 PM EDT [facility] RDW 16.9(H) 12.1 - 16.2 % LAB HEMETOLOGY METHOD 01/13/2025 4:43 PM EDT [facility] Platelets 353 150 - 450 K/mcL LAB HEMETOLOGY METHOD 01/13/2025 4:43 PM EDT [facility] MPV 7.6 7.4 - 11.4 FL LAB HEMETOLOGY METHOD 01/13/2025 4:43 PM EDT [facility] Neutrophils Relative 80.3(H) 44.0 - 74.0 % LAB HEMETOLOGY METHOD 01/13/2025 4:43 PM EDT [facility] Lymphocytes Relative 10.3(L) 20.0 - 48.0 % LAB HEMETOLOGY METHOD 01/13/2025 4:43 PM EDT [facility] Monocytes Relative 5.8 2.0 - 12.0 % LAB HEMETOLOGY METHOD 01/13/2025 4:43 PM EDT [facility] Eosinophils Relative 3.3 0.0 - 6.0 % LAB HEMETOLOGY METHOD 01/13/2025 4:43 PM EDT [facility] Basophils Relative 0.3 0.0 - 2.0 % LAB HEMETOLOGY METHOD 01/13/2025 4:43 PM EDT [facility] Neutrophils Absolute 5.90 1.80 - 7.80 K/mcL LAB HEMETOLOGY METHOD 01/13/2025 4:43 PM EDT [facility] Lymphocytes Absolute 0.80(L) 1.00 - 3.20 K/mcL LAB HEMETOLOGY METHOD 01/13/2025 4:43 PM EDT [facility] Monocytes Absolute 0.40 0.00 - 0.80 K/mcL LAB HEMETOLOGY METHOD 01/13/2025 4:43 PM EDT [facility] Eosinophils Absolute 0.20 0.00 - 0.50 K/mcL LAB HEMETOLOGY METHOD 01/13/2025 4:43 PM EDT [facility] Basophils Absolute 0.00 0.00 - 0.20 K/mcL LAB HEMETOLOGY METHOD 01/13/2025 4:43 PM EDT [facility] Blood Venous blood specimen / Unknown Venipuncture / Unknown 01/13/2025 4:21 PM EDT 01/13/2025 4:37 PM EDT [facility] LAB BLOOD ORDERABLES Final Resul t [facility] [address] [place] [address], * hCG, serum, qualitative (01/13/2025 4:21 PM EDT) hCG Qual Negative Negative LAB CHEMISTRY METHOD 01/13/2025 5:24 PM EDT [facility] Blood Venous blood specimen / Unknown Venipuncture / Unknown 01/13/2025 4:21 PM EDT 01/13/2025 4:37 PM EDT us Wally SOLIS LAB BLOOD ORDERABLES Final Resul t Performing Organization Address City/[facility]/ZIP Co de Phone Number [facility] [address] [place] [address], * (ABNORMAL) Lipase (01/13/2025 4:21 PM EDT) Lipase 123(H) 11 - 82 unit/L LAB CHEMISTRY METHOD 01/13/2025 5:12 PM EDT [facility] Blood Venous blood specimen / Unknown Venipuncture / Unknown 01/13/2025 4:21 PM EDT 01/13/2025 4:37 PM EDT us Wally SOLIS LAB BLOOD ORDERABLES Final Resul t Performing Organization Address [facility] Co de Phone Number [facility] [address] [place] [address], * Magnesium (01/13/2025 4:21 PM EDT) Magnesium 2.1 1.7 - 2.8 mg/dL LAB CHEMISTRY METHOD 01/13/2025 5:12 PM EDT [facility] Blood Venous blood specimen / Unknown Venipuncture / Unknown 01/13/2025 4:21 PM EDT 01/13/2025 4:37 PM EDT us Wally SOLIS LAB BLOOD ORDERABLES Final Resul t Performing Organization Address City/[facility]/ZIP Co de Phone Number [facility] [address] [place] [address], [place] [phone] * B-type natriuretic peptide (01/13/2025 4:21 PM EDT) BNP 9 0 - 100 pcg/mL LAB CHEMISTRY METHOD 01/13/2025 5:23 PM EDT [facility] Blood Venous blood specimen / Unknown Venipuncture / Unknown 01/13/2025 4:21 PM EDT 01/13/2025 4:37 PM EDT [facility] LAB BLOOD ORDERABLES Final Resul t Performing Organization Address [facility] de Phone Number [facility] [address] [place] [address], * Troponin I high sensitivity (01/13/2025 4:21 PM EDT) [facility] High Sensitivity Troponin I 7 0 - 14 ng/L LAB CHEMISTRY METHOD 01/13/2025 5:15 PM EDT [facility] Blood Venous blood specimen / Unknown Venipuncture / Unknown 01/13/2025 4:21 PM EDT 01/13/2025 4:37 PM EDT Narrative [facility] - 01/13/2025 5:15 PM EDT HSTnI results stratify to HIGH RISK category if any value >100 ng/L or delta at 1 hour is greater than or equal to 15 ng/L (male and female). Note: Delta values are not applicable if symptoms began more than 12 hours pre-arrival. Risk stratification should include the calculation of the HEART score. The testing method is an immunoenzymatic assay manufactured by [employer] and performed on the [employer] DxI 800. us Wally SOLIS LAB BLOOD ORDERABLES Final Resul t Performing Organization Address City/[facility]/ZIP Co de Phone Number [facility] [address] [place] [address], [place] [phone] * Comprehensive metabolic panel (01/13/2025 4:21 PM EDT) [facility] Sodium 143 135 - 145 mmol/L LAB CHEMISTRY METHOD 01/13/2025 5:12 PM EDT [facility] Potassium 3.5 3.5 - 5.1 mmol/L LAB CHEMISTRY METHOD 01/13/2025 5:12 PM EDT [facility] Chloride 105 98 - 107 mmol/L LAB CHEMISTRY METHOD 01/13/2025 5:12 PM EDT [facility] CO2 27 24 - 32 mmol/L LAB CHEMISTRY METHOD 01/13/2025 5:12 PM EDT [facility] Anion Gap 11 5 - 14 LAB CHEMISTRY METHOD 01/13/2025 5:12 PM EDT [facility] Glucose 80 70 - 199 mg/dL LAB CHEMISTRY METHOD 01/13/2025 5:12 PM EDT [facility] BUN 9 7 - 17 mg/dL LAB CHEMISTRY METHOD [facility]/13[facility]2025 [facility] Creatinine 0.60 0.50 - 1.00 mg/dL LAB CHEMISTRY METHOD 01/13/2025 5:12 PM EDT [facility] eGFR 129 >=60 mL/min/1. 73m2 LAB CHEMISTRY METHOD 01/13/2025 5:12 PM EDT [facility] Comment:Calculation based on the Chronic Kidney Disease Epidemiology Collaboration (CKD-EPI) equation refit without adjustment for race. BUN/Creatinine Ratio 15.0 12.0 - 20.0 LAB CHEMISTRY METHOD 01/13/2025 5:12 PM EDT [facility] Calcium 8.6 8.4 - 10.2 mg/dL LAB CHEMISTRY METHOD 01/13/2025 5:[facility] AST (SGOT) 17 5 - 40 unit/L LAB CHEMISTRY METHOD 01/13/2025 5:12 PM [facility] ALT (SGPT) 28 7 - 52 unit/L LAB CHEMISTRY METHOD 01/13/2025 5:12 [facility] Alkaline Phosphatase 66 34 - 104 unit/L LAB CHEMISTRY METHOD 01/13/2025 5:12 PM EDT [facility] Total Protein 6.8 6.4 - 8.5 g/dL LAB CHEMISTRY METHOD 01/13/2025 5:12 PM EDT [facility] Albumin 4.1 3.5 - 5.0 g/dL LAB CHEMISTRY METHOD 01/13/2025 5:12 PM EDT [facility] Total Bilirubin 0.4 0.3 - 1.0 mg/dL LAB CHEMISTRY METHOD 01/13/2025 5:12 PM EDT [facility] Blood Venous blood specimen / Unknown Venipuncture / Unknown 01/13/2025 4:21 PM EDT 01/13/2025 4:37 PM EDT us Wally SOLIS LAB BLOOD ORDERABLES Final Resul t [facility] [address] [place] [address], [place] [phone] documented in this encounter Visit Diagnoses Diagnosis Acute midline low back pain without sciatica- Primary documented in this encounter Administered Medications Inactive Administered Medications - up to 3 most recent administrations Medication Order MAR Action Action Date Dose Rate Site ibuprofen (ADVIL,MOTRIN) tablet 600 mg 600 mg, oral, Once, On Mon01/13/25 at 2256, For 1 dose, Administer with food or milk to decrease GI upset Given 01/13/2025 11:10 PM EDT 600 mg iopamidoL (ISOVUE-370) 370 mg iodine /mL (76 %) injection 85 mL 85 mL, intravenous, Once in imaging, Starting on Mon01/13/25 at 1844, For 1 dose Given 01/13/2025 6:47 PM EDT 85 mL ketorolac (TORADOL) injection 15 mg 15 mg, intravenous, Once, On Mon01/13/25 at 1630, For 1 dose Given 01/13/2025 4:48 PM EDT 15 mg methocarbamoL (ROBAXIN) tablet 500 mg 500 mg, oral, Once, On Mon01/13/25 at 2256, For 1 dose Given 01/13/2025 11:10 PM EDT 500 mg morphine injection 4 mg 4 mg, intravenous, Once, On Mon01/13/25 at 1630, For 1 dose Given 01/13/2025 4:48 PM EDT 4 mg predniSONE (DELTASONE) tablet 60 mg 60 mg, oral, Once, On Mon01/13/25 at 2330, For 1 dose Given 01/14/2025 12:17 AM EDT 60 mg sodium chloride 0.9 % bolus 1,000 mL 1,000 mL, intravenous, at 2,000 mL/hr, Administer over 30 Minutes, Once, On Mon01/13/25 at 1614, For 1 dose New Bag 01/13/2025 4:48 PM EDT 1,000 mL 2000 mL/hr sodium chloride 0.9 % flush 10 mL 10 mL, intravenous, Once, On Mon01/13/25 at 1847, For 1 dose Given 01/13/2025 6:47 PM EDT 10 mL sodium chloride 0.9 % intravenous solution 50 mL 50 mL, intravenous, Once in imaging, Starting on Mon01/13/25 at 1844, For 1 dose Given 01/13/2025 6:47 PM EDT 50 mL documented in this encounter Discontinued Medications Medication Sig Discontinue Reason Start Date End Da te oxyCODONE (ROXICODONE) 5 mg immediate release tablet Take 1 tablet (5 mg total) by mouth every 6 (six) hours if needed for severe pain. Max Daily Amount: 20 mg 01/13/2025 01/13/2025 ibuprofen (ADVIL,MOTRIN) 600 mg tablet Take 1 tablet (600 mg total) by mouth every 6 (six) hours if needed for mild pain (for pain) for up to 10 days. 01/13/2025 01/13/2025 methocarbamoL (ROBAXIN) 500 mg tablet Take 1 tablet (500 mg total) by mouth 3 (three) times a day if needed for muscle spasms for up to 10 days. 01/13/2025 01/13/2025 documented as of this encounter Active and Recently Administered Medications Times are shown in EDT. Scheduled Medication Order 01/12/2025 01/13/2025 01/14/2025 ibuprofen (ADVIL,MOTRIN) tablet 600 mg (COMPLETED) 600 mg, oral, Once, On Mon01/13/25 at 2256, For 1 dose, Administer with food or milk to decrease GI upset 2310 (Given - Provider: Clement Thibodeaux RN) iopamidoL (ISOVUE-370) 370 mg iodine /mL (76 %) injection 85 mL (COMPLETED) 85 mL, intravenous, Once in imaging, Starting on Mon01/13/25 at 1844, For 1 dose 184 (Given - Provider: Isaiah Gama) ketorolac (TORADOL) injection 15 mg (COMPLETED) 15 mg, intravenous, Once, On Mon01/13/25 at 1630, For 1 dose 164 (Given - Provider: Floresita Lewis RN) methocarbamoL (ROBAXIN) tablet 500 mg (COMPLETED) 500 mg, oral, Once, On Mon01/13/25 at 2256, For 1 dose 2310 (Given - Provider: Clement Thibodeaux RN) morphine injection 4 mg (COMPLETED) 4 mg, intravenous, Once, On Mon01/13/25 at 1630, For 1 dose 1647 (Given - Provider: Floresita Lewis RN) predniSONE (DELTASONE) tablet 60 mg (COMPLETED) 60 mg, oral, Once, On Mon01/13/25 at 2330, For 1 dose 0017 (Given - Provid er: Clement Thibodeaux RN) sodium chloride 0.9 % bolus 1,000 mL (COMPLETED) 1,000 mL, intravenous, at 2,000 mL/hr, Administer over 30 Minutes, Once, On Mon01/13/25 at 1614, For 1 dose 1647 (New Bag - Provider: Floresita Lewis RN)1800 (Stopped - Provider: Floresita Lewis RN) sodium chloride 0.9 % flush 10 mL (COMPLETED) 10 mL, intravenous, Once, On Mon01/13/25 at 1847, For 1 dose 1846 (Given - Provider: Isaiah Gama) sodium chloride 0.9 % intravenous solution 50 mL (COMPLETED) 50 mL, intravenous, Once in imaging, Starting on Mon01/13/25 at 1844, For 1 dose 1846 (Given - Provider: Isaiah Gama) documented in this encounter Orders Medications Ordered That Graham ht Not Have Been Administered Count Last Ordered Date First Ordered Date oxyCODONE (ROXICODONE) immed iate release tablet 5 mg 1 01/13/2025 Nursing Count Last Ordered Date First Orde red Date BLADDER SCAN 1 01/13/2025 documented in this encounter Care Teams Mail Courier Relationship Specialty Start Date End Date Physician, No Pcp PCP - General 01/13/25 documented as of this encounter
[2025-01-15 08:28] VITALS: BP 158/100; BMI 33.2
--- NOTE | 2025-01-15 08:28 | A.OFFVIS_ITS ---
Vital Signs 01/15/25 08:28 Height 5 ft 1 in Weight 175 lb 14.862 oz BMI 33.2 BP 158/100 H Blood Pressure Location Lt brachial Position Sitting Intake Visit Reasons: SLE Intake Note: Presents today for SLE/FMS follow up Accompanied by: mother Allergies No Known Allergies Allergy (Verified 01/15/25 08:30) HPI HPI SLE: Details: Patient scheduled by mistake in my schedule. Dr. Apodaca's patient. [facility] Medical History Systemic lupus Autoimmune hepatitis Mixed connective tissue disease Rheumatoid arthritis Surgical History Hx of cholecystectomy Hx of endoscopy History of colonoscopy Family History Father Alive and well Mother Alive and well Social History Household Members Other:: lives with mom and sisters Alcohol intake: never Patient Tobacco Use Status: Never used Tobacco service: No Current occupational status: employed Current occupation: [employer] Physical Exam Vital Signs: Last Vital Signs BP 158/100 H 01/15/25 08:28 BMI result Body Mass Index 33.2 Assessment & Plan Assessment & Plan (1) Systemic lupus: Comment: Initially diagnosed with MCTD at age 8 (inflammatory arthritis, Raynaud's, telangiectasias, autoimmune hepatitis, pericarditis +++ZOYA+++ARTICULATION OFFICER ++Duran +++Dsdna low C3 & low C4 failed azthiopurine Rituximab was effective but had a reaction to it 2020 Hydroxychloroquine restarted 04/2024 Benlysta infusion started 04/2024 Code(s): M32.9 - Systemic lupus erythematosus, unspecified Category: Medical Qualifiers: Systemic lupus erythematosus type: unspecified Systemic lupus erythematosus organ involvement: unspecified Qualified Code(s): M32.9 - Systemic lupus erythematosus, unspecified Plan: Patient was not seen by me today due to error in scheduling. Coding Level of Care Code Left Without Being Seen Diagnoses Systemic lupus erythematosus, unspecified SLE type, unspecified organ involvement status M32.9 Systemic lupus erythematosus type: unspecified Systemic lupus erythematosus organ involvement: unspecified
--- OUTSIDE RECORDS SUMMARY | 2025-01-15 09:37 | XMS_ITS | Clinical Summary ---
Author Organization [facility] Address [address] [address] Phone Care Team Providers Care Production Team Manager Name Role Phone Chris Sanchez MD Unavailable [phone] Abelardo Ramos MD Unavailable [phone] Cassie Saldana Primary Care Provider [phone] Allergies No known active allergies Medications hydroxychloroqu ine (PLAQUENIL) 200 mg tablet Take 1 tablet (200 mg total) by mouth daily. 30 tablet 3 06/20/2019 Active predniSONE (DELTASONE) 20 MG tablet Take 3 tablets (60 mg total) by mouth daily for 5 days. 10 tablet 09/14/2021 Active Social History Tobacco Use Types Packs/Day Years Used Date Smoking Tobacco: Never Smokeless Tobacco: Never Alcohol Use Standard Drinks/Week Comments Never 0 (1 standard drink = 0.6 oz pur e alcohol) Education Answer Date Recorded Are you interested in more education? Not on maya e 09/02/2022 Are you concerned about learning? Not on file 09/02/2022 No 09/02/2022 No 09/02/2022 Digital Access Answer Date Recorded No 10/04/2022 No 10/04/2022 No 10/04/2022 Reliable internet access at home? Not on file 10/04/2022 Device with a working camera? Not on file Comments Unknown Sex and Gender Information Value Date Recorded Sex Assigned at Female 09/14/2021 5:50 PM EDT Legal Sex Female 2:16 PM EDT Gender Identity Female 09/14/2021 5:50 PM EDT Sexual Orientation Not on file Last Filed Vital Signs Vital Sign Reading Time Taken Comments Blood Pressure 127/87 09/14/2021 9:51 PM EDT Pulse 89 09/14/2021 9:51 PM EDT Temperature 37.1 C (98.7 F) 09/14/2021 5:48 PM EDT Respiratory Rate 18 09/14/2021 9:51 PM EDT Oxygen Saturation 97% 09/14/2021 9:51 PM EDT Inhaled Oxygen Concentration - - Weight 59 kg (130 lb) 09/14/2021 5:48 PM EDT Height 154.9 cm (5' 1 ) 09/14/2021 5:48 PM EDT Body Mass Index 24.56 09/14/2021 5:48 PM EDT Plan of Treatment Health Maintenance Due Date Last Done Comments DEPRESSION SCREENING 2012 SMOKING Hx and SMOKELESS TOBACCO SCREENING 2013 CHLAMYDIA SCREENING 2016 HEPATITIS C SCREENING 2018 HIV ONE-TIME SCREENING (18-65 YEARS) 2018 PAP SMEAR 2021 Adult Td,Tdap Booster 10/13/2021 10/14/2011 INFLUENZA VACCINE (#1) 2024 5, 04/23/2014, 03/28/2012 COVID-19 VACCINE ( season) 2025 HIB VACCINES Completed 01/10/2002, 08/2001, 03/26/2001, Additional history exists PNEUMOCOCCAL VACCINES (0-49 years) Aged Out 05/05/2003, 06/11/2001, 03/26/2001, Additional history exists No longer eligible based on patient's age to complete this topic HPV VACCINES Completed 08/27/2014, 12/07, 10/14/2011 HEPATITIS A VACCINES Completed 10/21/2016, 09/04/19 16 MENINGOCOCCAL VACCINES (ACWY) Completed 10/21/2016, 10/14/2011 MENINGOCOCCAL VACCINES (B) Aged Out N o longer eligible based on patient's age to complete this topic Medical Devices Not on file Insurance C3 ACO C3 ACO C3 ACO C3 ACO C3 ACO C3 ACO C3 ACO C3 ACO Care Teams Production Team Manager Relationship Specialty Start Date End Date Cassie Saldana FNP [address] [place] [address] PCP - General Nurse Practitioner 12/31/24 Chris Sanchez MD [facility] [place] [address] [email or web address] Provider Pediatric Cardiology 03/13/19 Abelardo Ramos MD [address] [place] [address] Consulting Provider Pediatric Gastroenterology 04/22/19 Additional Source Comments The information contained in this document represents components of the legal health record. It is not the complete legal health record.[facility]
--- OUTSIDE RECORDS SUMMARY | 2025-01-15 09:37 | XMS_ITS | Clinical Summary ---
Author Organization [employer] Address [address] [place] [address] 7[address] [place] [address] Care Team Providers Care Zoning Engineer Name Role Phone Cassie Saldana Primary Care Provider [phone] Gertrudis Hopkins RN Unavailable [phone] Alesia Pack Unavailable Allergies No known active allergies Medications Misc. Devices (Pulse Oximeter For Finger) miscIndications :Routine health maintenance Use as needed to monitor oxygen saturation at home 1 each 05/31/19 23 Active Blood Pressure Monitor kitIndications: Routine health maintenance Use as needed to monitor Blood pressure at home 1 kit 03/07/20 23 Active acetaminophen (Tylenol) 500 MG tablet Take 2 tablets (1,000 mg) by mouth every 6 (six) hours if needed for moderate pain or fever for up to 25 doses. 50 tablet 03/07/20 23 Active hydroxychloroqu ine (Plaquenil) 200 MG tablet Take 1 tablet by mouth 2 times daily. 10/28/19 23 Active DULoxetine (Cymbalta) [address] capsule Take 30 mg by mouth Once per day. 01/07/20 25 Active amitriptyline (Elavil) 10 MG tablet Take 10 mg by mouth at bedtime. 01/07/20 25 Active amLODIPine (Norvasc) 5 MG tablet Take 5 mg by mouth Once per day. 12/22/19 25 Active azaTHIOprine (Imuran) 50 MG tablet Take 150 mg by mouth Once per day. 11/12/19 25 Active bisacodyl (Dulcolax) 10 MG suppository Insert 10 mg into the rectum if needed each day. 01/07/20 Active gabapentin (Neurontin) 300 MG capsule Take 600 mg by mouth 3 times daily. 01/07/20 Active ibuprofen 600 MG tablet Take 600 mg by mouth every 6 (six) hours if needed. 01/14/20 Active methocarbamol (Robaxin) 500 MG tablet Take 500 mg by mouth if needed in the morning, at noon, and at bedtime. 01/14/20 Active oxyCODONE (Roxicodone) 5 MG immediate release tablet Take 5 mg by mouth every 6 (six) hours if needed. 01/14/20 Active pantoprazole (ProtoNix) 40 MG EC tablet Take 40 mg by mouth 2 times daily. 01/07/20 Active predniSONE (Deltasone) 20 MG tablet Take 60 mg by mouth Once per day. 01/15/20 Active sennosides (Senokot) 8.6 MG tablet Take 8.6 mg by mouth 2 times daily. 01/07/20 Active sucralfate (Carafate) 1 g tablet Take 1 g by mouth before breakfast, before lunch, before evening meal, and at bedtime. 01/07/20 Active predniSONE (Deltasone) 10 MG tablet Take 30 mg by mouth Once per day. 12/22/19 Active magnesium hydroxide (Milk of Magnesia) 400 MG/5ML suspension Take 30 mL by mouth if needed each day. 01/07/20 Active 28-0.8 MG tabletIndicatio ns:Breakthrough bleeding Take 1 tablet by mouth Once per day. 90 tablet 3 09/03/19 Discontinued(M ed list cleanup (will not trigger notification to Pharmacy)) labetalol (Normodyne) 100 MG tabletIndicatio ns:Primary hypertension Take 1 tablet (100 mg) by mouth Once per day. 90 tablet 1 09/03/19 Discontinued(S top taking at discharge) azaTHIOprine (Imuran) 100 MG tablet Take 1.5 tablets by mouth Once per day. Discontinued(M ed list cleanup (will not trigger notification to Pharmacy)) cefpodoxime (Vantin) 200 MG tablet Take 200 mg by mouth 2 times daily. 01/11/20 25 025 Active Problems Problem Noted Date Diagnosed Date Oxygen desaturation 12/21/2024 Assessment & Plan (12/21/2024 9:40 AM EDT): Saturation in the 80s, after 2lts NC 100% Alpha thalassemia silent carrier 01/23/2024 Anxiety 01/23/2024 Current chronic use of systemic steroids 024 Mixed collagen vascular disease 01/23/2024 Hypertension 07/10/2023 Assessment & Plan (09/10/2024 2:08 PM EDT): -Prescribed hydrochlorothiazide 25mg daily through cards. Not using consistently. BP elevated in office. 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 Will switch to labetalol 100mg daily. Reviewed med safety and SE. -Cont monitoring home BP readings, follow up precautions reviewed Assessment & Plan (01/29/2024 9:08 PM EDT): -Continues to be elevated despite increase in losartan to 50mg daily -Non-smoker, hx of nursing home prednisone use -Plan: start hydrochlorothiazide. Reviewed med [...] 10/20/22: Hx myopericarditis. Appt to establish with [facility]. EKG stable, planning for an [...] upon post- discharge in November 2022 from [facility] Assessment & Plan (04/29/2023 9:37 AM EST): -DBP elevated, denies any chest pain, BUENO, SOB, palpitations, or other associated symptoms -Nifedipine 60mg daily sent to pharmacy -Encouraged to monitor BP readings at home, return precautions Healthcare maintenance 04/29/2023 Overview (04/29/2023): Contraception: Nexplanon placed post- November 2022 at [facility] Raynaud's phenomenon (secondary) 05/13/2022 Rheumatoid arthritis 06/19/2020 Overview (01/29/2024): -Seropositive RA (RF++ CCP-) -Currently following with [facility] Current med regimen: hydroxychloroquine 200mg BID and prednisone 30mg daily Previous med trials: Humira, Rituxan infusion Per consult October 2023 - Goal: start biologic with plan to wean off prednisone daily. Plan to order Orencia infusion, follow up in 12 weeks Assessment & Plan (01/29/2024 9:19 PM EDT): Called [facility] with pt to discuss f/up regarding Orencia as Gwendolyn reports she has not heard from office since last appt. LVM with request to return call directly to pt. Assessment & Plan (05/13/2022 6:50 PM EST): -Seropositive RA (RF++ CCP-) previously managed with Plaquenil and prednisone by Dr. Diaz of [facility], who has since left. Has not [...] that impact daily functioning -Case discussion with [facility] pharmacy - risk of untreated RA/SLE > [...] daily for autoimmune hepatitis -08/04/22: Established with [facility] GI for autoimmune hepatitis. Dr. Nhi white. They would like follow up first with lab work and then possibly liver biopsy if needed Assessment & Plan (05/13/2022 7:18 AM EST): -Previously took azathioprine 75 mg daily for autoimmune hepatitis, however she has not taken this medication in some time since she stopped seeing her biomedical repair technician. -Established with [facility] in September 2021 Low vision, both eyes 10/14/2011 Systemic lupus erythematosus 10/14/2011 Overview (09/10/2024): Seropositive RA (RF++ CCP-) previously managed with Plaquenil and prednisone by [facility] Previously following with [facility], currently following with [facility] Med regimen (as of August 2024) - Prednisone 15mg daily - Hydroxychloroquine - Benlysta infusions Assessment & Plan (12/21/2024 9:42 AM EDT): Patient is on likely lupus flare after her medications where stopped, patient referred to emergency room EMS called Assessment & Plan (09/23/2023 4:24 PM EDT): [...] & Plan (06/05/2022 6:49 PM EST): -Called [facility] with patient to schedule appt. Discussed importance that pt be seen soon due to high risk -Continue with prednisone 30mg daily -Consider bridge rx of hydroxychloroquine in primary care until pt able to be established with Rheum. Will place [facility] consult Assessment & Plan (05/24/2022 12:43 PM EST): -Seropositive RA (RF++ CCP-) previously managed with Plaquenil and prednisone by Dr. Diaz of [facility], who has since left. Has not [...] that impact daily functioning -Case discussion with [facility] pharmacy - risk of untreated RA/SLE > [...] EDT): - Nexplanon placed November 2022 by [facility] following delivery - Pt reported interested in removal due to SE - feelings of weight gain, fatigue - Nexplanon removal 09/26/23 at [facility] Assessment & Plan (09/23/2023 4:17 PM EDT): - Nexplanon placed November 2022 by [facility] following delivery - Pt reported interested in removal due to SE - feelings of weight gain, fatigue - Plan to call next week to schedule appt for Nexplanon removal - List of alternative contraceptive methods provided for pt to review 06/05/2022 04/29/2023 Overview (06/05/2022): -LMP 04/02/22 -Referred to [facility] - initial appt Jun 15, 2022 -Continue daily vitamins Eczema 05/13/2022 09/26/2023 Assessment & Plan (05/13/2022 6:41 PM EST): -Clinical presentation consistent with atopic derm -START compound triamcinolone 0.1% cream with CeraVe, may use daily from the neck down for control and prevention -Routine education from [employer] handout: Moisturizing skin-care routines are essential. Non-soap cleansers, such as Cetaphil, or moisturizing soaps, such as Dove, are recommended. Thick moisturizers such as petroleum jelly, Aquaphor ointment, Eucerin cream, CeraVe cream, and Cetaphil cream should be applied to damp skin after daily bathing. Attempt to minimize exposure to heat, humidity, detergents/soaps, abrasive clothing, chemicals, smoke, and stress. Fragrance-free laundry detergent may be beneficial. Keep the home from getting too dry by using a humidifier or by setting out bowls of water, especially in the bedroom. Helicobacter pylori gastritis 07/14/2016 01/29/2024 Chronic pain syndrome 08/06/20142023 Encounters Date Type Department Care Team Description 01/14/2025 Patient Outreach [facility] [address] [place] [address] Cassie Saldana FNP 01/14/2025 Telephone [facility] [address] [place] [address] Cassie Saldana FNP Chart Prep 01/13/2025 Telephone [facility] [address] [place] [address] Cassie Saldana FNP Nurse Triage 01/13/2025 Telephone [facility] [address] [place], [place] [phone] Cassie Saldana FNP Hospital Follow-up 01/13/2025 Patient Outreach [address] [address] Cassie Saldana FNP 01/08/2025 Patient Outreach [address] [address] Cassie Saldana FNP Care Coordination (CM/CHW outreach) 01/03/2025 Patient Outreach [address] [address] Cassie Saldana FNP Care Coordination (CM/CHW outreach) 12/25/2024 Patient Outreach [address] [address] Cassie Saldana FNP 12/23/2024 Patient Outreach [address] [address] Cassie Saldana FNP Care Coordination (CM/CHW outreach) 12/23/2024 Patient Outreach [address] [address] Cassie Saldana FNP Care Coordination (CHW chart review) 12/23/2024 Patient Outreach [address] [address] Cassie Saldana FNP Care Management (C3CM- chart review) 12/23/2024 Patient Outreach [address] [address] Cassie Saldana FNP 12/21/2024 9:20 AM EDT Office Visit [facility] [address] [place] [phone] Georgia Franks MD Oxygen desaturation (Primary Dx); Systemic lupus erythematosus, unspecified SLE type, unspecified organ involvement status (CMS/[facility]) 12/21/2024 Travel 12/19/2024 Telephone [facility]ED[facility] [address] [place] [address] Cassie Saldana FNP Medication Question 11/14/[address] [address] Cassie Saldana FNP 10/28/[address] [address] Cassie Saldana FNP No Show from Last 3 Months Immunizations Immunization Administration Dates Next Due DTaP 07/29/2005, 2,06/11/2001,03/26,2000 [...] Passive Smoke Exposure: Never Smokeless Tobacco: Never Tobacco Cessation:Counseling Given: Not Answered Alcohol Use Standard Drinks/Week Comments Never 0 (1 standard drink = 0.6 oz pur e alcohol) Depression Answer Date Recorded Patient Health Questionnaire-9 Score 10 01/29/2024 Patient Health Questionnaire-9 Score 10 01/29/2024 Last PHQ-9: Questionnaire Data Not on file 0 01/29/2024 Housing Stability Answer Date Recorded What is your housing situation today? I have jerel yang 10/10/[address] you li ve. Do you have problems with any of the following? None of the above 10/10/2024 Food Insecurity Answer Date Recorded Within the past 12 months, y ou worried that your food would run out before you got money to buy more: Never True 10/10/2024 Within the past 12 months,th e food you bought just didn't last and you didn't have enough money to get more: Never True 09/2024 Transportation Answer Date Recorded In the past 12 months, has l ack of transportation kept you from medical appts, meetings, work or from getting things needed for daily living? No 10/10/2024 Utilities Answer Date Recorded In the past 12 months, has t he electric, gas, oil or water company threatened to shut off services in your home? No 10/10/2024 Depression Answer Date Recorded Patient Health Questionnaire-2 Score 1 01/29/2024 Internet Access Answer Date Recorded Internet Access Q1 Yes 10/10/2024 Internet Access Q2 Not on file 10/10/2024 Comments No Sex and Gender Information Value Date Recorded Sex Assigned at Female 03/07/2022 10:16 AM EDT Legal Sex Female 10:16 AM EDT Gender Identity Female 03/07/2022 10:16 AM EDT Sexual Orientation Choose not to disclose 2021 10:16 AM EDT Last Filed Vital Signs Vital Sign Reading Time Taken Comments Blood Pressure 145/111 12/21/2024 9:09 AM EDT Pulse 103 12/21/2024 9:09 AM EDT Temperature 37.1 C (98.7 F) 12/21/2024 9:09 AM EDT Respiratory Rate 18 12/21/2024 9:09 AM EDT Oxygen Saturation 80% 12/21/2024 9:09 AM EDT Inhaled Oxygen Concentration - - Weight 75.8 kg (167 lb) 12/21/2024 9:09 AM EDT Height 154.9 cm (5' 1 ) 12/21/2024 9:09 AM EDT Body Mass Index 31.55 12/21/2024 9:09 AM EDT Plan of Treatment Upcoming Encounters Date Type Department Care Team (Late st Contact Info) Description 01/15/2025 10:00 AM EDT Office Visit [facility] & PEDS [address] [place] [address] Adela Acosta, [employer] [address] [place] [address] Health Maintenance Due Date Last Done Comments HIV Screening 2000 Lipid Panel 2000 Disability Screening 2000 COVID-19 Vaccine (#1) 2005 Alcohol/Substance Use Screening 2012 Family Planning (PISQ) 09/29/2015 Pneumococcal Vaccine: Pediatrics (0 to 5 Years) and At-Risk Patients (6 to 49) Years (1 of 2 - PCV) 09/29/2019 05/05/2003, 06/11/2001, 03/26/2001, Additional history exists Zoster Vaccines (1 of 2) 09/29/2019 Depression Monitoring 07/28/2024 01/29/2024, 024 Pap Smear 10/18/2024 10/19/2023 Influenza Vaccine (#1) 2025 , 04/28/2023, 06/24/2022, Additional history exists SDOH Screening 10/10/2025 10/10/2024 Tobacco Screening 12/21/2025 12/21/2024 DTaP/Tdap/Td Vaccines (8 - Td or Tdap) 04/28/2033 04/28/2023, 10/14/2011, 07/29/2005, Additional history exists RSV Patients and Patients Aged 60 years or older (1 - 1-dose 75+ series) 09/29/2075 Hepatitis B Vaccines Completed 11/01/2001, 06/11/2001, 2000 HIB Vaccines Completed 01/10/2002, 08/2001, 03/26/2001, Additional history exists IPV Vaccines Completed 07/29/2005, 10/07, 03/26/2001, Additional history exists HPV Vaccines Completed 08/27/2014, 12/07, 10/14/2011 Hepatitis A Vaccines Completed 10/21/2016, 10/21/2016, 09/04/2015, Additional history exists Meningococcal Vaccine Completed 10/21/2016 , 10/21/2016, 10/14/2011, Additional history exists Hepatitis C Screening Completed 07/10/2023, 020 Meningococcal B Vaccine Aged Out No l onger eligible based on patient's age to complete this topic RSV under 20 months Aged Out No longe r eligible based on patient's age to complete this topic Rotavirus Vaccines Aged Out No longer eligible based on patient's age to complete this topic Procedures Procedure Name Priority Date/Time Associated Diagnosis Comments PAP SMEAR Routine 10/19/2023 2:46 PM EDT Routine cervical smear Screening examination for venereal disease HEPATITIS PANEL, GENERAL Routine 07/10/2023 9:08 AM EST from Last 3 Months or Most Recently Relevant to Health Maintenance Results * Pap Smear (10/19/2023 2:46 PM EDT) Swab Cervix uteri structure / Unknown 10/19/2023 2:46 PM EDT 10/20/2023 6:00 AM EDT [facility] - 11/08/2023 11:52 AM EDT ----- ------- Name: Gwendolyn Zuñiga Age/Sex: 23/F : 2000 Unit#: [id number] Attend Dr: ELIZABETH WRIGHT CNM Re10/20/23 Status: DEP [facility] Disch: ----- ------- SPEC : [id number] RECD: 10/20/23 STATUS: KRUNAL BEARD NUM: [id number] GOPI: 10/19/23-1446 [facility] DR: ELIZABETH WRIGHT CNM ENTERED: 10/20/23 SP TYPE: Pap Smr OTHR DR: ORDERED: Pap Smear, PAP path review Interpretation General Category: Epithelial cell abnormality. Adequacy: Endocervical component present. Interpretation: Low grade squamous intraepithelial lesion (DAVID I). Fungal organisms consistent with Britta species. Clinical Information LMP: Unknown date/findings Previous PAP test: Initial PAP Material Received ThinPrep-Cervical ----- ------- Signed (signature on file) Doreen Emeka 11/08/23 1152 ----- ------- END OF REPORT us Elizabeth Wright CNM LAB CYTOLOGY ORDERABLES F inal Result [facility] [address] [place] [phone] * Hepatitis Panel, General (07/10/2023 9:08 AM EST) Hepatitis A IgM Nonreactive Nonreactive [facility] Comment:IgM antibodies to BUENO V not detected; does not exclude earlyacute or recovered HAV infection. ~Hepatitis B Surface Antibody NONREACTIVE Nonreactive [facility] Comment:Nonreactive: < 8.00 mIU/mL Hepatitis B Core Antibody Nonreactive Nonreactive [facility] Hepatitis C Antibody Nonreactive Nonreactive [facility] Comment:Antibodies to HCV no t detected; does not exclude early acuteHCV infection. Hepatitis B Surface Ag Negative Negative [facility] 07/10/2023 9:08 AM EST 07/10/2023 11:31 AM EST us Generic External Data Provider LAB BLOOD ORDERAB LES Final Result Performing Organization Address City/State/[facility] Co de Phone Number [facility] [address] [place] [phone] from Last 3 Months or Most Recently Relevant to Health Maintenance [place] [address] [place] [address] C3 Care Teams Zoning Engineer Relationship Specialty Start Date End Date Cassie Saldana FNP [address] [place] [address] PCP - General Family Medicine 12/30/21 Gertrudis Hopkins RN [address] [place] [address] Registered Nurse Family Medicine 12/23/24 Alesia Pack 12/23/24
--- OUTSIDE RECORDS SUMMARY | 2025-01-15 09:37 | XMS_ITS | Encounter Summary ---
Author Organization [employer] Address [address] [place] [address] 7 [place] [address] Care Team Providers Care Borematic Machine Operator Name Role Phone Cassie Saldana Primary Care Provider [phone] Fina Mckinnon Unavailable [phone] Jaqueline Carver Unavailable Unavailable Gertrudis Hopkins RN Unavailable [phone] Alesia Pack Unavailable Reason for Visit * Reason Comments Med Refill Encounter Details Date Type Department Care Team (Late st Contact Info) Description 09/07/2023 Refill [facility] [address] [place], [place] [phone] Cassie Saldana FNP [address] [place], [place] [phone] Rheumatoid arthritis involving multiple sites with positive [...] Upcoming Encounters Date Type Department Care Team ([facility] st Contact Info) Description 01/15/2025 10:00 AM EDT Office Visit [facility] [address] [place] [address] Adela Acosta CNP [address] [place] [address] documented as of this encounter Visit Diagnoses Diagnosis Rheumatoid arthritis involving multiple sites with positive rheumatoid factor ([facility]) documented in this encounter Care Teams Borematic Machine Operator Relationship Specialty Start Date End Date Cassie Saldana FNP [address] [place] [address] PCP - General Family Medicine 12/30/21 Fina Mckinnon Registered Nurse 10/07/24 10/07/24 Jaqueline Carver 10/07/24 10/07/24 Gertrudis Hopkins, SHERLYN [address] [place] [address] Registered Nurse Family Medicine 12/23/24 Alesia Pack 12/23/24 documented as of this encounter
--- OUTSIDE RECORDS SUMMARY | 2025-01-15 09:37 | XMS_ITS | Encounter Summary ---
Author Organization [employer] Address [address] [place] [address] [address]t [place] [address] Care Team Providers Care Deck And Hull Assembler Name Role Phone Cassie Saldana Primary Care Provider Fina Mckinnon Unavailable [phone] Jaqueline Carver Unavailable Unavailable Gertrudis Hopkins RN Unavailable [phone] Alesia Pack Unavailable Reason for Visit * Reason Onset Date Comments Returning Call Back 05/26/2022 Encounter Details Date Type Department Care Team (Late st Contact Info) Description 05/26/2022 Telephone [facility] [address] [place] [address] Cassie Saldana FNP [address] [place], [place] [phone] Returning Call Back Social History Tobacco Use [...] Description 01/15/2025 10:00 AM EDT Office Visit [facility]EDS [address] [place], [place] [phone] Adela Acosta CNP [address] [place] [address] documented as of this encounter Visit Diagnoses Not on filedocumented in this encounter Care Teams Deck And Hull Assembler Relationship Specialty Start Date End Date Cassie Saldana FNP [address] [place] [address] PCP - General Family Medicine 12/30/21 Fina Mckinnon Registered Nurse 10/07/24 10/07/24 Jaqueline Carver 10/07/24 10/07/24 Gertrudis Hopkins, RN [address] [place] [address] Registered Nurse Family Medicine 12/23/24 Alesia Pack 12/23/24 Jeimy Hall vocational horticulture instructor 05/30/23 08/06/23 documented as of this encounter
--- OUTSIDE RECORDS SUMMARY | 2025-01-15 09:37 | XMS_ITS | Encounter Summary ---
Author Organization [employer] Address [address] [place] [address] 7t [place] [address] Care Team Providers Care Non Licensed Nuclear Equipment Operator Name Role Phone Cassie Saldana Primary Care Provider [phone] Fina Mckinnon Unavailable Jaqueline Carver Unavailable Unavailable Gertrudis Hopkins RN Unavailable [phone] Alesia Pack Unavailable Reason for Visit * Reason Onset Date Comments Nurse Triage 04/02/2024 Encounter Details Date Type Department Care Team (Late st Contact Info) Description 04/02/2024 Telephone [facility] MED[facility]INE [address] [place] [address] Cassie Saldana FNP [address] [place], [place] [phone] Nurse Triage Social History Tobacco Use Types [...] the past 12 months, has t he [employer] gas, oil or water [employer] threatened to shut off services in your [...] pain will need to be managed by [facility] rheumatology. Pt confirms that she missed her appt in February and is r/s for late April 2024 with [facility]. Pt would also like PCP to be aware that she is now with a different clinical medical transcriptionist as her longstanding one has left the practice. * Telephone Encounter - JULES Macdonald - 04/02/2024 9:37 AM EST Hi, please call Gwendolyn to review Rheum plan. She is following with [facility] Rheum, and plan per last consult note in October 2023, plan was to wean off prednisone and start Orencia infusion. I just sent in another bridge rx for her x 2 weeks, but she needs to contact Rheum and follow up with them regarding further management. She was scheduled for [facility] Rheum Appt in Feb 2024, but I [...] PCP and also another provider working in [facility] today. * Telephone Encounter - [...] Description 01/15/2025 10:00 AM EDT Office Visit [facility] MED & PEDS [address] [place] [address] Adela Acosta CNP [address] [place] [address] documented as of this encounter Visit Diagnoses Diagnosis Systemic lupus erythematosus, unspecified SLE type, unspecified organ involvement status (CMS/HCC)- Primary documented in this encounter Additional Health Concerns Assessment Noted Time PHQ-9 Depression Total Score: 10 024 11:22 AM EDT documented as of this encounter Care Teams Non Licensed Nuclear Equipment Operator Relationship Specialty Start Date End Date Cassie Saldana FNP [address] [place] [address] PCP - General Family Medicine 12/30/21 Fina Mckinnon Registered Nurse 10/07/24 10/07/24 Jaqueline Carver 10/07/24 10/07/24 Gertrudis Hopkins, RN [address] [place] [address] [place] [address] Registered Nurse Family Medicine 12/23/24 Alesia Pack 12/23/24 documented as of this encounter
--- OUTSIDE RECORDS SUMMARY | 2025-01-15 09:37 | XMS_ITS ---
Author Name [facility] Organization Unknown Results Test Name/Text Value Interpretation Date Range Source RBC #/area UrnS HPF 1.0 /HPF 01/14/2025 0 - 3 [facility] Color Ur Yellow 01/14/2025 - [facility] Hyaline Casts #/area UrnS LPF 22.0 /LPF Above high normal 01/14/2025 - [facility] Glucose Ur Ql Negative 01/14/2025 - [facility] Hgb Ur Ql Negative 01/14/2025 - [facility] Bacteria #/area UrnS HPF Present Abnormal 01/14/2025 - [facility] Prot Ur Strip-mCnc Trace 01/14/2025 - [facility] Sp Gr Ur 1.015 01/14/2025 1.005 - 1.03 [facility] EDY Squamous #/area UrnS HPF >100.0 /HPF Above high normal 01/14/2025 0 - 5 [facility] Ketones Ur-mCnc Negative 01/14/2025 - [facility] Mucous Threads #/area UrnS HPF Present Abnormal 01/14/2025 - [facility] Clarity Ur Clear 01/14/2025 - [facility] AN pH Ur 5.0 pH Abnormal 01/14/2025 5 - 8 [facility] Leukocyte esterase Ur Ql Strip Negative 01/14/2025 - [facility] WBC #/area UrnS HPF <1.0 /HPF 01/14/2025 0 - 5 [facility] Nitrite Ur Ql Positive Abnormal 01/14/2025 - [facility] Troponin I SerPl HS-mCnc 4.0 ng/L 01/14/2025 0 - 14 [facility] HCG SerPl Ql Negative 01/13/2025 - [facility] BNP SerPl-mCnc 9.0 pcg/mL 01/13/2025 0 - 100 [facility] Troponin I SerPl HS-mCnc 7.0 ng/L 01/13/2025 0 - 14 [facility] BUN/Creat SerPl 15.0 01/13/2025 12 - 20 [facility] Anion Gap SerPl Calc-sCnc 11.0 01/13/2025 5 - 14 [facility] Creat SerPl-mCnc 0.6 mg/dL 01/13/2025 0.5 - 1 CT [facility] Bilirub SerPl-mCnc 0.4 mg/dL 01/13/2025 0.3 - 1 [facility] Chloride SerPl-sCnc 105.0 mmol/L 01/13/2025 98 - 107 [facility] CO2 SerPl-sCnc 27.0 mmol/L 01/13/2025 24 - 32 CT [facility] BUN SerPl-mCnc 9.0 mg/dL 01/13/2025 7 - 17 [facility] AST SerPl-cCnc 17.0 unit/L 01/13/2025 5 - 40 CT [facility] ALT SerPl-cCnc 28.0 unit/L 01/13/2025 7 - 52 CT [facility] Sodium SerPl-sCnc 143.0 mmol/L 01/13/2025 135 - 14 5 [facility] Albumin SerPl-mCnc 4.1 g/dL 01/13/2025 3.5 - 5 [facility] Potassium SerPl-sCnc 3.5 mmol/L 01/13/2025 3.5 - 5.1 [facility] eGFRcr SerPlBld CKD-EPI 2020 129.0 mL/min/1.73m2 01/13/2025 - [facility] Prot SerPl-mCnc 6.8 g/dL 01/13/2025 6.4 - 8.5 [facility] Calcium SerPl-mCnc 8.6 mg/dL 01/13/2025 8.4 - 10.2 [facility] ALP SerPl-cCnc 66.0 unit/L 01/13/2025 34 - 104 CT [facility] Glucose SerPl-mCnc 80.0 mg/dL 01/13/2025 70 - 199 [facility] Magnesium SerPl-mCnc 2.1 mg/dL 01/13/2025 1.7 - 2.8 [facility] CK SerPl-cCnc 28.0 unit/L Below low normal 01/13/2025 30 - 1 35 [facility] Lipase SerPl-cCnc 123.0 unit/L Above high normal 01/13/2025 11 - 82 [facility] Eosinophil NFr Bld Auto 3.3 % 01/13/2025 0 - 6 [facility] Platelet # Bld Auto 353.0 K/mcL 01/13/2025 150 - 450 [facility] Monocytes NFr Bld Auto 5.8 % 01/13/2025 2 - 12 [facility] Basophils # Bld Auto 0.0 K/mcL 01/13/2025 0 - 0.2 [facility] Lymphocytes NFr Bld Auto 10.3 % Below low normal 01/13/2025 20 - 48 [facility] Eosinophil # Bld Auto 0.2 K/mcL 01/13/2025 0 - 0.5 [facility] MCHC RBC Auto-EntMCnc 31.9 g/dL Below low normal 01/13/2025 32 - 36 [facility] PMV Bld Auto 7.6 FL 01/13/2025 7.4 - 11.4 [facility] WBC # Bld Auto 7.4 K/mcL 01/13/2025 4 - 10.5 [facility] RBC Auto 74.0 FL Below low normal 01/13/2025 78 - 100 CT [facility] Monocytes # Bld Auto 0.4 K/mcL 01/13/2025 0 - 0.8 [facility] Hct VFr Bld Auto 41.7 % 01/13/2025 37 - 47 CT [facility] RDW RBC Auto 16.9 % Above high normal 01/13/2025 12.1 - 1 6.2 [facility] RBC # Bld Auto 5.63 M/mcL Above high normal 01/13/2025 4.2 - 5.4 [facility] Hgb Bld-mCnc 13.3 g/dL 01/13/2025 12.5 - 16 [facility] Neutrophils NFr Bld Auto 80.3 % Above high normal 01/13/2025 44 - 74 [facility] MCH RBC Qn Auto 23.6 pcg Below low normal 01/13/2025 25 - 3 3 [facility] Neutrophils # Bld Auto 5.9 K/mcL 01/13/2025 1.8 - 7.8 [facility] Lymphocytes # Bld Auto 0.8 K/mcL Below low normal 01/13/2025 1 - 3.2 [facility] Basophils NFr Bld Auto 0.3 % 01/13/2025 0 - 2 [facility] Encounters Encounter Type Encounter Reason Primary Diagnosis Location Date Emergency Back Pain; Leg Numbness Low back pain, unspecified [facility] 01/13/2025 Care Team Organization Name Specialty Phone Email Start Date End Da te [facility] 01/13/2025 [facility] NO PHYSICIAN Primary Care 01/13/2025 [facility] 01/13/2025
--- OUTSIDE RECORDS SUMMARY | 2025-01-15 09:37 | XMS_ITS | Encounter Summary ---
Author Organization [employer] Address [address] [facility] 7t [place] [address] Care Team Providers Care Ug Designer Name Role Phone Cassie Saldana Primary Care Provider [phone] Gertrudis Hopkins RN Unavailable [phone] Alesia Pack Unavailable Encounter Details Date Type Department Care Team (Late st Contact Info) Description 01/13/2025 Patient Outreach [facility] MEDICINE [address] [place] [address] Cassie Saldana FNP [address] [place], [place] [phone] Social History Tobacco Use Types Packs/Day Years [...] Description 01/15/2025 10:00 AM EDT Office Visit [facility] MED & PEDS [address] [place] [address] Adela Acosta CNP [address] [place] [address] documented as of this encounter Visit Diagnoses Not on filedocumented in this encounter Additional Health Concerns Assessment Noted Time PHQ-9 Depression Total Score: 10 024 11:22 AM EDT documented as of this encounter Care Teams Ug Designer Relationship Specialty Start Date End Date Cassie Saldana FNP [address] [place] [address] PCP - General Family Medicine 12/30/21 Gertrudis Hopkins, SHERLYN [address] [place] [address] Registered Nurse Family Medicine 12/23/24 Alesia Pack 12/23/24 documented as of this encounter
--- OUTSIDE RECORDS SUMMARY | 2025-01-15 09:37 | XMS_ITS | Encounter Summary ---
Author Organization [employer] Address [address] [place] [address] 7t [place] [address] Care Team Providers Care Tool Room Machinist Name Role Phone Cassie Saldana Primary Care Provider [phone] Gertrudis Hopkins RN Unavailable [phone] Alesia Pack Unavailable Reason for Visit * Reason Onset Date Comments Chart Prep 01/14/2025 Encounter Details Date Type Department Care Team ([facility] st Contact Info) Description 01/14/2025 Telephone [facility] CH[facility] MED & PEDS [address] [place], [place] [phone] Cassie Saldana FNP [address] [place], [place] [phone] Chart Prep Social History Tobacco Use Types Packs/Day Years [...] encounter Miscellaneous Notes * Telephone Encounter - Kassy Pack MA - 01/14/2025 1:48 PM EDT Chart Prep Labs: not applicable Images: appt pending Referrals: appointment pending Vaccines due: PCV20 and Zoster Screenings: STI screening and LMP Overdue care gaps: SBIRT, PHQ-9, Disability screen, and Tobacco documented in this encounter Plan of Treatment Upcoming Encounters Date Type Department Care Team (Late st Contact Info) Description 01/15/2025 10:00 AM EDT Office Visit [facility] MED & PEDS [address] [place] [address] Adela Acosta CNP [address] [place] [address] documented as of this encounter Visit Diagnoses Not on filedocumented in this encounter Additional Health Concerns Assessment Noted Time PHQ-9 Depression Total Score: 10 024 11:22 AM EDT documented as of this encounter Care Teams Tool Room Machinist Relationship Specialty Start Date End Date Cassie Saldana FNP [address] [place] [address] PCP - General Family Medicine 12/30/21 Gertrudis Hopkins RN [address] [place] [address] Registered Nurse Family Medicine 12/23/24 Alesia Pack 12/23/24 documented as of this encounter
--- OUTSIDE RECORDS SUMMARY | 2025-01-15 09:37 | XMS_ITS | Encounter Summary ---
Author Organization [employer] Address [address] [place] [address] 7 [place] [address] Care Team Providers Care Prepress Technician Name Role Phone Cassie Saldana Primary Care Provider [phone] Fina Mckinnon Unavailable [phone] Jaqueline Carver Unavailable Unavailable Gertrudis Hopkins RN Unavailable [phone] Alesia Pack Unavailable Reason for Visit * Reason Comments Med Refill Encounter Details Date Type Department Care Team (Late st Contact Info) Description 10/08/2023 Refill [facility] MED & PEDS [address] [place], [place] [phone] Cassie Saldana FNP [address] [place], [place] [phone] Rheumatoid arthritis involving multiple sites with positive [...] Upcoming Encounters Date Type Department Care Team ([facility] st Contact Info) Description 01/15/2025 10:00 AM EDT Office Visit [facility] MED & PEDS [address] [place] [address] Adela Acosta CNP [address] [place] [address] documented as of this encounter Visit Diagnoses Diagnosis Rheumatoid arthritis involving multiple sites with positive rheumatoid factor ([facility]) documented in this encounter Care Teams Prepress Technician Relationship Specialty Start Date End Date Cassie Saldana FNP [address] [place] [address] PCP - General Family Medicine 12/30/21 Fina Mckinnon Registered Nurse 10/07/24 10/07/24 Jaqueline Carver 10/07/24 10/07/24 Gertrudis Hopkins, SHERLYN [address] [place] [address] Registered Nurse Family Medicine 12/23/24 Alesia Pack 12/23/24 documented as of this encounter
--- OUTSIDE RECORDS SUMMARY | 2025-01-15 09:37 | XMS_ITS | Encounter Summary ---
Author Organization [employer] Address [address] [facility] 7t [place] [address] Care Team Providers Care Continuous Improvement Lead Name Role Phone Cassie Saldana Primary Care Provider [phone] Gertrudis Hopkins RN Unavailable [phone] Alesia Pack Unavailable Encounter Details Date Type Department Care Team (Late st Contact Info) Description 01/14/2025 Patient Outreach [facility] [address] [place] [address] Cassie Saldana FNP [address] [place], [place] [phone] Social History Tobacco Use Types Packs/Day Years [...] Description 01/15/2025 10:00 AM EDT Office Visit [facility]S [address] [place] [address] Adela Acosta CNP [address] [place] [address] documented as of this encounter Visit Diagnoses Not on filedocumented in this encounter Additional Health Concerns Assessment Noted Time PHQ-9 Depression Total Score: 10 024 11:22 AM EDT documented as of this encounter Care Teams Continuous Improvement Lead Relationship Specialty Start Date End Date Cassie Saldana FNP [address] [place] [address] PCP - General Family Medicine 12/30/21 Gertrudis Hopkins, SHERLYN [address] [place] [address] Registered Nurse Family Medicine 12/23/24 Alesia Pack 12/23/24 documented as of this encounter
--- OUTSIDE RECORDS SUMMARY | 2025-01-15 09:37 | XMS_ITS | Encounter Summary ---
Author Organization [employer] Address [address] [place] [address] 7t [place] [address] Care Team Providers Care Tool Distributor Name Role Phone Cassie Saldana Primary Care Provider [phone] Gertrudis Hopkins RN Unavailable [phone] Alesia Pack Unavailable Reason for Visit * Reason Onset Date Comments Nurse Triage 01/13/2025 Encounter Details Date Type Department Care Team ([facility] st Contact Info) Description 01/13/2025 Telephone [facility] MED & PEDS [address] [place], [place] [phone] Cassie Saldana FNP [address] [place], [place] [phone] Nurse Triage Social History Tobacco Use Types [...] Miscellaneous Notes * Telephone Encounter - Farzaneh Urnea RN - 01/13/2025 9:18 AM EDT Please assist with obtaining discharge summary for [facility] 01/10-01/11 for provider review prior to upcoming appointment. Future Appointments Date Time Provider Department Center 01/15/2025 10:00 AM Adela Acosta CNP [facility] * Telephone Encounter - Farzaneh Urena RN - 01/13/2025 8:56 AM EDT Call returned to [facility] to triage below at [phone]. Reports having lower back pain x3 weeks. Pt was admitted [facility] [place] 12/[facility]/24 and discharged on Monday01/10/25. 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 pain not to exceed 2000 mg/day. amiTRIPTYLINE (amitriptyline 10 mg oral tablet)10 Milligram Oral Daily at Bedtime. Bisacodyl (bisacodyl 10 mg rectal suppository)1 suppository(ies) Per rectum Daily as needed Constipation. If oral Meds not effective.. Cefpodoxime (cefpodoxime 200 mg oral tablet)200 Milligram Oral every 12 hours. stop date 01/14 @ 2100. Duloxetine (duloxetine 30 mg oral enteric coated capsule)30 Milligram Oral Daily. Durable Medical Equipment (WHEELCHAIR (Standard size))Patient has mobility limitation that impairs her ability to participate in mobility related activities of daily living like grooming, bathing, dressing or feeding and patient is able to self propel her wheelchair/there is a signs cleaner.. Refills: 0. Gabapentin (gabapentin 300 mg oral capsule)600 Milligram Oral 3 times a day. Milk of Magnesia (Milk of Magnesia Liquid)30 Milliliter Oral Daily. HOLD for LOOSE STOOL, >2BM in 24 hours.. Oxycodone (oxyCODONE 5 mg oral tablet)5 Milligram Oral every 6 hours as needed Pain , Severe for 3 Days. Refills: 0. Pantoprazole (pantoprazole 40 mg oral delayed release tablet)40 Milligram Oral twice a day. Senna (senna 187 mg oral tablet)1 tab(s) Oral twice a day. HOLD for LOOSE STOOL, >2BM in 24 hours.. Sucralfate (sucralfate 1 gm oral tablet)1 gram Oral 3 times a day before meals and bedtime. Unchanged Amlodipine (amLODIPine 5 mg oral tablet)1 tab(s) Oral Daily. Azathioprine (azaTHIOprine 50 mg oral tablet)3 tab(s) Oral Daily. Hydroxychloroquine (hydroxychloroquine 200 mg oral tablet)1 tab(s) Oral twice a day for 30 Days. Refills: 4. PredniSONE (predniSONE 10 mg oral tablet)3 tab(s) Oral Daily. Simethicone (simethicone 80 mg oral tablet, chewable)1 tab(s) Chew 3 times a day as needed as needed for gas. Refills: 0. Discontinued Labetalol (labetalol 100 mg oral tablet)1 tab(s) Oral Daily. Multivitamin, (Classic oral tablet)TAKE 1 TABLET BY MOUTH EVERY DAY. Patient states at discharge from [facility] was sent to [facility] on Wednesday 01/10. Pt states left AMA on Thursday 01/11. Pt states was not discharged with any meds. Pt does have wheelchair. Still having back pain. Pt states did call Rheumatology but is looking to be referred to a different office as states this admission was of result from no follow up from them. Pt given HD[facility] with [facility] provider thisweek. Pt advised to contact rheumotology and request appt within 1 week. Reviewed home care advise,ER precautions and reasons to call back. Protocol Used: Post-Hospitalization Follow-up Call (Adult) Protocol-Based Disposition: See in Office or Video Visit Today or Tomorrow Future Appointments Date Time Provider Department Center 01/15/2025 10:00 AM Adela Acosta CNP [facility] Insurance verified as active per Real Time Eligibility in [facility]. Positive Triage Question: * Patient wants to be seen * All higher-acuity triage questions were negative Care Advice Discussed: * Continue Treatment * Pain Medicines * Reasons To Call Back - Fever occurs - You become worse * Telephone Encounter - Joo Abraham - 01/13/2025 8:44 AM EDT Symptoms: Back Pain - Not From Injury, Leg Pain - Not From Injury Outcome: Schedule an urgent appointment (within 1 hour) or talk to a nurse or provider soon Reason: Severe pain now The caller accepted this outcome. Contact pt at [phone] documented in this encounter Plan of Treatment Upcoming Encounters Date Type Department Care Team (Late st Contact Info) Description 01/15/2025 10:00 AM EDT Office Visit [facility] MED & PEDS [address] [place] [address] Adela Acosta CNP [address] [place] [address] documented as of this encounter Visit Diagnoses Not on filedocumented in this encounter Additional Health Concerns Assessment Noted Time PHQ-9 Depression Total Score: 10 024 11:22 AM EDT documented as of this encounter Care Teams Tool Distributor Relationship Specialty Start Date End Date Cassie Saldana FNP [address] [place] [address] PCP - General Family Medicine 12/30/21 Gertrudis Hopkins, SHERLYN [address] [place] [address] Registered Nurse Family Medicine 12/23/24 Alesia Pack 12/23/24 documented as of this encounter
--- OUTSIDE RECORDS SUMMARY | 2025-01-15 09:37 | XMS_ITS | Clinical Summary ---
Author Organization [facility] Address [address] [place] [address] Phone Care Team Providers Care Rating Specialist Name Role Phone Physician, No Pcp Primary Care Provider Unavaila ble Allergies No known active allergies Medications ibuprofen (ADVIL,MOTRIN) 600 mg tablet Take 1 tablet (600 mg total) by mouth every 6 (six) hours if needed for mild pain (for pain) for up to 10 days. 30 tablet 5 01/24/20 25 Active methocarbamoL (ROBAXIN) 500 mg tablet Take 1 tablet (500 mg total) by mouth 3 (three) times a day if needed for muscle spasms for up to 10 days. 10 tablet 5 01/24/20 25 Active oxyCODONE (ROXICODONE) 5 mg immediate release tablet Take 1 tablet (5 mg total) by mouth every 6 (six) hours if needed for severe pain. Max Daily Amount: 20 mg 8 tablet 5 Active predniSONE (DELTASONE) 20 mg tablet Take 3 tablets (60 mg total) by mouth 1 (one) time each day for 5 days. Then resume 30mg daily 15 each 5 01/20/20 25 Active oxyCODONE (ROXICODONE) 5 mg immediate release tablet Take 1 tablet (5 mg total) by mouth every 6 (six) hours if needed for severe pain. Max Daily Amount: 20 mg 8 tablet 5 01/14/20 25 Discontinued ibuprofen (ADVIL,MOTRIN) 600 mg tablet Take 1 tablet (600 mg total) by mouth every 6 (six) hours if needed for mild pain (for pain) for up to 10 days. 30 tablet 5 01/14/20 25 Discontinued methocarbamoL (ROBAXIN) 500 mg tablet Take 1 tablet (500 mg total) by mouth 3 (three) times a day if needed for muscle spasms for up to 10 days. 10 tablet 5 01/14/20 25 Discontinued Active Problems No known active problems Encounters Date Type Department Care Team Description 01/13/2025 3:29 PM EDT - 01/14/2025 12:20 AM EDT Emergency [facility] Emergency [address] [place] [id number] Neal Avery MD Schreiner, Ian, MD Acute midline low back pain without sciatica (Primary Dx) Discharge Disposition: Home or Self Care from Last 3 Months Social History Tobacco Use Types Packs/Day Years Used Date Smoking Tobacco: Never Assessed Comments Unknown Sex and Gender Information Value Date Recorded Sex Assigned at Female 01/13/2025 5:55 PM EDT Legal Sex Female 8:28 PM EST Gender Identity Female 01/13/2025 5:55 PM EDT Sexual Orientation Not on file Obstetrics History Last Filed Vital Signs Vital Sign Reading Time Taken Comments Blood Pressure 126/73 01/13/2025 9:55 PM EDT Pulse 98 01/13/2025 9:55 PM EDT Temperature 36.7 C (98.1 F) 01/13/2025 7:00 PM EDT Respiratory Rate 16 01/13/2025 9:55 PM EDT Oxygen Saturation 98% 01/13/2025 9:55 PM EDT Inhaled Oxygen Concentration - - Weight - - Height - - Body Mass Index - - Plan of Treatment Health Maintenance Due Date Last Done Comments Gonorrhea/Chlamydia Screening 2000 Pneumococcal Vaccine: Pediatrics (0 to 5 Years) and At-Risk Patients (6 to 49 Years) (1 of 2 - PPSV23) 06/30/2003 05/05/2003, 06/11/2001, 03/26/2001, Additional history exists COVID-19 Vaccine (#1) 2005 Cholesterol Screening (Lipid Panel) 06/02/2023 HIV Screening 06/02/2023 Hepatitis C Screening 06/02/2023 Social Influencers of Health Screening 06/02/2023 Depression Screening 05/08/2024 Influenza Vaccine (#1) 2025 , 04/28/2023, 06/24/2022, Additional history exists Hypertension/CHF/CAD Annual BMP Blood Test 01/13/2026 01/13/2025 Cervical Cancer Screening: Pap Smear 10/18/2026 10/19/2023 DTaP,Tdap,and Td Vaccines (8 - Td or Tdap) 04/28/2033 04/28/2023, 10/14/2011, 07/29/2005, Additional history exists Hepatitis B Vaccines Completed 11/01/2001, 06/11/2001, 2000 HIB Vaccines Completed 01/10/2002, 08/2001, 03/26/2001, Additional history exists IPV Vaccines Completed 07/29/2005, 10/07, 03/26/2001, Additional history exists MMR Vaccines Completed 07/29/2005, 11/01/2001 Varicella Vaccines Completed 11/29/2007, 01/10/2002 HPV Vaccines Completed 08/27/2014, 12/07, 10/14/2011 Hepatitis A Vaccines Completed 10/21/2016, 09/04/19 16 Meningococcal ACWY Vaccine Completed 10/21/2016, Meningococcal B Vaccine Aged Out No l onger eligible based on patient's age to complete this topic RSV Immunization Patients Under 20 months Aged Out No longer eligible based on patient's age to complete this topic Procedures Procedure Name Priority Date/Time Associated Diagnosis Comments ECG ANNOTATED 01/14/2025 CHAO URINE CULTURE TUBE STAT 01/13/2025 9:03 PM EDT URINALYSIS WITH REFLEX MICROSCOPIC AND CULTURE STAT 01/13/2025 9:03 PM EDT URINALYSIS WITH [...] 1 VIEW STAT 01/13/2025 4:52 PM EDT CREATINE KINASE Add-On 01/13/2025 4:21 PM EDT CBC WITH AUTO DIFFERENTIAL STAT 01/13/2025 4:21 PM EDT HCG, SERUM, QUALITATIVE STAT 01/13/2025 4:21 PM EDT LIPASE STAT 01/13/2025 4:21 PM EDT MAGNESIUM STAT 01/13/2025 4:21 PM EDT B-TYPE NATRIURETIC PEPTIDE STAT 01/13/2025 4:21 PM EDT TROPONIN I HIGH SENSITIVITY Timed 01/13/2025 4:21 PM EDT COMPREHENSIVE METABOLIC PANEL STAT 01/13/2025 4:21 PM EDT CBC AND DIFFERENTIAL STAT 01/13/2025 4:21 PM EDT from Last 3 Months Results * ECG-Annotated (01/14/2025) us Provider Onbase MD ECG ORDERABLES Final Result * (ABNORMAL) Urinalysis with reflex microscopic and culture (01/13/2025 9:03 PM EDT) Color, Urine Yellow Yellow, Colorless LAB URINALYSIS - AUTOMATED METHOD 01/13/2025 9:47 PM EDT [facility] Clarity, Urine Clear Clear LAB URINALYSIS - AUTOMATED METHOD 01/13/2025 9:47 PM [facility] Specific [place] Urine 1.015 1.005 - 1.030 LAB URINALYSIS - AUTOMATED METHOD 01/13/2025 9:47 PM [facility] pH, Urine 5.0(A) 5.0 - 8.0 pH LAB URINALYSIS - AUTOMATED METHOD 01/13/2025 9:47 PM [facility] Leukocytes, Urine Negative Negative WBCs/mcL LAB URINALYSIS - AUTOMATED METHOD 01/13/2025 9:47 PM [facility] Nitrite, Urine Positive(A) Negative LAB URINALYSIS - AUTOMATED METHOD 01/13/2025 9:47 PM [facility] Protein, Urine Trace Negative, Trace mg/dL LAB URINALYSIS - AUTOMATED METHOD 01/13/2025 9:47 PM [facility] Glucose, Urine Negative Negative mg/dL LAB URINALYSIS - AUTOMATED METHOD 01/13/2025 9:47 PM [facility] Ketones, Urine Negative Negative mg/dL LAB URINALYSIS - AUTOMATED METHOD 01/13/2025 9:47 PM [facility] Blood, Urine Negative Negative, Trace mg/dL LAB URINALYSIS - AUTOMATED METHOD 01/13/2025 9:47 PM [facility] RBC, Urine 1 0 - 3 /HPF LAB URINALYSIS - AUTOMATED METHOD 01/13/2025 9:47 PM [facility] WBC, Urine <1 0 - 5 /HPF LAB URINALYSIS - AUTOMATED METHOD 01/13/2025 9:47 PM [facility] Bacteria, Urine Present(A) Not Present /HPF LAB URINALYSIS - AUTOMATED METHOD 01/13/2025 9:47 PM [facility] Squamous Epithelial, Urine >100(H) 0 - 5 /HPF LAB URINALYSIS - AUTOMATED METHOD 01/13/2025 9:47 PM [facility] Mucus, Urine Present(A) Not Present /HPF LAB URINALYSIS - AUTOMATED METHOD 01/13/2025 9:47 PM EDT [facility] Hyaline Casts, Urine 22(H) <=0 /LPF LAB URINALYSIS - AUTOMATED METHOD 01/13/2025 9:47 PM EDT [facility] Urine Urine specimen obtained by clean catch procedure / Unknown Non-blood Collection / Unknown 01/13/2025 9:03 PM EDT 01/13/2025 9:14 PM EDT us Neal Avery MD LAB URINE ORDERABLES Final Re sult [facility] [address] [place] [address], [place] [phone] * Chao urine culture tube (01/13/2025 9:03 PM EDT) Pathologist [facility] Extra Tube Hold for add-ons. 01/13/2025 11:01 PM EDT [facility] Comment:Auto resulted. Urine Urine specimen obtained by clean catch procedure / Unknown Non-blood Collection / Unknown 01/13/2025 9:03 PM EDT 01/13/2025 9:14 PM EDT us Neal Avery MD LAB URINE ORDERABLES Final Re sult [facility] [address] [place] [address], [place] [phone] * Troponin I high sensitivity (01/13/2025 7:46 PM EDT) Only the most recent of2 resultswithin the time period is included. [facility] High Sensitivity Troponin I 4 0 - 14 ng/L LAB CHEMISTRY METHOD 01/13/2025 8:35 PM EDT [facility] Blood Venous blood specimen / Unknown Venipuncture / Unknown 01/13/2025 7:46 PM EDT 01/13/2025 7:55 PM EDT Narrative [facility] - 01/13/2025 8:35 PM EDT [...] method is an immunoenzymatic assay manufactured by [employer] and performed on the [employer] DxI 800. us Wally SOLIS LAB BLOOD ORDERABLES Final Resul t [facility] [address] [place] [address], [place] [phone] * CT Angio Chest/Abdomen/Pelvis wo and/or w [...] Signed Date: 01/13/2025 20:11 ET Workstation ID: [id number] Transcribed By: Self Edit Transcribed Date: 01/13/2025 [...] Signed Date: 01/13/2025 20:11 ET Workstation ID: [id number] Transcribed By: Self Edit Transcribed Date: 01/13/2025 [...] GEMUSE QTc 457 ms GEMUSE P Wave Warden 26 degrees GEMUSE R Warden 12 degrees GEMUSE T Warden 7 degrees GEMUSE ECG Interpretation Normal sinus [...] Signed Date: 01/13/2025 18:08 ET Workstation ID: [id number] Transcribed By: Self Edit Transcribed Date: 01/13/2025 [...] Signed Date: 01/13/2025 18:08 ET Workstation ID: [id number] Transcribed By: Self Edit Transcribed Date: 01/13/2025 17:59 ET us Neal Avery MD IMG XR PROCEDURES Final Resul t * (ABNORMAL) CBC auto differential (01/13/2025 4:21 PM EDT) WBC 7.4 4.0 - 10.5 K/mcL LAB HEMETOLOGY METHOD 01/13/2025 4:43 PM EDT [facility] RBC 5.63(H) 4.20 - 5.40 M/mcL LAB HEMETOLOGY METHOD 01/13/2025 4:43 PM EDT [facility] Hemoglobin 13.3 12.5 - 16.0 g/dL LAB HEMETOLOGY METHOD 01/13/2025 4:43 PM EDT [facility] Hematocrit 41.7 37.0 - 47.0 % LAB HEMETOLOGY METHOD 01/13/2025 4:43 PM EDT [facility] MCV 74.0(L) 78.0 - 100.0 FL LAB HEMETOLOGY METHOD 01/13/2025 4:43 PM EDT [facility] MCH 23.6(L) 25.0 - 33.0 pcg LAB HEMETOLOGY METHOD 01/13/2025 4:43 PM EDT [facility] MCHC 31.9(L) 32.0 - 36.0 g/dL LAB HEMETOLOGY METHOD 01/13/2025 4:43 PM EDT [facility] RDW 16.9(H) 12.1 - 16.2 % LAB HEMETOLOGY METHOD 01/13/2025 4:43 PM EDT [facility] Platelets 353 150 - 450 K/mcL LAB HEMETOLOGY METHOD 01/13/2025 4:43 PM EDT [facility] MPV 7.6 7.4 - 11.4 FL LAB HEMETOLOGY METHOD 01/13/2025 4:43 PM EDT [facility] Neutrophils Relative 80.3(H) 44.0 - 74.0 % LAB HEMETOLOGY METHOD 01/13/2025 4:43 PM EDT [facility] Lymphocytes Relative 10.3(L) 20.0 - 48.0 % LAB HEMETOLOGY METHOD 01/13/2025 4:43 PM EDT [facility] Monocytes Relative 5.8 2.0 - 12.0 % LAB HEMETOLOGY METHOD 01/13/2025 4:43 PM EDT [facility] Eosinophils Relative 3.3 0.0 - 6.0 % LAB HEMETOLOGY METHOD 01/13/2025 4:43 PM EDT [facility] Basophils Relative 0.3 0.0 - 2.0 % LAB HEMETOLOGY METHOD 01/13/2025 4:43 PM EDT [facility] Neutrophils Absolute 5.90 1.80 - 7.80 K/mcL LAB HEMETOLOGY METHOD 01/13/2025 4:43 PM EDT [facility] Lymphocytes Absolute 0.80(L) 1.00 - 3.20 K/mcL LAB HEMETOLOGY METHOD 01/13/2025 4:43 PM EDT [facility] Monocytes Absolute 0.40 0.00 - 0.80 K/mcL LAB HEMETOLOGY METHOD 01/13/2025 4:43 PM EDT [facility] Eosinophils Absolute 0.20 0.00 - 0.50 K/mcL LAB HEMETOLOGY METHOD 01/13/2025 4:43 PM EDT [facility] Basophils Absolute 0.00 0.00 - 0.20 K/mcL LAB HEMETOLOGY METHOD 01/13/2025 4:43 PM EDT [facility] Blood Venous blood specimen / Unknown Venipuncture / Unknown 01/13/2025 4:21 PM EDT 01/13/2025 4:37 PM EDT us Wally SOLIS LAB BLOOD ORDERABLES Final Resul t [facility] [address] [place] [address], [place] [phone] * hCG, serum, qualitative (01/13/2025 4:21 PM EDT) hCG Qual Negative Negative LAB CHEMISTRY METHOD 01/13/2025 5:24 PM EDT [facility] Blood Venous blood specimen / Unknown Venipuncture / Unknown 01/13/2025 4:21 PM EDT 01/13/2025 4:37 PM EDT us Wally SOLIS LAB BLOOD ORDERABLES Final Resul t [facility] [address] [place] [address], [place] [phone] * B-type natriuretic peptide (01/13/2025 4:21 PM EDT) [facility] BNP 9 0 - 100 pcg/mL LAB CHEMISTRY METHOD 01/13/2025 5:23 PM EDT [facility] Blood Venous blood specimen / Unknown Venipuncture / Unknown 01/13/2025 4:21 PM EDT 01/13/2025 4:37 PM EDT us Wally SOLIS LAB BLOOD ORDERABLES Final Resul t Performing Organization Address City/[facility] [address]/ZIP Co de Phone Number [facility] [address] [place] [address], [place] [phone] * Magnesium (01/13/2025 4:21 PM EDT) [facility] Magnesium 2.1 1.7 - 2.8 mg/dL LAB CHEMISTRY METHOD 01/13/2025 5:12 PM EDT [facility] Blood Venous blood specimen / Unknown Venipuncture / Unknown 01/13/2025 4:21 PM EDT 01/13/2025 4:37 PM EDT us Wally SOLIS LAB BLOOD ORDERABLES Final Resul t Performing Organization Address [facility] [address]/[facility] de Phone Number [facility] [address] [place] [address], [place] [phone] * (ABNORMAL) Lipase (01/13/2025 4:21 PM EDT) [facility] Lipase 123(H) 11 - 82 unit/L LAB CHEMISTRY METHOD 01/13/2025 5:12 PM EDT [facility] Blood Venous blood specimen / Unknown Venipuncture / Unknown 01/13/2025 4:21 PM EDT 01/13/2025 4:37 PM EDT us Wally SOLIS LAB BLOOD ORDERABLES Final Resul t Performing Organization Address City/[facility] [address]/ZIP Co de Phone Number [facility] [address] [place] [address], [place] [phone] * (ABNORMAL) Creatine kinase (01/13/2025 4:21 PM EDT) [facility] Total CK 28(L) 30 - 135 unit/L LAB CHEMISTRY METHOD 01/13/2025 5:12 PM EDT [facility] Blood Venous blood specimen / Unknown Venipuncture / Unknown 01/13/2025 4:21 PM EDT 01/13/2025 4:37 PM EDT us Neal Avery MD LAB BLOOD ORDERABLES Final Re sult [facility] [address] [place] [address], [place] [phone] * Comprehensive metabolic panel (01/13/2025 4:21 PM EDT) [facility] Sodium 143 135 - 145 mmol/L LAB CHEMISTRY METHOD 01/13/2025 5:12 PM EDT [facility] Potassium 3.5 3.5 - 5.1 mmol/L LAB CHEMISTRY METHOD 01/13/2025 5:12 PM EDT [facility] Chloride 105 98 - 107 mmol/L LAB CHEMISTRY METHOD 01/13/2025 5:12 PM EDT [facility] CO2 27 24 - 32 mmol/L LAB CHEMISTRY METHOD 01/13/2025 5:12 PM EDT [facility] Anion Gap 11 5 - 14 LAB CHEMISTRY METHOD 01/13/2025 5:12 PM EDT [facility] Glucose 80 70 - 199 mg/dL LAB CHEMISTRY METHOD 01/13/2025 5:12 PM EDT [facility] BUN 9 7 - 17 mg/dL LAB CHEMISTRY METHOD 01/13/2025 5:12 PM EDT [facility] Creatinine 0.60 0.50 - 1.00 mg/dL LAB CHEMISTRY METHOD 01/13/2025 5:12 PM EDT [facility] eGFR 129 >=60 mL/min/1. 73m2 LAB CHEMISTRY METHOD 01/13/2025 5:12 PM EDT [facility] Comment:Calculation based on the Chronic Kidney Disease Epidemiology Collaboration (CKD-EPI) equation refit without adjustment for race. BUN/Creatinine Ratio 15.0 12.0 - 20.0 LAB CHEMISTRY METHOD 01/13/2025 5:12 PM EDT [facility] Calcium 8.6 8.4 - 10.2 mg/dL LAB CHEMISTRY METHOD 01/13/2025 5:12 PM EDT [facility] AST (SGOT) 17 5 - 40 unit/L LAB CHEMISTRY METHOD 01/13/2025 5:12 PM EDT [facility] ALT (SGPT) 28 7 - 52 unit/L LAB CHEMISTRY METHOD 01/13/2025 5:12 PM EDT [facility] Alkaline Phosphatase 66 34 - 104 unit/L LAB CHEMISTRY METHOD 01/13/2025 5:12 PM EDT [facility] Total Protein 6.8 6.4 - 8.5 g/dL LAB CHEMISTRY METHOD 01/13/2025 5:12 PM EDT [facility] Albumin 4.1 3.5 - 5.0 g/dL LAB CHEMISTRY METHOD 01/13/2025 5:12 PM EDT [facility] Total Bilirubin 0.4 0.3 - 1.0 mg/dL LAB CHEMISTRY METHOD 01/13/2025 5:12 PM EDT [facility] Blood Venous blood specimen / Unknown Venipuncture / Unknown 01/13/2025 4:21 PM EDT 01/13/2025 4:37 PM EDT us Wally SOLIS LAB BLOOD ORDERABLES Final Resul t [facility] [address] [place] [address], [place] [phone] from Last 3 Months Insurance MEDICAID - [place] Care Teams Rating Specialist Relationship Specialty Start Date End Date Physician, No Pcp PCP - General 01/13/25
--- OUTSIDE RECORDS SUMMARY | 2025-01-15 09:37 | XMS_ITS | Encounter Summary ---
Author Organization [employer] Address [address] [facility] [address] [place] [address] Care Team Providers Care Transition Of Care Specialist Name Role Phone Cassie Saldana Primary Care Provider [phone] Fina Mckinnon Unavailable [phone] Jaqueline Carver Unavailable Unavailable Gertrudis Hopkins RN Unavailable [phone] Alesia Pack Unavailable Encounter Details Date Type Department Care Team (Late st Contact Info) Description 03/09/2023 Orders Only [facility] [address], [place] [phone] Andrew Jorge MD [address] [place], [place] [phone] Social History Tobacco Use Types Packs/Day Years [...] Description 01/15/2025 10:00 AM EDT Office Visit [facility] [address] [place] [address] Adela Acosta, CHERRY [address] [place], [place] [phone] documented as of this encounter Visit Diagnoses Not on filedocumented in this encounter Care Teams Transition Of Care Specialist Relationship Specialty Start Date End Date Cassie Saldana FNP [address], [place] [phone] PCP - General Family Medicine 12/30/21 Fina Mckinnon Registered Nurse 10/07/24 10/07/24 Jaqueline Carver 10/07/24 10/07/24 Gertrudis Hopkins, RN [address] [place] [address] Registered Nurse Family Medicine 12/23/24 Alesia Pack 12/23/24 Jeimy Hall RN Care Manager 05/30/23 08/06/23 documented as of this encounter
--- OUTSIDE RECORDS SUMMARY | 2025-01-15 09:37 | XMS_ITS ---
Author Organization [employer] Address [address] [place] [address] Care Team Providers Care Tram Operator Name Role Phone Cassie Saldana Primary Care Provider [phone] Gertrudis Hopkins RN Unavailable [phone] Alesia Pack Unavailable [facility] Complex Status:Outreach In Progress (Enrolling) Start date:12/23/2024 Enrollment reason:ADT Feed Overview ADT- [place] [facility] [place]. Please outreach for enrollment. Please outreach facility. Case Team Name Relationship Phone Alesia Pack(Responsible Staff) [phone] Continued Care and Services Coordination
--- OUTSIDE RECORDS SUMMARY | 2025-01-15 09:37 | XMS_ITS ---
Author Organization [facility] Care Team Providers Care Brewer Helper Name Role Phone Adela Childs Unavailable Unavailable Stacey Chu Unavailable Unavailable Odin Sigala Unavailable Unavailable Allergies and adverse reactions No Known Allergies Care Team Name Role Address Phone Organization Dates Odin Sigala PCP [address] [facility] [address], [place], [address], [facility] (Office): : [facility] 01/10/2025 - 01/11/2025 Adela Childs [address] [facility], [place], [address], [facility] (Office): : [facility] 01/10/2025 - 01/11/2025 Stacey Chu [address] [facility] [address], [place], [address], [facility] (Office): [facility] 01/10/2025 - 01/11/2025 Functional Status Code Name Recorded Time Value Entered By 1 ailyn (curb) 01/11/2025 Not assessed [place] 12 steps 01/11/2025 Independent [place] 4 steps 01/11/2025 Independent [place] Chair/[id number]-[id number] transfer 01/11/2025 Supe rvision or touching assistance [place] Does the resident use a wheelchair and/or scooter? 01/11/2025 No (qualifier value) [place] Eating 01/11/2025 Independent [place] Lower body dressing 01/11/2025 Independent [place] Lying to sitting on side of bed 01/11/2025 Independent [place] Oral hygiene 01/11/2025 Independent [place] Personal hygiene 01/11/2025 Setup or clean-up assist ance Tamara Picking up object 01/11/2025 Supervision or touching assistance [place] Putting on/taking off footwear 01/11/2025 S upervision or touching assistance [place] Roll left and right 01/11/2025 Independent [place] Shower/bathe self 01/10/2025 Not assessed nbarnett Sit to lying 01/11/2025 Independent [place] Sit to stand 01/11/2025 Supervision or t ouching assistance [place] Toilet transfer 01/11/2025 Supervision or t ouching assistance [place] Toileting hygiene 01/11/2025 Independent [place] Upper body dressing 01/11/2025 Independent [place] Walk 10 feet 01/11/2025 Supervision or t ouching assistance [place] Walk 150 feet 01/11/2025 Not assessed [place] Walk 50 feet 01/11/2025 Supervision or t ouching assistance [place] Walking 10 feet on uneven surfaces 01/11/2025 Not assessed [place] Wheel 150 feet 01/11/2025 Independent [place] Wheel 50 feet with two turns 01/11/2025 Independent [place] Immunizations Immunization Status Vaccine Details Vaccine Code CodeSystem Date Notes PCV20 cancelled Pneumococcal conjugate vaccine 20-valent (PCV20), polysaccharide [id number] conjugate, adjuvant, preservative free 216 CVX created date: 01/11/2025 consent date: 01/10/2025 Educated by on 01/11/2025 RSV cancelled Respiratory syncytial virus (RSV), vaccine, bivalent, protein subunit RSV prefusion F, diluent reconstituted, 0.5 mL, preservative free 305 CVX created date: 01/11/2025 consent date: 01/10/2025 Educated by on 01/11/2025 COVID Cominarty season cancelled SARS-COV-2 (COVID-19) vaccine, mRNA, spike protein, LNP, preservative free, david-sucrose, 30 mcg/0.3 mL dose 309 CVX created date: 01/11/2025 consent date: 01/10/2025 Medications Section Medication Name Status Code CodeSystem Dose Route Frequency Admin Type Sig Text Start Date End Date Tuberculin PPD Solution complete d 0.1 ml Intrade rmal one time only One Time Only Inject 0.1 ml intrad ermall y one time only for preven tative until 2024 23:59 TB Test #1 --Admi nister 0.1 ml Intrad ermall y--[place] d TB test within 48 hours. 01/11 Tuberculin PPD Solution active 0.1 ml Intrade rmal one time only One Time Only Inject 0.1 ml intrad ermall y one time only for preven tative until 2024 23:59 TB Test #2 --Admi nister 0.1 ml Intrad ermall y--[place]e d TB test within 48 hours. 01/18 Amitriptyline HCl Oral Tablet 10 MG active 823970 RXNORM 1 tablet Oral one time a day Routine Give 1 tablet by mouth one time a day for nerve pain 2024 - predniSONE Oral Tablet 10 MG active 092297 RXNORM 3 tablet Oral one time a day Routine Give 3 tablet by mouth one time a day for lupus 2024 - Cefpodoxime Proxetil Oral Tablet 200 MG active 451770 RXNORM 1 tablet Oral two times a day Routine Give 1 tablet by mouth two times a day for UTI until 2024 23:59 01/16 Gabapentin Tablet 600 MG active 099235 RXNORM 1 tablet Oral three times a day Routine Give 1 tablet by mouth three times a day for nephro jasmina 2024 - Acetaminophen Tablet 325 MG active 506680 RXNORM 2 tablet Oral as needed PRN Give 2 tablet by mouth every 8 hours as needed for Pain / Fever Max APAP 3 Grams / 24 hour 2024 - Enema Rectal Enema active 1 applic ation Rectal as needed PRN Insert 1 applic ation rectal ly as needed for consti pation Insert 1 applic ation rectal ly as needed for consti pation . Give the mornin g after no result s from Milk of Magnes ia and Bisaco dyl suppos itory. 2024 - Bisacodyl Suppository 10 MG active 082446 RXNORM 1 suppos itory Rectal as needed PRN Insert 1 suppos itory rectal ly as needed for consti pation Admini ster on 11-7 shift if no result from Milk of Magnes ia and no BM x 3 days. 2024 - Sucralfate Oral Tablet 1 GM active 590243 RXNORM 1 gram Oral three times a day Routine Give 1 gram by mouth three times a day for Indige stion 2024 - azaTHIOprine Oral Tablet 50 MG active 962940 RXNORM 3 tablet Oral one time a day Routine Give 3 tablet by mouth one time a day for Headac he 2024 - DULoxetine HCl Oral Capsule Delayed Release Particles 30 MG active 794251 RXNORM 1 capsul e Oral one time a day Routine Give 1 capsul e by mouth one time a day for Migrai ne 2024 - Senna Oral Tablet active 8.7 millig owen Oral two times a day Routine Give 8.7 millig owen by mouth two times a day for consti pation 2024 - amLODIPine Besylate Oral Tablet 5 MG active 260163 RXNORM 1 tablet Oral one time a day Routine Give 1 tablet by mouth one time a day for hypert ension 2024 - Simethicone Oral Tablet 80 MG active 1 tablet Oral three times a day Routine Give 1 tablet by mouth three times a day for Indige stion 2024 - Milk of Magnesia Suspension 400 MG/5ML active 874017 RXNORM 30 ml Oral one time a day Routine Give 30 ml by mouth one time a day for Consti pation 2024 - oxyCODONE HCl Oral Tablet 5 MG active 272488 1 RXNORM 1 tablet Oral as needed PRN Give 1 tablet by mouth every 6 hours as needed for pain until 2024 23:59 01/15 Hydroxychloro quine Sulfate Tablet 200 MG active 922053 RXNORM 1 tablet Oral two times a day Routine Give 1 tablet by mouth two times a day for Migrai ne 2024 - Reason for Referral No Reasons for Referral Entered Social History Social History Observation Description Start Date End Date Code Code System Current Smoking Status Tobacco smoking consumption unknown 016792661 SNOMED CT Sex Assigned At Female 2000 28616-1 [facility] Gender Identity Vital Signs Code Code System Vitals Name Values and Units Timing Information 9279-1 [facility] Respiratory Rate Value=18.0 Units=/m in 01/11/2025 8462-4 [facility] Blood Pressure-Diastolic Value=83 Un its=mmHg 01/11/2025 8480-6 [facility] Blood Pressure-Systolic Uslnn=987 Un its=mmHg 01/11/2025 8310-5 [facility] Body Temperature Value=97.8 Units= F 01/11/2025 8867-4 [facility] Heart rate Value=71.0 Units=/min 10/2024 36832-4 [facility] O2 % BldC Oximetry Qdebg=487.0 Units =% 01/11/2025 07524-0 [facility] Pain Level Value=0.0 01/11/2025
--- OUTSIDE RECORDS SUMMARY | 2025-01-15 09:37 | XMS_ITS | Encounter Summary ---
Author Organization [employer] Address [address] [facility] 7[address] [place] [address] Care Team Providers Care Spray I Painter Name Role Phone Cassie Saldana Primary Care Provider [phone] Fina Mckinnon Unavailable [phone] Jaqueline Carver Unavailable Unavailable Gertrudis Hopkins RN Unavailable [phone] Alesia Pack Unavailable Reason for Visit * Reason Comments Med Refill Encounter Details Date Type Department Care Team (Late st Contact Info) Description 03/30/2024 Refill [facility] MEDICINE [address] [place] [address] Cassie Saldana FNP [address] [place], [place] [phone] Social History Tobacco Use Types Packs/Day Years [...] the past 12 months, has t he [employer] gas, oil or water company threatened to [...] Description 01/15/2025 10:00 AM EDT Office Visit [facility] CHC MED & PEDS [address] [place] [address] Adela Acosta CNP [address] [place] [address] documented as of this encounter Visit Diagnoses Not on filedocumented in this encounter Additional Health Concerns Assessment Noted Time PHQ-9 Depression Total Score: 10 024 11:22 AM EDT documented as of this encounter Care Teams Spray I Painter Relationship Specialty Start Date End Date Cassie Saldana FNP [address] [place] [address] PCP - General Family Medicine 12/30/21 Fina Mckinnon Registered Nurse 10/07/24 10/07/24 Jaqueline Carver 10/07/24 10/07/24 Gertrudis Hopkins RN [address] [facility] [place] [address] Registered Nurse Family Medicine 12/23/24 Alesia Pack 12/23/24 documented as of this encounter
--- OUTSIDE RECORDS SUMMARY | 2025-01-15 09:37 | XMS_ITS ---
Author Organization [employer] Address [address] [place] [address] Care Team Providers Care Animation Director Name Role Phone Cassie Saldana Primary Care Provider [phone] Gertrudis Hopikns RN Unavailable [phone] Alesia Pack Unavailable CM Complex Status:Outreach In Progress (Enrolling) Start date:12/23/2024 Enrollment reason:ADT Feed Overview ADT- Pt admitted to [facility] on 12/21/24. Case Team Name Relationship Phone Gertrudis Hopkins RN(Responsible Staff) Registered Nurse [phone] Continued Care and Services Coordination
--- OUTSIDE RECORDS SUMMARY | 2025-01-15 09:38 | XMS_ITS | Encounter Summary ---
Author Organization [employer] Address [address] [place] [address] 7 [place] [address] Care Team Providers Care Dealmaker Name Role Phone Cassie Saldana Primary Care Provider [phone] Gertrudis Hopkins RN Unavailable [phone] Alesia Pack Unavailable Reason for Visit * Reason Onset Date Comments Hospital Follow-up 01/13/2025 Encounter Details Date Type Department Care Team ([facility] st Contact Info) Description 01/13/2025 Telephone [facility] CHC MED & PEDS [address] [place], [place] [phone] Cassie Saldana FNP [address] [place], [place] [phone] Hospital Follow-up Social History Tobacco Use Types Packs/Day Years [...] encounter Miscellaneous Notes * Telephone Encounter - Joo Abraham - 01/13/2025 8:41 AM EDT Tc from pt requesting a HDF appt. Hospital: [facility] Date of admission: 12/21 Discharge date: 01/10 Diagnosed: Pelvic fracture on left side, Lupus flare, mass on pts back. *Send message to [facility] Coordinators Contact pt at [phone] documented in this encounter Plan of Treatment Upcoming Encounters Date Type Department Care Team (Late st Contact Info) Description 01/15/2025 10:00 AM EDT Office Visit [facility] CHC MED & PEDS [address] [place] [address] Adela Acosta CNP [address] [place] [address] documented as of this encounter Visit Diagnoses Not on filedocumented in this encounter Additional Health Concerns Assessment Noted Time PHQ-9 Depression Total Score: 10 024 11:22 AM EDT documented as of this encounter Care Teams Dealmaker Relationship Specialty Start Date End Date Cassie Saldana FNP [address] [place] [address] PCP - General Family Medicine 12/30/21 Gertrudis Hopkins RN [address] [place] [address] Registered Nurse Family Medicine 12/23/24 Alesia Pack 12/23/24 documented as of this encounter
--- OUTSIDE RECORDS SUMMARY | 2025-01-15 09:38 | XMS_ITS | Encounter Summary ---
Author Organization [employer] Address [address] [facility] 7t [place] [address] Care Team Providers Care Channeler Name Role Phone Cassie Saldana Primary Care Provider [phone] Fina Mckinnon Unavailable [phone] Jaqueline Carver Unavailable Unavailable Gertrudis Hopkins RN Unavailable [phone] Alesia Pack Unavailable Reason for Visit * Reason Onset Date Comments Nurse Triage 01/12/2024 Encounter Details Date Type Department Care Team (Late st Contact Info) Description 01/12/2024 Telephone [facility] MEDICINE [address] [place] [address] Cassie Saldana FNP [address] [place], [place] [phone] Nurse Triage Social History Tobacco Use Types [...] time of call. Unable to come to [facility] today. Will attempt visit Monday AM. Reviewed with patient home care recommendations, reasons [...] Description 01/15/2025 10:00 AM EDT Office Visit [facility] CHC MED & PEDS [address] [place], [place] [phone] Adela Acosta CNP [address] [place] [address] documented as of this encounter Visit Diagnoses Not on filedocumented in this encounter Care Teams Channeler Relationship Specialty Start Date End Date Cassie Saldana FNP [address] [place] [address] PCP - General Family Medicine 12/30/21 Fina Mckinnon Registered Nurse 10/07/24 10/07/24 Jaqueline Carver 10/07/24 10/07/24 Gertrudis Hopkins, RN [address] [place] [address] Registered Nurse Family Medicine 12/23/24 Alesia Pack 12/23/24 documented as of this encounter
--- OUTSIDE RECORDS SUMMARY | 2025-01-15 09:38 | XMS_ITS | Encounter Summary ---
Author Organization [employer] Address [address] [facility] 7[address] [place] [address] Care Team Providers Care Wireless Manager Name Role Phone Cassie Saldana Primary Care Provider [phone] Fina Mckinnon Unavailable [phone] Jaqueline Carver Unavailable Unavailable Gertrudis Hopkins RN Unavailable Alesia Pack Unavailable Reason for Visit * Reason Onset Date Comments Call Back Request 12/11/2023 Encounter Details Date Type Department Care Team (Late st Contact Info) Description 12/11/2023 Telephone [facility] MEDICINE [address] [place] [address] Cassie Saldana FNP [address] [place], [place] [phone] Call Back Request Social History Tobacco Use [...] from PCP in regards paperwork drop at [facility] that pt needs to be filled out ivette. documented in this encounter Plan of Treatment Upcoming Encounters Date Type Department Care Team (Late st Contact Info) Description 01/15/2025 10:00 AM EDT Office Visit [facility] CHC MED & PEDS [address] [place] [address] Adela Acosta, CHERRY [address] [place] [address] documented as of this encounter Visit Diagnoses Not on filedocumented in this encounter Care Teams Wireless Manager Relationship Specialty Start Date End Date Cassie Saldana FNP [address] [place] [address] PCP - General Family Medicine 12/30/21 Fina Mckinnon Registered Nurse 10/07/24 10/07/24 Jaqueline Carver 10/07/24 10/07/24 Gertrudis Hopkins, SHERLYN [address] [place] [address] Registered Nurse Family Medicine 12/23/24 Alesia Pack 12/23/24 documented as of this encounter
--- NOTE | 2025-01-15 10:27 | MHC.OFFVIS ---
Vital Signs 01/15/25 08:28 01/15/25 10:54 Height 5 ft 1 in 5 ft 1 in Weight 175 lb 14.862 oz 175 lb BMI 33.2 33.1 BP 158/100 H 158/100 H Blood Pressure Location Lt brachial Lt brachial Position Sitting Sitting Intake Visit Reasons: SLE Allergies No Known Allergies Allergy (Verified 01/15/25 08:30) HPI Comments Details: Patient is a 24-year-old female with hypertension and MCTD (seropositive RA, autoimmune hepatitis, SLE features) here today for follow up Interval History: Patient last seen 10/11/24 with me - On Benlysta infusions every 4 weeks and Hydroxychloroquine 200mg bid - Seldiscontinued hydroxychloroquine regularly and she was hospitalized recently for lupus flare. During the hospitalization she was told that her LFTs were significantly elevated and she was started on prednisone IV. The hospitalist reach out to me and I recommended decreasing the IV dosage to 40 mg of prednisone and then following up. - Flare was evidenced by joint pain, swelling and chest pain. Symptoms have improved but still persists - Prednisone taper, Benlysta infusion and azathioprine added - Concern for serositis, CT scan was ordered Since then, - patient was supposed to follow up with me in 4 weeks however missed that appointment - subsequent appointment scheduled for December however missed that appointment as well - patient contacted the office 1 week later asking for prednisone for a flare however prednisone was not given and she was requested to present to the office for evaluation - she did not present to the office and subsequently presented to with [facility] with a flare of her disease as evidenced by joint pain - admitted to [facility] 12/21, discharged 01/10 - during that visit she was diagnosed with epidural lipomatosis, bilateral pubic rami fracture, lupus flare, Klebsiella UTI, autoimmune hepatitis - given prednisone taper and pain control - the epidural lipomatosis is not new, this has progressed from 2022 now completely effacing CSF and the thecal sac at L5-S1 and moderately narrowing at L4-L5 - discharged to outpatient rehab however the conditions of the rehab were on suitable and so she left against medical advice and suddenly stopped her prednisone -presented to urgent care and received a few days of prednisone 60 mg Today - On prednisone 60mg - last Benlysta infusion 10/21/24 - patient missed 2 months of Benlysta infusion stating that in November she was not feeling well and she did not follow up with infusions subsequently - currently complaining of bilateral lower leg pain and weakness - also complaining of joint swelling and overall swelling Rheumatologic History: Initially diagnosed with MCTD at age 8 (inflammatory arthritis, Raynaud's, telangiectasias, autoimmune hepatitis, pericarditis +++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 Diaz 20yoF with a history of overlap autoimmune disease including MCTD (diagnosed at age 8), seropositive rheumatoid arthritis (RF++ CCP-) and autoimmune hepatitis presents for follow-up. Last seen in November 2020. On Plaquenil 200 mg daily and Prednisone 20mg daily. 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 No hospitalizations since her last visit. Patient continues to have pain and swelling in her hands but it is stable with prednisone. The low-back pain she had reported at the last visit has improved. She has not yet seen Gastroenterology for her autoimmune hepatitis. She currently denies any chest pain or shortness of breath. September 2020: After last visit, patient received 1 dose of rituximab 1000 mg on 07/13/2020. She then began to experience worsening shortness breath and stabbing chest pain. She was admitted to [facility] on 07/17/2020 for chest pain and ST changes on her EKG. It was thought she may possibly have pericarditis. She did not receive a 2nd dose of rituximab due to her adverse reaction to the 1st dose. While at [facility], she was given pulse dose steroid 1000 mg IV Solu-Medrol x3 and then placed on a prednisone taper. She completed the prednisone taper yesterday. Since being off prednisone, she has worsening swelling in her joints. She denies any chest pain or dyspnea today. Initial history: Patient was being treated with Plaquenil 400 mg daily, azathioprine 75 mg once daily for autoimmune hepatitis. In the past, she was also treated with Humira for her rheumatoid arthritis as well as rituximab x 2 (03/04/19 and 03/19/19). Patient states that she felt the best when she was receiving rituximab infusions. Pt is currently on Plaquenil 200mg daily and Prednisone 40mg daily. Pt states that she re-started the Prednisone a few days ago when she started to experience L sided chest pain that radiated into her L arm. She was seen in the ER at [facility] yesterday and had a CT chest done which was negative. Also had a troponin drawn which was normal. She continues to have left-sided chest pain but states it is now moved down under her breast area. She does get some dyspnea with the chest pain. Her chest pain is not relieved when she bends forward, it is actually worsened. She does not have any tenderness to palpation of her chest wall. Pt denies Raynauds, photosensitivity, oral or nasal ulcers, Sicca symptoms, fevers, alopecia. Current Rheumatology Medication(s): Benlysta infusions every 28 days (not taking) Hydroxychloroquine 200mg bid Azathioprine 150mg daily PFSH Medical History Systemic lupus Autoimmune hepatitis Mixed connective tissue disease Rheumatoid arthritis Surgical History Hx of cholecystectomy Hx of endoscopy History of colonoscopy Family History Father Alive and well Mother Alive and well Social History Household Members Other:: lives with mom and sisters Alcohol intake: never Patient Tobacco Use Status: Never used Tobacco service: No Current occupational status: employed Current occupation: [employer] Review of Systems Const All systems reviewed & are unremarkable except as noted in HPI and below Physical Exam Exam Exam: Vital signs reviewed Physical Examination CONSTITUITIONAL Patient alert and cooperative. Well appearing and in no apparent painful distress Torres facies HEENT Conjunctiva and sclera clear. No lymphadenopathy. No oral/nasal ulcers CHEST/RESPIRATORY SYSTEM Normal respiratory effort and able to speak in complete sentences. Clear to auscultation bilaterally. No crackles, rales, rhonchi, wheezes heard. CARDIAC SYSTEM Regular rate and rhythm. S1 and S2 heard no murmurs. Radial pulses intact bilaterally MSK Hands Right Hand: Able to make a fist. No tenderness to palpation of the MCPs, PIPs or DIPs. Left Hand: Able to make a fist. No tenderness to palpation of the MCPs, PIPs or DIPs. Swelling noted generally to bilateral hands Wrists Right Wrist: Full ROM to flexion and extension. No swelling or TTP Left Wrist: Full ROM to flexion and extension. No swelling or TTP Elbows Right Elbow: Full ROM. No swelling or TTP. No TTP of the medial epicondyle. No TTP of the lateral epicondyle Left Elbow: Full ROM. No swelling or TTP. No TTP of the medial epicondyle. No TTP of the lateral epicondyle Shoulders Right shoulder: Full ROM. No swelling noted. No TTP of the AC joint. No TTP of the subacromial bursa. No TTP of the posterior shoulder Left shoulder: Full ROM. No swelling noted. No TTP of the AC joint. No TTP of the subacromial bursa. No TTP of the posterior shoulder Knees Right knee: Full ROM. No swelling noted. No TTP of the knee joint line. No TTP of pes anserine bursa Left knee: Full ROM. No swelling noted. No TTP of the knee joint line. No TTP of pes anserine bursa. Ankles Right ankle: Good ankle dorsiflexion and plantar flexion. No swelling. No TTP of the ankle joint Left ankle: Good ankle dorsiflexion and plantar flexion. No swelling. No TTP of the ankle joint Feet Right foot: Negative squeeze test Left foot: Negative squeeze test Tender points? No tenderness to palpation of the bilateral trapezius, supraspinatus, anterior costochondral junctions, bilateral suboccipital muscle insertions SKIN No rashes Vital Signs: Last Vital Signs BP 158/100 H 01/15/25 10:54 BMI result Body Mass Index 33.1 Results Reviewed Results Reviewed: Laboratory Tests 09/06/24 01/15/25 10:11 11:01 WBC 10.3 RBC 5.44 Hgb 13.0 Hct 41.1 Plt Count 363 ESR 16 Sodium 143 Potassium 4.6 D Chloride 110 H Carbon Dioxide 25 BUN 14 Creatinine 0.69 AST 21 ALT 36 H C-Reactive Protein 0.54 H 0.50 Laboratory Tests 01/15/25 11:01 ZOYA Screen POSITIVE A ZOYA Titer 1:1280 H ZOYA Pattern Nuclear, Speckled A SM/BUILDING INSPECTION ENGINEER IgG Antibody >8.0 POS A Laboratory Tests 09/06/24 01/15/25 10:11 11:01 Double Strand DNA Ab 12 H 2 Complement C3 135 166 Complement C4 26 36 Assessment & Plan Assessment & Plan (1) Systemic lupus: Comment: Initially diagnosed with MCTD at age 8 (inflammatory arthritis, Raynaud's, telangiectasias, autoimmune hepatitis, pericarditis +++ZOYA+++BUILDING INSPECTION ENGINEER ++Duran +++Dsdna low C3 & low C4 failed azthiopurine Rituximab was effective but had a reaction to it 2020 Hydroxychloroquine restarted 04/2024 Benlysta infusion started 04/2024 Code(s): M32.9 - Systemic lupus erythematosus, unspecified Category: Medical Qualifiers: Systemic lupus erythematosus organ involvement: unspecified Systemic lupus erythematosus type: unspecified Qualified Code(s): M32.9 - Systemic lupus erythematosus, unspecified Plan: #SLE Patient is a 24-year-old female with lupus here today for follow up 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 Patient stated that she was displeased with the fact that she was not given prednisone when she inquired about it. I discussed this with the patient that she had missed appointments and I required her to come and see me and be evaluated. At her last visit I had only given her enough prednisone for a 1 month however she had schedule a follow up 2 months after that visit so I am unsure of how long she was off of the prednisone for. In addition to that she was not keeping up with her Benlysta infusions and had missed 2 doses. This all contributed to her flare. While in the hospital she had further complications including UTI, locating the worsening epidural lipomatosis and overall muscle deconditioning. I again had a long talk with the patient about the importance of following up very regularly and being on time with medications. She expressed that she does not want to be on prednisone but I also explained that she can not come off the prednisone unless she is on appropriate immunosuppression consistently. Her lupus has proven to be very bad and she is at risk of morbidity and even mortality if we do not get her lupus under control. After discussing this with her she is in agreement and is willing to continue this patient physician relationship. Of note her lupus labs arm much better but that is likely due to her high doses of prednisone we need to get her immunosuppressed enough so that we can wean her off of the prednisone With respect to her neurologic complaints I will refer her to Neurosurgery I gave her my number to call me if there is any issue Plan - Restart Benlysta infusions - Decrease prednisone to 40mg x 2 weeks then 30mg x 2 weeks, then 20mg x 2 weeks - Hydroxychloroquine 200mg bid - Atovaquone 1500mg daily to prevent PCP pneumonia - Azathioprine 150mg daily - Neurosx referral - RTC 4 weeks - Labs before visit: CBC, CMP, ESR, CRP, C3, C4, dsDNA, UA, UPC (2) Long-term use of hydroxychloroquine: Code(s): Z79.899 - 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 (current) drug therapy Category: Medical Plan: #Long-term Use of Hydroxychloroquine Discussed with patient the risks and benefits of hydroxychloroquine in managing the rheumatic condition Benefits include: - Reduced pain, reduce mortality, maintenance of remission and reduction of flares Risks include: - GI upset, skin hyperpigmentation, retinal toxicity (especially after more than 5 years of use), myopathy Advised yearly ophthalmology visits (3) Encounter for monitoring of belimumab therapy: Code(s): Z51.81 - Encounter for therapeutic drug level monitoring; Z79.620 - terminal operations manager (current) use of immunosuppressive biologic Plan: #terminal operations manager Belimumab Discussed with patient the risks and benefits of hydroxychloroquine in managing the rheumatic condition Benefits include: - Reduced pain, reduce mortality, maintenance of remission and reduction of flares Risks include: - insomnia, injection site reactions, psychiatric events such as worsening depression/anxiety or suicidal ideation, increased risk of infection (4) Encounter for monitoring azathioprine therapy: Code(s): Z51.81 - Encounter for therapeutic drug level monitoring; Z79.624 - terminal operations manager (current) use of inhibitors of nucleotide synthesis Plan: #Long-term use of azathioprine Discussed with patient the benefits and risks of azathioprine for the management of the rheumatic condition Benefits include: ? - Reduced pain, maintenance of remission and reduction of flares Risks include: - Bone marrow suppression, GI upset, lymphoma, hepatotoxicity, pancreatitis, hypersensitivity syndrome TPMT enzyme ordered 10/11/24 Drug monitoring: CBC every 4 weeks for the 1st 3 months then CBC BMP LFTs every 3 months Avoid concomitant sulfasalazine, allopurinol or febuxostat Plan I spent 56 minutes reviewing the record and labs, reviewing discharge paperwork, taking a history, examining the patient, discussing the treatment plan, discussing the patient's condition, ordering diagnostic work up and documenting in the medical record Orders: Referrals Neuro Spine Referral E88.2 - Lipomatosis, not elsewhere classified Medications: New atovaquone must administer with food, preferably a high-fat meal 1,500 mg (10 mL) PO DAILY 900 mL 0RF 90 days M32.9 - Systemic lupus erythematosus, unspecified Changed From prednisone see taper instructions 30 mg (3 x 10 mg) PO DIRECTED 14 days 42 tabs 0RF M32.9 - Systemic lupus erythematosus, unspecified To prednisone Take 2 tablets daily for 2 weeks then 1.5 tablets daily for 2 weeks then 1 tablet daily for 4 weeks 20 mg PO DIRECTED 60 tabs 0RF M32.9 - Systemic lupus erythematosus, unspecified Refilled hydroxychloroquine (Plaquenil) 200 mg PO BID 180 tabs 1RF azathioprine 150 mg (3 x 50 mg) PO DAILY 270 tabs 1RF 90 days M32.9 - Systemic lupus erythematosus, unspecified Coding Level of Care Code Est Pt Level 5 (66024) Complex EM visit Add On G2211 Diagnoses Systemic lupus erythematosus, unspecified SLE type, unspecified organ involvement status M32.9 Systemic lupus erythematosus organ involvement: unspecified Systemic lupus erythematosus type: unspecified Long-term use of hydroxychloroquine Z79.899 Encounter for monitoring of belimumab therapy Z51.81; Z79.620 Encounter for monitoring azathioprine therapy Z51.81; Z79.624
[2025-01-15 10:54] VITALS: BP 158/100; BMI 33.1
== END 2025-01-15 09:26 | disposition home or self-care (01) ==
PROVIDERS: PCP Registered Nurse; Visit Provider Student in an Organized Health Care Education/Training Program
DX: M32.9 Systemic lupus erythematosus, unspecified (principal); Z79.899 Other long term (current) drug therapy; Z51.81 Encounter for therapeutic drug level monitoring; Z79.620 Long term (current) use of immunosuppressive biologic; Z79.624 Long term (current) use of inhibitors of nucleotide synthesis
CPT/HCPCS: 99215

== ENCOUNTER 2025-01-15 08:23 | Outpatient (REF) | payer MEDICAID, SELFPAY | END 2025-01-15 08:24 | disposition home or self-care (01) | LOC: HO.HKASLDS 08:23 | PROVIDERS: PCP Registered Nurse; Visit Provider Internal Medicine Rheumatology | DX: Z13.89 Encounter for screening for other disorder (principal) ==

== ENCOUNTER 2025-01-15 10:58 | Outpatient (REF) | payer MEDICAID, SELFPAY ==
[2025-01-15 14:30] LABS: Appearance Urine Clear; Glucose Urine UA Negative (Negative); PH 5.5 (5.0-9.0); Specific Gravity - Urine 1.025 (1.005-1.025); UMIC TRIGGER UA YES
[2025-01-15 14:31] LABS: Hematocrit 41.1 % (37.0-47.0); Hemoglobin 13.0 g/dl (12.0-16.0); Mean Corpuscular HGB Conc 31.6 g/dl (31.0-35.0); Mean Corpuscular Hemoglobin 23.9 pg (27.0-33.0); Mean Corpuscular Volume 75.6 fL (80.0-98.0); NRBC Abs Auto 0.000 X10*3/uL (0.0-0.012); NRBC Pct Auto 0.0 /100WBC (0.0-0.2); Platelet Count 363 X10*3/uL (160-400); Red Blood Count 5.44 X10*6/uL (4.20-5.50); White Blood Count 10.3 X10*3/uL (4.8-10.8)
[2025-01-15 15:20] LABS: Band Neutrophils Percent 7 % (3-5); Lymphocytes Absolute Manual 0.2 X10*3/uL (1.2-4.9); Lymphocytes Percent Manual 2 % (20-40); Monocytes Absolute Manual 0.1 X10*3/uL (0.1-1.2); Monocytes Percent Manual 1 % (2-11); Neutrophils Absolute Manual 10.0 X10*3/uL (2.0-8.3); Neutrophils Percent Manual 90 % (45-73)
[2025-01-15 15:22] LABS: RBC Morphology NORMAL
[2025-01-15 15:29] LABS: Alanine Aminotransferase 36 U/L (0-31); Albumin Level 4.4 g/dL (3.5-5.0); Alkaline Phosphatase 66 U/L (39-117); Anion Gap 13 (12-20); Aspartate Amino Transferase 21 U/L (5-31); Blood Urea Nitrogen 14 mg/dL (9-16); Calcium 9.0 mg/dL (8.4-10.2); Carbon Dioxide 25 mmol/L (22-29); Chloride 110 mmol/L (96-108); Estimated Glomerular Filt Rate > 60; Potassium 4.6 mmol/L (3.3-5.1); Sodium 143 mmol/L (135-145); Total Protein 7.2 g/dL (6.5-8.0)
[2025-01-15 15:32] LABS: Protein/Creatinine Ratio, Ur 0.06 (<0.2); Total Protein Urine Random 17 mg/dL (<12)
[2025-01-17 15:47] LABS: Antibody to SS-A Antigen <1.0 NEG AI (<1.0 NEG); Antibody to SS-B Antigen <1.0 NEG AI (<1.0 NEG); SM/Ribonucleoprotein Ab >8.0 POS AI (<1.0 NEG); Smith Protein <1.0 NEG AI (<1.0 NEG)
[2025-01-21 11:13] LABS: Anti Nuclear Antibody Pattern Nuclear, Speckled; Anti Nuclear Antibody Screen POSITIVE (NEGATIVE); Anti Nuclear Antibody Titer 1:1280 titer
== END 2025-01-15 10:59 | disposition home or self-care (01) ==
LOC: HO.CHCLDS 10:58
PROVIDERS: Visit Provider Student in an Organized Health Care Education/Training Program
DX: M35.1 Other overlap syndromes (principal); M32.9 Systemic lupus erythematosus, unspecified
CPT/HCPCS: 36415; 80053; 81001; 82550; 82570; 84156; 85007; 85025; 85027; 85652; 86038; 86039; 86140; 86160; 86225; 86235

== ENCOUNTER 2025-01-20 11:32 | Outpatient (REF) | payer MEDICAID, SELFPAY ==
--- OUTSIDE RECORDS SUMMARY | 2025-01-15 10:00 | XMS_ITS | Encounter Summary ---
Author Organization [employer] Address [address] [place] [address] 7 [place] [address] Care Team Providers Care [employer] Name Role Phone Cassie Saldana Primary Care Provider [phone] Gertrudis Hopkins RN Unavailable [phone] Alesia Pack Unavailable Reason for Visit * Reason Comments Follow-up Hospital f/u Encounter Details Date Type Department Care Team (Late st Contact Info) Description 01/15/2025 10:00 AM EDT Office Visit [facility] [address] [place] [address] Adela Acosta CNP [address] [place] [address] Systemic lupus erythematosus, unspecified SLE type, unspecified organ involvement status (CMS/HCC) (Primary Dx); Rheumatoid arthritis involving multiple sites with positive rheumatoid factor (CMS/HCC); Epidural lipomatosis; Bilateral fracture of pubic rami, sequela; Lumbosacral radiculopathy; Current chronic use of systemic steroids; Primary hypertension Social History Tobacco Use Types Packs/Day Years Used Date Smoking Tobacco: Never Passive Smoke Exposure: Never Smokeless Tobacco: Never Alcohol Use Standard Drinks/Week Comments Never 0 (1 standard drink = 0.6 oz pur e alcohol) Depression Answer Date Recorded Patient Health Questionnaire-9 Score 13 01/15/2025 Patient Health Questionnaire-9 Score 13 01/15/2025 Last PHQ-9: Questionnaire Data Not on file 0 01/15/2025 Housing Stability Answer Date Recorded What is [...] Date Recorded Patient Health Questionnaire-2 Score 1 01/15/2025 Internet Access Answer Date Recorded Internet Access Q1 Yes 10/10/2024 Internet Access Q2 Not on file 10/10/2024 Comments No Sex and Gender Information Value Date Recorded Sex Assigned at Female 03/07/2022 10:16 AM EDT Legal Sex Female 10:16 AM EDT Gender Identity Female 03/07/2022 10:16 AM EDT Sexual Orientation Straight 01/15/2025 2: 25 PM EDT documented as of this encounter Last Filed Vital Signs Vital Sign Reading Time Taken Comments Blood Pressure 156/110 01/15/2025 10:23 AM EDT Pulse 96 01/15/2025 10:23 AM EDT Temperature 36.7 C (98.1 F) 01/15/2025 10:23 AM EDT Respiratory Rate 14 01/15/2025 10:23 AM EDT Oxygen Saturation 98% 01/15/2025 10:23 AM EDT Inhaled Oxygen Concentration - - Weight 81.2 kg (179 lb) 01/15/2025 10:23 AM EDT Height 154.9 cm (5' 1 ) 01/15/2025 10:23 AM EDT Body Mass Index 33.82 01/15/2025 10:23 AM EDT documented in this encounter Functional Status * Over the past 2 weeks, how often have you been bothered by any of the following problems? Question Answer Date of Assessment Author Patient Health Questionnaire -2 Score 1 01/15/2025 10:25 AM EDT Sa lima Larson MA * Little interest or pleasure in doing things Answer Date of Assessment Author Several days 01/15/2025 10:25 AM EDT Jacquelyn Devlin MA * Feeling down, depressed, or hopeless Answer Date of Assessment Author Not at all 01/15/2025 10:25 AM EDT Jacquelyn Devlin MA * Trouble falling or staying asleep, or sleeping too much Answer Date of Assessment Author Nearly every day 01/15/2025 10:25 AM LORENAT Jacquelyn Farris MA * Feeling tired or having little energy Answer Date of Assessment Author Nearly every day 01/15/2025 10:25 AM LORENAT Jacquelyn Farris MA * Poor appetite or overeating Answer Date of Assessment Author Nearly every day 01/15/2025 10:25 AM LORENAT Jacquelyn Farris MA * Feeling bad about yourself - or that you are a failure or have let yourself or your family down Answer Date of Assessment Author Not at all 01/15/2025 10:25 AM Jacquelyn Keller MA * Trouble concentrating on things, such as reading the newspaper or watching television Answer Date of Assessment Author Not at all 01/15/2025 10:25 AM Jacquelyn Keller MA * Moving or speaking so slowly that other people could have noticed? Or the opposite - being so fidgety or restless that you have been moving around a lot more than usual. Answer Date of Assessment Author Nearly every day 01/15/2025 10:25 AM Jacquelyn Tate MA * Thoughts that you would be better off or hurting yourself in some way Answer Date of Assessment Author Not at all 01/15/2025 10:25 AM Jacquelyn Keller MA * Patient Health Questionnaire-9 Score Answer Date of Assessment Author 13 01/15/2025 10:25 AM Jacquelyn Keller MA * How difficult have these problems made it for you to do your work, take care of things at home, or get along with other people? Answer Date of Assessment Author Somewhat difficult 01/15/2025 10:25 AM EDT Jacquelyn Ramesh MA documented as of this encounter Progress Notes * Adela Acosta CNP - 01/15/2025 10:00 AM EDT Subjective Patient ID: Gwendolyn Zuñiga is a 24 y.o. female who presents for HDF visit. HPI Pt reports she saw tool shaper setup operator this morning- [employer]- Eunice Apodaca MD . Reports that plan is to continue on Plaquenil, she is also on prednisone taper, also started on Benlysta andazathioprine. Plan also included labs CT chest and echo to ensure no plueritis or pericarditis. She denies any plans for at this time and within next 6 months to ensure she gains control of her lupus flare first, no longer taking PNV. She reports she is OK with her current [employer] and declines new referral today. She reports she is taking amitriptyline, denies taking duloxetine. Denies any mental health concerns today. She reports that she has concerns for her recent pelvic fracture that is non traumatic, she also has an epidural lipomatosis that requires surgical intervention however she reports neurosurgery did not recommend it due to risk of paralysis. She reports she is currently in pain and it is affecting her mobility. She reports she is awaiting to belt picker a wheelchair to help with her mobility. She doeshave concerns as she lives on the 3rd floor and would like a medical necessity letter to advocate for first floor housing. Hospital course: [facility] ED 01/13 Presented with c/o bilateral leg weakness, back pain, and chest pain x 1 month and worsening. Bloodwork and CT scans reassuring without significant abnormality. Patient left AMA and was prescribed apain regimen. Medication changes that occurred in the ED include: Added Acetaminophen 650mg q 6 hours Ibuprofen 600mg q 6 hours Lidocaine 4% patches Methocarbamol 500mg q 8 hours as needed Oxycodone 5mg q 6 hours as needed for breakthrough pain Changed Prednisone increased to 60mg daily x 5 days, then resume 30mg daily Discontinued N/a [facility] (01/10-01/11) Patient transferred from [facility] and promptly left AMA. [facility] (12/21-01/10) Presented with body ache, malaise, and puffiness, notably missed recent rheumatology appointment for med refills due to feeling unwell. Reported not taking chronic steroid for about 10 days. Treated in the ED with prednisone, morphine, and IV fluids before being admitted due to inadequate pain control. CT pelvis confirmed right superior and inferior pubic rami fractures despite no previous trauma. Patient then developed bilateral lower extremity weakness and paresthesia. MRI ruled out cauda equina syndrome but revealed significant progression of epidural lipomatosis since 2022. Neurosurgery recommended medical management, weaning down steroids, pain control, and ongoing physical therapy. Due to high risk for adrenal insufficiency, it was advised that rheumatology and endocrinology coordinate a plan to control Lupus and eventually wean off steroids. Cefpodoxime added at discharge due to UA showing heavy bacteria. Recent imaging XR Chest 01/13/25 Impression 1. No acute process in the chest. Review of Systems Objective Vitals: 01/15/25 1023 BP: (!) 156/110 Pulse: 96 Resp: 14 Temp: 98.1 ??F (36.7 ??C) SpO2: 98% Physical Exam Constitutional: Appearance: Normal appearance. She is normal weight. Cardiovascular: Rate and Rhythm: Normal rate and regular rhythm. Pulses: Normal pulses. Heart sounds: Normal heart sounds. No murmur heard. No friction rub. No gallop. Pulmonary: Effort: Pulmonary effort is normal. No respiratory distress. Breath sounds: Normal breath sounds. No wheezing or rales. Neurological: General: No focal deficit present. Mental Status: She is alert and oriented to person, place, and time. Psychiatric: Mood and Affect: Mood normal. Behavior: Behavior normal. Thought Content: Thought content normal. Judgment: Judgment normal. Assessment/Plan Problem List Items Addressed This Visit Systemic lupus erythematosus (CMS/HCC) - Primary Rheumatoid arthritis (CMS/HCC) Hypertension BP above goal today >140/90, pt asymptomatic Pt to continue on amlodipine, however will increase dose to 10mg. Continue on low sodium diet Current chronic use of systemic steroids Pt to continue on prednisone taper for mgmt of lupus flare as prescribed by Rheum Other Visit Diagnoses Epidural lipomatosis Weight loss and steroid reduction is first line, however given pt's conditions she has to resume prednisone therapy until her lupus flare is controlled. She is not interested in surgical decompression at this time. Bilateral fracture of pubic rami, sequela Conservative treatment with pain control, early mobilization, and management of underlying risk factors. She reports she has tylenol and ibuprofen on hand Will send request to PCP to possibly draft medical necessity letter to accommodate pt's housing request as she would benefit from living on the first floor due to her restrictions. Lumbosacral radiculopathy documented in this encounter Plan of Treatment Not on file documented as of this encounter Visit Diagnoses Diagnosis Systemic lupus erythematosus, unspecified SLE type, unspecified organ involvement status (CMS/HCC)- Primary Rheumatoid arthritis involving multiple sites with positive rheumatoid factor (CMS/HCC) Epidural lipomatosis Lipoma of other specified sites Bilateral fracture of pubic rami, sequela Lumbosacral radiculopathy Thoracic or lumbosacral neuritis or radiculitis, unspecified Current chronic use of systemic steroids Primary hypertension Unspecified essential hypertension documented in this encounter Additional Health Concerns Assessment Noted Time PHQ-9 Depression Total Score: 13 025 10:25 AM EDT documented as of this encounter Care Teams [employer] Relationship Specialty Start Date End Date Cassie Saldana FNP [address] [place] [address] PCP - General Family Medicine 12/30/21 Gertrudis Hopkins, SHERLYN [address] [place] [id number] Registered Nurse Family Medicine 12/23/24 Alesia Pack 12/23/24 documented as of this encounter
--- NOTE | ~2025-01-20 | US_ITS ---
CLINICAL HISTORY: OVARIAN CYST US pelvis transabdominal and transvaginal with Doppler Comparison: US/SR - US PELVIS TRANSABDOMINAL AND TRANSVAGINAL - 09/09/24 15:03 EDT Findings: Transabdominal scanning performed for overall anatomy. Transvaginal scanning performed for additional detail. Anteverted uterus is 8.2 cm length. Normal myometrium. Multiple nabothian cysts are noted of the lower uterine segment/cervix. Endometrium 8.6 mm thickness. Right ovary 2.5 x 1.6 x 2 cm. Previously detected cyst is not visualized today. Left ovary 3.9 x 2.9 x 2.1 cm. Complex cysts measuring 3.3 x 2.5 x 2.4 cm. Normal color Doppler with arterial/venous spectral tracing of both ovaries. No free fluid. IMPRESSION: 1. No evidence of acute disease. 2. Left ovarian 3.3 cm complex cyst. Previously detected right ovarian cyst is not visualized on current study. No evidence of ovarian torsion. This document has been electronically signed by: India Morales MD on 01/21/2025 19:57:13
--- OUTSIDE RECORDS SUMMARY | 2025-01-20 15:50 | XMS_ITS | Encounter Summary ---
Author Organization [employer] Address [address] [facility] [address] [place] [address] Care Team Providers Care Box Toe Buffer Name Role Phone Cassie Saldana Primary Care Provider [phone] Gertrudis Hopkins RN Unavailable [phone] Alesia Pack Unavailable Encounter Details Date Type Department Care Team (Latest Contact Info) Description 01/15/2025 Travel Social History Tobacco Use Types Packs/Day [...] PM EDT documented as of this encounter Functional Status * Over the [...] Author Not at all 01/15/2025 10:25 AM LORENAT Jacquelyn Devlin MA * Trouble falling or staying asleep, or sleeping too much Answer Date of Assessment Author Nearly every day 01/15/2025 10:25 AM LORENAT Jacquelyn Farris MA * Feeling tired or having little energy Answer Date of Assessment Author Nearly every day 01/15/2025 10:25 AM EDT Jacquelyn Farris MA * Poor appetite or overeating Answer Date of Assessment Author Nearly every day 01/15/2025 10:25 AM LORENAT Jacquelyn Farris MA * Feeling bad about yourself - or that you are a failure or have let yourself or your family down Answer Date of Assessment Author Not at all 01/15/2025 10:25 AM LORENAT Jacquelyn Devlin MA * Trouble concentrating on things, such as reading the newspaper or watching television Answer Date of Assessment Author Not at all 01/15/2025 10:25 AM EDT Jacquelyn Devlin MA * Moving or speaking so slowly that other people could have noticed? Or the opposite - being so fidgety or restless that you have been moving around a lot more than usual. Answer Date of Assessment Author Nearly every day 01/15/2025 10:25 AM EDT Jacquelyn Farris MA * Thoughts that you would be better off or hurting yourself in some way Answer Date of Assessment Author Not at all 01/15/2025 10:25 AM EDT Jacquelyn Devlin MA * Patient Health Questionnaire-9 Score Answer Date of Assessment Author 13 01/15/2025 10:25 AM EDT Jacquelyn Devlin MA * How difficult have these problems made it for you to do your work, take care of things at home, or get along with other people? Answer Date of Assessment Author Somewhat difficult 01/15/2025 10:25 AM EDT Jacquelyn Ramesh MA documented as of this encounter Plan of Treatment Not on file documented as of this encounter Visit Diagnoses Not on filedocumented in this encounter Additional Health Concerns Assessment Noted Time PHQ-9 Depression Total Score: 13 025 10:25 AM EDT documented as of this encounter Care Teams Box Toe Buffer Relationship Specialty Start Date End Date Cassie Saldana FNP [address] [place] [id number] PCP - General Family Medicine 12/30/21 Gertrudis Hopkins RN [address] [place] [id number] Registered Nurse Family Medicine 12/23/24 Alesia Pack 12/23/24 documented as of this encounter
--- OUTSIDE RECORDS SUMMARY | 2025-01-20 15:50 | XMS_ITS | Encounter Summary ---
Author Organization [employer] Address [address] [place] [address] [address] [place] [address] Care Team Providers Care Sign Painter Helper Name Role Phone Cassie Saldana Primary Care Provider [phone] Gertrudis Hopkins RN Unavailable [phone] Alesia Pack Unavailable Reason for Visit * Reason Onset Date Comments Nurse Triage 01/13/2025 Encounter Details Date Type Department Care Team ([facility] st Contact Info) Description 01/13/2025 Telephone [facility] [address] [place], [place] [phone] Cassie Saldana FNP [address] [place], [place] [phone] Nurse Triage Social History Tobacco Use Types [...] 10:25 AM EDT Jacquelyn Farris MA * Feeling tired or having little energy Answer Date of Assessment Author Nearly every day 01/15/2025 10:25 AM EDT Jacquelyn Farris MA * Poor appetite or overeating Answer Date of Assessment Author Nearly every day 01/15/2025 10:25 AM EDT Jacquelyn Farris MA * Feeling bad about yourself - or that you are a failure or have let yourself or your family down Answer Date of Assessment Author Not at all 01/15/2025 10:25 AM EDT Jacquelyn Devlin MA * Trouble concentrating on [...] Ramesh MA documented as of this encounter Miscellaneous Notes * Telephone Encounter - Farzaneh Urena RN - 01/13/2025 9:18 AM EDT Please assist with obtaining discharge summary for [facility] 01/10-01/11 for provider review prior to upcoming appointment. Future Appointments Date Time Provider Department Center 01/15/2025 10:00 AM Adela Acosta CNP [facility] * Telephone Encounter - Farzaneh Urena RN - 01/13/2025 8:56 AM EDT Call returned to [facility] to triage below at [phone]. Reports having lower back pain x3 weeks. Pt was admitted to [facility] On 12/21/24 and discharged on Monday01/10/25. Per [...] to self propel her wheelchair/there is a auditor supervisor.. Refills: 0. Gabapentin (gabapentin 300 mg oral [...] EVERY DAY. Patient states at discharge from [facility] was sent to [facility] on Wednesday 01/10. Pt states left AMA on Thursday 01/11. Pt states was not discharged with any meds. Pt does have wheelchair. Still having back pain. Pt states did call Rheumatology but is looking to be referred to a different office as states this admission was of result from no follow up from them. Pt given HDF with [facility] provider thisweek. Pt advised to contact rheumotology and request appt within 1 week. Reviewed home care advise,ER precautions and reasons to call back. Protocol Used: Post-Hospitalization Follow-up Call (Adult) Protocol-Based Disposition: See in Office or Video Visit Today or Tomorrow Future Appointments Date Time Provider Department Center 01/15/2025 10:00 AM Adela Acosta CNP [facility] Insurance verified as active per Real Time Eligibility in [facility]. Positive Triage Question: * Patient wants to [...] caller accepted this outcome. Contact pt at [phone] documented in this encounter Plan of Treatment Not on file documented as of this encounter Visit Diagnoses Not on filedocumented in this encounter Additional Health Concerns Assessment Noted Time PHQ-9 Depression Total Score: 10 024 11:22 AM EDT documented as of this encounter Care Teams Sign Painter Helper Relationship Specialty Start Date End Date Cassie Saldana FNP [address] [place] [id number] PCP - General Family Medicine 12/30/21 Gertrudis Hopkins RN [address] [place] [id number] Registered Nurse Family Medicine 12/23/24 Alesia Pack 12/23/24 documented as of this encounter
--- OUTSIDE RECORDS SUMMARY | 2025-01-20 15:50 | XMS_ITS | Clinical Summary ---
Author Organization [facility] Address [address] [place] [address] Phone Care Team Providers Care Hat Presser Name Role Phone Physician, No Pcp Primary [...] Amount: 20 mg 8 tablet 5 Active oxyCODONE (ROXICODONE) 5 mg immediate release [...] days. 10 tablet 5 01/14/20 25 Discontinued predniSONE (DELTASONE) 20 mg tablet Take 3 tablets (60 mg total) by mouth 1 (one) time each day for 5 days. Then resume 30mg daily 15 each 5 01/20/20 25 Active Problems No known active problems Encounters Date Type Department Care Team Description 01/13/2025 3:29 PM EDT - 01/14/2025 12:20 AM EDT Emergency [facility] Emergency [address] [place] [id number] Neal Avery MD Schreiner, Ian, MD Acute [...] - AUTOMATED METHOD 01/13/2025 9:47 PM EDT [facility] Clarity, Urine Clear Clear LAB URINALYSIS - AUTOMATED METHOD 01/13/2025 9:47 PM [facility] Specific [place] Urine 1.015 1.005 - 1.030 LAB URINALYSIS - AUTOMATED METHOD 01/13/2025 9:47 PM [facility] pH, Urine 5.0(A) 5.0 - 8.0 pH LAB URINALYSIS - AUTOMATED METHOD 01/13/2025 9:47 PM [facility] Leukocytes, Urine Negative Negative WBCs/mcL LAB URINALYSIS - AUTOMATED METHOD 01/13/2025 9:47 PM [facility] Nitrite, Urine Positive(A) Negative LAB URINALYSIS - AUTOMATED METHOD 01/13/2025 9:47 PM [facility] Protein, Urine Trace Negative, Trace mg/dL LAB URINALYSIS - AUTOMATED METHOD 01/13/2025 9:47 PM [facility] Glucose, Urine Negative Negative mg/dL LAB URINALYSIS - AUTOMATED METHOD 01/13/2025 9:47 PM [facility] Ketones, Urine Negative Negative mg/dL LAB URINALYSIS - AUTOMATED METHOD 01/13/2025 9:47 PM [facility] Blood, Urine Negative Negative, Trace mg/dL LAB URINALYSIS - AUTOMATED METHOD 01/13/2025 9:47 PM [facility] RBC, Urine 1 0 - 3 /HPF LAB URINALYSIS - AUTOMATED METHOD 01/13/2025 9:47 PM [facility] WBC, Urine <1 0 - 5 /HPF LAB URINALYSIS - AUTOMATED METHOD 01/13/2025 9:47 PM [facility] Bacteria, Urine Present(A) Not Present /HPF LAB URINALYSIS - AUTOMATED METHOD 01/13/2025 9:47 PM [facility] Squamous Epithelial, Urine >100(H) 0 - 5 /HPF LAB URINALYSIS - AUTOMATED METHOD 01/13/2025 9:47 PM [facility] Mucus, Urine Present(A) Not Present /HPF LAB URINALYSIS - AUTOMATED METHOD 01/13/2025 9:47 PM EDT [facility] Hyaline Casts, Urine 22(H) <=0 /LPF LAB URINALYSIS - AUTOMATED METHOD 01/13/2025 9:47 PM EDT [facility] Urine Urine specimen obtained by clean catch procedure / Unknown Non-blood Collection / Unknown 01/13/2025 9:03 PM EDT 01/13/2025 9:14 PM EDT us Neal Avery MD LAB URINE ORDERABLES Final Re sult [facility] [address] [place] [address], [place] [phone] * Chao urine culture tube (01/13/2025 9:03 PM EDT) Pathologist [facility] Extra Tube Hold for add-ons. 01/13/2025 11:01 PM EDT [facility] Comment:Auto resulted. Urine Urine specimen obtained by clean catch procedure / Unknown Non-blood Collection / Unknown 01/13/2025 9:03 PM EDT 01/13/2025 9:14 PM EDT us Neal Avery MD LAB URINE ORDERABLES Final Re sult [facility] [address] [place] [address], [place] [phone] * Troponin I high sensitivity (01/13/2025 7:46 PM EDT) Only the most recent of2 resultswithin the time period is included. Pathologist [facility] High Sensitivity Troponin I 4 0 - 14 ng/L LAB CHEMISTRY METHOD 01/13/2025 8:35 PM EDT [facility] Blood Venous blood specimen / Unknown Venipuncture / Unknown 01/13/2025 7:46 PM EDT 01/13/2025 7:55 PM EDT Narrative [facility] - 01/13/2025 8:35 PM EDT [...] method is an immunoenzymatic assay manufactured by [employer] and performed on the [employer] DxI 800. us Wally SOLIS LAB BLOOD ORDERABLES Final Resul t [facility] [address] [place] [address], [place] [phone] * CT Angio Chest/Abdomen/Pelvis wo and/or w [...] Signed Date: 01/13/2025 20:11 ET Workstation ID: [id number] Transcribed By: Self Edit Transcribed Date: 01/13/2025 [...] Signed Date: 01/13/2025 20:11 ET Workstation ID: [id number] Transcribed By: Self Edit Transcribed Date: 01/13/2025 [...] GEMUSE QTc 457 ms GEMUSE P Wave [place] 26 degrees GEMUSE R [place] 12 degrees GEMUSE T [place] 7 degrees GEMUSE ECG Interpretation Normal sinus [...] Signed Date: 01/13/2025 18:08 ET Workstation ID: [id number] Transcribed By: Self Edit Transcribed Date: 01/13/2025 [...] Signed Date: 01/13/2025 18:08 ET Workstation ID: [id number] Transcribed By: Self Edit Transcribed Date: 01/13/2025 17:59 ET us Neal Avery MD IMG XR PROCEDURES Final Resul t * (ABNORMAL) CBC auto differential (01/13/2025 4:21 PM EDT) WBC 7.4 4.0 - 10.5 K/mcL LAB HEMETOLOGY METHOD 01/13/2025 4:43 PM EDT [facility] RBC 5.63(H) 4.20 - 5.40 M/mcL LAB HEMETOLOGY METHOD 01/13/2025 4:43 PM EDT [facility] Hemoglobin 13.3 12.5 - 16.0 g/dL LAB HEMETOLOGY METHOD 01/13/2025 4:43 PM EDT [facility] Hematocrit 41.7 37.0 - 47.0 % LAB HEMETOLOGY METHOD 01/13/2025 4:43 PM EDT [facility] MCV 74.0(L) 78.0 - 100.0 FL LAB HEMETOLOGY METHOD 01/13/2025 4:43 PM EDT [facility] MCH 23.6(L) 25.0 - 33.0 pcg LAB HEMETOLOGY METHOD 01/13/2025 4:43 PM EDT [facility] MCHC 31.9(L) 32.0 - 36.0 g/dL LAB HEMETOLOGY METHOD 01/13/2025 4:43 PM EDT [facility] RDW 16.9(H) 12.1 - 16.2 % LAB HEMETOLOGY METHOD 01/13/2025 4:43 PM EDT [facility] Platelets 353 150 - 450 K/mcL LAB HEMETOLOGY METHOD 01/13/2025 4:43 PM EDT [facility] MPV 7.6 7.4 - 11.4 FL LAB HEMETOLOGY METHOD 01/13/2025 4:43 PM EDT [facility] Neutrophils Relative 80.3(H) 44.0 - 74.0 % LAB HEMETOLOGY METHOD 01/13/2025 4:43 PM EDT [facility] Lymphocytes Relative 10.3(L) 20.0 - 48.0 % LAB HEMETOLOGY METHOD 01/13/2025 4:43 PM EDT [facility] Monocytes Relative 5.8 2.0 - 12.0 % LAB HEMETOLOGY METHOD 01/13/2025 4:43 PM EDT [facility] Eosinophils Relative 3.3 0.0 - 6.0 % LAB HEMETOLOGY METHOD 01/13/2025 4:43 PM EDT [facility] Basophils Relative 0.3 0.0 - 2.0 % LAB HEMETOLOGY METHOD 01/13/2025 4:43 PM EDT [facility] Neutrophils Absolute 5.90 1.80 - 7.80 K/mcL LAB HEMETOLOGY METHOD 01/13/2025 4:43 PM EDT [facility] Lymphocytes Absolute 0.80(L) 1.00 - 3.20 K/mcL LAB HEMETOLOGY METHOD 01/13/2025 4:43 PM EDT [facility] Monocytes Absolute 0.40 0.00 - 0.80 K/mcL LAB HEMETOLOGY METHOD 01/13/2025 4:43 PM EDT [facility] Eosinophils Absolute 0.20 0.00 - 0.50 K/mcL LAB HEMETOLOGY METHOD 01/13/2025 4:43 PM EDT [facility] Basophils Absolute 0.00 0.00 - 0.20 K/mcL LAB HEMETOLOGY METHOD 01/13/2025 4:43 PM EDT [facility] Blood Venous blood specimen / Unknown Venipuncture / Unknown 01/13/2025 4:21 PM EDT 01/13/2025 4:37 PM EDT us Wally SOLIS LAB BLOOD ORDERABLES Final Resul t [facility] [address] [place] [address], [place] [phone] * hCG, serum, qualitative (01/13/2025 4:21 PM EDT) hCG Qual Negative Negative LAB CHEMISTRY METHOD 01/13/2025 5:24 PM EDT [facility] Blood Venous blood specimen / Unknown Venipuncture / Unknown 01/13/2025 4:21 PM EDT 01/13/2025 4:37 PM EDT us Wally SOLIS LAB BLOOD ORDERABLES Final Resul t [facility] [address] [place] [address], [place] [phone] * B-type natriuretic peptide (01/13/2025 4:21 PM EDT) [facility] BNP 9 0 - 100 pcg/mL LAB CHEMISTRY METHOD 01/13/2025 5:23 PM EDT [facility] Blood Venous blood specimen / Unknown Venipuncture / Unknown 01/13/2025 4:21 PM EDT 01/13/2025 4:37 PM EDT us Wally SOLIS LAB BLOOD ORDERABLES Final Resul t Performing Organization Address City/[facility]/ZIP Co de Phone Number [facility] [address] [place] [address], [place] [phone] * Magnesium (01/13/2025 4:21 PM EDT) [facility] Magnesium 2.1 1.7 - 2.8 mg/dL LAB CHEMISTRY METHOD 01/13/2025 5:12 PM EDT [facility] Blood Venous blood specimen / Unknown Venipuncture / Unknown 01/13/2025 4:21 PM EDT 01/13/2025 4:37 PM EDT us Wally SOLIS LAB BLOOD ORDERABLES Final Resul t Performing Organization Address [facility] de Phone Number [facility] [address] [place] [address], [place] [phone] * (ABNORMAL) Lipase (01/13/2025 4:21 PM EDT) [facility] Lipase 123(H) 11 - 82 unit/L LAB CHEMISTRY METHOD 01/13/2025 5:12 PM EDT [facility] Blood Venous blood specimen / Unknown Venipuncture / Unknown 01/13/2025 4:21 PM EDT 01/13/2025 4:37 PM EDT us Wally SOLIS LAB BLOOD ORDERABLES Final Resul t Performing Organization Address City/[facility]/ZIP Co de Phone Number [facility] [address] [place] [address], [place] [phone] * (ABNORMAL) Creatine kinase (01/13/2025 4:21 PM EDT) [facility] Total CK 28(L) 30 - 135 unit/L LAB CHEMISTRY METHOD 01/13/2025 5:12 PM EDT [facility] Blood Venous blood specimen / Unknown Venipuncture / Unknown 01/13/2025 4:21 PM EDT 01/13/2025 4:37 PM EDT us Neal Avery MD LAB BLOOD ORDERABLES Final Re sult [facility] [address] [place] [address], [place] [phone] * Comprehensive metabolic panel (01/13/2025 4:21 PM EDT) [facility] Sodium 143 135 - 145 mmol/L LAB CHEMISTRY METHOD 01/13/2025 5:12 PM EDT [facility] Potassium 3.5 3.5 - 5.1 mmol/L LAB CHEMISTRY METHOD 01/13/2025 5:12 PM EDT [facility] Chloride 105 98 - 107 mmol/L LAB CHEMISTRY METHOD 01/13/2025 5:12 PM EDT [facility] CO2 27 24 - 32 mmol/L LAB CHEMISTRY METHOD 01/13/2025 5:12 PM EDT [facility] Anion Gap 11 5 - 14 LAB CHEMISTRY METHOD 01/13/2025 5:12 PM EDT [facility] Glucose 80 70 - 199 mg/dL LAB CHEMISTRY METHOD 01/13/2025 5:12 PM EDT [facility] BUN 9 7 - 17 mg/dL LAB CHEMISTRY METHOD 01/13/2025 5:12 PM EDT [facility] Creatinine 0.60 0.50 - 1.00 mg/dL LAB CHEMISTRY METHOD 01/13/2025 5:12 PM EDT [facility] eGFR 129 >=60 mL/min/1. 73m2 LAB CHEMISTRY METHOD 01/13/2025 5:12 PM EDT [facility] Comment:Calculation based on the Chronic Kidney Disease Epidemiology Collaboration (CKD-EPI) equation refit without adjustment for race. BUN/Creatinine Ratio 15.0 12.0 - 20.0 LAB CHEMISTRY METHOD 01/13/2025 5:12 PM EDT [facility] Calcium 8.6 8.4 - 10.2 mg/dL LAB CHEMISTRY METHOD 01/13/2025 5:12 PM EDT [facility] AST (SGOT) 17 5 - 40 unit/L LAB CHEMISTRY METHOD 01/13/2025 5:12 PM EDT [facility] ALT (SGPT) 28 7 - 52 unit/L LAB CHEMISTRY METHOD 01/13/2025 5:12 PM EDT [facility] Alkaline Phosphatase 66 34 - 104 unit/L LAB CHEMISTRY METHOD 01/13/2025 5:12 PM EDT [facility] Total Protein 6.8 6.4 - 8.5 g/dL LAB CHEMISTRY METHOD 01/13/2025 5:12 PM EDT [facility] Albumin 4.1 3.5 - 5.0 g/dL LAB CHEMISTRY METHOD 01/13/2025 5:12 PM EDT [facility] Total Bilirubin 0.4 0.3 - 1.0 mg/dL LAB CHEMISTRY METHOD 01/13/2025 5:12 PM EDT [facility] Blood Venous blood specimen / Unknown Venipuncture / Unknown 01/13/2025 4:21 PM EDT 01/13/2025 4:37 PM EDT us Wally SOLIS LAB BLOOD ORDERABLES Final Resul t [facility] [address] [place] [address], [place] [phone] from Last 3 Months Insurance MEDICAID - [place] Care Teams Hat Presser Relationship Specialty Start Date End Date Physician, No Pcp PCP - General 01/13/25
--- OUTSIDE RECORDS SUMMARY | 2025-01-20 15:50 | XMS_ITS | Encounter Summary ---
Author Organization [employer] Address [address] [place] [address] [address] [place] [address] Care Team Providers Care Jitney Driver Name Role Phone Cassie Saldana Primary Care Provider [phone] Fina Mckinnon Unavailable [phone] Jaqueline Carver Unavailable Unavailable Gertrudis Hopkins RN Unavailable [phone] Alesia Pack Unavailable Reason for Visit * Reason Comments Med Refill Encounter Details Date Type Department Care Team (Late st Contact Info) Description 09/07/2023 Refill [facility] [address], [place] [phone] Cassie Saldana FNP [address] [place], [place] [phone] Rheumatoid arthritis involving multiple sites with positive [...] PM EDT documented as of this encounter Plan of Treatment Not on file documented as of this encounter Visit Diagnoses Diagnosis Rheumatoid arthritis involving multiple sites with positive rheumatoid factor ([facility]) documented in this encounter Care Teams Jitney Driver Relationship Specialty Start Date End Date Cassie Saldana FNP [address] [place] [address] PCP - General Family Medicine 12/30/21 Fina Mckinnon Registered Nurse 10/07/24 10/07/24 Jaqueline Carver 10/07/24 10/07/24 Gertrudis Hopkins, SHERLYN [address] [place] [phone] Registered Nurse Family Medicine 12/23/24 Alesia Pack 12/23/24 documented as of this encounter
--- OUTSIDE RECORDS SUMMARY | 2025-01-20 15:50 | XMS_ITS | Clinical Summary ---
Author Organization [employer] Address [address] [place] [address] 7t [place] [address] Care Team Providers Care Manager Publishing Name Role Phone Cassie Saldana Primary Care Provider [phone] Gertrudis Hopkins RN Unavailable [phone] Alesia Pack Unavailable Allergies No known active [...] by mouth at bedtime. 01/07/20 25 Active azaTHIOprine (Imuran) 50 MG tablet Take 150 mg by mouth Once per day. 11/12/19 25 Active bisacodyl (Dulcolax) 10 MG suppository Insert 10 mg into the rectum if needed each day. 01/07/20 25 Active gabapentin (Neurontin) 300 MG capsule Take [...] by mouth 2 times daily. 01/07/20 Active sennosides (Senokot) 8.6 MG tablet Take [...] mouth if needed each day. 01/07/20 Active amLODIPine (Norvasc) 10 MG tabletIndicatio ns:Primary hypertension Take 1 tablet (10 mg) by mouth Once per day. 30 tablet 11 01/16/20 026 Active 28-0.8 MG tabletIndicatio ns:Breakthrough bleeding Take 1 tablet by mouth Once per day. 90 tablet 3 09/03/19 25 025 Discontinued(M ed list cleanup (will not trigger notification to Pharmacy)) labetalol (Normodyne) 100 MG tabletIndicatio ns:Primary hypertension Take 1 tablet (100 mg) by mouth Once per day. 90 tablet 1 09/03/19 25 025 Discontinued(S top taking at discharge) azaTHIOprine (Imuran) 100 MG tablet Take 1.5 tablets by mouth Once per day. 025 Discontinued(M ed list cleanup (will not trigger notification to Pharmacy)) amLODIPine (Norvasc) 5 MG tablet Take 5 mg by mouth Once per day. 12/22/19 25 025 Discontinued(I neffective) cefpodoxime (Vantin) 200 MG tablet Take 200 mg by mouth 2 times daily. 01/11/20 25 025 predniSONE (Deltasone) 20 MG tablet Take 60 mg by mouth Once per day. 01/15/20 25 025 Active Problems Problem Noted Date [...] BP elevated in office. 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 Will switch to labetalol 100mg daily. Reviewed med safety and SE. -Cont monitoring home BP readings, follow up precautions reviewed Assessment & Plan (01/29/2024 9:08 PM EDT): -Continues to be elevated despite increase in losartan to 50mg daily -Non-smoker, hx of halfway prednisone use -Plan: start hydrochlorothiazide. Reviewed med [...] 10/20/22: Hx myopericarditis. Appt to establish with [facility]. EKG stable, planning for an [...] upon post- discharge in November 2022 from [facility] Assessment & Plan (04/29/2023 9:37 AM EST): -DBP elevated, denies any chest pain, BUENO, SOB, palpitations, or other associated symptoms -Nifedipine 60mg daily sent to pharmacy -Encouraged to monitor BP readings at home, return precautions Healthcare maintenance 04/29/2023 Overview (04/29/2023): Contraception: Nexplanon placed post- November 2022 at [facility] Raynaud's phenomenon (secondary) 05/13/2022 Rheumatoid arthritis 06/19/2020 Overview (01/29/2024): -Seropositive RA (RF++ CCP-) -Currently following with [facility] Current med regimen: hydroxychloroquine 200mg BID and prednisone 30mg daily Previous med trials: Humira, Rituxan infusion Per consult October 2023 - Goal: start biologic with plan to wean off prednisone daily. Plan to order Orencia infusion, follow up in 12 weeks Assessment & Plan (01/29/2024 9:19 PM EDT): Called [facility] Rheum with pt to discuss f/up regarding Orencia as Gwendolyn reports she has not heard from office since last appt. LVM with request to return call directly to pt. Assessment & Plan (05/13/2022 6:50 PM EST): -Seropositive RA (RF++ CCP-) previously managed with Plaquenil and prednisone by Dr. Diaz of [facility] Rhe[facility]ology, who has since [...] that impact daily functioning -Case discussion with [facility] pharmacy - risk of untreated [...] daily for autoimmune hepatitis -08/04/22: Established with [facility] GI for autoimmune hepatitis. Dr. Nhi white. 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 -Established with [facility] GI in September 2021 Low vision, both eyes 10/14/2011 Systemic lupus erythematosus 10/14/2011 Overview (09/10/2024): Seropositive RA (RF++ CCP-) previously managed with Plaquenil and prednisone by [facility] Previously following with [facility], currently following with [facility] Rheum Med regimen (as of August 2024) [...] & Plan (06/05/2022 6:49 PM EST): -Called [facility] rheum with patient to [...] Plaquenil and prednisone by Dr. Diaz of [facility]ology, who has since [...] that impact daily functioning -Case discussion with [facility] pharmacy - risk of untreated [...] gain, fatigue - Nexplanon removal 09/26/23 at [facility] Assessment & Plan (09/23/2023 4:17 PM EDT): - Nexplanon placed November 2022 by [facility] following delivery - Pt reported interested in removal due to SE - feelings of weight gain, fatigue - Plan to call next week to schedule appt for Nexplanon removal - List of alternative contraceptive methods provided for pt to review 06/05/2022 04/29/2023 Overview (06/05/2022): -LMP 04/02/22 -Referred to [facility] - initial appt Jun 15, [...] Encounters Date Type Department Care Team Description 01/15/2025 10:00 AM EDT Office Visit [facility] [address] [place] [address] Adela Acosta CNP Systemic lupus erythematosus, unspecified SLE type, unspecified organ involvement status (CMS/HCC) (Primary Dx); Rheumatoid arthritis involving multiple sites with positive rheumatoid factor (CMS/HCC); Epidural lipomatosis; Bilateral fracture of pubic rami, sequela; Lumbosacral radiculopathy; Current chronic use of systemic steroids; Primary hypertension 01/15/2025 Travel 01/14/2025 Patient Outreach [address] [address] Cassie Saldana FNP 01/14/2025 Telephone [facility] [address] [place] [address] Cassie Saldana FNP Chart Prep 01/13/2025 Telephone [facility] [address] [place] [address] Cassie Saldana FNP Nurse Triage 01/13/2025 Telephone [facility] [address] [place] [address] Cassie Saldana FNP Hospital Follow-up 01/13/2025 Patient Outreach [address] [address] Cassie Saldana FNP 01/08/2025 Patient Outreach [address] [address] Cassie Saldana FNP Care Coordination (CM/CHW outreach) 01/03/2025 Patient Outreach [address] [address] Cassie Saldana FNP Care Coordination (CM/CHW outreach) 12/25/2024 Patient Outreach [address] [address] Cassie Saldana FNP 12/23/2024 Patient Outreach [address] [address] Cassie Saldana FNP Care Coordination (CM/CHW outreach) 12/23/2024 Patient Outreach [address] [address] Cassie Saldana FNP Care Coordination (CHW chart review) 12/23/2024 Patient Outreach [address] [address] Cassie Saldana FNP Care Management (C3CM- chart review) 12/23/2024 Patient Outreach [address] [address] Cassie Saldana FNP 12/21/2024 9:20 AM EDT Office Visit [facility] [address] [place] [address] Georgia Franks MD Oxygen desaturation (Primary Dx); Systemic lupus erythematosus, unspecified SLE type, unspecified organ involvement status ([facility]) 12/21/2024 Travel 12/19/2024 Telephone [facility] MED & PEDS [address] [place] [address] Cassie Saldana FNP Medication Question 11/14/2024 Telephone [facility] MEDICINE [address] [place] [address] Cassie Saldana FNP 10/28/2024 Telephone [facility] MED[facility] [address] [place] [address] Cassie Saldana FNP No Show from Last [...] Orientation Straight 01/15/2025 2: 25 PM EDT Last Filed Vital Signs Vital Sign [...] Mass Index 33.82 01/15/2025 10:23 AM EDT Plan of Treatment Health Maintenance Due Date Last Done Comments HIV Screening 2000 Lipid Panel 2000 COVID-19 Vaccine (#1) 2005 Family Planning (PISQ) 09/29/2015 Pneumococcal Vaccine: Pediatrics (0 to 5 Years) and At-Risk Patients (6 to 49) Years (1 of 2 - PCV) 09/29/2019 05/05/2003, 06/11/2001, 03/26/2001, Additional history exists Zoster Vaccines (1 of 2) 09/29/2019 Pap Smear 10/18/2024 10/19/2023 Influenza Vaccine (#1) 2025 , 04/28/2023, 06/24/2022, Additional history exists Depression Monitoring 07/15/2025 01/15/2025, 025 SDOH Screening 10/10/2025 10/10/2024 Tobacco Screening 12/21/2025 12/21/2024 Alcohol/Substance Use Screening 01/15/2026 01/15/2025 Disability Screening 01/15/2026 01/15/2025 DTaP/Tdap/Td Vaccines (8 - Td or Tdap) [...] 2:46 PM EDT 10/20/2023 6:00 AM EDT [facility] - 11/08/2023 11:52 AM EDT ----- ------- Name: Gwendolyn Zuñiga Age/Sex: 23/ : 2000 Unit#: [id number] Attend Dr: [facility] Re10/20/23 Status: DEP REF Location: [facility] Disch: ----- ------- SPEC : [id number] RECD: 10/20/23 STATUS: KRUNAL BEARD NUM: [id number] GOPI: 10/19/23-[address]: [facility] ENTERED: 10/20/23 SP TYPE: Pap Smr OTHR DR: ORDERED: Pap Smear, PAP path review Interpretation General Category: Epithelial cell abnormality. Adequacy: Endocervical component present. Interpretation: Low grade squamous intraepithelial lesion (DAVID I). Fungal organisms consistent with Britta species. Clinical Information LMP: Unknown date/findings Previous PAP test: Initial PAP Material Received ThinPrep-Cervical ----- ------- Signed (signature on file) Doreen Hendrickson 11/08/23 1152 ----- ------- END OF REPORT us Elizabeth Wright CN LAB CYTOLOGY ORDERABLES F inal Result [facility] [address] [place] [address] [phone] * Hepatitis Panel, General (07/10/2023 9:08 AM EST) Hepatitis A IgM Nonreactive Nonreactive [facility] Comment:IgM antibodies to BUENO V not detected; does not exclude earlyacute or recovered HAV infection. ~Hepatitis B Surface Antibody NONREACTIVE Nonreactive [facility] Comment:Nonreactive: < 8.00 mIU/mL Hepatitis B Core Antibody Nonreactive Nonreactive [facility] Hepatitis C Antibody Nonreactive Nonreactive [facility] Comment:Antibodies to HCV no t detected; does not exclude early acuteHCV infection. Hepatitis B Surface Ag Negative Negative [facility] 07/10/2023 9:08 AM EST 07/10/2023 11:31 AM EST us Generic External Data Provider LAB BLOOD ORDERAB LES Final Result Performing Organization Address City/[facility]/ZIP Co de Phone Number [facility] [address] [place] [address] [phone] from Last 3 Months or Most Recently Relevant to Health Maintenance Insurance [facility] C3 Care Teams Manager Publishing Relationship Specialty Start Date End Date Cassie Saldana FNP [address] [place] [address] PCP - General Family Medicine 12/30/21 Gertrudis Hopkins, SHERLYN [address] [place] [address] Registered Nurse Family Medicine 12/23/24 Alesia Pack 12/23/24
--- OUTSIDE RECORDS SUMMARY | 2025-01-20 15:50 | XMS_ITS | Encounter Summary ---
Author Organization [employer] Address [address] [place] [address] 7t [place] [address] Care Team Providers Care Sound Assistant Name Role Phone Cassie Saldana Primary Care Provider [phone] Fina Mckinnon Unavailable [phone] Jaqueline Carver Unavailable Unavailable Gertrudis Hopkins RN Unavailable [phone] Alesia Pack Unavailable Reason for Visit * Reason Comments Med Refill Encounter Details Date Type Department Care Team (Late st Contact Info) Description 10/08/2023 Refill [facility] MED & PEDS [address] [place], [place] [phone] Cassie Saldana FNP [address] [place], [place] [phone] Rheumatoid arthritis involving multiple sites with positive [...] involving multiple sites with positive rheumatoid factor (CMS/[facility]) documented in this encounter Care Teams Sound Assistant Relationship Specialty Start Date End Date Cassie Saldana FNP [address] [place] [address] PCP - General Family Medicine 12/30/21 Fina Mckinnon Registered Nurse 10/07/24 10/07/24 Jaqueline Carver 10/07/24 10/07/24 Gertrudis Hopkins, SHERLYN [address] [place] [address] Registered Nurse Family Medicine 12/23/24 Alesia Pack 12/23/24 documented as of this encounter
--- OUTSIDE RECORDS SUMMARY | 2025-01-20 15:50 | XMS_ITS | Encounter Summary ---
Author Organization [employer] Address [address] [place] [address] 7t [place] [address] Care Team Providers Care Pugger Helper Name Role Phone Cassie Saldana Primary Care Provider [phone] Gertrudis Hopkins RN Unavailable [phone] Alesia Pack Unavailable Reason for Visit * Reason Onset Date Comments Hospital Follow-up 01/13/2025 Encounter Details Date Type Department Care Team ([facility] st Contact Info) Description 01/13/2025 Telephone [facility] & PEDS [address] [place], [place] [phone] Cassie Saldana FNP [address] [place], [place] [phone] Hospital Follow-up Social History Tobacco Use Types [...] AM EDT Tc from pt requesting a F appt. [place] [facility] Date of admission: 12/21 Discharge date: 01/10 Diagnosed: Pelvic fracture on left side, Lupus flare, mass on pts back. *Send message to [place] Clinical Care Coordinators Contact pt at [phone] documented in this encounter Plan of Treatment Not on file documented as of this encounter Visit Diagnoses Not on filedocumented in this encounter Additional Health Concerns Assessment Noted Time PHQ-9 Depression Total Score: 10 024 11:22 AM EDT documented as of this encounter Care Teams Pugger Helper Relationship Specialty Start Date End Date Cassie Saldana FNP [address] [place] [address] PCP - General Family Medicine 12/30/21 Gertrudis Hopkins, SHERLYN [address] [place] [address] Registered Nurse Family Medicine 12/23/24 Alesia Pack 12/23/24 documented as of this encounter
--- OUTSIDE RECORDS SUMMARY | 2025-01-20 15:50 | XMS_ITS | Encounter Summary ---
Author Organization [employer] Address [address] [facility] 7t [place] [address] Care Team Providers Care Side Door Man Name Role Phone Cassie Saldana Primary Care Provider [phone] Fina Mckinnon Unavailable [phone] Jaqueline Carver Unavailable Unavailable Gertrudis Hopkins RN Unavailable [phone] Alesia Pack Unavailable Reason for Visit * Reason Onset Date Comments Call Back Request 12/11/2023 Encounter Details Date Type Department Care Team (Late st Contact Info) Description 12/11/2023 Telephone [facility] MEDIC[facility] [address] [place] [address] Cassie Saldana FNP [address] [place], [place] [phone] Call Back Request Social History Tobacco Use [...] PM EDT documented as of this encounter Miscellaneous [...] from PCP in regards paperwork drop at [facility] that pt needs to be filled out ivette. documented in this encounter Plan of Treatment Not on file documented as of this encounter Visit Diagnoses Not on filedocumented in this encounter Care Teams Side Door Man Relationship Specialty Start Date End Date Cassie Saldana FNP [address] [place] [address] PCP - General Family Medicine 12/30/21 Fina Mckinnon Registered Nurse 10/07/24 10/07/24 Jaqueline Carver 10/07/24 10/07/24 Gertrudis Hopkins, SHERLYN [address] [place] [address] [place] [address] Registered Nurse Family Medicine 12/23/24 Alesia Pack 12/23/24 documented as of this encounter
--- OUTSIDE RECORDS SUMMARY | 2025-01-20 15:50 | XMS_ITS | Encounter Summary ---
Author Organization [employer] [facility] Address [address] [place] [address] 7t [place] [address] Care Team Providers Care Java Oracle Developer Name Role Phone Cassie Saldana Primary Care Provider [phone] Fina Mckinnon Unavailable [phone] Jaqueline Carver Unavailable Unavailable Gertrudis Hopkins RN Unavailable [phone] Alesia Pack Unavailable Encounter Details Date Type Department Care Team (Late st Contact Info) Description 03/09/2023 Orders Only [facility] [address] [place], [place] [phone] Andrew Jorge MD [address] [place], [place] [phone] Social History Tobacco Use Types Packs/Day Years [...] on filedocumented in this encounter Care Teams Java Oracle Developer Relationship Specialty Start Date End Date Cassie Saldana FNP [address] [place] [address] PCP - General Family Medicine 12/30/21 Fina Mckinnon Registered Nurse 10/07/24 10/07/24 Jaqueline Carver 10/07/24 10/07/24 Gertrudis Hopkins RN [address] [place] [address] Registered Nurse Family Medicine 12/23/24 Alesia Pack 12/23/24 Jeimy Hall silo operator 05/30/23 08/06/23 documented as of this encounter
--- OUTSIDE RECORDS SUMMARY | 2025-01-20 15:50 | XMS_ITS | Encounter Summary ---
Author Organization [employer] Address [address] [facility] 7t [place] [address] Care Team Providers Care Chair Mender Name Role Phone Cassie Saldana Primary Care Provider [phone] Fina Mckinnon Unavailable [phone] Jaqueline Carver Unavailable Unavailable Gertrudis Hopkins RN Unavailable [phone] Alesia Pack Unavailable Reason for Visit * Reason Comments Med Refill Encounter Details Date Type Department Care Team (Late st Contact Info) Description 03/30/2024 Refill [facility] [address] [place] [address] Cassie Saldana FNP [address] [place] [address] Social History Tobacco Use Types Packs/Day Years [...] the past 12 months, has t he [employer] gas, oil or water company threatened to [...] documented as of this encounter Care Teams Chair Mender Relationship Specialty Start Date End Date Cassie Saldana FNP [address] [place] [address] PCP - General Family Medicine 12/30/21 Fina Mckinnon Registered Nurse 10/07/24 10/07/24 Jaqueline Carver 10/07/24 10/07/24 Gertrudis Hopkins, SHERLYN [address] [place] [address] Registered Nurse Family Medicine 12/23/24 Alesia Pack 12/23/24 documented as of this encounter
--- OUTSIDE RECORDS SUMMARY | 2025-01-20 15:50 | XMS_ITS | Encounter Summary ---
Author Organization [employer] Address [address] [facility] 7t [place] [address] Care Team Providers Care Medical Claims Analyst Name Role Phone Cassie Saldana Primary Care Provider Fina Mckinnon Unavailable [phone] Jaqueline Carver Unavailable Unavailable Gertrudis Hopkins RN Unavailable [phone] Alesia Pack Unavailable Reason for Visit * Reason Onset Date Comments Nurse Triage 04/02/2024 Encounter Details Date Type Department Care Team (Late st Contact Info) Description 04/02/2024 Telephone [facility] [address] [place] [address] Cassie Saldana FNP [address] [place], [place] [phone] Nurse Triage Social History Tobacco Use Types [...] the past 12 months, has t he [employer], gas, oil or water [employer] threatened to shut off services in your [...] pain will need to be managed by [facility] rheumatology. Pt confirms that she missed her appt in February and is r/s for late April 2024 with [facility]. Pt would also like PCP to be aware that she is now with a different pleat patternmaker as her longstanding one has left the practice. * Telephone Encounter - JULES Macdonald - 04/02/2024 9:37 AM EST Hi, please call Gwendolyn to review Rheum plan. She is following with [facility] Rheum, and plan per last consult note in October 2023, plan was to wean off prednisone and start Orencia infusion. I just sent in another bridge rx for her x 2 weeks, but she needs to contact Rheum and follow up with them regarding further management. She was scheduled for [facility] Rheum Appt in Feb 2024, [...] PCP and also another provider working in [facility] today. * Telephone Encounter - [...] documented as of this encounter Care Teams Medical Claims Analyst Relationship Specialty Start Date End Date Cassie Saldana FNP [address] [place] [address] PCP - General Family Medicine 12/30/21 Fina Mckinnon Registered Nurse 10/07/24 10/07/24 Jaqueline Carver 10/07/24 10/07/24 Gertrudis Hopkins, SHERLYN [address] [place] [address] Registered Nurse Family Medicine 12/23/24 Alesia Pack 12/23/24 documented as of this encounter
--- OUTSIDE RECORDS SUMMARY | 2025-01-20 15:50 | XMS_ITS | Clinical Summary ---
Author Organization [facility] Address [address] [address] Phone Care Team Providers Care Needle Polisher Name Role Phone Chris Sanchez MD Unavailable [phone] Abelardo Ramos MD Unavailable [phone] Cassie Saldana Primary Care Provider [phone] Allergies No known active allergies Medications hydroxychloroqu [...] ACO C3 ACO C3 ACO Care Teams Needle Polisher Relationship Specialty Start Date End Date Cassie Saldana FNP [address] [place] [address] PCP - General Nurse Practitioner 12/31/24 Chris Sanchez MD [facility] [place] [address] [email or web address] Consulting Provider Pediatric Cardiology 03/13/19 Abelardo Ramos MD [address] [place] [address] Consulting Provider Pediatric Gastroenterology 04/22/19 Additional Source Comments The information contained in this document represents components of the legal health record. It is not the complete legal health record.[facility]
--- OUTSIDE RECORDS SUMMARY | 2025-01-20 15:50 | XMS_ITS ---
Author Organization [employer] Address [address] [place] [address] Care Team Providers Care Industry Segment Specialist Name Role Phone Cassie Saldana Primary Care Provider [phone] Gertrudis Hopkins RN Unavailable [phone] Alesia Pack Unavailable CM Complex Status:Outreach In Progress (Enrolling) Start date:12/23/2024 Enrollment reason:ADT Feed Overview ADT- Pt admitted to [facility] on 12/21/24. Case Team Name Relationship Phone Gertrudis Hopkins RN(Responsible Staff) Registered Nurse [phone] Continued Care and Services Coordination
--- OUTSIDE RECORDS SUMMARY | 2025-01-20 15:50 | XMS_ITS | Encounter Summary ---
Author Organization [employer] Address [address] [place] [address] [address] [place] [address] Care Team Providers Care Rose Grading Supervisor Name Role Phone Cassie Saldana Primary Care Provider [phone] Fina Mckinnon Unavailable [phone] Jaqueline Carver Unavailable Unavailable Gertrudis Hopkins RN Unavailable [phone] Alesia Pack Unavailable Reason for Visit * Reason Onset Date Comments Returning Call Back 05/26/2022 Encounter Details Date Type Department Care Team (Late st Contact Info) Description 05/26/[address] [facility] MEDICINE [address] [place] [address] Cassie Saldana FNP [address] [place], [place] [phone] Returning Call Back Social History Tobacco Use [...] Orientation Straight 01/15/2025 2: 25 PM EDT COVID-19 Exposure Response Date Recorded In [...] on filedocumented in this encounter Care Teams Rose Grading Supervisor Relationship Specialty Start Date End Date Cassie Saldana FNP [address] [place] [address] PCP - General Family Medicine 12/30/21 Fina Mckinnon Registered Nurse 10/07/24 10/07/24 Jaqueline Carver 10/07/24 10/07/24 Gertrudis Hopkins, RN [address] [place] [address] Registered Nurse Family Medicine 12/23/24 Alesia Pack 12/23/24 Jeimy Hall RN Care Manager 05/30/23 08/06/23 documented as of this encounter
--- OUTSIDE RECORDS SUMMARY | 2025-01-20 15:50 | XMS_ITS ---
Author Organization [employer] Address [address] [place] [address] Care Team Providers Care Hot Room Attendant Name Role Phone Cassie Saldana Primary Care Provider [phone] Gertrudis Hopkins RN Unavailable [phone] Alesia Pack Unavailable CHW Complex Status:Outreach In Progress (Enrolling) Start date:12/23/2024 Enrollment reason:ADT Feed Overview ADT- Pt admitted [place] [facility] [place]. Please outreach for enrollment. Please outreach facility. Case Team Name Relationship Phone Alesia Pack(Responsible Staff) [phone] Continued Care and Services Coordination
--- OUTSIDE RECORDS SUMMARY | 2025-01-20 15:50 | XMS_ITS | Encounter Summary ---
Author Organization [employer] Address [address] [facility] [address]t [place] [address] Care Team Providers Care Bobbin Presser Name Role Phone Cassie Saldana Primary Care Provider [phone] Fina Mckinnon Unavailable [phone] Jaqueline Carver Unavailable Unavailable Gertrudis Hopkins RN Unavailable [phone] Alesia Pack Unavailable Reason for Visit * Reason Onset Date Comments Nurse Triage 01/12/2024 Encounter Details Date Type Department Care Team (Late st Contact Info) Description 01/12/2024 Telephone [facility] MED[facility]INE [address] [place] [address] Cassie Saldana FNP [address] [place], [place] [phone] Nurse Triage Social History Tobacco Use Types [...] time of call. Unable to come to [facility] today. Will attempt visit Monday AM. Reviewed [...] You become worse * Telephone Encounter - Crowariadna Pack - 01/12/2024 1:00 PM EDT Symptoms: Lethargic (Tired), Headache, High Blood Pressure - Caller Reports Outcome: Transfer to a nurse or provider NOW! Reason: Hard to wake up documented in this encounter Plan of Treatment Not on file documented as of this encounter Visit Diagnoses Not on filedocumented in this encounter Care Teams Bobbin Presser Relationship Specialty Start Date End Date Cassie Saldana FNP [address] [place] [address] PCP - General Family Medicine 12/30/21 Fina Mckinnon Registered Nurse 10/07/24 10/07/24 Jaqueline Carver 10/07/24 10/07/24 Gertrudis Hopkins, RN [address] [place] [address] Registered Nurse Family Medicine 12/23/24 Alesia Pack 12/23/24 documented as of this encounter
== END 2025-01-20 11:33 | disposition home or self-care (01) ==
LOC: HO.US 11:32
PROVIDERS: PCP Registered Nurse; Visit Provider Registered Nurse
DX: N83.201 Unspecified ovarian cyst, right side (principal)
CPT/HCPCS: 76830; 76856

== ENCOUNTER → 2025-01-20 11:34 | Outpatient (BNV) | payer MEDICAID, SELFPAY | PROVIDERS: PCP Registered Nurse; Visit Provider Student in an Organized Health Care Education/Training Program | DX: N83.292 Other ovarian cyst, left side (principal) | CPT/HCPCS: 76830; 76856 ==

== ENCOUNTER 2025-02-28 09:29 | Outpatient (AMB) | payer MEDICAID, SELFPAY ==
--- NOTE | 2025-02-28 09:34 | A.SPINEOV_ITS ---
Intake Visit Reasons: LBP Intake Note: Ms. Zuñiga is here today c/o low back pain. Credit Report Checker Required: No Allergies No Known Allergies Allergy (Verified 02/28/25 09:36) Assessment & Plan Assessment & Plan (1) Epidural lipomatosis: Code(s): D17.79 - Benign lipomatous neoplasm of other sites Category: Medical Plan Dear Dr Apodaca, Thank you for referring Mrs Zuñiga to our office today. This is a very nice 24-year-old female history of rheumatoid arthritis, lupus since she was very young girl, more less on prednisone for the last 16 years, presents for evaluation of her lumbar spine. She has had a few different issues going on. The 1st is that she has had chronic low back pain around the lumbosacral junction as well as pain radiating down the back of her legs when she walks, and feelings of numbness in her anterior thighs as well. She had an episode in December where things flared up significantly, she was in the hospital with cauda equina type symptoms. She had bowel incontinence at that time. She was admitted to [facility], underwent a full workup, sounds like she saw Neurology and Neurosurgery and ultimately was discharged without any specific diagnosis or treatment. Over the course of a few weeks the symptoms improved on their own. She currently has normal bladder and bowel function. I believe she may have also had an increase in her dose of prednisone at the time as well. She is back to her baseline now. She generally just manages the pain with the prednisone. The patient has had no dedicated conservative treatment. The follow up MRI done of her lumbar spine when she was in the hospital showed progression of her epidural lipomatosis and she was referred to us for an evaluation. PMH: As mentioned in the main issue in her life has been dealing with lupus since she was 8 years old, she has been on and off prednisone for the last 16 years. She suspect she may have some degree of osteoporosis or osteopenia from this. She was found to have a pelvic fracture that she had no idea that she had. She also has rheumatoid arthritis with polyarthropathy, Raynaud's disease, autoimmune hepatitis. History of hypertension and . Social hx: She has not smoke, drink use any recreational drugs Medications: Prednisone, Plaquenil, is a through pain, amlodipine and amitriptyline Allergies: None Physical exam: Awake alert oriented no acute distress, able to stand up on her own independently, walk down the hallway with antalgic gait, tandem gait walking was normal. Upper and lower extremity strength was normal but she did have some give away weakness secondary to pain. Reflexes normal. No hyperreflexia, clonu s etc.. Imaging review: There is a lumbar MRI done at [facility] showing normal alignment, she has a hemangioma at L1 inside the vertebral body, no suspicious osseous lesions. She is heterogenous bone signal in the lumbar spine which can be sometimes a sign of osteoporosis or thinning of the bones. There is no significant central canal stenosis. She does have epidural lipomatosis in the sacral segments of the spinal canal which has progressed since her last MRI according to the radiologist. That was a few years ago. Impression: 24-year-old female with complicated autoimmune history including lupus, Raynaud's, rheumatoid arthritis, who has had chronic low back pain with posterior leg pain, numbness in her thighs, this can be present at all times whether walking, standing sitting or sleeping. The primary finding on the MRI is epidural lipomatosis at the sacral levels in the spinal canal. While this is causing some narrowing around the nerves, the fat itself is not under high pres sure and it is not clear in the literature that removing it actually gives any benefits to patient. That is Dr Trevizo experience as well. We also know the fat would just come back with time. We suspect it is coming from the long-term use of prednisone. If she were able to be weaned off of the prednisone, it is possible that the epidural lipomatosis would go away on its own. I had Dr. Dilan pagan review her imaging with me, who agrees that does not think surgery would be meaningful or beneficial for her symptoms. Thank you for allowing us to care for your patient. The total time spent with this visit with this patient was 45 minutes reviewing history, physical exam, lumbar imaging review, and implementation of treatment plan or further diagnostic testing Chris Trevizo MD,PhD [facility] Coding Level of Care Code New Pt Level 4 (63853) Diagnoses Epidural lipomatosis D17.79
--- OUTSIDE RECORDS SUMMARY | 2025-02-28 10:26 | XMS_ITS | Encounter Summary ---
Author Organization [employer] Address [address] [place] [address] [address]t [place] [address] Care Team Providers Care Medical Cash Poster Name Role Phone Cassie Saldana Primary Care Provider [phone] Fina Mckinnon Unavailable [phone] Jaqueline Carver Unavailable Unavailable Gertrudis Hopkins RN Unavailable [phone] Alesia Pack Unavailable Reason for Visit * Reason Comments Med Refill Encounter Details Date Type Department Care Team (Late st Contact Info) Description 09/07/2023 Refill [facility] MED & PEDS [address] [place], [place] [phone] Cassie Saldana FNP [address] [place], [place] [phone] Rheumatoid arthritis involving multiple sites with positive [...] Care Team (Late st Contact Info) Description 03/17/2025 10:15 AM EST Office Visit [facility] MED & PEDS [address] [place] [address] Cassie Saldana FNP [address] [place] [address] documented as of this encounter Visit Diagnoses Diagnosis Rheumatoid arthritis involving multiple sites with positive rheumatoid factor (CMS/HCC) (HCC) documented in this encounter Care Teams Medical Cash Poster Relationship Specialty Start Date End Date Cassie Saldana FNP [address] [place] [address] PCP - General Family Medicine 12/30/21 Fina Mckinnon Registered Nurse 10/07/24 10/07/24 Jaqueline Carver 10/07/24 10/07/24 Gertrudis Hopkins, SHERLYN [address] [place] [address] Registered Nurse Family Medicine 12/23/24 Alesia Pack 12/23/24 documented as of this encounter
--- OUTSIDE RECORDS SUMMARY | 2025-02-28 10:26 | XMS_ITS | Encounter Summary ---
Author Organization [employer] Address [address] [facility] 7t [place] [address] Care Team Providers Care Fiber Picker Name Role Phone TeodoradawsonCassie HEALTH CARE ATTORNEY Primary Care Provider [phone] Fina Mckinnon Unavailable [phone] Jaqueline Carver Unavailable Unavailable Gertrudis Hopkins RN Unavailable [phone] Alesia Pack Unavailable Encounter Details Date Type Department Care Team (Late Contact Info) Description 03/09/2023 Orders Only [facility] [address] [place], [place] [phone] Andrew Jorge MD [address] [place], [place] [phone] Social History Tobacco Use Types Packs/Day Years [...] Encounters Date Type Department Care Team (Late Contact Info) Description 03/17/2025 10:15 AM EST Office Visit [facility] MED & PEDS [address] [place] [address] Cassie Saldana FNP [address] [place] [address] documented as of this encounter Visit Diagnoses Not on filedocumented in this encounter Care Teams Fiber Picker Relationship Specialty Start Date End Date Cassie Saldana FNP [address] [place] [address] PCP - General Family Medicine 12/30/21 Fina Mckinnon Registered Nurse 10/07/24 10/07/24 Jaqueline Carver 10/07/24 10/07/24 Gertrudis Hopkins, RN [address] [place] [address] Registered Nurse Family Medicine 12/23/24 Alesia Pack 12/23/24 Jeimy Hall RN Care Manager 05/30/23 08/06/23 documented as of this encounter
--- OUTSIDE RECORDS SUMMARY | 2025-02-28 10:26 | XMS_ITS ---
Author Organization [employer] Address [address] [place] [address] Care Team Providers Care Manager In Training Name Role Phone Cassie Saldana Primary Care Provider [phone] Gertrudis Hopkins RN Unavailable [phone] Alesia Pack Unavailable CM Complex Status:Enrolled (Active) Start date:12/23/2024 Enrollment date:02/05/2025 Enrollment reason:ADT Feed Overview ADT- Pt admitted to [facility] on 12/21/24. Case Team Name Relationship Phone Gertrudis Hopkins RN(Responsible Staff) Registered Nurse [phone] Continued Care and Services Coordination
--- OUTSIDE RECORDS SUMMARY | 2025-02-28 10:26 | XMS_ITS | Encounter Summary ---
Author Organization [employer] Address [address] [place] [address] 7t [place] [address] Care Team Providers Care Public Health Nurse Name Role Phone Cassie Saldana Primary Care Provider [phone] Fina Mckinnon Unavailable [phone] Jaqueline Carver Unavailable Unavailable Gertrudis Hopkins RN Unavailable [phone] Alesia Pack Unavailable Reason for Visit * Reason Comments Med Refill Encounter Details Date Type Department Care Team (Late st Contact Info) Description 10/08/2023 Refill [facility] MED & PEDS [address] [place], [place] [phone] Cassie Saldana FNP [address] [place], [place] [phone] Rheumatoid arthritis involving multiple sites with positive [...] Description 03/17/2025 10:15 AM EST Office Visit [facility] MED & PEDS [address] [place] [address] Cassie Saldana FNP [address] [place] [address] documented as of this encounter Visit Diagnoses Diagnosis Rheumatoid arthritis involving multiple sites with positive rheumatoid factor (CMS/HCC) (HCC) documented in this encounter Care Teams Public Health Nurse Relationship Specialty Start Date End Date Cassie Saldana FNP [address] [place] [address] PCP - General Family Medicine 12/30/21 Fina Mckinnon Registered Nurse 10/07/24 10/07/24 Jaqueline Carver 10/07/24 10/07/24 Gertrudis Hopkins, SHERLYN [address] [place] [address] Registered Nurse Family Medicine 12/23/24 Alesia Pack 12/23/24 documented as of this encounter
--- OUTSIDE RECORDS SUMMARY | 2025-02-28 10:26 | XMS_ITS | Encounter Summary ---
Author Organization [employer] Address [address] [place] [address] [address] [place] [address] Care Team Providers Care Hot Strip Mill Supervisor Name Role Phone Cassie Saldana Primary Care Provider Fina Mckinnon Unavailable [phone] Jaqueline Carver Unavailable Unavailable Gertrudis Hopkins RN Unavailable [phone] Alesia Pack Unavailable Reason for Visit * Reason Onset Date Comments Returning Call Back 05/26/2022 Encounter Details Date Type Department Care Team (Late st Contact Info) Description 05/26/2022 Telephone [facility] MEDICINE [address] [place] [address] Cassie Saldana FNP [address] [place], [place] [phone] Returning Call Back Social History Tobacco Use [...] Description 03/17/2025 10:15 AM EST Office Visit [facility] MED & PEDS [address] [place], [place] [phone] Cassie Saldana FNP [address] [place] [address] documented as of this encounter Visit Diagnoses Not on filedocumented in this encounter Care Teams Hot Strip Mill Supervisor Relationship Specialty Start Date End Date Cassie Saldana FNP [address] [place] [address] PCP - General Family Medicine 12/30/21 Fina Mckinnon Registered Nurse 10/07/24 10/07/24 Jaqueline Carver 10/07/24 10/07/24 Gertrudis Hopkins, SHERLYN [address] [place] [address] Registered Nurse Family Medicine 12/23/24 Alesia Pack 12/23/24 Jeimy Hall it systems analyst consultant 05/30/23 08/06/23 documented as of this encounter
--- OUTSIDE RECORDS SUMMARY | 2025-02-28 10:26 | XMS_ITS ---
Author Organization [employer] Address [address] [place] [address] Care Team Providers Care Aircraft Powerplant Repairer Name Role Phone Cassie Saldana Primary Care Provider [phone] Gertrudis Hopkins RN Unavailable [phone] Alesia Pack Unavailable CHW Complex Status:Enrolled (Active) Start date:12/23/2024 Enrollment date:02/19/2025 Enrollment reason:ADT Feed Overview ADT- Pt admitted to [facility] on 12/21/24. Please outreach for enrollment. Please outreach facility. Case Team Name Relationship Phone Alesia Pack(Responsible Staff) [phone] Continued Care and Services Coordination
--- OUTSIDE RECORDS SUMMARY | 2025-02-28 10:26 | XMS_ITS | Encounter Summary ---
Author Organization [employer] Address [address] [facility] 7t [place] [address] Care Team Providers Care Flexboard Operator Name Role Phone Cassie Saldana Primary Care Provider [phone] Fina Mckinnon Unavailable [phone] Jaqueline Carver Unavailable Unavailable Gertrudis Hopkins RN Unavailable [phone] Alesia Pack Unavailable Reason for Visit * Reason Comments Med Refill Encounter Details Date Type Department Care Team (Late st Contact Info) Description 03/30/2024 Refill [facility] MEDICINE [address] [place] [address] Cassie Saldana FNP [address] [place] [address] Social History Tobacco Use Types Packs/Day Years [...] the past 12 months, has t he [employer], gas, oil or water company threatened to [...] Description 03/17/2025 10:15 AM EST Office Visit [facility] MED & PEDS [address] [place] [address] Cassie Saldana FNP [address] [place] [address] documented as of this encounter Visit Diagnoses Not on filedocumented in this encounter Additional Health Concerns Assessment Noted Time PHQ-9 Depression Total Score: 10 024 11:22 AM EDT documented as of this encounter Care Teams Flexboard Operator Relationship Specialty Start Date End Date Cassie Saldana FNP [address] [place] [address] PCP - General Family Medicine 12/30/21 Fina Mckinnon Registered Nurse 10/07/24 10/07/24 Jaqueline Carver 10/07/24 10/07/24 Gertrudis Hopkins RN [address] [place] [address] Registered Nurse Family Medicine 12/23/24 Alesia Pack 12/23/24 documented as of this encounter
--- OUTSIDE RECORDS SUMMARY | 2025-02-28 10:26 | XMS_ITS | Clinical Summary ---
Author Organization [employer] Address [address] [place] [address] Care Team Providers Care Rebeamer Name Role Phone Cassie Saldana Primary Care Provider [phone] Gertrudis Hopkins RN Unavailable [phone] Alesia Pack Unavailable Allergies No known active allergies Medications Misc. Devices (Pulse Oximeter For Finger) miscIndications: Routine health maintenance Use as needed to monitor oxygen saturation at home 1 each 3 Active Additional Information Patient not taking.Reported on 02/04/2025 Blood Pressure Monitor kitIndications:R outine health maintenance Use as needed to monitor Blood pressure at home 1 kit 3 Active acetaminophen (Tylenol) 500 MG tablet Take 2 tablets (1,000 mg) by mouth every 6 (six) hours if needed for moderate pain or fever for up to 25 doses. 50 tablet 3 Active hydroxychloroqui ne (Plaquenil) 200 MG tablet Take 1 tablet by mouth 2 times daily. 3 Active DULoxetine (Cymbalta) [address] capsule Take 30 mg by mouth Once per day. 5 Active amitriptyline (Elavil) 10 MG tablet Take 10 mg by mouth at bedtime. 5 Active azaTHIOprine (Imuran) 50 MG tablet Take 150 mg by mouth Once per day. 5 Active bisacodyl (Dulcolax) 10 MG suppository Insert 10 mg into the rectum if needed each day. 5 Active gabapentin (Neurontin) 300 MG capsule Take 600 mg by mouth 3 times daily. 5 Active methocarbamol (Robaxin) 500 MG tablet Take 500 mg by mouth if needed in the morning, at noon, and at bedtime. 5 Active oxyCODONE (Roxicodone) 5 MG immediate release tablet Take 5 mg by mouth every 6 (six) hours if needed. 5 Active pantoprazole (ProtoNix) 40 MG EC tablet Take 40 mg by mouth 2 times daily. 5 Active sennosides (Senokot) 8.6 MG tablet Take 8.6 mg by mouth 2 times daily. 5 Active sucralfate (Carafate) 1 g tablet Take 1 g by mouth before breakfast, before lunch, before evening meal, and at bedtime. 5 Active predniSONE (Deltasone) 10 MG tablet Take 30 mg by mouth Once per day. 5 Active magnesium hydroxide (Milk of Magnesia) 400 MG/5ML suspension Take 30 mL by mouth if needed each day. 5 Active amLODIPine (Norvasc) 10 MG tabletIndication s:Primary hypertension Take 1 tablet (10 mg) by mouth Once per day. 30 tablet 11 5 01/16/20 26 Active White Petrolatum-Embedded Systems Engineer al Oil (artificial tears) 83-15 % ointment ophthalmic ointmentIndicati ons:Dry eye syndrome of both eyes Apply to both eyes at bedtime. 3.5 g 11 5 Active Active Problems Problem Noted Date [...] BP elevated in office. -Non-smoker, hx of residential prednisone use -Plan: she is thinking about getting . Will switch to labetalol 100mg daily. Reviewed med safety and SE. -Cont monitoring home BP readings, follow up precautions reviewed Assessment & Plan (01/29/2024 9:08 PM EDT): -Continues to be elevated despite increase in losartan to 50mg daily -Non-smoker, hx of residential prednisone use -Plan: start hydrochlorothiazide. Reviewed med [...] 10/20/22: Hx myopericarditis. Appt to establish with [facility]. EKG stable, planning for an [...] post- discharge in November 2022 from [facility] Assessment & Plan (04/29/2023 9:37 AM EST): -DBP elevated, denies any chest pain, BUENO, SOB, palpitations, or other associated symptoms -Nifedipine 60mg daily sent to pharmacy -Encouraged to monitor BP readings at home, return precautions Healthcare maintenance 04/29/2023 Overview (04/29/2023): Contraception: Nexplanon placed post- November 2022 at [facility] Raynaud's phenomenon (secondary) 05/13/2022 Rheumatoid arthritis (CMS/HCC) 06/19/2020 Overview (01/29/2024): -Seropositive RA (RF++ CCP-) -Currently following with [facility] Rheum Current med regimen: hydroxychloroquine 200mg BID and prednisone 30mg daily Previous med trials: Humira, Rituxan infusion Per consult October 2023 - Goal: start biologic with plan to wean off prednisone daily. Plan to order Orencia infusion, follow up in 12 weeks Assessment & Plan (01/29/2024 9:19 PM EDT): Called [facility] Rheum with pt to discuss f/up regarding Orencia as Gwendolyn reports she has not heard from office since last appt. LVM with request to return call directly to pt. Assessment & Plan (05/13/2022 6:50 PM EST): -Seropositive RA (RF++ CCP-) previously managed with Plaquenil and prednisone by Dr. Diaz of [facility] Rheumatology, who has since left. Has not [...] that impact daily functioning -Case discussion with [facility] pharmacy - risk of untreated RA/SLE [...] pending initial consult with OBGYN. Autoimmune hepatitis ([facility]) 03/25/2013 Assessment & Plan (04/29/2023 9:29 AM EST): -Previously tx w/ azathioprine 75 mg daily for autoimmune hepatitis -08/04/22: Established with [facility] GI for autoimmune hepatitis. Dr. Nhi white. They would like follow up first with lab work and then possibly liver biopsy if needed Assessment & Plan (05/13/2022 7:18 AM EST): -Previously took azathioprine 75 mg daily for autoimmune hepatitis, however she has not taken this medication in some time since she stopped seeing her gear lapping machine operator. -Established with [facility] GI in September 2021 Low vision, both eyes 10/14/2011 Systemic lupus erythematosus ([facility]) 2 Overview (09/10/2024): Seropositive RA (RF++ CCP-) previously managed with Plaquenil and prednisone by [facility] Rheumatology Previously following with [facility], currently following with [facility] Rheum Med regimen (as of August 2024) [...] & Plan (06/05/2022 6:49 PM EST): -Called [facility] rheum with patient to schedule appt. Discussed importance that pt be seen soon due to high risk -Continue with prednisone 30mg daily -Consider bridge rx of hydroxychloroquine in primary care until pt able to be established with Rheum. Will place [facility] consult Assessment & Plan (05/24/2022 12:43 PM EST): -Seropositive RA (RF++ CCP-) previously managed with Plaquenil and prednisone by Dr. Diaz of [facility] Rheumatology, who has since left. Has not [...] that impact daily functioning -Case discussion with [facility] pharmacy - risk of untreated RA/SLE [...] liver enzymes 01/23/202401/28 Hepatitis, autoimmune 01/23/20242023 Myocarditis (CMS/HCC) 01/23/20242023 Supervision of high-risk 01/23/2024 01/29/2024 Systemic lupus erythematosus affecting in second trimester (CMS/HCC) 01/23/2024 01/29/2024 Acute cystitis with hematuria 12/05/2023 01/29/2024 Assessment & Plan (12/05/2023 6:20 PM EDT): Take levofloxacin x 5d (based on last Urine Cx) Order urine cx Nexplanon in place 09/23/2023 Assessment & Plan (09/26/2023 2:02 PM EDT): - Nexplanon placed November 2022 by [facility] following delivery - Pt reported interested in removal due to SE - feelings of weight gain, fatigue - Nexplanon removal 09/26/23 at [facility] Assessment & Plan (09/23/2023 4:17 PM EDT): - Nexplanon placed November 2022 by [facility] following delivery - Pt reported interested in removal due to SE - feelings of weight gain, fatigue - Plan to call next week to schedule appt for Nexplanon removal - List of alternative contraceptive methods provided for pt to review 06/05/2022 04/29/2023 Overview (06/05/2022): -LMP 04/02/22 -Referred to [facility] - initial appt Jun 15, [...] Encounters Date Type Department Care Team Description 02/21/2025 Patient Outreach [address] [address] Cassie Saldana FNP Care Coordination (SDOH) 02/19/2025 Patient Outreach [address] [address] Cassie Saldana FNP Care Coordination (SDOH) 02/17/2025 Patient Outreach [address] [address] Cassie Saldana FNP Care Management ([facility]- f/u call) 02/07/2025 Patient Outreach [address] [address] Cassie Saldana FNP Care Coordination (SDOH f/u) 02/05/2025 Plan of Care Documentation [address] [address] 02/04/2025 Patient Outreach [address] [address] Cassie Saldana FNP Care Management (C3- initial assessment/ enrollment) 01/30/2025 Patient Outreach [address] [address] Cassie Saldana FNP Care Coordination (CM/CHW outreach) 01/29/2025 Results Follow-Up [facility] [address] [place] [address] Cassie Saldana FNP US Pelvis Transvaginal 01/29/[address] [facility] [address] [place] [address] Cassie Saldana FNP Call Back Request 01/23/2025 9:30 AM EDT Office Visit [facility] [address] [place] [address] Camelia Campo, OD Systemic lupus erythematosus, unspecified SLE type, unspecified organ involvement status (CMS/HCC) (Primary Dx); Long-term use of high-risk medication; Posterior polar cataract; Dry eye syndrome of both eyes; Choroidal nevus of right eye; High myopia, bilateral 01/23/2025 Travel 01/22/2025 Travel 01/22/2025 Telephone [facility] [address] [place] [address] Camelia Campo, OD 01/15/2025 10:00 AM EDT Office Visit [facility] [address] [place] [address] Adela Acosta, ONLINE EDUCATION MANAGER Systemic lupus erythematosus, unspecified SLE type, unspecified organ involvement status (CMS/HCC) (Primary Dx); Rheumatoid arthritis involving multiple sites with positive rheumatoid factor (CMS/HCC); Epidural lipomatosis; Bilateral fracture of pubic rami, sequela; Lumbosacral radiculopathy; Current chronic use of systemic steroids; Primary hypertension 01/15/2025 Travel 01/14/2025 Patient Outreach [facility] [address] [place] [address] Cassie Saldana FNP 01/14/[address] [facility] [address] [place] [address] Cassie Saldana FNP Chart Prep 01/13/[address] [facility] [address] [place] [address] Cassie Saldana FNP Nurse Triage 01/13/[address] [facility] [address] [place] [address] Cassie Saldana FNP Hospital Follow-up 01/13/2025 Patient Outreach [address] [address] Cassie Saldana FNP 01/08/2025 Patient Outreach [address] [address] Cassie Saldana FNP Care Coordination (CM/CHW outreach) 01/03/2025 Patient Outreach [address] [address] Cassie Saldana FNP Care Coordination (CM/CHW outreach) 12/25/2024 Patient Outreach [address] [address] Cassie Saldana FNP 12/23/2024 Patient Outreach [address] [address] Cassie Saldana FNP Care Coordination (CM/CHW outreach) 12/23/2024 Patient Outreach [address] [address] Cassie Saldana FNP Care Coordination (CHW chart review) 12/23/2024 Patient Outreach [address] [address] Cassie Saldana FNP Care Management (C3CM- chart review) 12/23/2024 Patient Outreach [address] [address] Cassie Saldana FNP 12/21/2024 9:20 AM EDT Office Visit [facility] [address] [place] [address] Georgia Franks MD Oxygen desaturation (Primary Dx); Systemic lupus erythematosus, unspecified SLE type, unspecified organ involvement status (CMS/HCC) 12/21/2024 Travel 12/19/2024 Telephone [facility] [address] [place] [address] Cassie Saldana FNP Medication Question from Last 3 Months Immunizations Immunization Administration [...] Answer Date Recorded Patient Health Questionnaire-9 Score 3 02/04/2025 Patient Health Questionnaire-9 Score 3 02/04/2025 Last PHQ-9: Questionnaire Data Not on file 0 02/04/2025 Housing Stability Answer Date Recorded What is your housing situation today? I have jerel yang 10/10/[address] you li ve. Do you have problems with any of the following? None of the above 10/10/2024 Food Insecurity Answer Date Recorded Within the past 12 months, y ou worried that your food would run out before you got money to buy more: Often true 02/19/2025 Within the past 12 months,th e food you bought just didn't last and you didn't have enough money to get more: Often true Transportation Answer Date Recorded In the past [...] Date Recorded Patient Health Questionnaire-2 Score 0 02/04/2025 Internet Access Answer Date Recorded Internet Access [...] 01/15/2025 10:23 AM EDT Plan of Treatment Upcoming Encounters Date Type Department Care Team ([facility] st Contact Info) Description 03/17/2025 10:15 AM EST Office Visit [facility] [address] [place] [address] Cassie Saldana FNP [address] [place] [address] Health Maintenance Due Date Last Done Comments [...] Additional history exists SDOH Screening 10/10/2025 10/10/2024 Alcohol/Substance Use Screening 01/15/2026 01/15/2025 Disability Screening 01/15/2026 01/15/2025 Tobacco Screening 01/23/2026 01/23/2025 Depression Screening 02/04/2026 02/04/2025, 02/05/20 25 DTaP/Tdap/Td Vaccines (8 - Td or Tdap) [...] Procedure Name Priority Date/Time Associated Diagnosis Comments OCT, RETINA - OU - BOTH EYES Routine 01/23/2025 11:53 AM EDT Long-term use of high-risk medication US PELVIS TRANSVAGINAL Routine 01/21/2025 7:57 PM EDT Cyst of right ovary PAP SMEAR Routine 10/19/2023 2:46 PM EDT Routine cervical smear Screening examination for venereal disease HEPATITIS PANEL, GENERAL Routine 07/10/2023 9:08 AM EST from Last 3 Months or Most Recently Relevant to Health Maintenance Results * OCT, Retina - OU - Both Eyes (01/23/2025 11:53 AM EDT) Narrative Camelia Campo, OD - 01/23/2025 1:39 PM EDT Images from the original result were not included. 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 No plaquenil maculopathy in either eye. Will monitor annually. us Camelia Alber OD OPHTH TOMOGRAPHY Final Result * US Pelvis Transvaginal (01/21/2025 7:57 PM EDT) Anatomical Region Laterality Modality Pelvis Ultrasound 01/21/2025 7:57 PM EDT Narrative 01/21/2025 7:58 PM EDT [address] [address] Ultrasound Report Signed Patient: Gwendolyn Zuñiga MR#: [id number] : 2000 Acct:[id number] Age/Sex: 24 / F ADM Date: 01/20/25 Loc: HO.US Attending Dr: Cassie Saldana TIRE RETREADER Ordering Physician: Cassie Saldana Date of Service: 01/20/25 Procedure(s): US pelvic and transvaginal Accession Number(s): [id number] cc: Cassie Saldana Reason for Exam: OVARIAN CYST CLINICAL HISTORY: OVARIAN CYST US pelvis transabdominal and transvaginal with Doppler Comparison: US/SR - US PELVIS TRANSABDOMINAL AND TRANSVAGINAL - 09/09/24 15:03 EDT Findings: Transabdominal scanning performed for overall anatomy. Transvaginal scanning performed for additional detail. Anteverted uterus is 8.2 cm length. Normal myometrium. Multiple nabothian cysts are noted of the lower uterine segment/cervix. Endometrium 8.6 mm thickness. Right ovary 2.5 x 1.6 x 2 cm. Previously detected cyst is not visualized today. Left ovary 3.9 x 2.9 x 2.1 cm. Complex cysts measuring 3.3 x 2.5 x 2.4 cm. Normal color Doppler with arterial/venous spectral tracing of both ovaries. No free fluid. IMPRESSION: 1. No evidence of acute disease. 2. Left ovarian 3.3 cm complex cyst. Previously detected right ovarian cyst is not visualized on current study. No evidence of ovarian torsion. This document has been electronically signed by: India Morales MD on 01/21/2025 19:57:13 Dictated By: India Morales MD Signed By: <Electronically signed by India Morales MD in OV> 01/21/251957 DD/ 56 TD/TT: 01/21/251956 Rural Route Carrier: Procedure Note Donotuseinterpreter, Image - 01/21/[address] [address] Ultrasound Report Signed Patient: Gwendolyn ZuñigaMR#: [id number] : 2000Acct:[id number] Age/Sex: 24 / FADM Date: 01/20/25 Loc: HO.US Attending Dr: Cassie VICENTE Ordering Physician: Cassie Saldana Date of Service: 01/20/25 Procedure(s): US pelvic and transvaginal Accession Number(s): [id number] cc: Cassie Saldana Reason for Exam: OVARIAN CYST CLINICAL HISTORY: OVARIAN CYST US pelvis transabdominal and transvaginal with Doppler Comparison: US/SR - US PELVIS TRANSABDOMINAL AND TRANSVAGINAL - 09/09/24 15:03 EDT Findings: Transabdominal scanning performed for overall anatomy. Transvaginal scanning performed for additional detail. Anteverted uterus is 8.2 cm length. Normal myometrium. Multiple nabothian cysts are noted of the lower uterine segment/cervix. Endometrium 8.6 mm thickness. Right ovary 2.5 x 1.6 x 2 cm. Previously detected cyst is not visualized today. Left ovary 3.9 x 2.9 x 2.1 cm. Complex cysts measuring 3.3 x 2.5 x 2.4 cm. Normal color Doppler with arterial/venous spectral tracing of both ovaries. No free fluid. IMPRESSION: 1. No evidence of acute disease. 2. Left ovarian 3.3 cm complex cyst. Previously detected right ovarian cyst is not visualized on current study. No evidence of ovarian torsion. This document has been electronically signed by: India Morales MD on 01/21/2025 19:57:13 Dictated By: India Morales MD Signed By: <Electronically signed by India Morales MD in OV> 01/21/251957 DD/ 56 TD/TT: 01/21/251956 Rural Route Carrier: us Cassie VICENTE IMG US PROCEDURES Edited Resul t - Final * Pap Smear (10/19/2023 2:46 PM EDT) Swab Cervix uteri structure / Unknown 10/19/2023 2:46 PM EDT 10/20/2023 6:00 AM EDT [facility] - 11/08/2023 11:52 AM EDT ----- ------- Name: Gwendolyn Zuñiga Age/Sex: 23/F : 2000 Unit#: [id number] Attend Dr: [facility] Re10/20/23 Status: DEP REF Location: [facility]CLNP Disch: ----- ------- SPEC : [id number] RECD: 10/20/23 STATUS: KRUNAL BEARD NUM: [id number] GOPI: 10/19/23-1446 [facility] DR: [facility] ENTERED: 10/20/23 SP TYPE: Pap Smr OTHR : ORDERED: Pap Smear, PAP path review Interpretation General Category: Epithelial cell abnormality. Adequacy: Endocervical component present. Interpretation: Low grade squamous intraepithelial lesion (DAVID I). Fungal organisms consistent with Britta species. Clinical Information LMP: Unknown date/findings Previous PAP test: Initial PAP Material Received ThinPrep-Cervical ----- ------- Signed (signature on file) Doreen Hendrickson 11/08/23 1152 ----- ------- END OF REPORT [facility] CYTOLOGY ORDERABLES F inal Result Performing Organization Address [facility] Co de Phone Number [facility] [address] [place] [address] [phone] * Hepatitis Panel, General (07/10/2023 9:08 AM EST) Hepatitis A IgM Nonreactive Nonreactive [facility] Comment:IgM antibodies to BUENO V not detected; does not exclude earlyacute or recovered HAV infection. ~Hepatitis B Surface Antibody NONREACTIVE Nonreactive [facility] Comment:Nonreactive: < 8.00 mIU/mL Hepatitis B Core Antibody Nonreactive Nonreactive [facility] Hepatitis C Antibody Nonreactive Nonreactive [facility] Comment:Antibodies to HCV no t detected; does not exclude early acuteHCV infection. Hepatitis B Surface Ag Negative Negative [facility] 07/10/2023 9:08 AM EST 07/10/2023 11:31 AM EST Generic External Data Provider LAB BLOOD ORDERAB LES Final Result Performing Organization Address [facility] Co de Phone Number [facility] [address] [place] [phone] from Last 3 Months or Most Recently Relevant to Health Maintenance Insurance [facility] C3 Care Teams Rebeamer Relationship Specialty Start Date End Date Cassie Saldana FNP [address] [place] [address] PCP - General Family Medicine 12/30/21 Gertrudis Hopkins, SHERLYN [address] [place] [address] Registered Nurse Family Medicine 12/23/24 Alesia Pack 12/23/24
--- OUTSIDE RECORDS SUMMARY | 2025-02-28 10:26 | XMS_ITS | Clinical Summary ---
Author Organization [facility] Address [address] [address] Phone Care Team Providers Care Tool Die Maker Name Role Phone Chris Sanchez MD Unavailable [phone] Abelardo Ramos MD Unavailable [phone] Cassie Saldana Primary Care Provider [phone] Allergies No known active allergies Medications hydroxychloroqu [...] ACO C3 ACO C3 ACO Care Teams Tool Die Maker Relationship Specialty Start Date End Date Cassie Saldana FNP [address] [place] [address] PCP - General Nurse Practitioner 12/31/24 Chris Sanchez MD [facility] [place] [address] [email or web address] Consulting Provider Pediatric Cardiology 03/13/19 Abelardo Ramos MD [address] [place] [address] Consulting Provider Pediatric Gastroenterology 04/22/19 Additional Source Comments The information contained in this document represents components of the legal health record. It is not the complete legal health record.[facility]
--- OUTSIDE RECORDS SUMMARY | 2025-02-28 10:26 | XMS_ITS | Encounter Summary ---
Author Organization [employer] Address [address] [facility] 7[address] [place] [address] Care Team Providers Care Quality Coordinator Name Role Phone Cassie Saldana Primary Care Provider Fina Mckinnon Unavailable [phone] Jaqueline Carver Unavailable Unavailable Gertrudis Hopkins RN Unavailable [phone] Alesia Pack Unavailable Reason for Visit * Reason Onset Date Comments Nurse Triage 04/02/2024 Encounter Details Date Type Department Care Team (Late st Contact Info) Description 04/02/2024 Telephone [facility] [address] [place] [address] Cassie Saldana FNP [address] [place], [place] [phone] Nurse Triage Social History Tobacco Use Types [...] the past 12 months, has t he [employer], gas, oil or water [employer] threatened to shut off services in your [...] pain will need to be managed by [facility] rheumatology. Pt confirms that she missed her appt in February and is r/s for late April 2024 with [facility]. Pt would also like PCP to be aware that she is now with a different food processor as her longstanding one has left the practice. * Telephone Encounter - JULES Macdonald - 04/02/2024 9:37 AM EST Hi, please call Gwendolyn to review Rheum plan. She is following with [facility] Rheum, and plan per last consult note in October 2023, plan was to wean off prednisone and start Orencia infusion. I just sent in another bridge rx for her x 2 weeks, but she needs to contact Rheum and follow up with them regarding further management. She was scheduled for [facility] Rheum Appt in Feb 2024, but I [...] PCP and also another provider [facility] today. * Telephone Encounter - Crow Pack - 04/02/2024 8:33 AM EST Symptom: Pain - Severe Outcome: Schedule an urgent appointment (within 1 hour) or talk to a nurse or provider soon Reason: Caller denied all higher acuity questions documented in this encounter Plan of Treatment Upcoming Encounters Date Type Department Care Team ([facility] st Contact Info) Description 03/17/2025 10:15 AM EST Office Visit [facility] [address] [place], [place] [phone] Cassie Saldana FNP [address] [place] [address] documented as of this encounter Visit Diagnoses Diagnosis Systemic lupus erythematosus, unspecified SLE type, unspecified organ involvement status (CMS/HCC) (HCC)- Primary documented in this encounter Additional Health Concerns Assessment Noted Time PHQ-9 Depression Total Score: 10 024 11:22 AM EDT documented as of this encounter Care Teams Quality Coordinator Relationship Specialty Start Date End Date Cassie Saldana FNP [address] [place] [address] PCP - General Family Medicine 12/30/21 Fina Mckinnon Registered Nurse 10/07/24 10/07/24 Jaqueline Carver 10/07/24 10/07/24 Gertrudis Hopkins, RN [address] [place] [address] Registered Nurse Family Medicine 12/23/24 Alesia Pack 12/23/24 documented as of this encounter
--- OUTSIDE RECORDS SUMMARY | 2025-02-28 10:27 | XMS_ITS | Clinical Summary ---
Author Organization [facility] Address [address] [place] [address] Phone Care Team Providers Care Applications Processor Name Role Phone Physician, No Pcp Primary Care Provider Unavaila ble Allergies No known active allergies Medications methocarbamoL (ROBAXIN) 500 mg tablet Take 1 tablet (500 mg total) by mouth 3 (three) times a day if needed for muscle spasms for up to 10 days. 10 tablet 01/13/2025 Active oxyCODONE (ROXICODONE) 5 mg immediate release tablet Take 1 tablet (5 mg total) by mouth every 6 (six) hours if needed for severe pain. Max Daily Amount: 20 mg 8 tablet 01/13/2025 Active Active Problems No known active problems Encounters Date Type Department Care Team Description 01/13/2025 3:29 PM EDT - 01/14/2025 12:20 AM EDT Emergency [facility] Emergency [address] [place] [address] Neal Avery MD Schreiner, Ian, MD Acute [...] to 49 Years) (1 of 2 - PPSV23, PCV20, or PCV21) 06/30/2003 05/05/2003, 06/11/2001, 03/26/2001, Additional history exists [...] 04/28/2023, 10/14/2011, 07/29/2005, Additional history exists RSV Immunization Adult Patients (1 - 1-dose 75+ series) 09/29/2075 Hepatitis [...] - AUTOMATED METHOD 01/13/2025 9:47 PM EDT [facility] Clarity, Urine Clear Clear LAB URINALYSIS - AUTOMATED METHOD 01/13/2025 9:47 PM EDT [facility] Specific [place] Urine 1.015 1.005 - 1.030 LAB URINALYSIS - AUTOMATED METHOD 01/13/2025 9:47 PM EDT [facility] pH, Urine 5.0(A) 5.0 - 8.0 pH LAB URINALYSIS - AUTOMATED METHOD 01/13/2025 9:47 PM EDT [facility] Leukocytes, Urine Negative Negative WBCs/mcL LAB URINALYSIS - AUTOMATED METHOD 01/13/2025 9:47 PM EDT [facility] Nitrite, Urine Positive(A) Negative LAB URINALYSIS - AUTOMATED METHOD 01/13/2025 9:47 PM EDT [facility] Protein, Urine Trace Negative, Trace mg/dL LAB URINALYSIS - AUTOMATED METHOD 01/13/2025 9:47 PM EDT [facility] Glucose, Urine Negative Negative mg/dL LAB URINALYSIS - AUTOMATED METHOD 01/13/2025 9:47 PM EDT [facility] Ketones, Urine Negative Negative mg/dL LAB URINALYSIS - AUTOMATED METHOD 01/13/2025 9:47 PM EDT [facility] Blood, Urine Negative Negative, Trace mg/dL LAB URINALYSIS - AUTOMATED METHOD 01/13/2025 9:47 PM EDT [facility] RBC, Urine 1 0 - 3 /HPF LAB URINALYSIS - AUTOMATED METHOD 01/13/2025 9:47 PM EDT [facility] WBC, Urine <1 0 - 5 /HPF LAB URINALYSIS - AUTOMATED METHOD 01/13/2025 9:47 PM EDT [facility] Bacteria, Urine Present(A) Not Present /HPF LAB URINALYSIS - AUTOMATED METHOD 01/13/2025 9:47 PM EDT [facility] Squamous Epithelial, Urine >100(H) 0 - 5 /HPF LAB URINALYSIS - AUTOMATED METHOD 01/13/2025 9:47 PM EDT [facility] Mucus, Urine Present(A) Not Present /HPF LAB URINALYSIS - AUTOMATED METHOD 01/13/2025 9:47 PM EDT [facility] Hyaline Casts, Urine 22(H) <=0 /LPF LAB URINALYSIS - AUTOMATED METHOD 01/13/2025 9:47 PM EDT [facility] Urine Urine specimen obtained by clean catch procedure / Unknown Non-blood Collection / Unknown 01/13/2025 9:03 PM EDT 01/13/2025 9:14 PM EDT us Neal Avery MD LAB URINE ORDERABLES Final Re sult [facility] [address] [place] [address], * Chao urine culture tube (01/13/2025 9:03 PM EDT) Extra Tube Hold for add-ons. 01/13/2025 11:01 PM EDT [facility] Comment:Auto resulted. Urine Urine specimen obtained by clean catch procedure / Unknown Non-blood Collection / Unknown 01/13/2025 9:03 PM EDT 01/13/2025 9:14 PM EDT Neal Avery MD LAB URINE ORDERABLES Final Re sult Performing Organization Address City/[facility]/ZIP Co de Phone Number [facility] [address] [place] [address], [place] [phone] * Troponin I high sensitivity (01/13/2025 7:46 PM EDT) Only the most recent of2 resultswithin the time period is included. High Sensitivity Troponin I 4 0 - 14 ng/L LAB CHEMISTRY METHOD 01/13/2025 8:35 PM EDT [facility] Blood Venous blood specimen / Unknown Venipuncture / Unknown 01/13/2025 7:46 PM EDT 01/13/2025 7:55 PM EDT Narrative [facility] - 01/13/2025 8:35 PM EDT [...] method is an immunoenzymatic assay manufactured by [employer] and performed on the Bilneur DxI 800. Wally SOLIS LAB BLOOD ORDERABLES Final Resul t Performing Organization Address City/[facility]/ZIP Co de Phone Number [facility] [address] [place] [address], [place] [phone] * CT Angio Chest/Abdomen/Pelvis wo and/or w [...] Signed Date: 01/13/2025 20:11 ET Workstation ID: [id number] Transcribed By: Self Edit Transcribed Date: 01/13/2025 [...] Signed Date: 01/13/2025 20:11 ET Workstation ID: [id number] Transcribed By: Self Edit Transcribed Date: 01/13/2025 [...] GEMUSE QTc 457 ms GEMUSE P Wave [place] 26 degrees GEMUSE R Revere 12 degrees GEMUSE T Revere 7 degrees GEMUSE ECG Interpretation Normal sinus [...] Signed Date: 01/13/2025 18:08 ET Workstation ID: [id number] Transcribed By: Self Edit Transcribed Date: 01/13/2025 [...] Signed Date: 01/13/2025 18:08 ET Workstation ID: [id number] Transcribed By: Self Edit Transcribed Date: 01/13/2025 17:59 ET Neal Avery MD IMG XR PROCEDURES Final Resul t * (ABNORMAL) CBC auto differential (01/13/2025 4:21 PM EDT) [facility] WBC 7.4 4.0 - 10.5 K/mcL LAB HEMETOLOGY METHOD 01/13/2025 4:43 PM EDT [facility] RBC 5.63(H) 4.20 - 5.40 M/mcL LAB HEMETOLOGY METHOD 01/13/2025 4:43 PM EDT [facility] Hemoglobin 13.3 12.5 - 16.0 g/dL LAB HEMETOLOGY METHOD 01/13/2025 4:43 PM EDT [facility] Hematocrit 41.7 37.0 - 47.0 % LAB HEMETOLOGY METHOD 01/13/2025 4:43 PM EDT [facility] MCV 74.0(L) 78.0 - 100.0 FL LAB HEMETOLOGY METHOD 01/13/2025 4:43 PM EDT [facility] MCH 23.6(L) 25.0 - 33.0 pcg LAB HEMETOLOGY METHOD 01/13/2025 4:43 PM EDT [facility] MCHC 31.9(L) 32.0 - 36.0 g/dL LAB HEMETOLOGY METHOD 01/13/2025 4:43 PM EDT [facility] RDW 16.9(H) 12.1 - 16.2 % LAB HEMETOLOGY METHOD 01/13/2025 4:43 PM EDT [facility] Platelets 353 150 - 450 K/mcL LAB HEMETOLOGY METHOD 01/13/2025 4:43 PM EDT [facility] MPV 7.6 7.4 - 11.4 FL LAB HEMETOLOGY METHOD 01/13/2025 4:43 PM EDT [facility] Neutrophils Relative 80.3(H) 44.0 - 74.0 % LAB HEMETOLOGY METHOD 01/13/2025 4:43 PM EDT [facility] Lymphocytes Relative 10.3(L) 20.0 - 48.0 % LAB HEMETOLOGY METHOD 01/13/2025 4:43 PM EDT [facility] Monocytes Relative 5.8 2.0 - 12.0 % LAB HEMETOLOGY METHOD 01/13/2025 4:43 PM EDT [facility] Eosinophils Relative 3.3 0.0 - 6.0 % LAB HEMETOLOGY METHOD 01/13/2025 4:43 PM EDT [facility] Basophils Relative 0.3 0.0 - 2.0 % LAB HEMETOLOGY METHOD 01/13/2025 4:43 PM EDT [facility] Neutrophils Absolute 5.90 1.80 - 7.80 K/mcL LAB HEMETOLOGY METHOD 01/13/2025 4:43 PM EDT [facility] Lymphocytes Absolute 0.80(L) 1.00 - 3.20 K/mcL LAB HEMETOLOGY METHOD 01/13/2025 4:43 PM EDT [facility] Monocytes Absolute 0.40 0.00 - 0.80 K/mcL LAB HEMETOLOGY METHOD 01/13/2025 4:43 PM EDT [facility] Eosinophils Absolute 0.20 0.00 - 0.50 K/mcL LAB HEMETOLOGY METHOD 01/13/2025 4:43 PM EDT [facility] Basophils Absolute 0.00 0.00 - 0.20 K/mcL LAB HEMETOLOGY METHOD 01/13/2025 4:43 PM EDT [facility] Blood Venous blood specimen / Unknown Venipuncture / Unknown 01/13/2025 4:21 PM EDT 01/13/2025 4:37 PM EDT [facility] LAB BLOOD ORDERABLES Final Resul t Performing Organization Address City/[facility]/ZIP Co de Phone Number [facility] [address] [place] [address], [place] [phone] * hCG, serum, qualitative (01/13/2025 4:21 PM EDT) Pathologist [facility] hCG Qual Negative Negative LAB CHEMISTRY METHOD 01/13/2025 5:24 PM EDT [facility] Blood Venous blood specimen / Unknown Venipuncture / Unknown 01/13/2025 4:21 PM EDT 01/13/2025 4:37 PM EDT us Wally SOLIS LAB BLOOD ORDERABLES Final Resul t Performing Organization Address [facility] Co de Phone Number [facility] [address] [place] [address], [place] [phone] * B-type natriuretic peptide (01/13/2025 4:21 PM EDT) [facility] BNP 9 0 - 100 pcg/mL LAB CHEMISTRY METHOD 01/13/2025 5:23 PM EDT [facility] Blood Venous blood specimen / Unknown Venipuncture / Unknown 01/13/2025 4:21 PM EDT 01/13/2025 4:37 PM EDT us Wally SOLIS LAB BLOOD ORDERABLES Final Resul t Performing Organization Address City/[facility]/ZIP Co de Phone Number [facility] [address] [place] [address], [place] [phone] * Magnesium (01/13/2025 4:21 PM EDT) Pathologist [facility] Magnesium 2.1 1.7 - 2.8 mg/dL LAB CHEMISTRY METHOD 01/13/2025 5:12 PM EDT [facility] Blood Venous blood specimen / Unknown Venipuncture / Unknown 01/13/2025 4:21 PM EDT 01/13/2025 4:37 PM EDT us Wally SOLIS LAB BLOOD ORDERABLES Final Resul t Performing Organization Address [facility] Co de Phone Number [facility] [address] [place] [address], [place] [phone] * (ABNORMAL) Lipase (01/13/2025 4:21 PM EDT) Lipase 123(H) 11 - 82 unit/L LAB CHEMISTRY METHOD 01/13/2025 5:12 PM EDT [facility] Blood Venous blood specimen / Unknown Venipuncture / Unknown 01/13/2025 4:21 PM EDT 01/13/2025 4:37 PM EDT us Wally SOLIS LAB BLOOD ORDERABLES Final Resul t Performing Organization Address [facility] de Phone Number [facility] [address] [place] [address], [place] [phone] * (ABNORMAL) Creatine kinase (01/13/2025 4:21 PM EDT) Total CK 28(L) 30 - 135 unit/L LAB CHEMISTRY METHOD 01/13/2025 5:12 PM EDT [facility] Blood Venous blood specimen / Unknown Venipuncture / Unknown 01/13/2025 4:21 PM EDT 01/13/2025 4:37 PM EDT Neal Avery MD LAB BLOOD ORDERABLES Final Re sult Performing Organization Address City/[facility]/ZIP Co de Phone Number [facility] [address] [place] [address], [place] [phone] * Comprehensive metabolic panel (01/13/2025 4:21 PM EDT) Sodium 143 135 - 145 mmol/L LAB CHEMISTRY METHOD 01/13/2025 5:12 PM EDT [facility] Potassium 3.5 3.5 - 5.1 mmol/L LAB CHEMISTRY METHOD 01/13/2025 5:12 PM EDT [facility] Chloride 105 98 - 107 mmol/L LAB CHEMISTRY METHOD 01/13/2025 5:12 PM EDT [facility] CO2 27 24 - 32 mmol/L LAB CHEMISTRY METHOD 01/13/2025 5:12 PM EDT [facility] Anion Gap 11 5 - 14 LAB CHEMISTRY METHOD 01/13/2025 5:12 PM EDT [facility] Glucose 80 70 - 199 mg/dL LAB CHEMISTRY METHOD 01/13[facility]25 [facility] BUN 9 7 - 17 mg/dL LAB CHEMISTRY METHOD 01/13/2025 [facility] Creatinine 0.60 0.50 - 1.00 mg/dL LAB CHEMISTRY METHOD 01/13/2025 5:12 PM EDT [facility] eGFR 129 >=60 mL/min/1. 73m2 LAB CHEMISTRY METHOD 01/13/2025 5:12 PM EDT [facility] Comment:Calculation based on the Chronic Kidney Disease Epidemiology Collaboration (CKD-EPI) equation refit without adjustment for race. BUN/Creatinine Ratio 15.0 12.0 - 20.0 LAB CHEMISTRY METHOD 01/13/2025 5:12 PM EDT [facility] Calcium 8.6 8.4 - 10.2 mg/dL LAB CHEMISTRY METHOD 01/13/2025 5:12 PM [facility] AST (SGOT) 17 5 - 40 unit/L LAB CHEMISTRY METHOD 01/13/2025 5:12 PM [facility] ALT (SGPT) 28 7 - 52 unit/L LAB CHEMISTRY METHOD 01/13/2025 5:12 PM EDT [facility] Alkaline Phosphatase 66 34 - 104 unit/L LAB CHEMISTRY METHOD 01/13/2025 5:12 PM EDT [facility] Total Protein 6.8 6.4 - 8.5 g/dL LAB CHEMISTRY METHOD 01/13/2025 5:12 PM EDT [facility] Albumin 4.1 3.5 - 5.0 g/dL LAB CHEMISTRY METHOD 01/13/2025 5:12 PM EDT [facility] Total Bilirubin 0.4 0.3 - 1.0 mg/dL LAB CHEMISTRY METHOD 01/13/2025 5:12 PM EDT [facility] Blood Venous blood specimen / Unknown Venipuncture / Unknown 01/13/2025 4:21 PM EDT 01/13/2025 4:37 PM EDT [facility] LAB BLOOD ORDERABLES Final Resul t [facility] [address] [place] [address], [place] [phone] from Last 3 Months Insurance MEDICAID - [place] Care Teams Applications Processor Relationship Specialty Start Date End Date Physician, No Pcp PCP - General 01/13/25
--- OUTSIDE RECORDS SUMMARY | 2025-02-28 10:27 | XMS_ITS | Encounter Summary ---
Author Organization [employer] Address [address] [place] [address] 7[address] [place] [address] Care Team Providers Care Dinkey Operator Name Role Phone Cassie Saldana Primary Care Provider [phone] Gertrudis Hopkins RN Unavailable [phone] Alesia Pack Unavailable Reason for Visit * Reason Onset Date Comments Nurse Triage 01/13/2025 Encounter Details Date Type Department Care Team ([facility] st Contact Info) Description 01/13/2025 Telephone [facility] MED & PEDS [address] [place], [place] [phone] Cassie Saldana FNP [address] [place], [place] [phone] Nurse Triage Social History Tobacco Use Types [...] Please assist with obtaining discharge summary for [facility] 01/10-01/11 for provider review prior to upcoming appointment. Future Appointments Date Time Provider Department Center 01/15/2025 10:00 AM Adela Acosta CNP [facility] * Telephone Encounter - Farzaneh Urena RN - 01/13/2025 8:56 AM EDT Call returned to [facility] to triage below at [phone]. Reports having lower back pain x3 weeks. Pt was admitted to [facility] On 12/21/24 and discharged on Monday01/10/25. 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 Refills: 0. Gabapentin (gabapentin 300 mg oral [...] EVERY DAY. Patient states at discharge from [facility] was sent to [facility] on Wednesday 01/10. Pt states left AMA on Thursday 01/11. Pt states was not discharged with any meds. Pt does have wheelchair. Still having back pain. Pt states did call Rheumatology but is looking to be referred to a different office as states this admission was of result from no follow up from them. Pt given HDF with [facility] provider thisweek. Pt advised to contact rheumotology and request appt within 1 week. Reviewed home care advise,ER precautions and reasons to call back. Protocol Used: Post-Hospitalization Follow-up Call (Adult) Protocol-Based Disposition: See in Office or Video Visit Today or Tomorrow Future Appointments Date Time Provider Department Center 01/15/2025 10:00 AM Adela Acosta CNP [facility] Insurance verified as active per Real Time Eligibility in [facility]. Positive Triage Question: * [...] caller accepted this outcome. Contact pt at [phone] documented in this encounter Plan of Treatment Upcoming Encounters Date Type Department Care Team ([facility] st Contact Info) Description 03/17/2025 10:15 AM EST Office Visit [facility] MED [facility]EDS [address] [place] [address] Cassie Saldana FNP [address] [place] [address] documented as of this encounter Visit Diagnoses Not on filedocumented in this encounter Additional Health Concerns Assessment Noted Time PHQ-9 Depression Total Score: 10 024 11:22 AM EDT documented as of this encounter Care Teams Dinkey Operator Relationship Specialty Start Date End Date Cassie Saldana FNP [address] [place] [address] PCP - General Family Medicine 12/30/21 Gertrudis Hopkins RN [address] [place] [address] Registered Nurse Family Medicine 12/23/24 Alesia Pack 12/23/24 documented as of this encounter
--- OUTSIDE RECORDS SUMMARY | 2025-02-28 10:27 | XMS_ITS | Encounter Summary ---
Author Organization [employer] Address [address] [facility] [address]t [place] [address] Care Team Providers Care Formwork Carpenter Name Role Phone Cassie Saldana Primary Care Provider [phone] Fina Mckinnon Unavailable [phone] Jaqueline Carver Unavailable Unavailable Gertrudis Hopkins RN Unavailable [phone] Alesia Pack Unavailable Reason for Visit * Reason Onset Date Comments Call Back Request 12/11/2023 Encounter Details Date Type Department Care Team (Late st Contact Info) Description 12/11/2023 Telephone [facility] MEDICINE [address] [place] [address] Cassie Saldana FNP [address] [place], [place] [phone] Call Back Request Social History Tobacco Use [...] RN - 12/11/2023 4:14 PM EDT Gwendolyn Yogesh stating she dropped off housing paperwork and wants to ensure it is done quickly as she is currently couch surfing. Patient verbalized understanding and denied having any further questions or concerns at this time. * Telephone Encounter - Helga Munguia - 12/11/2023 3:19 PM EDT Tc from pt requesting a call back from PCP in regards paperwork drop at [facility] that pt needs to be filled out ivette. documented in this encounter Plan of Treatment Upcoming Encounters Date Type Department Care Team (Late st Contact Info) Description 03/17/2025 10:15 AM EST Office Visit [facility] CH[facility] MED & PEDS [address] [place] [address] Cassie Saldana FNP [address] [place] [address] documented as of this encounter Visit Diagnoses Not on filedocumented in this encounter Care Teams Formwork Carpenter Relationship Specialty Start Date End Date Cassie Saldana FNP [address] [place] [address] PCP - General Family Medicine 12/30/21 Fina Mckinnon Registered Nurse 10/07/24 10/07/24 Jaqueline Carver 10/07/24 10/07/24 Gertrudis Hopkins RN [address] [place] [address] Registered Nurse Family Medicine 12/23/24 Alesia Pack 12/23/24 documented as of this encounter
--- OUTSIDE RECORDS SUMMARY | 2025-02-28 10:27 | XMS_ITS | Encounter Summary ---
Author Organization [employer] Address [address] [place] [address] [address] [place] [address] Care Team Providers Care Machine Edge Bander Name Role Phone Cassie Saldana Primary Care Provider [phone] Gertrudis Hopkins RN Unavailable [phone] Alesia Pack Unavailable Reason for Visit * Reason Onset Date Comments Hospital Follow-up 01/13/2025 Encounter Details Date Type Department Care Team ([facility] st Contact Info) Description 01/13/[address] [facility] CH[facility] MED & PEDS [address] [place], [place] [phone] Cassie Saldana FNP [address] [place], [place] [phone] Hospital Follow-up Social History Tobacco Use Types [...] from pt requesting a HDF appt. Hospital: [facility] Date of admission: 12/21 Discharge date: 01/10 Diagnosed: Pelvic fracture on left side, Lupus flare, mass on pts back. *Send message to [facility] Clinical Care Coordinators Contact pt at [phone] documented in this encounter Plan of Treatment Upcoming Encounters Date Type Department Care Team ([facility] st Contact Info) Description 03/17/2025 10:15 AM EST Office Visit [facility] MED & PEDS [address] [place] [address] Cassie Saldana FNP [address] [place] [address] documented as of this encounter Visit Diagnoses Not on filedocumented in this encounter Additional Health Concerns Assessment Noted Time PHQ-9 Depression Total Score: 10 024 11:22 AM EDT documented as of this encounter Care Teams Machine Edge Bander Relationship Specialty Start Date End Date Cassie Saldana FNP [address] [place] [address] PCP - General Family Medicine 12/30/21 Gertrudis Hopkins RN [address] [place] [address] Registered Nurse Family Medicine 12/23/24 Alesia Pack 12/23/24 documented as of this encounter
--- OUTSIDE RECORDS SUMMARY | 2025-02-28 10:27 | XMS_ITS | Encounter Summary ---
Author Organization [employer] Address [address] [facility] 7t [place] [address] Care Team Providers Care Associate Merchant Name Role Phone Cassie Saldana Primary Care Provider Fina Mckinnon Unavailable [phone] Jaqueline Carver Unavailable Unavailable Gertrudis Hopkins RN Unavailable [phone] Alesia Pack Unavailable Reason for Visit * Reason Onset Date Comments Nurse Triage 01/12/2024 Encounter Details Date Type Department Care Team (Late st Contact Info) Description 01/12/2024 Telephone [facility] MEDICINE [address] [place] [address] Cassie Saldana FNP [address] [place], [place] [phone] Nurse Triage Social History Tobacco Use Types [...] time of call. Unable to come to [facility] today. Will attempt visit Monday AM. Reviewed [...] 03/17/2025 10:15 AM EST Office Visit [facility]S [address] [place], [place] [phone] Cassie Saldana FNP 505 [place] [address] documented as of this encounter Visit Diagnoses Not on filedocumented in this encounter Care Teams Associate Merchant Relationship Specialty Start Date End Date Cassie Saldana FNP [address] [place] [address] PCP - General Family Medicine 12/30/21 Fina Mckinnon Registered Nurse 10/07/24 10/07/24 Jaqueline Carver 10/07/24 10/07/24 Gertrudis Hopkins, SHERLYN 505 [place] [address] Registered Nurse Family Medicine 12/23/24 Alesia Pack 12/23/24 documented as of this encounter
== END 2025-02-28 10:23 | disposition home or self-care (01) ==
LOC: HO.HNS 09:30
PROVIDERS: PCP Registered Nurse; Visit Provider Physician Assistant
DX: D17.79 Benign lipomatous neoplasm of other sites (principal)
CPT/HCPCS: 99204

== ENCOUNTER → 2025-02-28 09:29 | Outpatient (BNVA) | payer MEDICAID, SELFPAY | PROVIDERS: PCP Registered Nurse; Visit Provider Physician Assistant | DX: D17.79 Benign lipomatous neoplasm of other sites (principal) | CPT/HCPCS: 99212 ==

== ENCOUNTER 2025-03-06 12:03 | Outpatient (REF) | payer MEDICAID, SELFPAY ==
[2025-03-06 13:15] LABS: MANUAL DIFF FLAG NO
[2025-03-06 13:28] LABS: Hematocrit 43.6 % (37.0-47.0); Hemoglobin 12.8 g/dl (12.0-16.0); Imm Gran Abs Auto 0.18 X10*3/uL (0.00-0.03); Imm Gran Pct Auto 2.4 % (0.0-0.4); Lymphocytes Absolute Auto 0.9 X10*3/uL (1.2-4.9); Mean Corpuscular HGB Conc 29.4 g/dl (31.0-35.0); Mean Corpuscular Hemoglobin 22.9 pg (27.0-33.0); Mean Corpuscular Volume 78.0 fL (80.0-98.0); NRBC Abs Auto 0.000 X10*3/uL (0.0-0.012); NRBC Pct Auto 0.0 /100WBC (0.0-0.2); Platelet Count 332 X10*3/uL (160-400); Red Blood Count 5.59 X10*6/uL (4.20-5.50); White Blood Count 7.6 X10*3/uL (4.8-10.8)
--- OUTSIDE RECORDS SUMMARY | 2025-03-06 15:00 | XMS_ITS | Encounter Summary ---
Author Organization [employer] Address [address] [facility] 7t [place] [address] Care Team Providers Care Dairy Grazer Name Role Phone Cassie Saldana Primary Care Provider [phone] Fina Mckinnon Unavailable Jaqueline Carver Unavailable Unavailable Gertrudis Hopkins RN Unavailable [phone] Alesia Pack Unavailable Reason for Visit * Reason Comments Med Refill Encounter Details Date Type Department Care Team (Late st Contact Info) Description 03/30/2024 Refill [facility] MEDICINE [address] [place] [address] Cassie Saldana FNP [address] [place] [address] Social History Tobacco Use Types Packs/Day Years [...] the past 12 months, has t he [employer], gas, oil or water company threatened to [...] Description 03/17/2025 10:15 AM EST Office Visit [facility] MED & PEDS 505 [place] [address] Cassie Saldana FNP 505 [place] [address] documented as of this encounter Visit Diagnoses Not on filedocumented in this encounter Additional Health Concerns Assessment Noted Time PHQ-9 Depression Total Score: 10 024 11:22 AM EDT documented as of this encounter Care Teams Dairy Grazer Relationship Specialty Start Date End Date Cassie Saldana FNP [address] [place] [address] PCP - General Family Medicine 12/30/21 Fina Mckinnon Registered Nurse 10/07/24 10/07/24 Jaqueline Carver 10/07/24 10/07/24 Gertrudis Hopkins RN 505 [place] [address] Registered Nurse Family Medicine 12/23/24 Alesia Pack 12/23/24 documented as of this encounter
--- OUTSIDE RECORDS SUMMARY | 2025-03-06 15:00 | XMS_ITS | Encounter Summary ---
Author Organization [employer] Address [address] [facility] 7t [place] [address] Care Team Providers Care Cell Cleaner Name Role Phone Cassie Saldana Primary Care Provider [phone] Fina Mckinnon Unavailable [phone] Jaqueline Carver Unavailable Unavailable Gertrudis Hopkins RN Unavailable [phone] Alesia Pack Unavailable Reason for Visit * Reason Onset Date Comments Nurse Triage 04/02/2024 Encounter Details Date Type Department Care Team (Late st Contact Info) Description 04/02/2024 Telephone [facility] MEDICINE 230 [place] [address] Cassie Saldana FNP [address] [place], [place] [phone] Nurse Triage Social History Tobacco Use Types [...] the past 12 months, has t he [employer], gas, oil or water [employer] threatened to shut off services in your [...] pain will need to be managed by [facility] rheumatology. Pt confirms that she missed her appt in February and is r/s for late April 2024 with [facility]. Pt would also like PCP to be aware that she is now with a different bilingual case manager as her longstanding one has left the practice. * Telephone Encounter - JULES Macdonald - 04/02/2024 9:37 AM EST Hi, please call Gwendolyn to review Rheum plan. She is following with [facility] Rheum, and plan per last consult note in October 2023, plan was to wean off prednisone and start Orencia infusion. I just sent in another bridge rx for her x 2 weeks, but she needs to contact Rheum and follow up with them regarding further management. She was scheduled for [facility] Rheum Appt in Feb 2024, [...] PCP and also another provider working in [facility] today. * Telephone Encounter - Crow Pack - 04/02/2024 8:33 AM EST Symptom: Pain - Severe Outcome: Schedule an urgent appointment (within 1 hour) or talk to a nurse or provider soon Reason: Caller denied all higher acuity questions documented in this encounter Plan of Treatment Upcoming Encounters Date Type Department Care Team ([facility] st Contact Info) Description 03/17/2025 10:15 AM EST Office Visit [facility] MED & PEDS 505 [place], [place] [phone] Cassie Saldana FNP 505 [place] [address] documented as of this encounter Visit Diagnoses Diagnosis Systemic lupus erythematosus, unspecified SLE type, unspecified organ involvement status (CMS/HCC) (HCC)- Primary documented in this encounter Additional Health Concerns Assessment Noted Time PHQ-9 Depression Total Score: 10 024 11:22 AM EDT documented as of this encounter Care Teams Cell Cleaner Relationship Specialty Start Date End Date Cassie Saldana FNP [address] [place] [address] PCP - General Family Medicine 12/30/21 Fina Mckinnon Registered Nurse 10/07/24 10/07/24 Jaqueline Carver 10/07/24 10/07/24 Gertrudis Hopkins, RN 505 [place] [address] Registered Nurse Family Medicine 12/23/24 Alesia Pack 12/23/24 documented as of this encounter
--- OUTSIDE RECORDS SUMMARY | 2025-03-06 15:00 | XMS_ITS | Encounter Summary ---
Author Organization [employer] Address [address] [place] [address] 7t [place] [address] Care Team Providers Care Cartoon Artist Name Role Phone Cassie Saldana Primary Care Provider [phone] Fina Mckinnon Unavailable [phone] Jaqueline Carver Unavailable Unavailable Gertrudis Hopkins RN Unavailable [phone] Alesia Pack Unavailable Reason for Visit * Reason Comments Med Refill Encounter Details Date Type Department Care Team (Late st Contact Info) Description 09/07/2023 Refill [facility] MED & PEDS [address] [place], [place] [phone] Cassie Saldana FNP [address] [place], [place] [phone] Rheumatoid arthritis involving multiple sites with positive [...] 10:15 AM EST Office Visit [facility] MED & PEDS [address] [place] [address] Cassie Saldana FNP [address] [place] [address] documented as of this encounter Visit Diagnoses Diagnosis Rheumatoid arthritis involving multiple sites with positive rheumatoid factor (CMS/HCC) (HCC) documented in this encounter Care Teams Cartoon Artist Relationship Specialty Start Date End Date Cassie Saldana FNP [address] [place] [address] PCP - General Family Medicine 12/30/21 Fina Mckinnon Registered Nurse 10/07/24 10/07/24 Jaqueline Carver 10/07/24 10/07/24 Gertrudis Hopkins, SHERLYN [address] [place] [address] Registered Nurse Family Medicine 12/23/24 Alesia Pack 12/23/24 documented as of this encounter
--- OUTSIDE RECORDS SUMMARY | 2025-03-06 15:00 | XMS_ITS ---
Author Organization [employer] Address [address] [place] [address] Care Team Providers Care Test Borer Name Role Phone Cassie Saldana Primary Care Provider [phone] Gertrudis Hopkins RN Unavailable [phone] Alesia Pack Unavailable CHW Complex Status:Enrolled (Active) Start date:12/23/2024 Enrollment date:02/19/2025 Enrollment reason:ADT Feed Overview ADT- Pt admitted to [facility] on 12/21/24. Please outreach for enrollment. Please outreach facility. Case Team Name Relationship Phone Alesia Pack(Responsible Staff) [phone] Continued Care and Services Coordination
--- OUTSIDE RECORDS SUMMARY | 2025-03-06 15:00 | XMS_ITS | Encounter Summary ---
Author Organization [employer] Address [address] [place] [address] 7t [place] [address] Care Team Providers Care Stock Parts Fabricator Name Role Phone Cassie Saldana Primary Care Provider Fina Mckinnon Unavailable [phone] Jaqueline Carver Unavailable Unavailable Gertrudis Hopkins RN Unavailable [phone] Alesia Pack Unavailable Reason for Visit * Reason Onset Date Comments Returning Call Back 05/26/2022 Encounter Details Date Type Department Care Team (Late st Contact Info) Description 05/26/2022 Telephone [facility] MEDICINE [address] [place] [address] Cassie Saldana FNP 505 [place], [place] [phone] Returning Call Back Social History Tobacco Use [...] [facility] [address] [place], [place] [phone] Cassie Saldana FNP 505 [place] [address] documented as of this encounter Visit Diagnoses Not on filedocumented in this encounter Care Teams Stock Parts Fabricator Relationship Specialty Start Date End Date Cassie Saldana FNP [address] [place] [address] PCP - General Family Medicine 12/30/21 Fina Mckinnon Registered Nurse 10/07/24 10/07/24 Jaqueline Carver 10/07/24 10/07/24 Gertrudis Hopkins, SHERLYN [address] [place] [address] Registered Nurse Family Medicine 12/23/24 Alesia Pack 12/23/24 Jeimy Hall program developer 05/30/23 08/06/23 documented as of this encounter
--- OUTSIDE RECORDS SUMMARY | 2025-03-06 15:00 | XMS_ITS ---
Author Organization [employer] Address [address] [place] [address] Care Team Providers Care Detailer Pharmaceuticals Name Role Phone Cassie Saldana Primary Care Provider [phone] Gertrudis Hopkins RN Unavailable [phone] Alesia Pack Unavailable CM Complex Status:Enrolled (Active) Start date:12/23/2024 Enrollment date:02/05/2025 Enrollment reason:ADT Feed Overview ADT- Pt [place] [facility] [place] 12[place]. Case Team Name Relationship Phone Gertrudis Hopkins RN(Responsible Staff) Registered Nurse [phone] Continued Care and Services Coordination
--- OUTSIDE RECORDS SUMMARY | 2025-03-06 15:00 | XMS_ITS | Clinical Summary ---
Author Organization [facility] Address [address] [address] Phone Care Team Providers Care Barge Hand Name Role Phone Chris Sanchez MD Unavailable [phone] Abelardo Ramos MD Unavailable [phone] Cassie Saldana Primary Care Provider Allergies No known active allergies Medications hydroxychloroqu [...] ACO C3 ACO C3 ACO Care Teams Barge Hand Relationship Specialty Start Date End Date Cassie Saldana FNP [address] [place] [address] PCP - General Nurse Practitioner 12/31/24 Chris Sanchez MD [facility]4 [place] [address] [email or web address] Consulting Provider Pediatric Cardiology 03/13/19 Abelardo Ramos MD [address] [place] [address] Consulting Provider Pediatric Gastroenterology 04/22/19 Additional Source Comments The information contained in this document represents components of the legal health record. It is not the complete legal health record.[facility]
--- OUTSIDE RECORDS SUMMARY | 2025-03-06 15:00 | XMS_ITS | Encounter Summary ---
Author Organization [employer] Address [address] [facility] 7t [place] [address] Care Team Providers Care Senior Financial Reporting Accountant Name Role Phone TeodoradawsonCassie BOAT RIDE OPERATOR Primary Care Provider [phone] Fina Mckinnon Unavailable [phone] Jaqueline Carver Unavailable Unavailable Gertrudis Hopkins RN Unavailable Alseia Pack Unavailable Encounter Details Date Type Department Care Team (Late Contact Info) Description 03/09/2023 Orders Only [facility] 230 [place], [place] [phone] Andrew Jorge MD 230 [place], [place] [phone] Social History Tobacco Use Types Packs/Day Years [...] Description 03/17/2025 10:15 AM EST Office Visit [facility] MED & PEDS 505 [place] [address] Cassie Saldana FNP 505 [place] [address] documented as of this encounter Visit Diagnoses Not on filedocumented in this encounter Care Teams Senior Financial Reporting Accountant Relationship Specialty Start Date End Date Cassie Saldana FNP [address] [place] [address] PCP - General Family Medicine 12/30/21 Fina Mckinnon Registered Nurse 10/07/24 10/07/24 Jaqueline Carver 10/07/24 10/07/24 Gertrudis Hopkins, RN [address] [place] [address] Registered Nurse Family Medicine 12/23/24 Alesia Pack 12/23/24 Jeimy Hall RN Care Manager 05/30/23 08/06/23 documented as of this encounter
--- OUTSIDE RECORDS SUMMARY | 2025-03-06 15:00 | XMS_ITS | Encounter Summary ---
Author Organization [employer] Address [address] [place] [address] 7t [place] [address] Care Team Providers Care Finance Lead Name Role Phone Cassie Saldana Primary Care Provider [phone] Fina Mckinnon Unavailable [phone] Jaqueline Carver Unavailable Unavailable Gertrudis Hopkins RN Unavailable [phone] Alesia Pack Unavailable Reason for Visit * Reason Comments Med Refill Encounter Details Date Type Department Care Team (Late st Contact Info) Description 10/08/2023 Refill [facility] MED & PEDS 505 [place], [place] [phone] Cassie Saldana FNP [address] [place], [place] [phone] Rheumatoid arthritis involving multiple sites with positive [...] Description 03/17/2025 10:15 AM EST Office Visit [facility] MED [facility]EDS [address] [place] [address] Cassie Saldana FNP [address] [place] [address] documented as of this encounter Visit Diagnoses Diagnosis Rheumatoid arthritis involving multiple sites with positive rheumatoid factor (CMS/HCC) (HCC) documented in this encounter Care Teams Finance Lead Relationship Specialty Start Date End Date Cassie Saldana FNP [address] [place] [address] PCP - General Family Medicine 12/30/21 Fina Mckinnon Registered Nurse 10/07/24 10/07/24 Jaqueline Carver 10/07/24 10/07/24 Gertrudis Hopkins, SHERLYN 505 [place] [address] Registered Nurse Family Medicine 12/23/24 Alesia Pack 12/23/24 documented as of this encounter
--- OUTSIDE RECORDS SUMMARY | 2025-03-06 15:01 | XMS_ITS | Encounter Summary ---
Author Organization [employer] Address [address] [facility] 7t [place] [address] Care Team Providers Care Yard Goods Salesperson Name Role Phone Cassie Saldana Primary Care Provider Fina Mckinnon Unavailable [phone] Jaqueline Carver Unavailable Unavailable Gertrudis Hopkins RN Unavailable [phone] Alesia Pack Unavailable Reason for Visit * Reason Onset Date Comments Nurse Triage 01/12/2024 Encounter Details Date Type Department Care Team (Late st Contact Info) Description 01/12/2024 Telephone [facility] MEDICINE 230 [place] [address] Cassie Saldana FNP [address] [place], [place] [phone] Nurse Triage Social History Tobacco Use Types [...] time of call. Unable to come to [facility] today. Will attempt visit Monday AM. [...] 10:15 AM EST Office Visit [facility] MED & PEDS [address] [place], [place] [phone] Cassie Saldana FNP 505 [place] [address] documented as of this encounter Visit Diagnoses Not on filedocumented in this encounter Care Teams Yard Goods Salesperson Relationship Specialty Start Date End Date Cassie Saldana FNP [address] [place] [address] PCP - General Family Medicine 12/30/21 Fina Mckinnon Registered Nurse 10/07/24 10/07/24 Jaqueline Carver 10/07/24 10/07/24 Gertrudis Hopkins, SHERLYN 505 [place] [address] Registered Nurse Family Medicine 12/23/24 Alesia Pack 12/23/24 documented as of this encounter
--- OUTSIDE RECORDS SUMMARY | 2025-03-06 15:01 | XMS_ITS | Encounter Summary ---
Author Organization [employer] Address [address] [facility] 7t [place] [address] Care Team Providers Care Regulatory Compliance Officer Name Role Phone Cassie Saldana Primary Care Provider [phone] Gertrudis Hopkins RN Unavailable [phone] Alesia Pack Unavailable Reason for Visit * Reason Comments Care Coordination SDOH f/u Encounter Details Date Type Department Care Team (Latest Contact Info) Description 03/03/2025 Patient Outreach [facility] MEDICINE [address] [place] [address] Cassie Saldana FNP [address] [place] [address] Care Coordination (SDOH f/u) Social History Tobacco Use Types Packs/Day Years [...] PM EDT documented as of this encounter Progress Notes * Alesia Pack - 03/03/2025 10:43 AM EDT CHW Alesia Pack placed outbound call to patient to follow up on SDOH needs. Patient's name, and address confirmed. Patient stated she received the call from the [employer] and HRSN program was explained to her and she accepted the program. CHW let patient know that I will also mail out housing applications for a first floor. No further questions or concerns. CHW reinforced direct contact information or CM for any additional questions or concerns and extended clinic hours on Mondays and Wednesdays, and Walk-In Urgent Care Located in [facility] of [facility]. Patient provided with after-hours line for [facility], , which offer night time triage service and option to transfer to technical operations specialist provider if needed. Patient verbalizes understanding, and able to repeat back to script writer. A follow up call willbe placed within 10 days, patient agrees with plan. documented in this encounter Plan of Treatment Upcoming Encounters Date Type Department Care Team (Hannah odnald Contact Info) Description 03/17/2025 10:15 AM EST Office Visit [facility] MED & PEDS [address] [place] [address] Cassie Saldana FNP 505 [place] [address] documented as of this encounter Visit Diagnoses Not on filedocumented in this encounter Additional Health Concerns Assessment Noted Time PHQ-9 Depression Total Score: 3 02/05/20 10:18 AM EDT documented as of this encounter Care Teams Regulatory Compliance Officer Relationship Specialty Start Date End Date Cassie Saldana FNP [address] [place] [address] PCP - General Family Medicine 12/30/21 Gertrudis Hopkins, SHERLYN [address] [place] [address] Registered Nurse Family Medicine 12/23/24 Alesia Pack 12/23/24 documented as of this encounter
--- OUTSIDE RECORDS SUMMARY | 2025-03-06 15:01 | XMS_ITS | Encounter Summary ---
Author Organization [employer] Address [address] [place] [address] 7t [place] [address] Care Team Providers Care Ammonia Nitrate Operator Name Role Phone Cassie Saldana Primary Care Provider Gertrudis Hopkins RN Unavailable [phone] Alesia Pack Unavailable Reason for Visit * Reason Comments Care Management C3CM- f/u call Encounter Details Date Type Department Care Team ([facility] st Contact Info) Description 03/05/2025 Patient Outreach [facility] MEDICINE 230 [place] [address] Cassie Saldana FNP [address] [place], [place] [phone] Care Management (C3CM- f/u call) Social History Tobacco Use Types Packs/Day Years [...] as of this encounter Progress Notes * Gertrudis Hopkins RN - 03/05/2025 10:47 AM EDT RAFAELA Hopkins RN placed outbound call to patient. Patient's name, and address confirmed. Patient c/o fatigue. She states she contacted the office yesterday requesting an order for hemoglobin A1c. Per patient, was contacted and was advised that the order was placed. She states she plans on getting the lab work done this afternoon at [facility]. Patient denies any bleeding but does state that she has noted bruising lately. She denies any other symptoms at this time. RAFAELA attempted to schedule an office visit at [facility] today for further eval. Patient declines stating she is scheduled for another appointment this afternoon. She states she plans on completing the labs today and will f/u as needed. CM educated patient of use of walk in center at [facility] and provided her with clinic hours. She verbalizes understanding and agrees to f/u prn. Per patient, scheduled to see her Apartment Property Manager on Monday03/10/25. She is also aware of her scheduled f/u with PCP on 03/17/25 at 10:15am. Patient denies any further needs or concerns at this time. CM reinforced direct contact information for any additional questions or concerns. Education provided on Walk-In Urgent Care located in [facility] of [facility]. Patient provided with after-hours line for [facility], , which offer night time triage service and option to transfer to boot and saddle repair person provider if needed. Patient verbalizes understanding, and able to repeat back to script writer. A follow upcall will be placed within 10 days, patient agrees with plan. documented in this encounter Plan of Treatment Upcoming Encounters Date Type Department Care Team ([facility] st Contact Info) Description 03/17/2025 10:15 AM EST Office Visit [facility] MED & PEDS 505 [place] [address] Cassie Saldana FNP [address] [place] [address] documented as of this encounter Visit Diagnoses Not on filedocumented in this encounter Additional Health Concerns Assessment Noted Time PHQ-9 Depression Total Score: 3 02/05/20 10:18 AM EDT documented as of this encounter Care Teams Ammonia Nitrate Operator Relationship Specialty Start Date End Date Cassie Saldana FNP [address] [place] [address] PCP - General Family Medicine 12/30/21 Gertrudis Hopkins RN 505 [place] [address] Registered Nurse Family Medicine 12/23/24 Alesia Pack 12/23/24 documented as of this encounter
--- OUTSIDE RECORDS SUMMARY | 2025-03-06 15:01 | XMS_ITS | Encounter Summary ---
Author Organization [employer] Address [address] [place] [address] [address] [place] [address] Care Team Providers Care Historical Guide Name Role Phone Cassie Saldana Primary Care Provider [phone] Gertrudis Hopkins RN Unavailable [phone] Alesia Pack Unavailable Reason for Visit * Reason Onset Date Comments Nurse Triage 01/13/2025 Encounter Details Date Type Department Care Team ([facility] st Contact Info) Description 01/13/2025 Telephone [facility] PEDS [address] [place], [place] [phone] Cassie Saldana FNP [address] [place], [place] [phone] Nurse Triage Social History Tobacco Use Types [...] Please assist with obtaining discharge summary for [facility] 01/10-01/11 for provider review prior to upcoming appointment. Future Appointments Date Time Provider Department Center 01/15/2025 10:00 AM Adela Acosta CNP [facility] * Telephone Encounter - Farzaneh Urena RN - 01/13/2025 8:56 AM EDT Call returned to [facility] to triage below at [phone]. Reports having lower back pain x3 weeks. Pt was admitted to [facility] On 12/21/24 and discharged on Monday01/10/25. 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 Refills: 0. Gabapentin (gabapentin 300 mg oral [...] EVERY DAY. Patient states at discharge from [facility] was sent to [facility] on Wednesday 01/10. Pt states left AMA on Thursday 01/11. Pt states was not discharged with any meds. Pt does have wheelchair. Still having back pain. Pt states did call Rheumatology but is looking to be referred to a different office as states this admission was of result from no follow up from them. Pt given HDF with [facility] provider thisweek. Pt advised to contact rheumotology and request appt within 1 week. Reviewed home care advise,ER precautions and reasons to call back. Protocol Used: Post-Hospitalization Follow-up Call (Adult) Protocol-Based Disposition: See in Office or Video Visit Today or Tomorrow Future Appointments Date Time Provider Department Center 01/15/2025 10:00 AM Adela Acosta CNP [facility] Insurance verified as active per Real Time Eligibility in [facility]. Positive Triage Question: * Patient wants [...] caller accepted this outcome. Contact pt at [phone] documented in this encounter Plan of Treatment Upcoming Encounters Date Type Department Care Team ([facility] st Contact Info) Description 03/17/2025 10:15 AM EST Office Visit [facility] MED & PEDS [address] [place] [address] Cassie Saldana FNP [address] [place] [address] documented as of this encounter Visit Diagnoses Not on filedocumented in this encounter Additional Health Concerns Assessment Noted Time PHQ-9 Depression Total Score: 10 024 11:22 AM EDT documented as of this encounter Care Teams Historical Guide Relationship Specialty Start Date End Date Cassie Saldana FNP [address] [place] [address] PCP - General Family Medicine 12/30/21 Gertrudis Hopkins RN [address] [place] [address] Registered Nurse Family Medicine 12/23/24 Alesia Pack 12/23/24 documented as of this encounter
--- OUTSIDE RECORDS SUMMARY | 2025-03-06 15:01 | XMS_ITS | Encounter Summary ---
Author Organization [employer] Address [address] [place] [address] [address] [place] [address] Care Team Providers Care Stone Polisher Name Role Phone Cassie Saldana Primary Care Provider Gertrudis Hopkins RN Unavailable [phone] Alesia Pack Unavailable Reason for Visit * Reason Onset Date Comments Results 03/06/2025 Encounter Details Date Type Department Care Team (Late st Contact Info) Description 03/06/2025 Telephone [facility] MEDICINE [address] [place] [address] Cassie Saldana FNP [address] [place], [place] [phone] Results Social History Tobacco Use Types Packs/Day Years [...] encounter Miscellaneous Notes * Telephone Encounter - Nohelia Zuñiga - 03/06/2025 2:43 PM EDT TC from pt requesting a call back with lab results. PCP KATERYNA Saldana documented in this encounter Plan of Treatment Upcoming Encounters Date Type Department Care Team (Late st Contact Info) Description 03/17/2025 10:15 AM EST Office Visit [facility] MED & PEDS [address] [place] [address] Cassie Saldana FNP [address] [place] [address] documented as of this encounter Visit Diagnoses Not on filedocumented in this encounter Additional Health Concerns Assessment Noted Time PHQ-9 Depression Total Score: 3 02/05/20 25 10:18 AM EDT documented as of this encounter Care Teams Stone Polisher Relationship Specialty Start Date End Date Cassie Saldana FNP [address] [place] [address] PCP - General Family Medicine 12/30/21 Gertrudis Hopkins RN [address] [place] [address] Registered Nurse Family Medicine 12/23/24 Alesia Pack 12/23/24 documented as of this encounter
--- OUTSIDE RECORDS SUMMARY | 2025-03-06 15:01 | XMS_ITS | Clinical Summary ---
Author Organization [facility] Address [address] [place] [address] Phone Care Team Providers Care Talent Acquisition Project Manager Name Role Phone Physician, No Pcp Primary [...] EDT - 01/14/2025 12:20 AM EDT Emergency [facility] Emergency [address] [place] [address] Neal Avery MD Schreiner, Ian, [...] - AUTOMATED METHOD 01/13/2025 9:47 PM EDT [facility] Clarity, Urine Clear Clear LAB URINALYSIS - AUTOMATED METHOD 01/13/2025 9:47 PM EDT [facility] Specific Ira Urine 1.015 1.005 - 1.030 LAB URINALYSIS - AUTOMATED METHOD 01/13/2025 9:47 PM EDT [facility] pH, Urine 5.0(A) 5.0 - 8.0 pH LAB URINALYSIS - AUTOMATED METHOD 01/13/2025 9:47 PM EDT [facility] Leukocytes, Urine Negative Negative WBCs/mcL LAB URINALYSIS - AUTOMATED METHOD 01/13/2025 9:47 PM EDT [facility] Nitrite, Urine Positive(A) Negative LAB URINALYSIS - AUTOMATED METHOD 01/13/2025 9:47 PM EDT [facility] Protein, Urine Trace Negative, Trace mg/dL LAB URINALYSIS - AUTOMATED METHOD 01/13/2025 9:47 PM EDT [facility] Glucose, Urine Negative Negative mg/dL LAB URINALYSIS - AUTOMATED METHOD 01/13/2025 9:47 PM EDT [facility] Ketones, Urine Negative Negative mg/dL LAB URINALYSIS - AUTOMATED METHOD 01/13/2025 9:47 PM EDT [facility] Blood, Urine Negative Negative, Trace mg/dL LAB URINALYSIS - AUTOMATED METHOD 01/13/2025 9:47 PM EDT [facility] RBC, Urine 1 0 - 3 /HPF LAB URINALYSIS - AUTOMATED METHOD 01/13/2025 9:47 PM EDT [facility] WBC, Urine <1 0 - 5 /HPF LAB URINALYSIS - AUTOMATED METHOD 01/13/2025 9:47 PM EDT [facility] Bacteria, Urine Present(A) Not Present /HPF LAB URINALYSIS - AUTOMATED METHOD 01/13/2025 9:47 PM EDT [facility] Squamous Epithelial, Urine >100(H) 0 - 5 /HPF LAB URINALYSIS - AUTOMATED METHOD 01/13/2025 9:47 PM EDT [facility] Mucus, Urine Present(A) Not Present /HPF LAB URINALYSIS - AUTOMATED METHOD 01/13/2025 9:47 PM EDT [facility] Hyaline Casts, Urine 22(H) <=0 /LPF LAB URINALYSIS - AUTOMATED METHOD 01/13/2025 9:47 PM EDT [facility] Urine Urine specimen obtained by clean catch procedure / Unknown Non-blood Collection / Unknown 01/13/2025 9:03 PM EDT 01/13/2025 9:14 PM EDT us Neal Avery MD LAB URINE ORDERABLES Final Re sult [facility] [address] [place] [address], * Chao urine culture tube (01/13/2025 9:03 PM EDT) Extra Tube Hold for add-ons. 01/13/2025 11:01 PM EDT [facility] Comment:Auto resulted. Urine Urine specimen obtained by clean catch procedure / Unknown Non-blood Collection / Unknown 01/13/2025 9:03 PM EDT 01/13/2025 9:14 PM EDT Neal Avery MD LAB URINE ORDERABLES Final Re sult Performing Organization Address City/[facility]/ZIP Co de Phone Number [facility] [address] [place] [address], [place] [phone] * Troponin I high sensitivity (01/13/2025 7:46 PM EDT) Only the most recent of2 resultswithin the time period is included. High Sensitivity Troponin I 4 0 - 14 ng/L LAB CHEMISTRY METHOD 01/13/2025 8:35 PM EDT [facility] Blood Venous blood specimen / Unknown Venipuncture / Unknown 01/13/2025 7:46 PM EDT 01/13/2025 7:55 PM EDT Narrative [facility] - 01/13/2025 8:35 PM EDT [...] method is an immunoenzymatic assay manufactured by [employer] and performed on the [employer] DxI 800. Wally [facility] LAB BLOOD ORDERABLES Final Resul t Performing Organization Address City/[facility]/ZIP Co de Phone Number [facility] [address] [place] [address], [place] [phone] * CT Angio Chest/Abdomen/Pelvis wo and/or w [...] Signed Date: 01/13/2025 20:11 ET Workstation ID: [id number] Transcribed By: Self Edit Transcribed Date: 01/13/2025 [...] Signed Date: 01/13/2025 20:11 ET Workstation ID: [id number] Transcribed By: Self Edit Transcribed Date: 01/13/2025 [...] GEMUSE QTc 457 ms GEMUSE P Wave [place] 26 degrees GEMUSE R [place] 12 degrees GEMUSE T [place] 7 degrees GEMUSE ECG Interpretation Normal sinus [...] -------- FINAL REPORT -------- Dictated By: Garry Gatse Dictated Date: 01/13/2025 17:59 ET Assigned Physician: Garry Gates Reviewed and Electronically Signed By: Garry Gates Signed Date: 01/13/2025 18:08 ET Workstation ID: [id number] Transcribed By: Self Edit Transcribed Date: 01/13/2025 [...] Signed Date: 01/13/2025 18:08 ET Workstation ID: [id number] Transcribed By: Self Edit Transcribed Date: 01/13/2025 17:59 ET Neal Avery MD IMG XR PROCEDURES Final Resul t * (ABNORMAL) CBC auto differential (01/13/2025 4:21 PM EDT) [facility] WBC 7.4 4.0 - 10.5 K/mcL LAB HEMETOLOGY METHOD 01/13/2025 4:43 PM EDT [facility] RBC 5.63(H) 4.20 - 5.40 M/mcL LAB HEMETOLOGY METHOD 01/13/2025 4:43 PM EDT [facility] Hemoglobin 13.3 12.5 - 16.0 g/dL LAB HEMETOLOGY METHOD 01/13/2025 4:43 PM EDT [facility] Hematocrit 41.7 37.0 - 47.0 % LAB HEMETOLOGY METHOD 01/13/2025 4:43 PM EDT [facility] MCV 74.0(L) 78.0 - 100.0 FL LAB HEMETOLOGY METHOD 01/13/2025 4:43 PM EDT [facility] MCH 23.6(L) 25.0 - 33.0 pcg LAB HEMETOLOGY METHOD 01/13/2025 4:43 PM EDT [facility] MCHC 31.9(L) 32.0 - 36.0 g/dL LAB HEMETOLOGY METHOD 01/13/2025 4:43 PM EDT [facility] RDW 16.9(H) 12.1 - 16.2 % LAB HEMETOLOGY METHOD 01/13/2025 4:43 PM EDT [facility] Platelets 353 150 - 450 K/mcL LAB HEMETOLOGY METHOD 01/13/2025 4:43 PM EDT [facility] MPV 7.6 7.4 - 11.4 FL LAB HEMETOLOGY METHOD 01/13/2025 4:43 PM EDT [facility] Neutrophils Relative 80.3(H) 44.0 - 74.0 % LAB HEMETOLOGY METHOD 01/13/2025 4:43 PM EDT [facility] Lymphocytes Relative 10.3(L) 20.0 - 48.0 % LAB HEMETOLOGY METHOD 01/13/2025 4:43 PM EDT [facility] Monocytes Relative 5.8 2.0 - 12.0 % LAB HEMETOLOGY METHOD 01/13/2025 4:43 PM EDT [facility] Eosinophils Relative 3.3 0.0 - 6.0 % LAB HEMETOLOGY METHOD 01/13/2025 4:43 PM EDT [facility] Basophils Relative 0.3 0.0 - 2.0 % LAB HEMETOLOGY METHOD 01/13/2025 4:43 PM EDT [facility] Neutrophils Absolute 5.90 1.80 - 7.80 K/mcL LAB HEMETOLOGY METHOD 01/13/2025 4:43 PM EDT [facility] Lymphocytes Absolute 0.80(L) 1.00 - 3.20 K/mcL LAB HEMETOLOGY METHOD 01/13/2025 4:43 PM EDT [facility] Monocytes Absolute 0.40 0.00 - 0.80 K/mcL LAB HEMETOLOGY METHOD 01/13/2025 4:43 PM EDT [facility] Eosinophils Absolute 0.20 0.00 - 0.50 K/mcL LAB HEMETOLOGY METHOD 01/13/2025 4:43 PM EDT [facility] Basophils Absolute 0.00 0.00 - 0.20 K/mcL LAB HEMETOLOGY METHOD 01/13/2025 4:43 PM EDT [facility] Blood Venous blood specimen / Unknown Venipuncture / Unknown 01/13/2025 4:21 PM EDT 01/13/2025 4:37 PM EDT [facility] LAB BLOOD ORDERABLES Final Resul t Performing Organization Address City/[facility]/ZIP Co de Phone Number [facility] [address] [place] [address], [place] [phone] * hCG, serum, qualitative (01/13/2025 4:21 PM EDT) Pathologist [facility] hCG Qual Negative Negative LAB CHEMISTRY METHOD 01/13/2025 5:24 PM EDT [facility] Blood Venous blood specimen / Unknown Venipuncture / Unknown 01/13/2025 4:21 PM EDT 01/13/2025 4:37 PM EDT us Wally SOLIS LAB BLOOD ORDERABLES Final Resul t Performing Organization Address [facility] Co de Phone Number [facility] [address] [place] [address], [place] [phone] * B-type natriuretic peptide (01/13/2025 4:21 PM EDT) [facility] BNP 9 0 - 100 pcg/mL LAB CHEMISTRY METHOD 01/13/2025 5:23 PM EDT [facility] Blood Venous blood specimen / Unknown Venipuncture / Unknown 01/13/2025 4:21 PM EDT 01/13/2025 4:37 PM EDT us Wally SOLIS LAB BLOOD ORDERABLES Final Resul t Performing Organization Address City/[facility]/ZIP Co de Phone Number [facility] [address] [place] [address], [place] [phone] * Magnesium (01/13/2025 4:21 PM EDT) Pathologist [facility] Magnesium 2.1 1.7 - 2.8 mg/dL LAB CHEMISTRY METHOD 01/13/2025 5:12 PM EDT [facility] Blood Venous blood specimen / Unknown Venipuncture / Unknown 01/13/2025 4:21 PM EDT 01/13/2025 4:37 PM EDT us Wally SOLIS LAB BLOOD ORDERABLES Final Resul t Performing Organization Address [facility] Co de Phone Number [facility] [address] [place] [address], [place] [phone] * (ABNORMAL) Lipase (01/13/2025 4:21 PM EDT) Lipase 123(H) 11 - 82 unit/L LAB CHEMISTRY METHOD 01/13/2025 5:12 PM EDT [facility] Blood Venous blood specimen / Unknown Venipuncture / Unknown 01/13/2025 4:21 PM EDT 01/13/2025 4:37 PM EDT us Wally SOLIS LAB BLOOD ORDERABLES Final Resul t Performing Organization Address [facility] de Phone Number [facility] [address] [place] [address], [place] [phone] * (ABNORMAL) Creatine kinase (01/13/2025 4:21 PM EDT) Total CK 28(L) 30 - 135 unit/L LAB CHEMISTRY METHOD 01/13/2025 5:12 PM EDT [facility] Blood Venous blood specimen / Unknown Venipuncture / Unknown 01/13/2025 4:21 PM EDT 01/13/2025 4:37 PM EDT Neal Avery MD LAB BLOOD ORDERABLES Final Re sult Performing Organization Address City/[facility]/ZIP Co de Phone Number [facility] [address] [place] [address], [place] [phone] * Comprehensive metabolic panel (01/13/2025 4:21 PM EDT) Sodium 143 135 - 145 mmol/L LAB CHEMISTRY METHOD 01/13/2025 5:12 PM EDT [facility] Potassium 3.5 3.5 - 5.1 mmol/L LAB CHEMISTRY METHOD 01/13/2025 5:12 PM EDT [facility] Chloride 105 98 - 107 mmol/L LAB CHEMISTRY METHOD 01/13/2025 5:12 PM EDT [facility] CO2 27 24 - 32 mmol/L LAB CHEMISTRY METHOD 01/13/2025 5:12 PM EDT [facility] Anion Gap 11 5 - 14 LAB CHEMISTRY METHOD 01/13/2025 5:12 PM EDT [facility] Glucose 80 70 - 199 mg/dL LAB CHEMISTRY METHOD [facility]25 [facility] BUN 9 7 - 17 mg/dL LAB CHEMISTRY METHOD [facility]25 [facility] Creatinine 0.60 0.50 - 1.00 mg/dL LAB CHEMISTRY METHOD 01/13/2025 5:12 PM EDT [facility] eGFR 129 >=60 mL/min/1. 73m2 LAB CHEMISTRY METHOD 01/13/2025 5:12 PM EDT [facility] Comment:Calculation based on the Chronic Kidney Disease Epidemiology Collaboration (CKD-EPI) equation refit without adjustment for race. BUN/Creatinine Ratio 15.0 12.0 - 20.0 LAB CHEMISTRY METHOD 01/13/2025 5:12 PM EDT [facility] Calcium 8.6 8.4 - 10.2 mg/dL LAB CHEMISTRY METHOD 01/13/2025 5:12 PM [facility] AST (SGOT) 17 5 - 40 unit/L LAB CHEMISTRY METHOD 01/13/2025 5:12 PM [facility] ALT (SGPT) 28 7 - 52 unit/L LAB CHEMISTRY METHOD 01/13/2025 5:12 PM EDT [facility] Alkaline Phosphatase 66 34 - 104 unit/L LAB CHEMISTRY METHOD 01/13/2025 5:12 PM EDT [facility] Total Protein 6.8 6.4 - 8.5 g/dL LAB CHEMISTRY METHOD 01/13/2025 5:12 PM EDT [facility] Albumin 4.1 3.5 - 5.0 g/dL LAB CHEMISTRY METHOD 01/13/2025 5:12 PM EDT [facility] Total Bilirubin 0.4 0.3 - 1.0 mg/dL LAB CHEMISTRY METHOD 01/13/2025 5:12 PM EDT [facility] Blood Venous blood specimen / Unknown Venipuncture / Unknown 01/13/2025 4:21 PM EDT 01/13/2025 4:37 PM EDT [facility] LAB BLOOD ORDERABLES Final Resul t [facility] [address] [place] [address], [place] [phone] from Last 3 Months Insurance MEDICAID - [place] Care Teams Talent Acquisition Project Manager Relationship Specialty Start Date End Date Physician, No Pcp PCP - General 01/13/25
--- OUTSIDE RECORDS SUMMARY | 2025-03-06 15:01 | XMS_ITS | Clinical Summary ---
Author Organization [employer] Address [address] [facility] 7t [place] [address] Care Team Providers Care Blood Bank Credit Clerk Name Role Phone Cassie Saldana Primary Care Provider Gertrudis Hopkins RN Unavailable [phone] Alesia Pack Unavailable Allergies No known active [...] tablet 11 5 01/16/20 26 Active White Petrolatum-Aurora al Oil (artificial tears) 83-15 % ointment [...] BP elevated in office. 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 Appt to establish with [facility]. EKG stable, planning for an [...] upon post- discharge in November 2022 from [facility] Assessment & Plan (04/29/2023 9:37 AM EST): -DBP elevated, denies any chest pain, BUENO, SOB, palpitations, or other associated symptoms -Nifedipine 60mg daily sent to pharmacy -Encouraged to monitor BP readings at home, return precautions Healthcare maintenance 04/29/2023 Overview (04/29/2023): Contraception: Nexplanon placed post- November 2022 at [facility] Raynaud's phenomenon (secondary) 05/13/2022 Rheumatoid arthritis (CMS/HCC) 06/19/2020 Overview (01/29/2024): -Seropositive RA (RF++ CCP-) -Currently following with [facility] Rheum Current med regimen: hydroxychloroquine 200mg BID and prednisone 30mg daily Previous med trials: Humira, Rituxan infusion Per consult October 2023 - Goal: start biologic with plan to wean off prednisone daily. Plan to order Orencia infusion, follow up in 12 weeks Assessment & Plan (01/29/2024 9:19 PM EDT): Called [facility] Rheum with pt to discuss f/up regarding Orencia as Gwendolyn reports she has not heard from office since last appt. LVM with request to return call directly to pt. Assessment & Plan (05/13/2022 6:50 PM EST): -Seropositive RA (RF++ CCP-) previously managed with Plaquenil and prednisone by Dr. Diaz of [facility] Rheumatology, who has since left. Has not [...] that impact daily functioning -Case discussion with [facility] pharmacy - risk of untreated [...] pending initial consult with OBGYN. Autoimmune hepatitis ([facility]) 03/25/2013 Assessment & Plan (04/29/2023 9:29 AM EST): -Previously tx w/ azathioprine 75 mg daily for autoimmune hepatitis -08/04/22: Established with [facility] GI for autoimmune hepatitis. Dr. Nhi white. 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 -Established with [facility] GI in September 2021 Low vision, both eyes 10/14/2011 Systemic lupus erythematosus ([facility]) 2 Overview (09/10/2024): Seropositive RA (RF++ CCP-) previously managed with Plaquenil and prednisone by [facility] Rheumatology Previously following with [facility], currently following with [facility] Rheum Med regimen (as of August 2024) [...] & Plan (06/05/2022 6:49 PM EST): -Called [facility] rheum with patient to schedule appt. Discussed importance that pt be seen soon due to high risk -Continue with prednisone 30mg daily -Consider bridge rx of hydroxychloroquine in primary care until pt able to be established with Rheum. Will place [facility] consult Assessment & Plan (05/24/2022 12:43 PM EST): -Seropositive RA (RF++ CCP-) previously managed with Plaquenil and prednisone by Dr. Diaz of [facility] Rheumatology, who has since left. Has not [...] that impact daily functioning -Case discussion with [facility] pharmacy - risk of untreated [...] EDT): - Nexplanon placed November 2022 by [facility] following delivery - Pt reported interested in removal due to SE - feelings of weight gain, fatigue - Nexplanon removal 09/26/23 at [facility] Assessment & Plan (09/23/2023 4:17 PM EDT): - Nexplanon placed November 2022 by [facility] following delivery - Pt reported interested in removal due to SE - feelings of weight gain, fatigue - Plan to call next week to schedule appt for Nexplanon removal - List of alternative contraceptive methods provided for pt to review 06/05/2022 04/29/2023 Overview (06/05/2022): -LMP 04/02/22 -Referred to [facility] O[facility] - initial appt Jun 15, [...] Encounters Date Type Department Care Team Description 03/06/[address] [address] Cassie Saldana FNP Results 03/06/2025 Orders Only GENERIC EXTERNAL DATA DEPARTMENT Provider, Generic External Data 03/05/2025 Patient Outreach [address] [address] Cassie Saldana FNP Care Management (C3CM- f/u call) 03/03/2025 Patient Outreach [address] [address] Cassie Saldana, POULTRY HATCHERY LABORER Care Coordination (SDOH f/u) 02/21/2025 Patient Outreach [address] [address] Cassie Saldana POULTRY HATCHERY LABORER Care Coordination (SDOH) 02/19/2025 Patient Outreach [address] [address] Cassie Saldana FNP Care Coordination (SDOH) 02/17/2025 Patient Outreach [address] [address] Cassie Saldana POULTRY HATCHERY LABORER Care Management (C3CM- f/u call) 02/07/2025 Patient Outreach [address] [address] Cassie Saldana FNP Care Coordination (SDOH f/u) 02/05/2025 Plan of Care Documentation [address] [address] 02/04/2025 Patient Outreach [address] [address] Cassie Saldana FNP Care Management (C3CM- initial assessment/ enrollment) 01/30/2025 Patient Outreach [address] [address] Cassie Saldana FNP Care Coordination (CM/CHW outreach) 01/29/2025 Results Follow-Up [facility] MED & PEDS [address] [place] [address] Cassie Saldana FNP US Pelvis Transvaginal 01/29/2025 Telephone [facility] MED [facility] PED[facility] [address] [place] [address] Cassie Saldana FNP Call Back Request 01/23/2025 9:30 AM EDT Office Visit [facility] OPTOMETRY [address] [place] [address] Camelia aCmpo, OD Systemic lupus erythematosus, unspecified SLE type, unspecified organ involvement status (CMS/HCC) (Primary Dx); Long-term use of high-risk medication; Posterior polar cataract; Dry eye syndrome of both eyes; Choroidal nevus of right eye; High myopia, bilateral 01/23/2025 Travel 01/22/2025 Travel 01/22/2025 Telephone [facility] OPTOMETRY [address] [place] [address] Camelia Campo, OD 01/15/2025 10:00 AM EDT Office Visit [facility] MED [facility] PEDS [address] [place] [address] Adela Acosta CNP Systemic lupus erythematosus, unspecified SLE type, unspecified organ involvement status (CMS/HCC) (Primary Dx); Rheumatoid arthritis involving multiple sites with positive rheumatoid factor (CMS/HCC); Epidural lipomatosis; Bilateral fracture of pubic rami, sequela; Lumbosacral radiculopathy; Current chronic use of systemic steroids; Primary hypertension 01/15/2025 Travel 01/14/2025 Patient Outreach [address] [address] Cassie Saldana FNP 01/14/2025 Telephone [facility] MED [facility] PEDS [address] [place] [address] Cassie Saldana FNP Chart Prep 01/13/2025 Telephone [facility] MED [facility] PEDS [address] [place] [address] Cassie Saldana FNP Nurse Triage 01/13/2025 Telephone [facility] MED [facility] PEDS [address] [place] [address] Cassie Saldana FNP Hospital Follow-up 01/13/2025 Patient Outreach [address] [address] Cassie Saldana FNP 01/08/2025 Patient Outreach [address] [address] Cassie Saldana FNP Care Coordination (CM/CHW outreach) 01/03/2025 Patient Outreach [address] [address] Cassie Saldana FNP Care Coordination (CM/CHW outreach) 12/25/2024 Patient Outreach [address] [address] Cassie Saldana FNP 12/23/2024 Patient Outreach [address] [address] Cassie Saldana FNP Care Coordination (CM/CHW outreach) 12/23/2024 Patient Outreach [address] [address] Cassie Saldana FNP Care Coordination (CHW chart review) 12/23/2024 Patient Outreach [address] [address] Cassie Saldana FNP Care Management (C3CM- chart review) 12/23/2024 Patient Outreach [address] [address] Cassie Saldana FNP 12/21/2024 9:20 AM EDT Office Visit [facility] WALK-IN CENTER [address] [place] [address] Georgia Franks MD Oxygen desaturation (Primary Dx); Systemic lupus erythematosus, unspecified SLE type, unspecified organ involvement status (CMS/HCC) 12/21/2024 Travel 12/19/2024 Telephone [facility] CHC MED & PEDS [address] [place], [place] [phone] Cassie Saldana FNP Medication Question from Last [...] 10:15 AM EST Office Visit [facility] MED & PEDS [address] [place] [address] Cassie Saldana, POULTRY HATCHERY LABORER [address] [place] [address] Health Maintenance Due Date Last Done Comments [...] Procedure Name Priority Date/Time Associated Diagnosis Comments CBC WITH AUTO DIFFERENTIAL Routine 03/06/2025 12:08 PM EDT HEMOGLOBIN A1C Routine 03/06/2025 12:08 PM EDT Numbness and tingling of both lower extremities OCT, RETINA - OU - BOTH EYES [...] Relevant to Health Maintenance Results * (ABNORMAL) CBC auto differential (03/06/2025 12:08 PM EDT) White Blood Count 7.6 4.8 - 10.8 X10*3/uL [facility] Red Blood Count 5.59(H) 4.20 - 5.50 X10*6/uL [facility] Hemoglobin 12.8 12.0 - 16.0 g/dl [facility] Hematocrit 43.6 37.0 - 47.0 % [facility] Mean Corpuscular Volume 78.0(L) 80.0 - 98.0 fL [facility] Mean Corpuscular Hemoglobin 22.9(L) 27.0 - 33.0 pg [facility] Mean Corpuscular HGB Conc 29.4(L) 31.0 - 35.0 g/dl [facility] Red Cell Distribution Width 15.7 11.0 - 16.0 % [facility] Platelet Count 332 160 - 400 X10*3/uL [facility] Mean Platelet Volume 10.2 9.4 - 12.3 fL [facility] Neutrophils Percent Auto 77.8(H) 45 - 73 % [facility] Imm Gran Pct Auto 2.4(H) 0.0 - 0.4 % [facility] Lymphocytes Percent Auto 11.9(L) 20 - 40 % [facility] Monocytes Percent Auto 7.1 2 - 11 % [facility] Eosinophils Percent Auto 0.5 0 - 4 % [facility] Basophils Percent Auto 0.3 0 - 2 % [facility] NRBC Pct Auto 0.0 0.0 - 0.2 /100WBC [facility] Neutrophils Absolute Auto 5.9 2.0 - 8.3 x10*3/uL [facility] Imm Gran Abs Auto 0.18(H) 0.00 - 0.03 X10*3/uL [facility] Lymphocytes Absolute Auto 0.9(L) 1.2 - 4.9 X10*3/uL [facility] Monocytes Absolute Auto 0.5 0.1 - 1.2 X10*3/uL [facility] Eosinophils Absolute Auto 0.0 0.0 - 0.4 X10*3/uL [facility] Basophils Absolute Auto 0.0 0.0 - 0.2 X10*3/uL [facility] NRBC Abs Auto 0.000 0.0 - 0.012 X10*3/uL [facility] 03/06/2025 12:0 8 PM EDT 03/06/2025 1:12 PM EDT us Generic External Data Provider LAB BLOOD ORDERAB LES Final Result Performing Organization Address [facility] Co de Phone Number [facility] [address] [place] [phone] * Hemoglobin A1c (03/06/2025 12:08 PM EDT) Hemoglobin A1c 5.4 <6.0 % [facility] Comment:Hemoglobin A1C Refer ence Range Adults: 4.8 - 6.0 % Non diabetic: < 6.0 % Goal: < 7.0 %Additional Action Suggested: > 8.0 %Note: Hemoglobin A1c results are invalid for patients with abnormal amounts of HbF. Blood transfusions may impact the HbA1c concentration in the patient sample. Estimated Average Glucose 108 mg/dL [facility] Comment:eAG = Estimated ave rage glucose which is %A1C expressed asaverage glucose, using the formula of the A0G-GukeuxhWpznqoa Glucose study (ADAG), Diabetes Care, Vol.31,#8,Dec. 2007 Blood Venous blood specimen / Unknown 03/06/2025 12:08 PM EDT 03/06/2025 1:12 PM EDT Cassie Saldana POULTRY HATCHERY LABORER LAB BLOOD ORDERABLES Final Res ult Performing Organization Address [facility] Co de Phone Number [facility] [address] [place] [phone] * OCT, Retina - OU - Both [...] either eye. Will monitor annually. us Camelia Campo OD OPHTH TOMOGRAPHY Final Result * US Pelvis Transvaginal (01/21/2025 7:57 PM EDT) Anatomical Region Laterality Modality Pelvis Ultrasound 01/21/2025 7:57 PM EDT Narrative 01/21/2025 7:58 PM EDT [place] [address] Ultrasound Report Signed Patient: Gwendolyn Zuñiga MR#: [id number] : 2000 Acct:[id number] Age/Sex: 24 / F ADM Date: 01/20/25 Loc: HO.US Attending Dr: Cassie VICENTE Ordering Physician: Cassie Saldana Date of Service: 01/20/25 Procedure(s): US pelvic and transvaginal Accession Number(s): [id number] cc: Cassie Saldana Reason for Exam: OVARIAN [...] in OV> 01/21/251957 DD/ 56 TD/TT: 01/21/251956 Bulwark Carpenter: Procedure Note Donotuseinterpreter, Image - 01/21/2025 [place] [address] Ultrasound Report Signed Patient: Gwendolyn ZuñigaMR#: [id number] : 2000Acct:[id number] Age/Sex: Date: 01/20/25 Loc: HO.US Attending Dr: Cassie VICENTE Ordering Physician: Cassie Saldana Date of Service: 01/20/25 Procedure(s): US pelvic and transvaginal Accession Number(s): [id number] cc: Cassie Saldana Reason for Exam: OVARIAN [...] in OV> 01/21/251957 DD/ 56 TD/TT: 01/21/251956 Bulwark Carpenter: us Cassie Saldana [facility] US PROCEDURES Edited Resul t - Final * Pap Smear (10/19/2023 2:46 PM EDT) Swab Cervix uteri structure / Unknown 10/19/2023 2:46 PM EDT 10/20/2023 6:00 AM EDT [facility] - 11/08/2023 11:52 AM EDT ----- ------- Name: Gwendolyn Zuñiga Age/Sex: 23/F : 2000 Unit#: [id number] Attend Dr: ELIZABETH WRIGHT CNM Re10/20/23 Status: DEP [facility]: ----- ------- SPEC : [id number] RECD: 10/20/23 STATUS: KRUNAL BEARD NUM: [id number] GOPI: 10/19/23-[address]: ELIZABETH WRIGHT CNM ENTERED: 10/20/23 SP TYPE: Pap Smr OTHR DR: ORDERED: Pap Smear, PAP path review Interpretation General Category: Epithelial cell abnormality. Adequacy: Endocervical component present. Interpretation: Low grade squamous intraepithelial lesion (DAVID I). Fungal organisms consistent with Britta species. Clinical Information LMP: Unknown date/findings Previous PAP test: Initial PAP Material Received ThinPrep-Cervical ----- ------- Signed (signature on file) Doreen [place] 11/08/23 1152 ----- ------- END OF REPORT us Elizabeth Wright [facility] CYTOLOGY ORDERABLES F inal Result [facility] [address] [place] [phone] * Hepatitis Panel, General (07/10/2023 9:08 AM EST) Hepatitis A IgM Nonreactive Nonreactive [facility] Comment:IgM antibodies to BUENO V not detected; does not exclude earlyacute or recovered HAV infection. ~Hepatitis B Surface Antibody NONREACTIVE Nonreactive [facility] Comment:Nonreactive: < 8.00 mIU/mL Hepatitis B Core Antibody Nonreactive Nonreactive [facility] Hepatitis C Antibody Nonreactive Nonreactive [facility] Comment:Antibodies to HCV no t detected; does not exclude early acuteHCV infection. Hepatitis B Surface Ag Negative Negative [facility] 07/10/2023 9:08 AM EST 07/10/2023 11:31 AM EST us Generic External Data Provider LAB BLOOD ORDERAB LES Final Result [facility] [address] [place] [phone] [phone] from Last 3 Months or Most Recently Relevant to Health Maintenance Insurance [address] [place], [place] [address] C[employer] Care Teams Blood Bank Credit Clerk Relationship Specialty Start Date End Date Cassie Saldana FNP [address] [place] [address] PCP - General Family Medicine 12/30/21 Gertrudis Hopkins, SHERLYN [address] [place] [phone] Registered Nurse Family Medicine 12/23/24 Alesia Pack 12/23/24
--- OUTSIDE RECORDS SUMMARY | 2025-03-06 15:01 | XMS_ITS | Encounter Summary ---
Author Organization [employer] Address [address] [facility] 7t [place] [address] Care Team Providers Care Bomb Technician Name Role Phone Cassie Sadlana Primary Care Provider Fina Mckinnon Unavailable [phone] Jaqueline Carver Unavailable Unavailable Gertrudis Hopkins RN Unavailable [phone] Alesia Pack Unavailable Reason for Visit * Reason Onset Date Comments Call Back Request 12/11/2023 Encounter Details Date Type Department Care Team (Late st Contact Info) Description 12/11/2023 Telephone [facility] MEDICINE [address] [place] [address] Cassie Saldana FNP [address] [place], [place] [phone] Call Back Request Social History Tobacco Use [...] from PCP in regards paperwork drop at [facility] that pt needs to be filled out ivette. documented in this encounter Plan of Treatment Upcoming Encounters Date Type Department Care Team (Late st Contact Info) Description 03/17/2025 10:15 AM EST Office Visit [facility] CHC MED & PEDS [address] [place] [address] Cassie Saldana FNP [address] [place] [address] documented as of this encounter Visit Diagnoses Not on filedocumented in this encounter Care Teams Bomb Technician Relationship Specialty Start Date End Date Cassie Saldana FNP [address] [place] [address] PCP - General Family Medicine 12/30/21 Fina Mckinnon Registered Nurse 10/07/24 10/07/24 Jaqueline Carver 10/07/24 10/07/24 Gertrudis Hopkins RN [address] [place] [phone] Registered Nurse Family Medicine 12/23/24 Alesia Pack 12/23/24 documented as of this encounter
--- OUTSIDE RECORDS SUMMARY | 2025-03-06 15:01 | XMS_ITS | Encounter Summary ---
Author Organization [employer] Address [address] [facility] 7t [place] [address] Care Team Providers Care Water Fabricator Operator Name Role Phone Cassie Saldana Primary Care Provider [phone] Gertrudis Hopkins RN Unavailable [phone] Alesia Pack Unavailable Encounter Details Date Type Department Care Team (Late st Contact Info) Description 03/06/2025 Orders Only GENERIC EXTERNAL DATA DEPARTMENT [...] Description 03/17/2025 10:15 AM EST Office Visit [facility] MED & PEDS [address] [place] [address] Cassie Saldana FNP [address] [place] [address] documented as of this encounter Procedures Procedure Name Priority Date/Time Associated Diagnosis Comments CBC WITH AUTO DIFFERENTIAL Routine 03/06/2025 12:08 PM EDT documented in this encounter Results * (ABNORMAL) CBC auto differential (03/06/2025 12:08 PM EDT) White Blood Count 7.6 4.8 - 10.8 X10*3/uL [facility] Red Blood Count 5.59(H) 4.20 - 5.50 X10*6/uL [facility] Hemoglobin 12.8 12.0 - 16.0 g/dl [facility] Hematocrit 43.6 37.0 - 47.0 % [facility] Mean Corpuscular Volume 78.0(L) 80.0 - 98.0 fL [facility] Mean Corpuscular Hemoglobin 22.9(L) 27.0 - 33.0 pg [facility] Mean Corpuscular HGB Conc 29.4(L) 31.0 - 35.0 g/dl [facility] Red Cell Distribution Width 15.7 11.0 - 16.0 % [facility] Platelet Count 332 160 - 400 X10*3/uL [facility] Mean Platelet Volume 10.2 9.4 - 12.3 fL [facility] Neutrophils Percent Auto 77.8(H) 45 - 73 % [facility] Imm Gran Pct Auto 2.4(H) 0.0 - 0.4 % [facility] Lymphocytes Percent Auto 11.9(L) 20 - 40 % [facility] Monocytes Percent Auto 7.1 2 - 11 % [facility] Eosinophils Percent Auto 0.5 0 - 4 % [facility] Basophils Percent Auto 0.3 0 - 2 % [facility] NRBC Pct Auto 0.0 0.0 - 0.2 /100WBC [facility] Neutrophils Absolute Auto 5.9 2.0 - 8.3 x10*3/uL [facility] Imm Gran Abs Auto 0.18(H) 0.00 - 0.03 X10*3/uL [facility] Lymphocytes Absolute Auto 0.9(L) 1.2 - 4.9 X10*3/uL [facility] Monocytes Absolute Auto 0.5 0.1 - 1.2 X10*3/uL [facility] Eosinophils Absolute Auto 0.0 0.0 - 0.4 X10*3/uL [facility] Basophils Absolute Auto 0.0 0.0 - 0.2 X10*3/uL [facility] NRBC Abs Auto 0.000 0.0 - 0.012 X10*3/uL [facility] 03/06/2025 12:0 8 PM EDT 03/06/2025 1:12 PM EDT us Generic External Data Provider LAB BLOOD ORDERAB LES Final Result [facility] [address] [place] [phone] [phone] documented in this encounter Visit Diagnoses Not on filedocumented in this encounter Additional Health Concerns Assessment Noted Time PHQ-9 Depression Total Score: 3 02/05/20 25 10:18 AM EDT documented as of this encounter Care Teams Water Fabricator Operator Relationship Specialty Start Date End Date Cassie Saldana FNP [address] [place] [address] PCP - General Family Medicine 12/30/21 Gertrudis Hopkins RN [address] [place] [phone] Registered Nurse Family Medicine 12/23/24 Alesia Pack 12/23/24 documented as of this encounter
--- OUTSIDE RECORDS SUMMARY | 2025-03-06 15:01 | XMS_ITS | Encounter Summary ---
Author Organization [employer] Address [address] [place] [address] 7t [place] [address] Care Team Providers Care Solar Installation Technician Name Role Phone Cassie Saldana Primary Care Provider [phone] Gertrudis Hopkins RN Unavailable [phone] Alesia Pack Unavailable Reason for Visit * Reason Onset Date Comments Hospital Follow-up 01/13/2025 Encounter Details Date Type Department Care Team ([facility] st Contact Info) Description 01/13/2025 Telephone [facility] CHC MED & PEDS [address] [place], [place] [phone] Cassie Saldana FNP [address] [place], [place] [phone] Hospital Follow-up Social History Tobacco Use Types [...] from pt requesting a HDF appt. Hospital: [facility] Date of admission: 12/21 Discharge date: 01/10 Diagnosed: Pelvic fracture on left side, Lupus flare, mass on pts back. *Send message to [facility] [facility] Care Coordinators Contact pt at [phone] documented in this encounter Plan of Treatment Upcoming Encounters Date Type Department Care Team ([facility] st Contact Info) Description 03/17/2025 10:15 AM EST Office Visit [facility] CHC MED & PEDS [address] [place] [address] Cassie Saldana FNP [address] [place] [address] documented as of this encounter Visit Diagnoses Not on filedocumented in this encounter Additional Health Concerns Assessment Noted Time PHQ-9 Depression Total Score: 10 024 11:22 AM EDT documented as of this encounter Care Teams Solar Installation Technician Relationship Specialty Start Date End Date Cassie Saldana FNP [address] [place] [phone] PCP - General Family Medicine 12/30/21 Gertrudis Hopkins RN [address] [place] [address] Registered Nurse Family Medicine 12/23/24 Alesia Pack 12/23/24 documented as of this encounter
== END 2025-03-06 12:04 | disposition home or self-care (01) ==
LOC: HO.HHCL 12:03
PROVIDERS: Student in an Organized Health Care Education/Training Program; PCP Registered Nurse; Visit Provider Registered Nurse
DX: R20.2 Paresthesia of skin (principal); R20.0 Anesthesia of skin; M32.9 Systemic lupus erythematosus, unspecified
CPT/HCPCS: 36415; 83036; 85025

== ENCOUNTER 2025-03-11 12:24 | Outpatient (AMB) | payer MEDICAID, SELFPAY ==
--- NOTE | 2025-03-11 12:34 | A.OFFVIS_ITS ---
Vital Signs 03/11/25 12:42 Height 5 ft 1 in Weight 171 lb 15.369 oz BMI 32.5 BP 124/90 H Blood Pressure Location Lt brachial Position Sitting Pulse 124 H Pulse Source Pulse Oximeter Pulse Oximetry (%) 98 Oxygen Delivery Method Room Air Intake Visit Reasons: SLE/FMS Intake Note: Patient presents for SLE/FMS follow up. Allergies No Known Allergies Allergy (Verified 03/11/25 12:41) Medication List - Last Reconciled 03/11/25 by Eunice Apodaca MD amlodipine 5 mg PO DAILY atovaquone 1,500 mg (10 mL) PO DAILY 90 days hydrochlorothiazide 25 mg PO DAILY hydroxychloroquine (Plaquenil) 200 mg PO BID HPI Comments Details: Patient is a 24-year-old female with hypertension and MCTD (seropositive RA, autoimmune hepatitis, SLE features) here today for follow up Interval History: Patient last seen 01/15/25 with me - Prednisone 60mg and Benlysta 10mg/kg - Follow up after hospital discharge - Admitted to [facility] 12/21, discharged 01/10 - During that visit she was diagnosed with epidural lipomatosis, bilateral pubic rami fracture, lupus flare, Klebsiella UTI, autoimmune hepatitis - Given prednisone taper and pain control - The epidural lipomatosis is not new, this has progressed from 2022 now completely effacing CSF and the thecal sac at L5-S1 and moderately narrowing at L4-L5 - Discharged to outpatient rehab however the conditions of the rehab were on suitable and so she left against medical advice and suddenly stopped her prednisone - Presented to urgent care and received a few days of prednisone 60 mg - Currently complaining of bilateral lower leg pain and weakness - Also complaining of joint swelling and overall swelling - tapered her prednisolone, restarted Benlysta infusions, restarted hyd roxychloroquine and azathioprine, added atovaquone to provide PCP pneumonia - referred to Neurosurgery for her epidermal lipomatosis Today - On prednisone 20mg, plaquenil 200mg bid, azathioprine 150mg daily and Benlysta 10mg/kg - Number of infusions since last visit: 1 (02/11/25) - Saw Neuro Spine 02/2025: No surgical interventions needed. 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 In the past, she was also treated with Humira for her rheumatoid arthritis as well as rituximab x 2 (03/04/19 and 03/19/19). Patient states that she felt the best when she was receiving rituximab infusions. Pt is currently on Plaquenil 200mg daily and Prednisone 40mg daily. Pt states that she re-started the Prednisone a few days ago when she started to experience L sided chest pain that radiated into her L arm. She was seen in the ER at [facility] yesterday and had a CT chest done which was negative. Also had a troponin drawn which was normal. She continues to have left-sided chest pain but states it is now moved down under her breast area. She does get some dyspnea with the chest pain. Her chest pain is not relieved when she bends forward, it is actually worsened. She does not have any tenderness to palpation of her chest wall. Pt denies Raynauds, photosensitivity, oral or nasal ulcers, Sicca symptoms, fevers, alopecia. History by Dr. Diaz 20yoF with a history of overlap autoimmune disease including MCTD (diagnosed at age 8), seropositive rheumatoid arthritis (RF++ CCP-) and autoimmune hepatitis presents for follow-up. Last seen in November 2020. On Plaquenil 200 mg daily and Prednisone 20mg daily. She was previously taking azathioprine 75mg daily for autoimmune hepatitis but has been off the medication for some time as she stopped following with her previous line service person. No hospitalizations since her last visit. Patient continues to have pain and swelling in her hands but it is stable with prednisone. The low-back pain she had reported at the last visit has improved. She has not yet seen Gastroenterology for her autoimmune hepatitis. She currently denies any chest pain or shortness of breath. September 2020: After last visit, patient received 1 dose of rituximab 1000 mg on 07/13/2020. She then began to experience worsening shortness breath and stabbing chest pain. She was admitted to [facility] on 07/17/2020 for chest pain and ST changes on her EKG. It was thought she may possibly have pericarditis. She did not receive a 2nd dose of rituximab due to her adverse reaction to the 1st dose. While at [facility], she was given pulse dose steroid 1000 mg IV Solu-Medrol x3 and then placed on a prednisone taper. She completed the prednisone taper yesterday. Since being off prednisone, she has worsening swelling in her joints. She denies any chest pain or dyspnea today. Current Rheumatology Medication(s): Benlysta 10mg/kg IV every 4 weeks Hydroxychloroquine 200mg bid Azathioprine 150mg daily Prednisone 20mg PFSH Medical History Systemic lupus Autoimmune hepatitis Mixed connective tissue disease Rheumatoid arthritis Surgical History Hx of cholecystectomy Hx of endoscopy History of colonoscopy Family History Father Alive and well Mother Alive and well Social History Household Members Other:: lives with mom and sisters Alcohol intake: never Patient Tobacco Use Status: Never used Tobacco service: No Current occupational status: employed Current occupation: [employer] Review of Systems Narrative Review of Systems Constitutional: Denies fever, chills, weight loss ENT: Denies vision changes, eye pain or eye redness, dental caries, dry mouth GI: Denies nausea, vomiting, diarrhea, abdominal pain, change in BM Pulm: Denies SOB, BOYD, hemoptysis, wheezing Cards: Denies chest pain, palpitations Skin: Denies Raynaud's, rash, nail changes, photosensitivity, DIRECTOR SPORTS: Denies headaches, weakness, paresthesias, recurrent falls MSK: as per HPI All other systems reviewed and are unremarkable except noted above Physical Exam Exam Exam: Vital signs reviewed Physical Examination CONSTITUITIONAL Patient alert and cooperative. Well appearing and in no apparent painful distress MSK Hands * Right Hand: Not able to make a fist. Gross swelling and erythema to the hands with tenderness to palpation of the MCPs, PIPs and DIPs * Left Hand: Not able to make a fist. Gross swelling and erythema to the hands with tenderness to palpation of the MCPs, PIPs and DIPs Wrists * Right Wrist: Full ROM to flexion and extension. No swelling but TTP * Left Wrist: Full ROM to flexion and extension. No swelling but TTP Elbows * Right Elbow: Full ROM. No swelling or TTP. No TTP of the medial epicondyle. No TTP of the lateral epicondyle * Left Elbow: Full ROM. No swelling or TTP. No TTP of the medial epicondyle. No TTP of the lateral epicondyle Shoulders * Right shoulder: Full ROM. No swelling noted. No TTP of the AC joint. No TTP of the subacromial bursa. No TTP of the posterior shoulder * Left shoulder: Full ROM. No swelling noted. No TTP of the AC joint. No TTP of the subacromial bursa. No TTP of the posterior shoulder Knees * Right knee: Full ROM. No swelling noted. TTP of the knee joint line. No TTP of pes anserine bursa * Left knee: Full ROM. No swelling noted. TTP of the knee joint line. No TTP of pes anserine bursa. Ankles * Right ankle: Good ankle dorsiflexion and plantar flexion. Swelling noted. No TTP of the ankle joint * Left ankle: Good ankle dorsiflexion and plantar flexion. Swelling noted. No TTP of the ankle joint Feet * Right foot: Negative squeeze test * Left foot: Negative squeeze test Tender points? * Tenderness to palpation of the bilateral trapezius, supraspinatus, anterior costochondral junctions, bilateral suboccipital muscle insertions SKIN RAsh noted to face Results Reviewed Results Reviewed: Laboratory Tests 01/15/25 03/06/25 11:01 12:08 WBC 7.6 RBC 5.59 H Hgb 12.8 Hct 43.6 Plt Count 332 ESR 16 Sodium 143 Potassium 4.6 D Chloride 110 H Carbon Dioxide 25 BUN 14 Creatinine 0.69 AST 21 ALT 36 H C-Reactive Protein 0.50 Laboratory Tests 01/15/25 11:01 ZOYA Screen POSITIVE A ZOYA Titer 1:1280 H ZOYA Pattern Nuclear, Speckled A SS-A/Ro Antibody <1.0 NEG SS-B/La Antibody <1.0 NEG Sm (Duran) Antibody <1.0 NEG SM/FOUNDATION DRILL OPERATOR IgG Antibody >8.0 POS A Laboratory Tests 09/06/24 01/15/25 10:11 11:01 Double Strand DNA Ab 12 H 2 Complement C3 135 166 Complement C4 26 36 Assessment & Plan Assessment & Plan (1) Systemic lupus: Comment: Initially diagnosed with MCTD at age 8 (inflammatory arthritis, Raynaud's, telangiectasias, autoimmune hepatitis, pericarditis +++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 Tapered her prednisone from 30mg to 20mg Today complaining of widespread joint pain and rash, pictures seen on phone. Has been on Benlysta infusions since 04/2024 has not had much improvement in her symptoms. We will switch to anifrolumab infusions, stop azathioprine and start start methotrexate Add gabapentin Neurosurgery note reviewed with thanks Plan - Anifrolumab 300mg IV every 4 weeks - Prednisone 20mg daily - Hydroxychloroquine 200mg bid - Atovaquone 1500mg daily to prevent PCP pneumonia - Stop Benlysta and azathioprine - Mtx 15mg weekly - Folic acid 1mg daily - RTC 3 months or sooner - Labs before visit: CBC, CMP, ESR, CRP, C3, C4, dsDNA, UA, UPC (2) Long-term use of hydroxychloroquine: Code(s): Z79.899 - Other care home (current) drug therapy Category: Medical Plan: #Long-term Use of Hydroxychloroquine Discussed with patient the risks and benefits of hydroxychloroquine in managing the rheumatic condition Benefits include: - Reduced pain, reduce mortality, maintenance of remission and reduction of flares Risks include: - GI upset, skin hyperpigmentation, retinal toxicity (especially after more than 5 years of use), myopathy Advised yearly ophthalmology visits (3) Long-term use of immunosuppressant medication: Code(s): Z79.60 - [facility] (current) use of unspecified immunomodulators and immunosuppressants Category: Medical Plan: #Long-term Use of Anifrolumab Discussed with patient the risks and benefits of and anifrolumab for managing there rheumatic condition. Benefits include: ?Remission of disease, improved pain, improved mobility, improved rash gnancy Risks include: ?Infusion reactions, increased risk of infection, potential for malignancy (4) Encounter for methotrexate monitoring: Code(s): Z51.81 - Encounter for therapeutic drug level monitoring; Z79.631 - intermediate manager (current) use of antimetabolite agent Plan: #Long-term Current Use of Methotrexate Discussed with patient the benefits and risks of methotrexate for managing their rheumatic condition Benefits include reduced pain, reduced mortality, maintenance of remission and reduction of flares Risks include oral ulcers, photosensitivity, hepatotoxicity, hematologic toxicity, pneumonitis, flu-like symptoms (especially day after administration), nodulosis, lymphomas ? Limit alcohol and avoid Bactrim ? Monitoring: CBC, BMP, LFTs every 3-4 months and hepatitis serologies as needed ? Methotrexate is teratogenic. If planning need to discontinue 3 months prior to conception Plan I spent 40 minutes reviewing the record and labs, reviewing discharge paperwork, taking a history, examining the patient, discussing the treatment plan, discussing the patient's condition, ordering diagnostic work up and documenting in the medical record Orders: Orders Complete Blood Count Auto Diff 3 Months M32.9 - Systemic lupus erythematosus, unspecified Protein Creatinine Ratio, Ur 3 Months M32.9 - Systemic lupus erythematosus, unspecified Alanine Aminotransferase 3 Months M32.9 - Systemic lupus erythematosus, unspecified Aspartate Amino Transferase 3 Months M32.9 - Systemic lupus erythematosus, unspecified Complement C4 3 Months M32.9 - Systemic lupus erythematosus, unspecified Creatinine 3 Months M32.9 - Systemic lupus erythematosus, unspecified UA ClnCatch+Micro w/rflx Cult 3 Months M32.9 - Systemic lupus erythematosus, unspecified C Reactive Protein Today M32.9 - Systemic lupus erythematosus, unspecified Erythrocyte Sedimentation Rate Today M32.9 - Systemic lupus erythematosus, unspecified Complement C4 Today M32.9 - Systemic lupus erythematosus, unspecified Erythrocyte Sedimentation Rate 3 Months M32.9 - Systemic lupus erythematosus, unspecified Complement C3 3 Months M32.9 - Systemic lupus erythematosus, unspecified Anti DNA DS Antibody 3 Months M32.9 - Systemic lupus erythematosus, unspecified C Reactive Protein 3 Months M32.9 - Systemic lupus erythematosus, unspecified Complete Blood Count Auto Diff Today M32.9 - Systemic lupus erythematosus, unspecified Comprehensive Met. Panel Today M32.9 - Systemic lupus erythematosus, unspecified Complement C3 Today M32.9 - Systemic lupus erythematosus, unspecified Anti DNA DS Antibody Today M32.9 - Systemic lupus erythematosus, unspecified UA ClnCatch+Micro w/rflx Cult Today M32.9 - Systemic lupus erythematosus, unspecified Protein Creatinine Ratio, Ur Today M32.9 - Systemic lupus erythematosus, unspecified Referrals Infusion Center Notification M32.9 - Systemic lupus erythematosus, unspecified Medications: New methotrexate sodium 15 mg (6 x 2.5 mg) PO QWEEK 78 tabs 1RF 90 days M06.9 - Rheumatoid arthritis, unspecified gabapentin Take one capsule at night 300 mg PO BEDTIME 90 caps 1RF M79.7 - Fibromyalgia prednisone 20 mg PO DAILY 90 tabs 1RF M32.9 - Systemic lupus erythematosus, unspecified folic acid 1 mg PO DAILY 90 tabs 1RF M06.9 - Rheumatoid arthritis, unspecified Refilled hydroxychloroquine (Plaquenil) 200 mg PO BID 180 tabs 1RF atovaquone must administer with food, preferably a high-fat meal 1,500 mg (10 mL) PO DAILY 900 mL 0RF 90 days M32.9 - Systemic lupus erythematosus, unspecified Discontinued cyclobenzaprine Discontinued Reason: Doctor's Order 5 mg PO BEDTIME PRN 30 tabs 2RF muscle spasm M35.1 - Other overlap syndromes azathioprine Discontinued Reason: Doctor's Order 150 mg (3 x 50 mg) PO DAILY 90 days 270 tabs 1RF M32.9 - Systemic lupus erythematosus, unspecified prednisone Take 2 tablets daily for 2 weeks then 1.5 tablets daily for 2 weeks then 1 tablet daily for 4 weeks Discontinued Reason: Doctor's Order 20 mg PO DIRECTED 60 tabs 0RF M32.9 - Systemic lupus erythematosus, unspecified Coding Level of Care Code Est Pt Level 5 (83761) Complex EM visit Add On G2211 Diagnoses Systemic lupus erythematosus, unspecified SLE type, unspecified organ involvement status M32.9 Systemic lupus erythematosus type: unspecified Systemic lupus erythematosus organ involvement: unspecified Long-term use of hydroxychloroquine Z79.899 Long-term use of immunosuppressant medication Z79.60 Encounter for methotrexate monitoring Z51.81; Z79.631
[2025-03-11 12:42] VITALS: BP 124/90; PULSE 124; O2SAT 98; BMI 32.5
--- OUTSIDE RECORDS SUMMARY | 2025-03-11 15:12 | XMS_ITS | Clinical Summary ---
Author Organization [facility] Address [address] [place] [address] Phone Care Team Providers Care Certified Orthotic Fitter Name Role Phone Physician, No Pcp Primary [...] EDT - 01/14/2025 12:20 AM EDT Emergency [facility] Emergency [address] [place] [address] Neal Avery MD Schreiner, Ian, [...] - AUTOMATED METHOD 01/13/2025 9:47 PM EDT [facility] Clarity, Urine Clear Clear LAB URINALYSIS - AUTOMATED METHOD 01/13/2025 9:47 PM EDT [facility] Specific [place] Urine 1.015 1.005 - 1.030 LAB URINALYSIS - AUTOMATED METHOD 01/13/2025 9:47 PM EDT [facility] pH, Urine 5.0(A) 5.0 - 8.0 pH LAB URINALYSIS - AUTOMATED METHOD 01/13/2025 9:47 PM EDT [facility] Leukocytes, Urine Negative Negative WBCs/mcL LAB URINALYSIS - AUTOMATED METHOD 01/13/2025 9:47 PM EDT [facility] Nitrite, Urine Positive(A) Negative LAB URINALYSIS - AUTOMATED METHOD 01/13/2025 9:47 PM EDT [facility] Protein, Urine Trace Negative, Trace mg/dL LAB URINALYSIS - AUTOMATED METHOD 01/13/2025 9:47 PM EDT [facility] Glucose, Urine Negative Negative mg/dL LAB URINALYSIS - AUTOMATED METHOD 01/13/2025 9:47 PM EDT [facility] Ketones, Urine Negative Negative mg/dL LAB URINALYSIS - AUTOMATED METHOD 01/13/2025 9:47 PM EDT [facility] Blood, Urine Negative Negative, Trace mg/dL LAB URINALYSIS - AUTOMATED METHOD 01/13/2025 9:47 PM EDT [facility] RBC, Urine 1 0 - 3 /HPF LAB URINALYSIS - AUTOMATED METHOD 01/13/2025 9:47 PM EDT [facility] WBC, Urine <1 0 - 5 /HPF LAB URINALYSIS - AUTOMATED METHOD 01/13/2025 9:47 PM EDT [facility] Bacteria, Urine Present(A) Not Present /HPF LAB URINALYSIS - AUTOMATED METHOD 01/13/2025 9:47 PM EDT [facility] Squamous Epithelial, Urine >100(H) 0 - 5 /HPF LAB URINALYSIS - AUTOMATED METHOD 01/13/2025 9:47 PM EDT [facility] Mucus, Urine Present(A) Not Present /HPF LAB URINALYSIS - AUTOMATED METHOD 01/13/2025 9:47 PM EDT [facility] Hyaline Casts, Urine 22(H) <=0 /LPF LAB URINALYSIS - AUTOMATED METHOD 01/13/2025 9:47 PM EDT [facility] Urine Urine specimen obtained by clean catch procedure / Unknown Non-blood Collection / Unknown 01/13/2025 9:03 PM EDT 01/13/2025 9:14 PM EDT us Neal Avery MD LAB URINE ORDERABLES Final Re sult [facility] [address] [place] [address], * Chao urine culture tube (01/13/2025 9:03 PM EDT) Extra Tube Hold for add-ons. 01/13/2025 11:01 PM EDT [facility] Comment:Auto resulted. Urine Urine specimen obtained by clean catch procedure / Unknown Non-blood Collection / Unknown 01/13/2025 9:03 PM EDT 01/13/2025 9:14 PM EDT Neal Avery MD LAB URINE ORDERABLES Final Re sult Performing Organization Address City/[facility] [address]/ZIP Co de Phone Number [facility] [address] [place] [address], [place] [phone] * Troponin I high sensitivity (01/13/2025 7:46 PM EDT) Only the most recent of2 resultswithin the time period is included. High Sensitivity Troponin I 4 0 - 14 ng/L LAB CHEMISTRY METHOD 01/13/2025 8:35 PM EDT [facility] Blood Venous blood specimen / Unknown Venipuncture / Unknown 01/13/2025 7:46 PM EDT 01/13/2025 7:55 PM EDT Narrative [facility] - 01/13/2025 8:35 PM EDT HSTnI [...] method is an immunoenzymatic assay manufactured by [employer] and performed on the [employer] DxI 800. Wally SOLIS LAB BLOOD ORDERABLES Final Resul t Performing Organization Address City/[facility] [address]/ZIP Co de Phone Number [facility] [address] [place] [address], [place] [phone] * CT Angio Chest/Abdomen/Pelvis wo and/or w [...] Signed Date: 01/13/2025 20:11 ET Workstation ID: [id number] Transcribed By: Self Edit Transcribed Date: 01/13/2025 [...] Signed Date: 01/13/2025 20:11 ET Workstation ID: [id number] Transcribed By: Self Edit Transcribed Date: 01/13/2025 [...] GEMUSE QTc 457 ms GEMUSE P Wave [place] 26 degrees GEMUSE R [place] 12 degrees GEMUSE T [place] 7 degrees GEMUSE ECG Interpretation Normal sinus [...] Signed Date: 01/13/2025 18:08 ET Workstation ID: [id number] Transcribed By: Self Edit Transcribed Date: 01/13/2025 [...] Signed Date: 01/13/2025 18:08 ET Workstation ID: [id number] Transcribed By: Self Edit Transcribed Date: 01/13/2025 17:59 ET Neal Avery MD IMG XR PROCEDURES Final Resul t * (ABNORMAL) CBC auto differential (01/13/2025 4:21 PM EDT) [facility] WBC 7.4 4.0 - 10.5 K/mcL LAB HEMETOLOGY METHOD 01/13/2025 4:43 PM EDT [facility] RBC 5.63(H) 4.20 - 5.40 M/mcL LAB HEMETOLOGY METHOD 01/13/2025 4:43 PM EDT [facility] Hemoglobin 13.3 12.5 - 16.0 g/dL LAB HEMETOLOGY METHOD 01/13/2025 4:43 PM EDT [facility] Hematocrit 41.7 37.0 - 47.0 % LAB HEMETOLOGY METHOD 01/13/2025 4:43 PM EDT [facility] MCV 74.0(L) 78.0 - 100.0 FL LAB HEMETOLOGY METHOD 01/13/2025 4:43 PM EDT [facility] MCH 23.6(L) 25.0 - 33.0 pcg LAB HEMETOLOGY METHOD 01/13/2025 4:43 PM EDT [facility] MCHC 31.9(L) 32.0 - 36.0 g/dL LAB HEMETOLOGY METHOD 01/13/2025 4:43 PM EDT [facility] RDW 16.9(H) 12.1 - 16.2 % LAB HEMETOLOGY METHOD 01/13/2025 4:43 PM EDT [facility] Platelets 353 150 - 450 K/mcL LAB HEMETOLOGY METHOD 01/13/2025 4:43 PM EDT [facility] MPV 7.6 7.4 - 11.4 FL LAB HEMETOLOGY METHOD 01/13/2025 4:43 PM EDT [facility] Neutrophils Relative 80.3(H) 44.0 - 74.0 % LAB HEMETOLOGY METHOD 01/13/2025 4:43 PM EDT [facility] Lymphocytes Relative 10.3(L) 20.0 - 48.0 % LAB HEMETOLOGY METHOD 01/13/2025 4:43 PM EDT [facility] Monocytes Relative 5.8 2.0 - 12.0 % LAB HEMETOLOGY METHOD 01/13/2025 4:43 PM EDT [facility] Eosinophils Relative 3.3 0.0 - 6.0 % LAB HEMETOLOGY METHOD 01/13/2025 4:43 PM EDT [facility] Basophils Relative 0.3 0.0 - 2.0 % LAB HEMETOLOGY METHOD 01/13/2025 4:43 PM EDT [facility] Neutrophils Absolute 5.90 1.80 - 7.80 K/mcL LAB HEMETOLOGY METHOD 01/13/2025 4:43 PM EDT [facility] Lymphocytes Absolute 0.80(L) 1.00 - 3.20 K/mcL LAB HEMETOLOGY METHOD 01/13/2025 4:43 PM EDT [facility] Monocytes Absolute 0.40 0.00 - 0.80 K/mcL LAB HEMETOLOGY METHOD 01/13/2025 4:43 PM EDT [facility] Eosinophils Absolute 0.20 0.00 - 0.50 K/mcL LAB HEMETOLOGY METHOD 01/13/2025 4:43 PM EDT [facility] Basophils Absolute 0.00 0.00 - 0.20 K/mcL LAB HEMETOLOGY METHOD 01/13/2025 4:43 PM EDT [facility] Blood Venous blood specimen / Unknown Venipuncture / Unknown 01/13/2025 4:21 PM EDT 01/13/2025 4:37 PM EDT [facility] LAB BLOOD ORDERABLES Final Resul t Performing Organization Address City/[facility] [address]/ZIP Co de Phone Number [facility] [address] [place] [address], [place] [phone] * hCG, serum, qualitative (01/13/2025 4:21 PM EDT) Pathologist [facility] hCG Qual Negative Negative LAB CHEMISTRY METHOD 01/13/2025 5:24 PM EDT [facility] Blood Venous blood specimen / Unknown Venipuncture / Unknown 01/13/2025 4:21 PM EDT 01/13/2025 4:37 PM EDT us Wally SOLIS LAB BLOOD ORDERABLES Final Resul t Performing Organization Address [facility] [address]/[facility] Co de Phone Number [facility] [address] [place] [address], [place] [phone] * B-type natriuretic peptide (01/13/2025 4:21 PM EDT) [facility] BNP 9 0 - 100 pcg/mL LAB CHEMISTRY METHOD 01/13/2025 5:23 PM EDT [facility] Blood Venous blood specimen / Unknown Venipuncture / Unknown 01/13/2025 4:21 PM EDT 01/13/2025 4:37 PM EDT us Wally SOLIS LAB BLOOD ORDERABLES Final Resul t Performing Organization Address City/[facility] [address]/ZIP Co de Phone Number [facility] [address] [place] [address], [place] [phone] * Magnesium (01/13/2025 4:21 PM EDT) Pathologist [facility] Magnesium 2.1 1.7 - 2.8 mg/dL LAB CHEMISTRY METHOD 01/13/2025 5:12 PM EDT [facility] Blood Venous blood specimen / Unknown Venipuncture / Unknown 01/13/2025 4:21 PM EDT 01/13/2025 4:37 PM EDT us Wally SOLIS LAB BLOOD ORDERABLES Final Resul t Performing Organization Address [facility] [address]/[facility] Co de Phone Number [facility] [address] [place] [address], [place] [phone] * (ABNORMAL) Lipase (01/13/2025 4:21 PM EDT) Lipase 123(H) 11 - 82 unit/L LAB CHEMISTRY METHOD 01/13/2025 5:12 PM EDT [facility] Blood Venous blood specimen / Unknown Venipuncture / Unknown 01/13/2025 4:21 PM EDT 01/13/2025 4:37 PM EDT us Wally SOLIS LAB BLOOD ORDERABLES Final Resul t Performing Organization Address [facility] [address]/[facility] de Phone Number [facility] [address] [place] [address], [place] [phone] * (ABNORMAL) Creatine kinase (01/13/2025 4:21 PM EDT) Total CK 28(L) 30 - 135 unit/L LAB CHEMISTRY METHOD 01/13/2025 5:12 PM EDT [facility] Blood Venous blood specimen / Unknown Venipuncture / Unknown 01/13/2025 4:21 PM EDT 01/13/2025 4:37 PM EDT Neal Avery MD LAB BLOOD ORDERABLES Final Re sult Performing Organization Address City/[facility] [address]/ZIP Co de Phone Number [facility] [address] [place] [address], [place] [phone] * Comprehensive metabolic panel (01/13/2025 4:21 PM EDT) Sodium 143 135 - 145 mmol/L LAB CHEMISTRY METHOD 01/13/2025 5:12 PM EDT [facility] Potassium 3.5 3.5 - 5.1 mmol/L LAB CHEMISTRY METHOD 01/13/2025 5:12 PM EDT [facility] Chloride 105 98 - 107 mmol/L LAB CHEMISTRY METHOD 01/13/2025 5:12 PM EDT [facility] CO2 27 24 - 32 mmol/L LAB CHEMISTRY METHOD 01/13/2025 5:12 PM EDT [facility] Anion Gap 11 5 - 14 LAB CHEMISTRY METHOD 01/13/2025 5:12 PM EDT [facility] Glucose 80 70 - 199 mg/dL LAB CHEMISTRY METHOD 01/13/2025 5:[facility] BUN 9 7 - 17 mg/dL LAB CHEMISTRY METHOD 01/13/2025 5:[facility] Creatinine 0.60 0.50 - 1.00 mg/dL LAB CHEMISTRY METHOD 01/13/2025 5:12 PM EDT [facility] eGFR 129 >=60 mL/min/1. 73m2 LAB CHEMISTRY METHOD 01/13/2025 5:12 PM EDT [facility] Comment:Calculation based on the Chronic Kidney Disease Epidemiology Collaboration (CKD-EPI) equation refit without adjustment for race. BUN/Creatinine Ratio 15.0 12.0 - 20.0 LAB CHEMISTRY METHOD 01/13/2025 5:12 PM EDT [facility] Calcium 8.6 8.4 - 10.2 mg/dL LAB CHEMISTRY METHOD 01/13/2025 5:12 PM [facility] AST (SGOT) 17 5 - 40 unit/L LAB CHEMISTRY METHOD 01/13/2025 5:12 PM [facility] ALT (SGPT) 28 7 - 52 unit/L LAB CHEMISTRY METHOD 01/13/2025 5:12 PM EDT [facility] Alkaline Phosphatase 66 34 - 104 unit/L LAB CHEMISTRY METHOD 01/13/2025 5:12 PM EDT [facility] Total Protein 6.8 6.4 - 8.5 g/dL LAB CHEMISTRY METHOD 01/13/2025 5:12 PM EDT [facility] Albumin 4.1 3.5 - 5.0 g/dL LAB CHEMISTRY METHOD 01/13/2025 5:12 PM EDT [facility] Total Bilirubin 0.4 0.3 - 1.0 mg/dL LAB CHEMISTRY METHOD 01/13/2025 5:12 PM EDT [facility] Blood Venous blood specimen / Unknown Venipuncture / Unknown 01/13/2025 4:21 PM EDT 01/13/2025 4:37 PM EDT Wally SOLIS LAB BLOOD ORDERABLES Final Resul t [facility] [address] [place] [address], [place] [phone] from Last 3 Months Insurance MEDICAID - [place] Care Teams Certified Orthotic Fitter Relationship Specialty Start Date End Date Physician, No Pcp PCP - General 01/13/25
--- OUTSIDE RECORDS SUMMARY | 2025-03-11 15:12 | XMS_ITS | Encounter Summary ---
Author Organization [employer] Address [address] [place] [address] [address] [place] [address] Care Team Providers Care Psychiatric Mental Health Nurse Name Role Phone Cassie Saldana Primary Care Provider [phone] Gertrudis Hopkins RN Unavailable [phone] Alesia Pack Unavailable Reason for Visit * Reason Onset Date Comments Nurse Triage 01/13/2025 Encounter Details Date Type Department Care Team ([facility] st Contact Info) Description 01/13/2025 Telephone [facility] MED [facility] PEDS [address], [place] [phone] Cassie Saldana FNP [address] [place], [place] [phone] Nurse Triage Social History Tobacco Use Types [...] Please assist with obtaining discharge summary for [facility] 01/10-01/11 for provider review prior to upcoming appointment. Future Appointments Date Time Provider Department Center 01/15/2025 10:00 AM Adela Acosta CNP [facility] * Telephone Encounter - Farzaneh Urena RN - 01/13/2025 8:56 AM EDT Call returned to [facility] to triage below at [phone]. Reports having lower back pain x3 weeks. Pt was admitted to [facility] On 12/21/24 and discharged on Monday01/10/25. Per [...] to self propel her wheelchair/there is a guide cruise.. Refills: 0. Gabapentin (gabapentin 300 mg oral [...] EVERY DAY. Patient states at discharge from [facility] was sent to [facility] on Wednesday 01/10. Pt states left AMA on Thursday 01/11. Pt states was not discharged with any meds. Pt does have wheelchair. Still having back pain. Pt states did call Rheumatology but is looking to be referred to a different office as states this admission was of result from no follow up from them. Pt given HDF with [facility] provider thisweek. Pt advised to contact rheumotology and request appt within 1 week. Reviewed home care advise,ER precautions and reasons to call back. Protocol Used: Post-Hospitalization Follow-up Call (Adult) Protocol-Based Disposition: See in Office or Video Visit Today or Tomorrow Future Appointments Date Time Provider Department Center 01/15/2025 10:00 AM Adela Acosta CNP [facility] Insurance verified as active per Real Time Eligibility in [facility]. Positive Triage Question: * Patient wants [...] caller accepted this outcome. Contact pt at [phone] documented in this encounter Plan of Treatment Upcoming Encounters Date Type Department Care Team ([facility] st Contact Info) Description 03/17/2025 10:15 AM EST Office Visit [facility] [address] [place] [address] Cassie Saldana FNP [address] [place] [address] documented as of this encounter Visit Diagnoses Not on filedocumented in this encounter Additional Health Concerns Assessment Noted Time PHQ-9 Depression Total Score: 10 024 11:22 AM EDT documented as of this encounter Care Teams Psychiatric Mental Health Nurse Relationship Specialty Start Date End Date Cassie Saldana FNP [address] [place] [address] PCP - General Family Medicine 12/30/21 Gertrudis Hopkins RN [address] [place] [address] Registered Nurse Family Medicine 12/23/24 Alesia Pack 12/23/24 documented as of this encounter
--- OUTSIDE RECORDS SUMMARY | 2025-03-11 15:12 | XMS_ITS | Encounter Summary ---
Author Organization [employer] Address [address] [facility] 7[address] [place] [address] Care Team Providers Care Prospecting Observer Name Role Phone Cassie Sladana AIR AND [employer] DEF[employer] CREWMEMBER Primary Care Provider Fina Watt Unavailable [phone] Jaqueline Carver Unavailable Unavailable Gertrudis Hopkins RN Unavailable [phone] Alesia Pack Unavailable Encounter Details Date Type Department Care Team (Late Contact Info) Description 03/09/2023 Orders Only [facility] [address] [place], [place] [phone] Andrew Jorge MD [address] [place], [place] [phone] Social History Tobacco Use Types Packs/Day Years [...] 10:15 AM EST Office Visit [facility] [address] [place] [address] Cassie Saldana FNP [address] [place] [address] documented as of this encounter Visit Diagnoses Not on filedocumented in this encounter Care Teams Prospecting Observer Relationship Specialty Start Date End Date Cassie Saldana FNP [address] [place] [address] PCP - General Family Medicine 12/30/21 Fina Watt Registered Nurse 10/07/24 10/07/24 Jaqueline Carver 10/07/24 10/07/24 Gertrudis Hopkins, RN [address] [place] [address] Registered Nurse Family Medicine 12/23/24 Alesia Pack 12/23/24 Jeimy Hall RN Care Manager 05/30/23 08/06/23 documented as of this encounter
--- OUTSIDE RECORDS SUMMARY | 2025-03-11 15:12 | XMS_ITS | Encounter Summary ---
Author Organization [employer] Address [address] [place] [address] [address] [place] [address] Care Team Providers Care Ornamental Machine Operator Name Role Phone Cassie Saldana Primary Care Provider Fina Watt Unavailable [phone] Jaqueline Carver Unavailable Unavailable Gertrudis Hopkins RN Unavailable [phone] Alesia Pack Unavailable Reason for Visit * Reason Onset Date Comments Returning Call Back 05/26/2022 Encounter Details Date Type Department Care Team (Late st Contact Info) Description 05/26/2022 Telephone [facility] MEDICINE [address] [place] [address] Cassie Saldana FNP [address] [place], [place] [phone] Returning Call Back Social History Tobacco Use [...] Description 03/17/2025 10:15 AM EST Office Visit [facility] [address] [place], [place] [phone] Cassie Saldana FNP [address] [place] [address] documented as of this encounter Visit Diagnoses Not on filedocumented in this encounter Care Teams Ornamental Machine Operator Relationship Specialty Start Date End Date Cassie Saldana FNP [address] [place] [address] PCP - General Family Medicine 12/30/21 Fina Watt Registered Nurse 10/07/24 10/07/24 Jaqueline Carver 10/07/24 10/07/24 Gertrudis Hopkins, SHERLYN [address] [place] [address] Registered Nurse Family Medicine 12/23/24 Alesia Pack 12/23/24 Jeimy Hall ornamental machine operator 05/30/23 08/06/23 documented as of this encounter
--- OUTSIDE RECORDS SUMMARY | 2025-03-11 15:12 | XMS_ITS | Encounter Summary ---
Author Organization [employer] Address [address] [facility] 7t [place] [address] Care Team Providers Care Balance Staff Staker Name Role Phone Cassie Saldana Primary Care Provider Fina Watt Unavailable Jaqueline Carver Unavailable Unavailable Gertrudis Hopkins RN Unavailable [phone] Alesia Pack Unavailable Reason for Visit * Reason Onset Date Comments Call Back Request 12/11/2023 Encounter Details Date Type Department Care Team (Late st Contact Info) Description 12/11/2023 Telephone [facility] MEDICINE [address] [place] [address] Cassie Saldana FNP [address] [place], [place] [phone] Call Back Request Social History Tobacco Use [...] from PCP in regards paperwork drop at [facility] that pt needs to be filled out ivette. documented in this encounter Plan of Treatment Upcoming Encounters Date Type Department Care Team (Late st Contact Info) Description 03/17/2025 10:15 AM EST Office Visit [facility] [address] [place] [address] Cassie Saldana FNP [address] [place] [address] documented as of this encounter Visit Diagnoses Not on filedocumented in this encounter Care Teams Balance Staff Staker Relationship Specialty Start Date End Date Cassie Saldana FNP [address] [place] [address] PCP - General Family Medicine 12/30/21 Fina Watt Registered Nurse 10/07/24 10/07/24 Jaqueline Carver 10/07/24 10/07/24 Gertrudis Hopkins, SHERLYN [address] [place] [address] Registered Nurse Family Medicine 12/23/24 Alesia Pack 12/23/24 documented as of this encounter
--- OUTSIDE RECORDS SUMMARY | 2025-03-11 15:12 | XMS_ITS | Encounter Summary ---
Author Organization [employer] Address [address] [place] [address] [address] [place] [address] Care Team Providers Care Take Out Waiter/Waitress Name Role Phone Cassie Saldana Primary Care Provider [phone] Gertrudis Hopkins RN Unavailable [phone] Alesia Pack Unavailable Encounter Details Date Type Department Care Team ([facility] Contact Info) Description 03/09/2025 Results Follow-Up [facility]EDS [address] [place], [place] [phone] Cassie Saldana FNP [address] [place], [place] [phone] Hemoglobin A1c Social History Tobacco Use Types Packs/Day Years [...] Description 03/17/2025 10:15 AM EST Office Visit [facility] [address] [place] [address] Cassie Saldana FNP [address] [place] [address] documented as of this encounter Visit Diagnoses Not on filedocumented in this encounter Additional Health Concerns Assessment Noted Time PHQ-9 Depression Total Score: 3 02/05/20 10:18 AM EDT documented as of this encounter Care Teams Take Out Waiter/Waitress Relationship Specialty Start Date End Date Cassie Saldana FNP [address] [place] [address] PCP - General Family Medicine 12/30/21 Gertrudis Hopkins, SHERLYN [address] [place] [address] Registered Nurse Family Medicine 12/23/24 Alesia Pack 12/23/24 documented as of this encounter
--- OUTSIDE RECORDS SUMMARY | 2025-03-11 15:12 | XMS_ITS | Clinical Summary ---
Author Organization [employer] Address [address] [facility] 7t [place] [address] Care Team Providers Care Cash Applications Associate Name Role Phone Cassie Saldana Primary Care Provider [phone] Gertrudis Hopkins RN Unavailable [phone] Alesia Pack Unavailable Allergies No known active [...] tablet 11 5 01/16/20 26 Active White Petrolatum-Toa [place] al Oil (artificial tears) 83-15 % ointment [...] BP elevated in office. 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 Will switch to labetalol 100mg daily. Reviewed med safety and SE. -Cont monitoring home BP readings, follow up precautions reviewed Assessment & Plan (01/29/2024 9:08 PM EDT): -Continues to be elevated despite increase in losartan to 50mg daily -Non-smoker, hx of fci prednisone use -Plan: start hydrochlorothiazide. Reviewed med [...] 10/20/22: Hx myopericarditis. Appt to establish with [facility] Cardiology. EKG stable, planning for an [...] upon post- discharge in November 2022 from [facility] Assessment & Plan (04/29/2023 9:37 AM EST): -DBP elevated, denies any chest pain, BUENO, SOB, palpitations, or other associated symptoms -Nifedipine 60mg daily sent to pharmacy -Encouraged to monitor BP readings at home, return precautions Healthcare maintenance 04/29/2023 Overview (04/29/2023): Contraception: Nexplanon placed post- November 2022 at [facility] Raynaud's phenomenon (secondary) 05/13/2022 Rheumatoid arthritis (CMS/HCC) 06/19/2020 Overview (01/29/2024): -Seropositive RA (RF++ CCP-) -Currently following with [facility] Rheum Current med regimen: hydroxychloroquine 200mg BID and prednisone 30mg daily Previous med trials: Humira, Rituxan infusion Per consult October 2023 - Goal: start biologic with plan to wean off prednisone daily. Plan to order Orencia infusion, follow up in 12 weeks Assessment & Plan (01/29/2024 9:19 PM EDT): Called [facility] Rheum with pt to discuss f/up regarding Orencia as Gwendolyn reports she has not heard from office since last appt. LVM with request to return call directly to pt. Assessment & Plan (05/13/2022 6:50 PM EST): -Seropositive RA (RF++ CCP-) previously managed with Plaquenil and prednisone by Dr. Diaz of [facility] Rheumatology, who has since left. [...] that impact daily functioning -Case discussion with [facility] pharmacy - risk of untreated RA/SLE [...] consult with OBGYN. Autoimmune hepatitis ([facility]) 03/25/2013 Assessment & Plan (04/29/2023 9:29 AM EST): -Previously tx w/ azathioprine 75 mg daily for autoimmune hepatitis -08/04/22: Established with [facility] GI for autoimmune hepatitis. Dr. Nhi white. They would like follow up first with lab work and then possibly liver biopsy if needed Assessment & Plan (05/13/2022 7:18 AM EST): -Previously took azathioprine 75 mg daily for autoimmune hepatitis, however she has not taken this medication in some time since she stopped seeing her strip winder. -Established with [facility] GI in September 2021 Low vision, both eyes 10/14/2011 Systemic lupus erythematosus ([facility]) 2 Overview (09/10/2024): Seropositive RA (RF++ CCP-) previously managed with Plaquenil and prednisone by [facility] Rheumatology Previously following with [facility], currently following with [facility] Rheum Med regimen (as of [...] & Plan (06/05/2022 6:49 PM EST): -Called [facility] rheum with patient to schedule [...] Plaquenil and prednisone by Dr. Diaz of [facility] Rheumatology, who has since left. [...] that impact daily functioning -Case discussion with [facility] pharmacy - risk of untreated RA/SLE [...] EDT): - Nexplanon placed November 2022 by [facility] following delivery - Pt reported interested in removal due to SE - feelings of weight gain, fatigue - Nexplanon removal 09/26/23 at [facility] Assessment & Plan (09/23/2023 4:17 PM EDT): - Nexplanon placed November 2022 by [facility] following delivery - Pt reported interested in removal due to SE - feelings of weight gain, fatigue - Plan to call next week to schedule appt for Nexplanon removal - List of alternative contraceptive methods provided for pt to review 06/05/2022 04/29/2023 Overview (06/05/2022): -LMP 04/02/22 -Referred to [facility] OBGYN - initial appt Jun 15, [...] Encounters Date Type Department Care Team Description 03/09/2025 Results Follow-Up [facility] [address] [place] [address] Cassie Saldana FNP Hemoglobin A1c 03/07/2025 Patient Outreach [address] [address] Cassie Saldana FNP Pre-visit Planning (SDOH screening completed on 10/10/24) 03/06/[address] [address] Cassie Saldana FNP Results 03/06/2025 Orders Only GENERIC EXTERNAL DATA DEPARTMENT Provider, Generic External Data 03/05/2025 Patient Outreach [address] [address] Cassie Saldana FNP Care Management (C3CM- f/u call) 03/03/2025 Patient Outreach [address] [address] Cassie Saldana FNP Care Coordination (SDOH f/u) 02/21/2025 Patient Outreach [address] [address] Cassie Saldana FNP Care Coordination (SDOH) 02/19/2025 Patient Outreach [address] [address] Cassie Saldana FNP Care Coordination (SDOH) 02/17/2025 Patient Outreach [address] [address] Cassie Saldana FNP Care Management (C3CM- f/u call) 02/07/2025 Patient Outreach [address] [address] Cassie Saldana FNP Care Coordination (SDOH f/u) 02/05/2025 Plan of Care Documentation [address] [address] 02/04/2025 Patient Outreach [address] [address] Cassie Saldana FNP Care Management (C3- initial assessment/ enrollment) 01/30/2025 Patient Outreach [address] [address] Cassie Saldana FNP Care Coordination (CM/CHW outreach) 01/29/2025 Results Follow-Up [facility] [address] [place] [address] Cassie Saldana FNP US Pelvis Transvaginal 01/29/2025 Telephone [facility] [address] [place] [address] Cassie Saldana FNP Call Back Request 01/23/2025 9:30 AM EDT Office Visit [facility] [address] [place] [address] Camelia Campo, OD Systemic lupus erythematosus, unspecified SLE type, unspecified organ involvement status (CMS/[facility]) (Primary Dx); Long-term use of high-risk medication; Posterior polar cataract; Dry eye syndrome of both eyes; Choroidal nevus of right eye; High myopia, bilateral 01/23/2025 Travel 01/22/2025 Travel 01/22/2025 Telephone [facility] [address] [place] [address] Camelia Campo, OD 01/15/2025 10:00 AM EDT Office Visit [facility] [address] [place] [address] Adela Acosta, NURSING RESIDENT Systemic lupus erythematosus, unspecified SLE type, unspecified organ involvement status (CMS/HCC) (Primary Dx); Rheumatoid arthritis involving multiple sites with positive rheumatoid factor (CMS/HCC); Epidural lipomatosis; Bilateral fracture of pubic rami, sequela; Lumbosacral radiculopathy; Current chronic use of systemic steroids; Primary hypertension 01/15/2025 Travel 01/14/2025 Patient Outreach [address] [address] Cassie Saldana FNP 01/14/2025 Telephone [facility] [address] [place] [address] Cassie Saldana FNP Chart Prep 01/13/2025 Telephone [facility] [address] [place] [address] Cassie Saldana FNP Nurse Triage 01/13/2025 Telephone [facility] [address] [place] [address] Cassie Saldana FNP Hospital Follow-up 01/13/2025 Patient Outreach [address] [address] Cassie Saldana FNP 01/08/2025 Patient Outreach [address] [address] Cassie Saldana FNP Care Coordination (CM/CHW outreach) 01/03/2025 Patient Outreach [address] [address] Cassie Saldana FNP Care Coordination (CM/CHW outreach) 12/25/2024 Patient Outreach [address] [address] Cassie Saldana FNP 12/23/2024 Patient Outreach [address] [address] Cassei Saldana FNP Care Coordination (CM/CHW outreach) 12/23/2024 Patient Outreach [address] [address] Cassie Saldana FNP Care Coordination (CHW chart review) 12/23/2024 Patient Outreach [facility] [address] [place] [address] Cassie Saldana FNP Care Management ([facility]- chart review) 12/23/2024 Patient Outreach [facility] [address] [place] [address] Cassie Saldana FNP 12/21/2024 9:20 AM EDT Office Visit [facility] [address] [place] [address] Georiga Franks MD Oxygen desaturation (Primary Dx); Systemic lupus erythematosus, unspecified SLE type, unspecified organ involvement status (CMS/HCC) 12/21/2024 Travel 12/19/2024 Telephone [facility] [address] [place], [place] [phone] Cassie Saldana FNP Medication Question from Last [...] Upcoming Encounters Date Type Department Care Team ([facility] st Contact Info) Description 03/17/2025 10:15 AM EST Office Visit [facility] [address] [place] [address] Cassie Saldana, BOOK AGENT [address] [place] [address] Health Maintenance Due Date Last Done Comments [...] Blood Count 7.6 4.8 - 10.8 X10*3/uL [facility] Red Blood Count 5.59(H) 4.20 - 5.50 X10*6/uL [facility] Hemoglobin 12.8 12.0 - 16.0 g/dl [facility] Hematocrit 43.6 37.0 - 47.0 % [facility] Mean Corpuscular Volume 78.0(L) 80.0 - 98.0 fL [facility] Mean Corpuscular Hemoglobin 22.9(L) 27.0 - 33.0 pg [facility] Mean Corpuscular HGB Conc 29.4(L) 31.0 - 35.0 g/dl [facility] Red Cell Distribution Width 15.7 11.0 - 16.0 % [facility] Platelet Count 332 160 - 400 X10*3/uL [facility] Mean Platelet Volume 10.2 9.4 - 12.3 fL [facility] Neutrophils Percent Auto 77.8(H) 45 - 73 % [facility] Imm Gran Pct Auto 2.4(H) 0.0 - 0.4 % [facility] Lymphocytes Percent Auto 11.9(L) 20 - 40 % [facility] Monocytes Percent Auto 7.1 2 - 11 % [facility] Eosinophils Percent Auto 0.5 0 - 4 % [facility] Basophils Percent Auto 0.3 0 - 2 % [facility] NRBC Pct Auto 0.0 0.0 - 0.2 /100WBC [facility] Neutrophils Absolute Auto 5.9 2.0 - 8.3 x10*3/uL [facility] Imm Gran Abs Auto 0.18(H) 0.00 - 0.03 X10*3/uL [facility] Lymphocytes Absolute Auto 0.9(L) 1.2 - 4.9 X10*3/uL [facility] Monocytes Absolute Auto 0.5 0.1 - 1.2 X10*3/uL [facility] Eosinophils Absolute Auto 0.0 0.0 - 0.4 X10*3/uL [facility] Basophils Absolute Auto 0.0 0.0 - 0.2 X10*3/uL [facility] NRBC Abs Auto 0.000 0.0 - 0.012 X10*3/uL [facility] 03/06/2025 12:0 8 PM EDT 03/06/2025 1:12 PM EDT us Generic External Data Provider LAB BLOOD ORDERAB LES Final Result Performing Organization Address [facility]/ZIP Co de Phone Number [facility] [address] [place] [phone] * Hemoglobin A1c (03/06/2025 12:08 PM EDT) Hemoglobin A1c 5.4 <6.0 % [facility] Comment:Hemoglobin A1C Refer ence Range Adults: 4.8 - 6.0 % Non diabetic: < 6.0 % Goal: < 7.0 %Additional Action Suggested: > 8.0 %Note: Hemoglobin A1c results are invalid for patients with abnormal amounts of HbF. Blood transfusions may impact the HbA1c concentration in the patient sample. Estimated Average Glucose 108 mg/dL [facility] Comment:eAG = Estimated ave rage glucose which is %A1C expressed asaverage glucose, using the formula of the F8B-VddhwqePmezvjs Glucose study (ADAG), Diabetes Care, Vol.31,#8,Dec. 2007 Blood Venous blood specimen / Unknown 03/06/2025 12:08 PM EDT 03/06/2025 1:12 PM EDT us Cassie Saldana BOOK AGENT LAB BLOOD ORDERABLES Final Res ult Performing Organization Address [facility]/ZIP Co de Phone Number [facility] [address] [place] [phone] * OCT, Retina - OU - Both Eyes (01/23/2025 11:53 AM EDT) Camelia Doyle, OD - 01/23/2025 1:39 PM EDT Images [...] PM EDT Narrative 01/21/2025 7:58 PM EDT [place] [address] Ultrasound Report Signed Patient: Gwendolyn Zuñiga MR#: [id number] : 2000 Acct:[id number] Age/Sex: 24 / F ADM Date: 01/20/25 Loc: .US Attending Dr: Cassie VICENTE Ordering Physician: Cassie Saldana Date of Service: 01/20/25 Procedure(s): US pelvic and transvaginal Accession Number(s): [id number] cc: Cassie Saldana Reason for Exam: OVARIAN [...] in OV> 01/21/251957 DD/ 56 TD/TT: 01/21/251956 Skatesman: Procedure Note Donotuseinterpreter, Image - 01/21/2025 [place] [address] Ultrasound Report Signed Patient: Gwendolyn Zuñiga#: [id number] : 2000Acct:[id number] Age/Sex: Date: 01/20/25 Loc: HO.US Attending Dr: Cassie VICENTE Ordering Physician: Cassie Saldana Date of Service: 01/20/25 Procedure(s): US pelvic and transvaginal Accession Number(s): [id number] cc: Cassie Saldana Reason for Exam: OVARIAN [...] in OV> 01/21/251957 DD/ 56 TD/TT: 01/21/251956 Skatesman: us Cassie Araizadawson [facility] IM US PROCEDURES Edited Resul t - Final * Pap Smear (10/19/2023 2:46 PM EDT) Swab Cervix uteri structure / Unknown 10/19/2023 2:46 PM EDT 10/20/2023 6:00 AM EDT [facility] - 11/08/2023 11:52 AM EDT ----- ------- Name: YogeshGwendolyn Age/Sex: 23/F : 2000 Unit#: [id number] Attend Dr: [facility] Re10/20/23 Status: DEP REF Location: HO.HHCLNP Disch: ----- ------- SPEC : [id number] RECD: 10/20/23 STATUS: KRUNAL BEARD NUM: [id number] GOPI: 10/19/23-[address] [facility] [address]: ELIZABETH WRIGHT CNM ENTERED: 10/20/23 SP TYPE: Pap Smr OT DR: ORDERED: Pap Smear, PAP path review Interpretation General Category: Epithelial cell abnormality. Adequacy: Endocervical component present. Interpretation: Low grade squamous intraepithelial lesion (DAVID I). Fungal organisms consistent with Britta species. Clinical Information LMP: Unknown date/findings Previous PAP test: Initial PAP Material Received ThinPrep-Cervical ----- ------- Signed (signature on file) Doreen [place] 11/08/23 1152 ----- ------- END OF REPORT Elizabeth [facility] CYTOLOGY ORDERABLES F inal Result [facility] [address] [place] [phone] * Hepatitis Panel, General (07/10/2023 9:08 AM EST) Hepatitis A IgM Nonreactive Nonreactive [facility] Comment:IgM antibodies to BUENO V not detected; does not exclude earlyacute or recovered HAV infection. ~Hepatitis B Surface Antibody NONREACTIVE Nonreactive [facility] Comment:Nonreactive: < 8.00 mIU/mL Hepatitis B Core Antibody Nonreactive Nonreactive [facility] Hepatitis C Antibody Nonreactive Nonreactive [facility] Comment:Antibodies to HCV no t detected; does not exclude early acuteHCV infection. Hepatitis B Surface Ag Negative Negative [facility] 07/10/2023 9:08 AM EST 07/10/2023 11:31 AM EST us Generic External Data Provider LAB BLOOD ORDERAB LES Final Result [facility] [address] [place] [phone] [phone] from Last 3 Months or Most Recently Relevant to Health Maintenance [place] [address] [address] [place] [address] C3 Care Teams Cash Applications Associate Relationship Specialty Start Date End Date Cassie Saldana FNP [address] [place] [address] PCP - General Family Medicine 12/30/21 Gertrudis Hopkins RN [address] [place] [phone] Registered Nurse Family Medicine 12/23/24 Alesia Pack 12/23/24
--- OUTSIDE RECORDS SUMMARY | 2025-03-11 15:12 | XMS_ITS | Encounter Summary ---
Author Organization [employer] Address 75 [facility] 7t [place] [address] Care Team Providers Care Numerologist Name Role Phone Cassie Saldana Primary Care Provider Fina Watt Unavailable Jaqueline Carver Unavailable Unavailable Gertrudis Hopkins RN Unavailable [phone] Alesia Pack Unavailable Reason for Visit * Reason Onset Date Comments Nurse Triage 01/12/2024 Encounter Details Date Type Department Care Team (Late st Contact Info) Description 01/12/2024 Telephone [facility] [address] [place] [address] Cassie Saldana FNP [address] [place], [place] [phone] Nurse Triage Social History Tobacco Use Types [...] Description 03/17/2025 10:15 AM EST Office Visit [facility] [address] [place], [place] [phone] Cassie Saldana FNP [address] [place] [address] documented as of this encounter Visit Diagnoses Not on filedocumented in this encounter Care Teams Numerologist Relationship Specialty Start Date End Date Cassie Saldana FNP [address] [place] [address] PCP - General Family Medicine 12/30/21 Fina Watt Registered Nurse 10/07/24 10/07/24 Jaqueline Carver 10/07/24 10/07/24 Gertrudis Hopkins, RN [address] [place] [address] Registered Nurse Family Medicine 12/23/24 Alesia Pack 12/23/24 documented as of this encounter
--- OUTSIDE RECORDS SUMMARY | 2025-03-11 15:12 | XMS_ITS | Clinical Summary ---
Author Organization [facility] Address [address] [address] Phone Care Team Providers Care Production Support Consultant Name Role Phone Chris Sanchez MD Unavailable [phone] Abelardo Ramos MD Unavailable [phone] Cassie Saldana Primary Care Provider [phone] Allergies No known active allergies Medications hydroxychloroqu [...] C3 ACO C3 ACO Care Teams Production Support Consultant Relationship Specialty Start Date End Date Cassie Saldana FNP [address] [place] [address] PCP - General Nurse Practitioner 12/31/24 Chris Sanchez MD [facility] [place] [address] [email or web address] Consulting Provider Pediatric Cardiology 03/13/19 Abelardo Ramos MD [address] [place] [address] Consulting Provider Pediatric Gastroenterology 04/22/19 Additional Source Comments The information contained in this document represents components of the legal health record. It is not the complete legal health record.[facility]
--- OUTSIDE RECORDS SUMMARY | 2025-03-11 15:12 | XMS_ITS | Encounter Summary ---
Author Organization [employer] Address 75 [facility] [address]t [place] [address] Care Team Providers Care Process Development Manager Name Role Phone Cassie Saldana Primary Care Provider Fina Watt Unavailable Jaqueline Carver Unavailable Unavailable Gertrudis Hopkins RN Unavailable [phone] Alesia Pack Unavailable Reason for Visit * Reason Comments Med Refill Encounter Details Date Type Department Care Team (Late st Contact Info) Description 03/30/2024 Refill [facility] [address] [place] [address] Cassie Saldana FNP [address] [place] [address] Social History Tobacco Use Types Packs/Day Years [...] [facility] [address] [place] [address] Cassie Saldana FNP [address] [place] [address] documented as of this encounter Visit Diagnoses Not on filedocumented in this encounter Additional Health Concerns Assessment Noted Time PHQ-9 Depression Total Score: 10 024 11:22 AM EDT documented as of this encounter Care Teams Process Development Manager Relationship Specialty Start Date End Date Cassie Saldana FNP [address] [place] [address] PCP - General Family Medicine 12/30/21 Fina Watt Registered Nurse 10/07/24 10/07/24 Jaqueline Carver 10/07/24 10/07/24 Gertrudis Hopkins RN 505 [place] [address] Registered Nurse Family Medicine 12/23/24 Alesia Pack 12/23/24 documented as of this encounter
--- OUTSIDE RECORDS SUMMARY | 2025-03-11 15:12 | XMS_ITS ---
Author Organization [employer] Address [address] [place] [address] Care Team Providers Care Glassine Machine Tender Name Role Phone Cassie Saldana Primary Care Provider Gertrudis Hopkins RN Unavailable [phone] Alesia Pack Unavailable CHW Complex Status:Enrolled (Active) Start date:12/23/2024 Enrollment date:02/19/2025 Enrollment reason:ADT Feed Overview ADT- Pt admitted to [facility] on 12/21/24. Please outreach for enrollment. Please outreach facility. Case Team Name Relationship Phone Alesia Pack(Responsible Staff) [phone] Continued Care and Services Coordination
--- OUTSIDE RECORDS SUMMARY | 2025-03-11 15:12 | XMS_ITS ---
Author Organization [employer] Address [address] [place] [address] Care Team Providers Care Robotic Technician Name Role Phone Cassie Saldana Primary Care Provider [phone] Gertrudis Hopkins RN Unavailable [phone] Alesia Pack Unavailable CM Complex Status:Enrolled (Active) Start date:12/23/2024 Enrollment date:02/05/2025 Enrollment reason:ADT Feed Overview ADT- Pt admitted [facility] on 12/21/24. Case Team Name Relationship Phone Gertrudis Hopkins RN(Responsible Staff) Registered Nurse [phone] Continued Care and Services Coordination
--- OUTSIDE RECORDS SUMMARY | 2025-03-11 15:12 | XMS_ITS | Encounter Summary ---
Author Organization [employer] Address [address] [place] [address] [address] [place] [address] Care Team Providers Care Zigzag Tunnel Elastic Operator Name Role Phone Cassie Saldana Primary Care Provider [phone] Gertrudis Hopkins RN Unavailable [phone] Alesia Pack Unavailable Reason for Visit * Reason Onset Date Comments Results 03/06/2025 Encounter Details Date Type Department Care Team (Late st Contact Info) Description 03/06/2025 Telephone [facility] [address] [place] [address] Cassie Saldana FNP [address] [place], [place] [phone] Results Social History Tobacco Use Types Packs/Day [...] is your housing situation today? I have ejrel yang 10/10/[address] you [...] encounter Miscellaneous Notes * Telephone Encounter - Reema Avendaño RN - 03/06/2025 3:41 PM EDT Called pt regarding request for lab results, spoke to pt. Pt had labs done today at about noon and is wanting the results. Advised that when the results come back to us, they need to be fully reviewed by PCP and then sent to the nurses to call regarding results. Pt understands and agrees with plan. * Telephone Encounter - Nohelia Zuñiga - 03/06/2025 2:43 PM EDT TC from pt requesting a call back with lab results. PCP KATERYNA Saldana documented in this encounter Plan of Treatment Upcoming Encounters Date Type Department Care Team ([facility] st Contact Info) Description 03/17/2025 10:15 AM EST Office Visit [facility] [address] [place] [address] Cassie Saldana FNP [address] [place] [address] documented as of this encounter Visit Diagnoses Not on filedocumented in this encounter Additional Health Concerns Assessment Noted Time PHQ-9 Depression Total Score: 3 02/05/20 25 10:18 AM EDT documented as of this encounter Care Teams Zigzag Tunnel Elastic Operator Relationship Specialty Start Date End Date Cassie Saldana FNP [address] [place] [address] PCP - General Family Medicine 12/30/21 Gertrudis Hopkins RN [address] [place] [address] Registered Nurse Family Medicine 12/23/24 Alesia Pack 12/23/24 documented as of this encounter
--- OUTSIDE RECORDS SUMMARY | 2025-03-11 15:12 | XMS_ITS | Encounter Summary ---
Author Organization [employer] Address [address] [place] [address] 7t [place] [address] Care Team Providers Care Twist Tester Name Role Phone Cassie Saldana Primary Care Provider Fina Watt Unavailable Jaqueline Carver Unavailable Unavailable Gertrudis Hopkins RN Unavailable [phone] Alesia Pack Unavailable Reason for Visit * Reason Comments Med Refill Encounter Details Date Type Department Care Team (Late st Contact Info) Description 10/08/2023 Refill [facility] MED & PEDS [address] [place], [place] [phone] Cassie Saldana FNP [address] [place], [place] [phone] Rheumatoid arthritis involving multiple sites with positive [...] Upcoming Encounters Date Type Department Care Team ([facility] st Contact Info) Description 03/17/2025 10:15 AM EST Office Visit [facility] MED & PEDS [address] [place] [address] Cassie Saldana FNP 505 [place] [address] documented as of this encounter Visit Diagnoses Diagnosis Rheumatoid arthritis involving multiple sites with positive rheumatoid factor (CMS/HCC) (HCC) documented in this encounter Care Teams Twist Tester Relationship Specialty Start Date End Date Cassie Saldana FNP [address] [place] [address] PCP - General Family Medicine 12/30/21 Fina Watt Registered Nurse 10/07/24 10/07/24 Jaqueline Carver 10/07/24 10/07/24 Gertrudis Hopkins, SHERLYN 505 [place] [address] Registered Nurse Family Medicine 12/23/24 Alesia Pack 12/23/24 documented as of this encounter
--- OUTSIDE RECORDS SUMMARY | 2025-03-11 15:12 | XMS_ITS | Encounter Summary ---
Author Organization [employer] Address [address] [facility] 7t [place] [address] Care Team Providers Care Quartz Miner Blasting Name Role Phone Cassie Saldana Primary Care Provider Fina Watt Unavailable Jaqueline Carver Unavailable Unavailable Gertrudis Hopkins RN Unavailable [phone] Alesia Pack Unavailable Reason for Visit * Reason Onset Date Comments Nurse Triage 04/02/2024 Encounter Details Date Type Department Care Team (Late st Contact Info) Description 04/02/2024 Telephone [facility] [address] [place] [address] Cassie Saldana FNP 505 [place], [place] [phone] Nurse Triage Social History Tobacco Use Types [...] t he electric, gas, oil or water [employer] threatened to shut off services in your [...] pain will need to be managed by [facility] rheumatology. Pt confirms that she missed her appt in February and is r/s for late April 2024 with [facility]. Pt would also like PCP to be aware that she is now with a different direct selling counselor as her longstanding one has left the practice. * Telephone Encounter - JULES Macdonald - 04/02/2024 9:37 AM EST Hi, please call Gwendolyn to review Rheum plan. She is following with [facility] Rheum, and plan per last consult note in October 2023, plan was to wean off prednisone and start Orencia infusion. I just sent in another bridge rx for her x 2 weeks, but she needs to contact Rheum and follow up with them regarding further management. She was scheduled for [facility] Rheum Appt in Feb 2024, but I [...] PCP and also another provider working in [facility] today. * Telephone Encounter - Crow Pack - 04/02/2024 8:33 AM EST Symptom: Pain - Severe Outcome: Schedule an urgent appointment (within 1 hour) or talk to a nurse or provider soon Reason: Caller denied all higher acuity questions documented in this encounter Plan of Treatment Upcoming Encounters Date Type Department Care Team ([facility] st Contact Info) Description 03/17/2025 10:15 AM EST Office Visit [facility] MED & PEDS 505 [place] [address] Cassie Saldana FNP 505 [place] [address] documented as of this encounter Visit Diagnoses Diagnosis Systemic lupus erythematosus, unspecified SLE type, unspecified organ involvement status (CMS/HCC) (HCC)- Primary documented in this encounter Additional Health Concerns Assessment Noted Time PHQ-9 Depression Total Score: 10 024 11:22 AM EDT documented as of this encounter Care Teams Quartz Miner Blasting Relationship Specialty Start Date End Date Cassie Saldana FNP [address] [place] [address] PCP - General Family Medicine 12/30/21 Fina Watt Registered Nurse 10/07/24 10/07/24 Jaqueline Carver 10/07/24 10/07/24 Gertrudis Hopkins, RN 505 [place] [address] Registered Nurse Family Medicine 12/23/24 Alesia Pack 12/23/24 documented as of this encounter
--- OUTSIDE RECORDS SUMMARY | 2025-03-11 15:12 | XMS_ITS | Encounter Summary ---
Author Organization [employer] Address [address] [place] [address] 7 [place] [address] Care Team Providers Care Numerical Control Machine Tool Operator Name Role Phone Cassie Saldana Primary Care Provider [phone] Gertrudis Hopkins RN Unavailable [phone] Alesia Pack Unavailable Reason for Visit * Reason Comments Pre-visit Planning SDOH screening compl eted on 10/10/24 Encounter Details Date Type Department Care Team ([facility] st Contact Info) Description 03/07/2025 Patient Outreach [facility] MED[facility]INE [address] [place] [address] Cassie Saldana FNP 505 [place] [address] Pre-visit Planning (SDOH screening completed on 10/10/24) Social History Tobacco Use Types Packs/Day Years [...] the past 12 months, has t he [employer], gas, oil or water company threatened to [...] as of this encounter Progress Notes * Jacoby Kelley - 03/07/2025 3:17 PM EDT CC Jacoby Garcia placed successful outbound call to patient for pre-visit planning. Patient name and confirmed. Patient confirms appt date and time, and has transportation arrangements. Biggest concern for appointment at this time is discuss lab work. Patient advised to bring to appointment a photoid and insurance card. Appropriate screenings completed in anticipation of appointment. documented in this encounter Plan of Treatment Upcoming Encounters Date Type Department Care Team (Late st Contact Info) Description 03/17/2025 10:15 AM EST Office Visit [facility] MED & PEDS [address] [place] [address] Cassie Saldana FNP [address] [place] [address] documented as of this encounter Visit Diagnoses Not on filedocumented in this encounter Additional Health Concerns Assessment Noted Time PHQ-9 Depression Total Score: 3 02/05/20 25 10:18 AM EDT documented as of this encounter Care Teams Numerical Control Machine Tool Operator Relationship Specialty Start Date End Date Cassie Saldana FNP [address] [place] [address] PCP - General Family Medicine 12/30/21 Gertrudis Hopkins RN [address] [place] [address] Registered Nurse Family Medicine 12/23/24 Alesia Pack 12/23/24 documented as of this encounter
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
--- OUTSIDE RECORDS SUMMARY | 2025-03-11 15:12 | XMS_ITS | Encounter Summary ---
Author Organization [employer] Address [address] [place] [address] 7t [place] [address] Care Team Providers Care Caterpillar Driver Name Role Phone Cassie Saldana Primary Care Provider Fina Watt Unavailable Jaqueline Carver Unavailable Unavailable Gertrudis Hopkins RN Unavailable [phone] Alesia Pack Unavailable Reason for Visit * Reason Comments Med Refill Encounter Details Date Type Department Care Team (Late st Contact Info) Description 09/07/2023 Refill [facility] MED & PEDS [address] [place], [place] [phone] Cassie Saldana FNP [address] [place], [place] [phone] Rheumatoid arthritis involving multiple sites with positive [...] Upcoming Encounters Date Type Department Care Team ([facility] st Contact Info) Description 03/17/2025 10:15 AM EST Office Visit [facility] MED & PEDS [address] [place] [address] Cassie Saldana FNP [address] [place] [address] documented as of this encounter Visit Diagnoses Diagnosis Rheumatoid arthritis involving multiple sites with positive rheumatoid factor (CMS/HCC) (HCC) documented in this encounter Care Teams Caterpillar Driver Relationship Specialty Start Date End Date Cassie Saldana FNP 230 [place] [address] PCP - General Family Medicine 12/30/21 Fina Watt Registered Nurse 10/07/24 10/07/24 Jaqueline Carver 10/07/24 10/07/24 Gertrudis Hopkins, SHERLYN 505 [place] [address] Registered Nurse Family Medicine 12/23/24 Alesia Pack 12/23/24 documented as of this encounter
--- OUTSIDE RECORDS SUMMARY | 2025-03-11 15:13 | XMS_ITS | Encounter Summary ---
Author Organization [employer] Address [address] [facility] 7t [place] [address] Care Team Providers Care Utility Supervisor Boat And Plant Name Role Phone Cassie Saldana Primary Care Provider [phone] Gertrudis Hopkins RN Unavailable [phone] Alesia Pack Unavailable Encounter Details Date Type [...] Description 03/17/2025 10:15 AM EST Office Visit [facility] MED & PEDS [address] [place] [address] Cassie Saldana FNP 505 [place] [address] documented as of this encounter Procedures Procedure Name Priority Date/Time Associated Diagnosis Comments CBC WITH AUTO DIFFERENTIAL Routine 03/06/2025 12:08 PM EDT documented in this encounter Results * (ABNORMAL) CBC auto differential (03/06/2025 12:08 PM EDT) White Blood Count 7.6 4.8 - 10.8 X10*3/uL [facility] Red Blood Count 5.59(H) 4.20 - 5.50 X10*6/uL [facility] Hemoglobin 12.8 12.0 - 16.0 g/dl [facility] Hematocrit 43.6 37.0 - 47.0 % [facility] Mean Corpuscular Volume 78.0(L) 80.0 - 98.0 fL [facility] Mean Corpuscular Hemoglobin 22.9(L) 27.0 - 33.0 pg [facility] Mean Corpuscular HGB Conc 29.4(L) 31.0 - 35.0 g/dl [facility] Red Cell Distribution Width 15.7 11.0 - 16.0 % [facility] Platelet Count 332 160 - 400 X10*3/uL [facility] Mean Platelet Volume 10.2 9.4 - 12.3 fL [facility] Neutrophils Percent Auto 77.8(H) 45 - 73 % [facility] Imm Gran Pct Auto 2.4(H) 0.0 - 0.4 % [facility] Lymphocytes Percent Auto 11.9(L) 20 - 40 % [facility] Monocytes Percent Auto 7.1 2 - 11 % [facility] Eosinophils Percent Auto 0.5 0 - 4 % [facility] Basophils Percent Auto 0.3 0 - 2 % [facility] NRBC Pct Auto 0.0 0.0 - 0.2 /100WBC [facility] Neutrophils Absolute Auto 5.9 2.0 - 8.3 x10*3/uL [facility] Imm Gran Abs Auto 0.18(H) 0.00 - 0.03 X10*3/uL [facility] Lymphocytes Absolute Auto 0.9(L) 1.2 - 4.9 X10*3/uL [facility] Monocytes Absolute Auto 0.5 0.1 - 1.2 X10*3/uL [facility] Eosinophils Absolute Auto 0.0 0.0 - 0.4 X10*3/uL [facility] Basophils Absolute Auto 0.0 0.0 - 0.2 X10*3/uL [facility] NRBC Abs Auto 0.000 0.0 - 0.012 X10*3/uL [facility] 03/06/2025 12:0 8 PM EDT 03/06/2025 1:12 PM EDT us Generic External Data Provider LAB BLOOD ORDERAB LES Final Result [facility] [address] [place] [address] [phone] documented in this encounter Visit Diagnoses Not on filedocumented in this encounter Additional Health Concerns Assessment Noted Time PHQ-9 Depression Total Score: 3 02/05/20 25 10:18 AM EDT documented as of this encounter Care Teams Utility Supervisor Boat And Plant Relationship Specialty Start Date End Date Cassie Saldana FNP [address] [place] [address] PCP - General Family Medicine 12/30/21 Gertrudis Hopkins RN [address] [place] [address] Registered Nurse Family Medicine 12/23/24 Alesia Pack 12/23/24 documented as of this encounter
== END 2025-03-11 13:11 | disposition home or self-care (01) ==
PROVIDERS: PCP Registered Nurse; Visit Provider Student in an Organized Health Care Education/Training Program
DX: M32.9 Systemic lupus erythematosus, unspecified (principal); Z79.899 Other long term (current) drug therapy; Z79.60 Long term (current) use of unspecified immunomodulators and immunosuppressants; Z51.81 Encounter for therapeutic drug level monitoring; Z79.631 Long term (current) use of antimetabolite agent
CPT/HCPCS: 99215

== ENCOUNTER → 2025-03-11 12:24 | Outpatient (BNVA) | payer MEDICAID, SELFPAY | PROVIDERS: PCP Registered Nurse; Visit Provider Student in an Organized Health Care Education/Training Program | DX: M32.9 Systemic lupus erythematosus, unspecified (principal); Z51.81 Encounter for therapeutic drug level monitoring; Z79.899 Other long term (current) drug therapy; Z79.60 Long term (current) use of unspecified immunomodulators and immunosuppressants; Z79.631 Long term (current) use of antimetabolite agent | CPT/HCPCS: 99212 ==

== ENCOUNTER 2025-03-17 11:09 | Outpatient (REF) | payer MEDICAID, SELFPAY ==
--- OUTSIDE RECORDS SUMMARY | 2025-03-17 10:15 | XMS_ITS | Encounter Summary ---
Author Organization [facility] [facility] Address [address] [place] [address] 7 [place] [address] Care Team Providers Care Lap Machine Tender Name Role Phone Cassie Saldana Primary Care Provider [phone] Gertrudis Hopkins RN Unavailable [phone] Alesia Pack Unavailable Reason for Referral * Consultation (Routine) - Pending Review Specialty Diagnoses / Procedures Referred By Marjan nicholas Referred To Contact Bariatrics Diagnoses BMI 31.0-31.9,adult Cassie Saldana FNP [address] [place] [address] Phone: tel: fax: Emiliano Calderon MD [address] [place] [address] Phone: tel: fax: Referral ID Status Reason Start Date Expiration Date Visits Requested Visits Authorized [id number] Pending Review Specialty Services Required 03/17/2026 1 1 Reason for Visit * Reason Comments Weight Management Encounter Details Date Type Department Care Team ([facility] Contact Info) Description 03/17/2025 10:15 AM EST Office Visit [facility] CH[facility] MED & PEDS [address] [place], [place] [phone] Cassie Saldana FNP [address] [place] [address] BMI 31.0-31.9,adult (Primary Dx); Encounter for immunization Social History Tobacco Use Types Packs/Day Years [...] Sign Reading Time Taken Comments Blood Pressure 118/80 03/17/2025 10:19 AM EST Manually checked Pulse 87 03/17/2025 10:19 AM EST Temperature 36.6 C (97.9 F) 03/17/2025 10:19 AM EST Respiratory Rate 18 03/17/2025 10:1 9 AM EST Oxygen Saturation - - Inhaled Oxygen Concentration - - Weight 76.2 kg (168 lb) 03/17/2025 10:1 9 AM EST Height 154.9 cm (5' 1 ) 03/17/2025 10:1 9 AM EST Body Mass Index 31.74 03/17/2025 10:19 AM EST documented in this encounter Plan of Treatment Scheduled Orders Name Type Priority Associated Diagnoses Orde r Schedule TSH W/Reflex to FT4 Lab Routine BMI 31.0-31.9,adult Expected: 03/17/2025 (Approximate), Expires: 03/17/2026 Scheduled Referrals Name Type Priority Associated Diagnoses Orde r Schedule Referral to Bariatric Surgery Outpatient Referral Routine BMI 31.0-31.9,adult Expected: 03/17/2025 (Approximate), Expires: 03/17/2026 documented as of this encounter Visit Diagnoses Diagnosis BMI 31.0-31.9,adult- Primary Encounter for immunization documented in this encounter Additional Health Concerns Assessment Noted Time PHQ-9 Depression Total Score: 3 02/05/20 10:18 AM EDT documented as of this encounter Care Teams Lap Machine Tender Relationship Specialty Start Date End Date Cassie Saldana FNP [address] [place] [address] PCP - General Family Medicine 12/30/21 Gertrudis Hopkins RN [address] [place] [address] Registered Nurse Family Medicine 12/23/24 Alesia Pack 12/23/24 documented as of this encounter
--- OUTSIDE RECORDS SUMMARY | 2025-03-17 13:30 | XMS_ITS | Encounter Summary ---
Author Organization [employer] Address [address] [place] [address] 7t [place] [address] Care Team Providers Care Wildlife Policy Professional Name Role Phone Cassie Saldana Primary Care Provider [phone] Fina Watt Unavailable Jaqueline Carver Unavailable Unavailable Gertrudis Hopkins RN Unavailable [phone] Alesia Pack Unavailable Reason for Visit * Reason Onset Date Comments Returning Call Back 05/26/2022 Encounter Details Date Type Department Care Team (Late st Contact Info) Description 05/26/2022 Telephone [facility] MEDICINE [address] [place] [address] Cassie Saldana FNP [address] [place], [place] [phone] Returning Call Back Social History Tobacco Use [...] on filedocumented in this encounter Care Teams Wildlife Policy Professional Relationship Specialty Start Date End Date Cassie Saldana FNP [address] [place] [address] PCP - General Family Medicine 12/30/21 Fina Watt Registered Nurse 10/07/24 10/07/24 Jaqueline Carver 10/07/24 10/07/24 Gertrudis Hopkins, RN [address] [place] [address] Registered Nurse Family Medicine 12/23/24 Alesia Pack 12/23/24 Jeimy Hall RN Care Manager 05/30/23 08/06/23 documented as of this encounter
--- OUTSIDE RECORDS SUMMARY | 2025-03-17 13:30 | XMS_ITS | Clinical Summary ---
Author Organization [facility] Address [address] [address] Phone Care Team Providers Care Roadway Engineer Name Role Phone Chris Sanchez MD Unavailable [phone] Abelardo Ramos MD Unavailable [phone] Cassie Saldana Primary Care Provider [phone] Allergies No known active allergies Medications hydroxychloroqu [...] patient's age to complete this topic IPV VACCINES Completed 07/29/2005, 10/07, 03/26/2001, Additional history exists HPV VACCINES Completed 08/27/2014, 12/07, 10/14/2011 HEPATITIS A VACCINES Completed 10/21/2016, 09/04/19 16 MENINGOCOCCAL VACCINES (ACWY) Completed 10/21/2016, 10/14/2011 MENINGOCOCCAL VACCINES (B) Aged Out N o longer eligible based on patient's age to complete this topic Medical Devices Not on file Insurance C3 ACO C3 ACO C3 ACO C3 ACO C3 ACO C3 ACO C3 ACO C3 ACO Care Teams Roadway Engineer Relationship Specialty Start Date End Date Cassie Saldana FNP [address] [place] [address] PCP - General Nurse Practitioner 12/31/24 Chris Sanchez MD [address] [place] [address] [email or web address] Consulting Provider Pediatric Cardiology 03/13/19 Abelardo Ramos MD [address] [facility] [address] [place] [address] Consulting Provider Pediatric Gastroenterology 04/22/19 Additional Source Comments The information contained in this document represents components of the legal health record. It is not the complete legal health record.[facility]
--- OUTSIDE RECORDS SUMMARY | 2025-03-17 13:30 | XMS_ITS | Encounter Summary ---
Author Organization [employer] Address [address] [place] [address] 7t [place] [address] Care Team Providers Care Chalk Tester Name Role Phone Cassie Saldana Primary Care Provider Fina Watt Unavailable [phone] Jaqueline Carver Unavailable Unavailable Gertrudis Hopkins RN Unavailable [phone] Alesia Pack Unavailable Reason for Visit * Reason Comments Med Refill Encounter Details Date Type Department Care Team (Late st Contact Info) Description 10/08/2023 Refill [facility] MED & PEDS 505 [place], [place] [phone] Cassie Saldana FNP 505 [place], [place] [phone] Rheumatoid arthritis involving multiple sites with positive [...] (HCC) documented in this encounter Care Teams Chalk Tester Relationship Specialty Start Date End Date Cassie Saldana FNP [address] [place] [address] PCP - General Family Medicine 12/30/21 Fina Watt Registered Nurse 10/07/24 10/07/24 Jaqueline Carver 10/07/24 10/07/24 Gertrudis Hopkins RN [address] [place] [address] Registered Nurse Family Medicine 12/23/24 Alesia Pack 12/23/24 documented as of this encounter
--- OUTSIDE RECORDS SUMMARY | 2025-03-17 13:30 | XMS_ITS | Encounter Summary ---
Author Organization [employer] Address [address] [place] [address] 7t [place] [address] Care Team Providers Care Metal Lather Name Role Phone Cassie Saldana Primary Care Provider Fina Watt Unavailable Jaqueline Carver Unavailable Unavailable Gertrudis Hopkins RN Unavailable [phone] Alesia Pack Unavailable Reason for Visit * Reason Comments Med Refill Encounter Details Date Type Department Care Team (Late st Contact Info) Description 09/07/2023 Refill [facility] MED & PEDS [address] [place], [place] [phone] Cassie Saldana FNP 505 [place], [place] [phone] Rheumatoid arthritis involving multiple sites with positive [...] (HCC) documented in this encounter Care Teams Metal Lather Relationship Specialty Start Date End Date Cassie Saldana FNP [address] [place] [address] PCP - General Family Medicine 12/30/21 Fina Watt Registered Nurse 10/07/24 10/07/24 Jaqueline Carver 10/07/24 10/07/24 Gertrudis Hopkins RN [address] [place] [address] Registered Nurse Family Medicine 12/23/24 Alesia Pack 12/23/24 documented as of this encounter
--- OUTSIDE RECORDS SUMMARY | 2025-03-17 13:30 | XMS_ITS | Encounter Summary ---
Author Organization [employer] Address [address] [facility] 7t [place] [address] Care Team Providers Care Black Top Machine Operator Name Role Phone Cassie Saldana Primary Care Provider [phone] Gertrudis Hopkins RN Unavailable [phone] Alesia Pack Unavailable Encounter Details Date Type Department Care Team (Latest Contact Info) Description 03/17/2025 Travel Social History Tobacco Use Types Packs/Day [...] documented as of this encounter Care Teams Black Top Machine Operator Relationship Specialty Start Date End Date Cassie Saldana FNP [address] [place] [address] PCP - General Family Medicine 12/30/21 Gertrudis Hopkins RN [address] [place] [address] Registered Nurse Family Medicine 12/23/24 Alesia Pack 12/23/24 documented as of this encounter
--- OUTSIDE RECORDS SUMMARY | 2025-03-17 13:30 | XMS_ITS | Encounter Summary ---
Author Organization [employer] Address [address] [facility] 7t [place] [address] Care Team Providers Care Emergency Veterinarian Name Role Phone Cassie Saldana Primary Care Provider Fina Watt Unavailable [phone] Jaqueline Carver Unavailable Unavailable Gertrudis Hopkins RN Unavailable [phone] Alesia Pack Unavailable Reason for Visit * Reason Comments Med Refill Encounter Details Date Type Department Care Team (Late st Contact Info) Description 03/30/2024 Refill [facility] MEDICINE [address] [place] [address] Cassie Saldana FNP [address] [place] [address] Social History Tobacco Use Types Packs/Day Years [...] documented as of this encounter Care Teams Emergency Veterinarian Relationship Specialty Start Date End Date Cassie Saldana FNP [address] [place] [address] PCP - General Family Medicine 12/30/21 Fina Watt Registered Nurse 10/07/24 10/07/24 Jaqueline Carver 10/07/24 10/07/24 Gertrudis Hopkins, SHERLYN [address] [place] [address] Registered Nurse Family Medicine 12/23/24 Alesia Pack 12/23/24 documented as of this encounter
--- OUTSIDE RECORDS SUMMARY | 2025-03-17 13:30 | XMS_ITS | Encounter Summary ---
Author Organization [facility] Address [address] [place] [address] [address] [place] [address] Care Team Providers Care Travel Attendants Name Role Phone Cassie Saldana Primary Care Provider Fina Watt Unavailable Jaqueline Carver Unavailable Unavailable Gertrudis Hopkins RN Unavailable [phone] Alesia Pack Unavailable Encounter Details Date Type Department Care Team (Late st Contact Info) Description 03/09/2023 Orders Only [facility] [address] [place], [place] [phone] Andrew Jorge MD [address] [place], [place] [phone] Social History Tobacco Use Types Packs/Day Years [...] on filedocumented in this encounter Care Teams Travel Attendants Relationship Specialty Start Date End Date Cassie Saldana FNP [address] [place] [address] PCP - General Family Medicine 12/30/21 Fina Watt Registered Nurse 10/07/24 10/07/24 Jaqueline Carver 10/07/24 10/07/24 Gertrudis Hopkins, SHERLYN [address] [place] [address] Registered Nurse Family Medicine 12/23/24 Alesia Pack 12/23/24 Jeimy Hall grouter helper 05/30/23 08/06/23 documented as of this encounter
--- OUTSIDE RECORDS SUMMARY | 2025-03-17 13:30 | XMS_ITS | Encounter Summary ---
Author Organization [employer] Address [address] [facility] [address] [place] [address] Care Team Providers Care Check Cashier Name Role Phone Cassie Saldana Primary Care Provider [phone] Fina Watt Unavailable Jaqueline Carver Unavailable Unavailable Gertrudis Hopkins RN Unavailable [phone] Alesia Pack Unavailable Reason for Visit * Reason Onset Date Comments Nurse Triage 04/02/2024 Encounter Details Date Type Department Care Team (Late st Contact Info) Description 04/02/2024 Telephone [facility] [address] [place] [address] Cassie Saldana FNP [address], [place] [phone] Nurse Triage Social History Tobacco Use Types [...] t he electric, gas, oil or water [employer] threatened to shut off services in your [...] pain will need to be managed by [facility]. Pt confirms that she missed her appt in February and is r/s for late April 2024 with [facility]. Pt would also like PCP to be aware that she is now with a different biomedical manager as her longstanding one has left the practice. * Telephone Encounter - JULES Macdonald - 04/02/2024 9:37 AM EST Hi, please call Gwendolyn to review Rheum plan. She is following with [facility], and plan per last consult note in October 2023, plan was to wean off prednisone and start Orencia infusion. I just sent in another bridge rx for her x 2 weeks, but she needs to contact Rheum and follow up with them regarding further management. She was scheduled for [facility] Appt in Feb 2024, but I [...] PCP and also another provider working in [facility] today. * Telephone Encounter - Crow Pack [...] SLE type, unspecified organ involvement status (CMS/HCC) ([facility])- Primary documented in this encounter Additional Health Concerns Assessment Noted Time PHQ-9 Depression Total Score: 10 024 11:22 AM EDT documented as of this encounter Care Teams Check Cashier Relationship Specialty Start Date End Date Cassie Saldana FNP [address] [place] [address] PCP - General Family Medicine 12/30/21 Fina Watt Registered Nurse 10/07/24 10/07/24 Jaqueline Carver 10/07/24 10/07/24 Gertrudis Hopkins, SHERLYN [address] [place] [address] Registered Nurse Family Medicine 12/23/24 Alesia Pack 12/23/24 documented as of this encounter
--- OUTSIDE RECORDS SUMMARY | 2025-03-17 13:30 | XMS_ITS ---
Author Organization [employer] Address [address] [place] [address] Care Team Providers Care Machine Buffer Name Role Phone Cassie Saldana Primary Care Provider [phone] Gertrudis Hopkins RN Unavailable [phone] Alesia Pack Unavailable CM Complex Status:Enrolled (Active) Start date:12/23/2024 Enrollment date:02/05/2025 Enrollment reason:ADT Feed Overview ADT- Pt admitted [place] [facility] [place]. Case Team Name Relationship Phone Gertrudis Hopkins RN(Responsible Staff) Registered Nurse [phone] Continued Care and Services Coordination
--- OUTSIDE RECORDS SUMMARY | 2025-03-17 13:30 | XMS_ITS ---
Author Organization [employer] Address [address] [place] [address] Care Team Providers Care Document Management Specialist Name Role Phone Cassie Saldana Primary Care Provider [phone] Gertrudis Hopkins RN Unavailable [phone] Alesia Pack Unavailable [facility] Complex Status:Enrolled (Active) Start date:12/23/2024 Enrollment date:02/19/2025 Enrollment reason:ADT Feed Overview ADT- [place] [facility] [place]. Please outreach for enrollment. Please outreach facility. Case Team Name Relationship Phone Alesia Pack(Responsible Staff) [phone] Continued Care and Services Coordination
--- OUTSIDE RECORDS SUMMARY | 2025-03-17 13:30 | XMS_ITS | Clinical Summary ---
Author Organization [employer] Address [address] [place] [address] [address] [place] [address] Care Team Providers Care Collection Systems Technician Name Role Phone Cassie Saldana Primary Care Provider Gertrudis Hopkins RN Unavailable [phone] Alesia Pack Unavailable Allergies No known active allergies Medications Misc. Devices (Pulse Oximeter For Finger) miscIndications: Routine health maintenance Use as needed to monitor oxygen saturation at home 1 each 05/31/19 23 Active Additional Information Patient not taking.Reported on 02/04/2025 Blood Pressure Monitor kitIndications:R outine health maintenance Use as needed to monitor Blood pressure at home 1 kit 03/07/20 23 Active acetaminophen (Tylenol) 500 MG tablet Take 2 tablets (1,000 mg) by mouth every 6 (six) hours if needed for moderate pain or fever for up to 25 doses. 50 tablet 03/07/20 23 Active hydroxychloroqui ne (Plaquenil) 200 MG tablet Take 1 tablet by mouth 2 times daily. 10/28/19 23 Active DULoxetine (Cymbalta) [address] capsule Take 30 mg by mouth Once per day. 01/07/20 25 Active azaTHIOprine (Imuran) 50 MG tablet Take 150 mg by mouth Once per day. 11/12/19 25 Active bisacodyl (Dulcolax) 10 MG suppository Insert 10 mg into the rectum if needed each day. 01/07/20 25 Active methocarbamol (Robaxin) 500 MG tablet Take 500 mg by mouth if needed in the morning, at noon, and at bedtime. 01/14/20 Active pantoprazole (ProtoNix) 40 MG EC tablet Take 40 mg by mouth 2 times daily. 01/07/20 Active sennosides (Senokot) 8.6 MG tablet Take 8.6 mg by mouth 2 times daily. 01/07/20 Active predniSONE (Deltasone) 10 MG tablet Take 30 mg by mouth Once per day. 12/22/19 Active magnesium hydroxide (Milk of Magnesia) 400 MG/5ML suspension Take 30 mL by mouth if needed each day. 01/07/20 Active amLODIPine (Norvasc) 10 MG tabletIndication s:Primary hypertension Take 1 tablet (10 mg) by mouth Once per day. 30 tablet 01/16/20 026 Active White Petrolatum-Car Scrubber al Oil (artificial tears) 83-15 % ointment ophthalmic ointmentIndicati ons:Dry eye syndrome of both eyes Apply to both eyes at bedtime. 3.5 g 11 01/24/20 Active amitriptyline (Elavil) 10 MG tablet Take 10 mg by mouth at bedtime. 01/07/20 025 Discontin ued(Thera py completed ) gabapentin (Neurontin) 300 MG capsule Take 600 mg by mouth 3 times daily. 01/07/20 025 Discontin ued(Thera py completed ) oxyCODONE (Roxicodone) 5 MG immediate release tablet Take 5 mg by mouth every 6 (six) hours if needed. 01/14/20 025 Discontin ued(Thera py completed ) sucralfate (Carafate) 1 g tablet Take 1 g by mouth before breakfast, before lunch, before evening meal, and at bedtime. 01/07/20 025 Discontin ued(Thera py completed ) Active Problems Problem Noted Date Diagnosed Date [...] BP elevated in office. -Non-smoker, hx of fdc prednisone use -Plan: she is thinking about getting . Will switch to labetalol 100mg daily. Reviewed med safety and SE. 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 Reviewed [...] 10/20/22: Hx myopericarditis. Appt to establish with [facility]. EKG stable, planning for an [...] upon post- discharge in November 2022 from [facility] Assessment & Plan (04/29/2023 9:37 AM EST): -DBP elevated, denies any chest pain, BUENO, SOB, palpitations, or other associated symptoms -Nifedipine 60mg daily sent to pharmacy -Encouraged to monitor BP readings at home, return precautions Healthcare maintenance 04/29/2023 Overview (04/29/2023): Contraception: Nexplanon placed post- November 2022 at [facility] Raynaud's phenomenon (secondary) 05/13/2022 Rheumatoid arthritis (CMS/HCC) 06/19/2020 Overview (01/29/2024): -Seropositive RA (RF++ CCP-) -Currently following with [facility] Rhe[facility] Current med regimen: hydroxychloroquine 200mg BID and prednisone 30mg daily Previous med trials: Humira, Rituxan infusion Per consult October 2023 - Goal: start biologic with plan to wean off prednisone daily. Plan to order Orencia infusion, follow up in 12 weeks Assessment & Plan (01/29/2024 9:19 PM EDT): Called [facility] Rheum with pt to discuss f/up regarding Orencia as Gwendolyn reports she has not heard from office since last appt. LVM with request to return call directly to pt. Assessment & Plan (05/13/2022 6:50 PM EST): -Seropositive RA (RF++ CCP-) previously managed with Plaquenil and prednisone by Dr. Diaz of [facility] Rheumatology, who has since left. Has not [...] that impact daily functioning -Case discussion with [facility] pharmacy - risk of untreated [...] pending initial consult with OBGYN. Autoimmune hepatitis ([facility]) 03/25/2013 Assessment & Plan (04/29/2023 9:29 AM EST): -Previously tx w/ azathioprine 75 mg daily for autoimmune hepatitis -08/04/22: Established with [facility] for autoimmune hepatitis. Dr. Nhi white. They would like follow up first with lab work and then possibly liver biopsy if needed Assessment & Plan (05/13/2022 7:18 AM EST): -Previously took azathioprine 75 mg daily for autoimmune hepatitis, however she has not taken this medication in some time since she stopped seeing her radiation therapist. -Established with [facility] in September 2021 Low vision, both eyes 10/14/2011 Systemic lupus erythematosus ([facility]/HCC) 2 Overview (09/10/2024): Seropositive RA (RF++ CCP-) previously managed with Plaquenil and prednisone by [facility]umatology Previously following with [facility], currently following with [facility] Rheum Med regimen (as of August 2024) [...] & Plan (06/05/2022 6:49 PM EST): -Called [facility] rheum with patient to schedule appt. Discussed importance that pt be seen soon due to high risk -Continue with prednisone 30mg daily -Consider bridge rx of hydroxychloroquine in primary care until pt able to be established with Rheum. Will place [facility] consult Assessment & Plan (05/24/2022 12:43 PM EST): -Seropositive RA (RF++ CCP-) previously managed with Plaquenil and prednisone by Dr. Diaz of [facility]umatology, who has since left. Has not [...] that impact daily functioning -Case discussion with [facility] pharmacy - risk of untreated [...] liver enzymes 01/23/202401/28 Hepatitis, autoimmune 01/23/20242023 Myocarditis ([facility]/HCC) 01/23/20242023 Supervision of high-risk 01/23/2024 01/29/2024 Systemic lupus erythematosus affecting in second trimester ([facility]/HCC) 01/23/2024 01/29/2024 Acute cystitis with hematuria 12/05/2023 01/29/2024 Assessment & Plan (12/05/2023 6:20 PM EDT): Take levofloxacin x 5d (based on last Urine Cx) Order urine cx Nexplanon in place 09/23/2023 Assessment & Plan (09/26/2023 2:02 PM EDT): - Nexplanon placed November 2022 by [facility] following delivery - Pt reported interested in removal due to SE - feelings of weight gain, fatigue - Nexplanon removal 09/26/23 at [facility] Assessment & Plan (09/23/2023 4:17 PM EDT): - Nexplanon placed November 2022 by [facility] following delivery - Pt reported interested in removal due to SE - feelings of weight gain, fatigue - Plan to call next week to schedule appt for Nexplanon removal - List of alternative contraceptive methods provided for pt to review 06/05/2022 04/29/2023 Overview (06/05/2022): -LMP 04/02/22 -Referred to [facility] - initial appt Jun 15, [...] Encounters Date Type Department Care Team Description 03/17/2025 10:15 AM EST Office Visit [facility] MED & PEDS [address] [place] [address] Cassie Saldana FNP BMI 31.0-31.9,adult (Primary Dx); Encounter for immunization 03/17/2025 Travel 03/09/2025 Results Follow-Up [facility] [address] [place] [address] Cassie Saldana FNP Hemoglobin A1c 03/07/2025 Patient Outreach [address] [address] Cassie Saldana FNP Pre-visit Planning (SDOH screening completed on 10/10/24) 03/06/[address] [address] Cassie Saldana FNP Results 03/06/2025 Orders Only GENERIC EXTERNAL DATA DEPARTMENT Provider, Generic External Data 03/05/2025 Patient Outreach [address] [address] Cassie Saldana, MANAGEMENT PSYCHOLOGIST Care Management (C3CM- f/u call) 03/03/2025 Patient Outreach [address] [address] Cassie Saldana, MANAGEMENT PSYCHOLOGIST Care Coordination (SDOH f/u) 02/21/2025 Patient Outreach [address] [address] Cassie Saldana MANAGEMENT PSYCHOLOGIST Care Coordination (SDOH) 02/19/2025 Patient Outreach [address] [address] Cassie Saldana, MANAGEMENT PSYCHOLOGIST Care Coordination (SDOH) 02/17/2025 Patient Outreach [address] [address] Cassie Saldana, MANAGEMENT PSYCHOLOGIST Care Management (C3CM- f/u call) 02/07/2025 Patient Outreach [address] [address] Cassie Saldana, MANAGEMENT PSYCHOLOGIST Care Coordination (SDOH f/u) 02/05/2025 Plan of Care Documentation [address] [address] 02/04/2025 Patient Outreach [address] [address] Cassie Saldana, MANAGEMENT PSYCHOLOGIST Care Management (C3- initial assessment/ enrollment) 01/30/2025 Patient Outreach [address] [address] Cassie Saldana, MANAGEMENT PSYCHOLOGIST Care Coordination (CM/CHW outreach) 01/29/2025 Results Follow-Up [facility]ED[facility] [address] [place] [address] Cassie Saldana MANAGEMENT PSYCHOLOGIST US Pelvis Transvaginal 01/29/2025 Telephone [facility] PED[facility] [address] [place] [address] Phaldawson Cassie, MANAGEMENT PSYCHOLOGIST Call Back Request 01/23/2025 9:30 AM EDT Office Visit [facility] OPTOMETRY [address] [place] [address] Alber, Camelia, OD Systemic lupus erythematosus, unspecified SLE type, unspecified organ involvement status (CMS/HCC) (Primary Dx); Long-term use of high-risk medication; Posterior polar cataract; Dry eye syndrome of both eyes; Choroidal nevus of right eye; High myopia, bilateral 01/23/2025 Travel 01/22/2025 Travel 01/22/2025 Telephone [facility] OPTOMETRY [address] [place] [address] Camelia Campo, OD 01/15/2025 10:00 AM EDT Office Visit [facility] MED [facility] PEDS [address] [place] [address] Adela Acosta, SNAKE CHARMER Systemic lupus erythematosus, unspecified SLE type, unspecified organ involvement status (CMS/HCC) (Primary Dx); Rheumatoid arthritis involving multiple sites with positive rheumatoid factor (CMS/HCC); Epidural lipomatosis; Bilateral fracture of pubic rami, sequela; Lumbosacral radiculopathy; Current chronic use of systemic steroids; Primary hypertension 01/15/2025 Travel 01/14/2025 Patient Outreach [facility] MEDICINE [address] [place] [address] Cassie Saldana FNP 01/14/2025 Telephone [facility] MED [facility] PED[facility] [address] [place] [address] Cassie Saldana FNP Chart Prep 01/13/2025 Telephone [facility] MED [facility] PEDS [address] [place] [address] Cassie Saldana FNP Nurse Triage 01/13/2025 Telephone [facility] MED [facility] PEDS [address] [place] [address] Cassie Saldana FNP Hospital Follow-up 01/13/2025 Patient Outreach [facility] MEDICINE [address] [place] [phone] Cassie Saldana FNP 01/08/2025 Patient Outreach [facility] MEDICINE [address] [place] [phone] Cassie Saldana FNP Care Coordination (CM/CHW outreach) 01/03/2025 Patient Outreach [facility] MEDICINE [address] [place] [address] Phalen, Cassie, MANAGEMENT PSYCHOLOGIST Care Coordination (CM/CHW outreach) 12/25/2024 Patient Outreach [address] [address] Cassie Saldana FNP 12/23/2024 Patient Outreach [address] [address] Cassie Saldana FNP Care Coordination (CM/CHW outreach) 12/23/2024 Patient Outreach [address] [address] Cassie Saldana FNP Care Coordination (CHW chart review) 12/23/2024 Patient Outreach [address] [address] Cassie Saldana FNP Care Management (CM- chart review) 12/23/2024 Patient Outreach [address] [address] Cassie Saldana FNP 12/21/2024 9:20 AM EDT Office Visit [facility] WALK-IN CENTER [address] [place] [phone] Georgia Franks MD Oxygen desaturation (Primary Dx); Systemic lupus erythematosus, unspecified SLE type, unspecified organ involvement status (CMS/[facility]) 12/21/2024 Travel 12/19/2024 Telephone [facility] MED & PEDS [address] [place], [place] [phone] Cassie Saldana FNP Medication Question from Last [...] 03/28/2012 Influenza, seasonal, injecta ble, preservative free 03/17/2025,01/29/2024 MMR 07/29/2005,11/01/2001 Meningococcal ACWY, unspecified 10/21/2016,10/13 Meningococcal [...] 03/17/2025 10:1 9 AM EST Oxygen Saturation 98% 01/15/2025 10: 23 AM EDT Inhaled Oxygen Concentration - - Weight 76.2 kg (168 lb) 03/17/2025 10:1 9 AM EST Height 154.9 cm (5' 1 ) 03/17/2025 10:1 9 AM EST Body Mass Index 31.74 03/17/2025 10:19 AM EST Plan of Treatment Health Maintenance Due Date Last Done Comments HIV Screening 2000 Lipid Panel 2000 Family Planning (PISQ) 09/29/2015 Pneumococcal Vaccine: Pediatrics (0 to 5 Years) and At-Risk Patients (6 to 49) Years (1 of 2 - PCV) 09/29/2019 05/05/2003, 06/11/2001, 03/26/2001, Additional history exists Zoster Vaccines (1 of 2) 09/29/2019 Pap Smear 10/18/2024 10/19/2023 SDOH Screening 10/10/2025 10/10/2024 Alcohol/Substance Use Screening 01/15/2026 01/15/2025 Disability Screening 01/15/2026 01/15/2025 Depression Screening 02/04/2026 02/04/2025, 02/05/20 25 COVID-19 Vaccine (#1) 03/17/2026 Postpo marko from 2005 (Patient Refused) Tobacco Screening 03/17/2026 03/17/2025 DTaP/Tdap/Td Vaccines (8 - Td or Tdap) [...] Screening Completed 07/10/2023, 020 Influenza Vaccine Completed 03/17/2025, , 04/28/2023, Additional history exists Meningococcal B Vaccine Aged Out No l [...] 7:57 PM EDT Cyst of right ovary US PELVIS COMPLETE Routine 01/20/2025 Cyst of right ovary PAP SMEAR Routine 10/19/2023 2:46 PM EDT Routine cervical smear Screening examination for venereal disease HEPATITIS PANEL, GENERAL Routine 07/10/2023 9:08 AM EST from Last 3 Months or Most Recently Relevant to Health Maintenance Results * (ABNORMAL) CBC auto differential (03/06/2025 12:08 PM EDT) White Blood Count 7.6 4.8 - 10.8 X10*3/uL [facility] Red Blood Count 5.59(H) 4.20 - 5.50 X10*6/uL [facility] Hemoglobin 12.8 12.0 - 16.0 g/dl [facility] Hematocrit 43.6 37.0 - 47.0 % [facility] Mean Corpuscular Volume 78.0(L) 80.0 - 98.0 fL [facility] Mean Corpuscular Hemoglobin 22.9(L) 27.0 - 33.0 pg [facility] Mean Corpuscular HGB Conc 29.4(L) 31.0 - 35.0 g/dl [facility] Red Cell Distribution Width 15.7 11.0 - 16.0 % [facility] Platelet Count 332 160 - 400 X10*3/uL [facility] Mean Platelet Volume 10.2 9.4 - 12.3 fL [facility] Neutrophils Percent Auto 77.8(H) 45 - 73 % [facility] Imm Gran Pct Auto 2.4(H) 0.0 - 0.4 % [facility] Lymphocytes Percent Auto 11.9(L) 20 - 40 % [facility] Monocytes Percent Auto 7.1 2 - 11 % [facility] Eosinophils Percent Auto 0.5 0 - 4 % [facility] Basophils Percent Auto 0.3 0 - 2 % [facility] NRBC Pct Auto 0.0 0.0 - 0.2 /100WBC [facility] Neutrophils Absolute Auto 5.9 2.0 - 8.3 x10*3/uL [facility] Imm Gran Abs Auto 0.18(H) 0.00 - 0.03 X10*3/uL [facility] Lymphocytes Absolute Auto 0.9(L) 1.2 - 4.9 X10*3/uL [facility] Monocytes Absolute Auto 0.5 0.1 - 1.2 X10*3/uL [facility] Eosinophils Absolute Auto 0.0 0.0 - 0.4 X10*3/uL [facility] Basophils Absolute Auto 0.0 0.0 - 0.2 X10*3/uL [facility] NRBC Abs Auto 0.000 0.0 - 0.012 X10*3/uL [facility] 03/06/2025 12:0 8 PM EDT 03/06/2025 1:12 PM EDT us Generic External Data Provider LAB BLOOD ORDERAB LES Final Result [facility] [address] [place] [phone] * Hemoglobin A1c (03/06/2025 12:08 PM EDT) Hemoglobin A1c 5.4 <6.0 % [facility] Comment:Hemoglobin A1C Refer ence Range Adults: 4.8 - 6.0 % Non diabetic: < 6.0 % Goal: < 7.0 %Additional Action Suggested: > 8.0 %Note: Hemoglobin A1c results are invalid for patients with abnormal amounts of HbF. Blood transfusions may impact the HbA1c concentration in the patient sample. Estimated Average Glucose 108 mg/dL [facility] Comment:eAG = Estimated ave rage glucose which is %A1C expressed asaverage glucose, using the formula of the V4L-XwaqphlLnaggkh Glucose study (ADAG), Diabetes Care, Vol.31,#8,Dec. 2007 Blood Venous blood specimen / Unknown 03/06/2025 12:08 PM EDT 03/06/2025 1:12 PM EDT us Cassie VICENTE LAB BLOOD ORDERABLES Final Res ult [facility] [address] [place] [phone] * OCT, Retina - OU - [...] PM EDT Narrative 01/21/2025 7:58 PM EDT [address] [address] Ultrasound Report Signed Patient: Gwendolyn Zuñiga MR#: [id number] : 2000 Acct:[id number] Age/Sex: 24 / F ADM Date: 01/20/25 Loc: HO.US Attending Dr: Cassie VICENTE Ordering Physician: Cassie Saldana Date of Service: 01/20/25 Procedure(s): US pelvic and transvaginal Accession Number(s): [id number] cc: Cassie Saldana Reason for Exam: OVARIAN [...] in OV> 01/21/251957 DD/ 56 TD/TT: 01/21/251956 Adaptive Physical Education Specialist: Procedure Note Donotuseinterpreter, Image - 01/21/2025 [place] [id number] Ultrasound Report Signed Patient: Gwendolyn Zuñiga#: [id number] : 2000Acct:[id number] Age/Sex: 24 FADM Date: 01/20/25 Loc: HO.US Attending Dr: Cassie VICENTE Ordering Physician: Cassie Saldana Date of Service: 01/20/25 Procedure(s): US pelvic and transvaginal Accession Number(s): [id number] cc: Cassie Saldana Reason for Exam: OVARIAN [...] in OV> 01/21/251957 DD/ 56 TD/TT: 01/21/251956 Adaptive Physical Education Specialist: us Cassie Saldana MANAGEMENT PSYCHOLOGIST IMG US PROCEDURES Edited Resul t - Final * Us Pelvis complete (01/20/2025) Anatomical Region Laterality Modality Pelvis Ultrasound us Cassie Saldana MANAGEMENT PSYCHOLOGIST IMG US PROCEDURES Final Result * Pap Smear (10/19/2023 2:46 PM EDT) Swab Cervix uteri structure / Unknown 10/19/2023 2:46 PM EDT 10/20/2023 6:00 AM EDT Narrative [facility] - 11/08/2023 11:52 AM EDT ----- ------- Name: Gwendolyn Zuñiga Age/Sex: 23/F : 2000 Unit#: [id number] Attend Dr: ELIZABETH WRIGHT Krishna Re10/20/23 Status: DEP REF Location: [facility] Disch: ----- ------- SPEC : [id number] RECD: 10/20/23 STATUS: KRUNAL BEARD NUM: [id number] GOPI: 10/19/23-14[address] [facility] [address]: ELIZABETH WRIGHT CNM ENTERED: 10/20/23 SP [...] ----- ------- END OF REPORT Elizabeth Wright CNM LAB CYTOLOGY ORDERABLES F inal Result [facility] [address] [place] [address] [phone] * Hepatitis Panel, General (07/10/2023 9:08 AM EST) Hepatitis A IgM Nonreactive Nonreactive [facility] Comment:IgM antibodies to BUENO V not detected; does not exclude earlyacute or recovered HAV infection. ~Hepatitis B Surface Antibody NONREACTIVE Nonreactive [facility] Comment:Nonreactive: < 8.00 mIU/mL Hepatitis B Core Antibody Nonreactive Nonreactive [facility] Hepatitis C Antibody Nonreactive Nonreactive [facility] Comment:Antibodies to HCV no t detected; does not exclude early acuteHCV infection. Hepatitis B Surface Ag Negative Negative [facility] 07/10/2023 9:08 AM EST 07/10/2023 11:31 AM EST us Generic External Data Provider LAB BLOOD ORDERAB LES Final Result Performing Organization Address [facility] Co de Phone Number [facility] [address] [place] [address] [phone] from Last 3 Months or Most Recently Relevant to Health Maintenance Insurance [facility] C3 Care Teams Collection Systems Technician Relationship Specialty Start Date End Date Cassie Saldana FNP [address] [place] [phone] PCP - General Family Medicine 12/30/21 Gertrudis Hopkins RN [address] [place] [phone] Registered Nurse Family Medicine 12/23/24 Alesia Pack 12/23/24
--- OUTSIDE RECORDS SUMMARY | 2025-03-17 13:31 | XMS_ITS | Clinical Summary ---
Author Organization [facility] Address [address] [place] [address] Phone Care Team Providers Care Policy Cancellation Clerk Name Role Phone Physician, No Pcp Primary [...] EDT - 01/14/2025 12:20 AM EDT Emergency [facility] Emergency [address] [place] [address] Neal Avery MD Schreiner, Ian, [...] - AUTOMATED METHOD 01/13/2025 9:47 PM EDT [facility] Clarity, Urine Clear Clear LAB URINALYSIS - AUTOMATED METHOD 01/13/2025 9:47 PM EDT [facility] Specific [place] Urine 1.015 1.005 - 1.030 LAB URINALYSIS - AUTOMATED METHOD 01/13/2025 9:47 PM EDT [facility] pH, Urine 5.0(A) 5.0 - 8.0 pH LAB URINALYSIS - AUTOMATED METHOD 01/13/2025 9:47 PM EDT [facility] Leukocytes, Urine Negative Negative WBCs/mcL LAB URINALYSIS - AUTOMATED METHOD 01/13/2025 9:47 PM EDT [facility] Nitrite, Urine Positive(A) Negative LAB URINALYSIS - AUTOMATED METHOD 01/13/2025 9:47 PM EDT [facility] Protein, Urine Trace Negative, Trace mg/dL LAB URINALYSIS - AUTOMATED METHOD 01/13/2025 9:47 PM EDT [facility] Glucose, Urine Negative Negative mg/dL LAB URINALYSIS - AUTOMATED METHOD 01/13/2025 9:47 PM EDT [facility] Ketones, Urine Negative Negative mg/dL LAB URINALYSIS - AUTOMATED METHOD 01/13/2025 9:47 PM EDT [facility] Blood, Urine Negative Negative, Trace mg/dL LAB URINALYSIS - AUTOMATED METHOD 01/13/2025 9:47 PM EDT [facility] RBC, Urine 1 0 - 3 /HPF LAB URINALYSIS - AUTOMATED METHOD 01/13/2025 9:47 PM EDT [facility] WBC, Urine <1 0 - 5 /HPF LAB URINALYSIS - AUTOMATED METHOD 01/13/2025 9:47 PM EDT [facility] Bacteria, Urine Present(A) Not Present /HPF LAB URINALYSIS - AUTOMATED METHOD 01/13/2025 9:47 PM EDT [facility] Squamous Epithelial, Urine >100(H) 0 - 5 /HPF LAB URINALYSIS - AUTOMATED METHOD 01/13/2025 9:47 PM EDT [facility] Mucus, Urine Present(A) Not Present /HPF LAB URINALYSIS - AUTOMATED METHOD 01/13/2025 9:47 PM EDT [facility] Hyaline Casts, Urine 22(H) <=0 /LPF LAB URINALYSIS - AUTOMATED METHOD 01/13/2025 9:47 PM EDT [facility] Urine Urine specimen obtained by clean catch procedure / Unknown Non-blood Collection / Unknown 01/13/2025 9:03 PM EDT 01/13/2025 9:14 PM EDT us Neal Avery MD LAB URINE ORDERABLES Final Re sult [facility] [address] [place] [address], * Chao urine culture tube (01/13/2025 9:03 PM EDT) Extra Tube Hold for add-ons. 01/13/2025 11:01 PM EDT [facility] Comment:Auto resulted. Urine Urine specimen obtained by clean catch procedure / Unknown Non-blood Collection / Unknown 01/13/2025 9:03 PM EDT 01/13/2025 9:14 PM EDT Neal Avery MD LAB URINE ORDERABLES Final Re sult Performing Organization Address City/[facility]/ZIP Co de Phone Number [facility] [address] [place] [address], [place] [phone] * Troponin I high sensitivity (01/13/2025 7:46 PM EDT) Only the most recent of2 resultswithin the time period is included. High Sensitivity Troponin I 4 0 - 14 ng/L LAB CHEMISTRY METHOD 01/13/2025 8:35 PM EDT [facility] Blood Venous blood specimen / Unknown Venipuncture / Unknown 01/13/2025 7:46 PM EDT 01/13/2025 7:55 PM EDT Narrative [facility] - 01/13/2025 8:35 PM EDT HSTnI [...] method is an immunoenzymatic assay manufactured by [employer] and performed on the [employer] DxI 800. Wally SOLIS LAB BLOOD ORDERABLES Final Resul t Performing Organization Address City/[facility]/ZIP Co de Phone Number [facility] [address] [place] [address], [place] [phone] * CT Angio Chest/Abdomen/Pelvis wo and/or w [...] Signed Date: 01/13/2025 20:11 ET Workstation ID: [id number] Transcribed By: Self Edit Transcribed Date: 01/13/2025 [...] Signed Date: 01/13/2025 20:11 ET Workstation ID: [id number] Transcribed By: Self Edit Transcribed Date: 01/13/2025 [...] GEMUSE QTc 457 ms GEMUSE P Wave [place] 26 degrees GEMUSE R [place] 12 degrees GEMUSE T [place] 7 degrees GEMUSE ECG Interpretation Normal sinus [...] Signed Date: 01/13/2025 18:08 ET Workstation ID: [id number] Transcribed By: Self Edit Transcribed Date: 01/13/2025 [...] Signed Date: 01/13/2025 18:08 ET Workstation ID: [id number] Transcribed By: Self Edit Transcribed Date: 01/13/2025 17:59 ET Neal Avery MD IMG XR PROCEDURES Final Resul t * (ABNORMAL) CBC auto differential (01/13/2025 4:21 PM EDT) [facility] WBC 7.4 4.0 - 10.5 K/mcL LAB HEMETOLOGY METHOD 01/13/2025 4:43 PM EDT [facility] RBC 5.63(H) 4.20 - 5.40 M/mcL LAB HEMETOLOGY METHOD 01/13/2025 4:43 PM EDT [facility] Hemoglobin 13.3 12.5 - 16.0 g/dL LAB HEMETOLOGY METHOD 01/13/2025 4:43 PM EDT [facility] Hematocrit 41.7 37.0 - 47.0 % LAB HEMETOLOGY METHOD 01/13/2025 4:43 PM EDT [facility] MCV 74.0(L) 78.0 - 100.0 FL LAB HEMETOLOGY METHOD 01/13/2025 4:43 PM EDT [facility] MCH 23.6(L) 25.0 - 33.0 pcg LAB HEMETOLOGY METHOD 01/13/2025 4:43 PM EDT [facility] MCHC 31.9(L) 32.0 - 36.0 g/dL LAB HEMETOLOGY METHOD 01/13/2025 4:43 PM EDT [facility] RDW 16.9(H) 12.1 - 16.2 % LAB HEMETOLOGY METHOD 01/13/2025 4:43 PM EDT [facility] Platelets 353 150 - 450 K/mcL LAB HEMETOLOGY METHOD 01/13/2025 4:43 PM EDT [facility] MPV 7.6 7.4 - 11.4 FL LAB HEMETOLOGY METHOD 01/13/2025 4:43 PM EDT [facility] Neutrophils Relative 80.3(H) 44.0 - 74.0 % LAB HEMETOLOGY METHOD 01/13/2025 4:43 PM EDT [facility] Lymphocytes Relative 10.3(L) 20.0 - 48.0 % LAB HEMETOLOGY METHOD 01/13/2025 4:43 PM EDT [facility] Monocytes Relative 5.8 2.0 - 12.0 % LAB HEMETOLOGY METHOD 01/13/2025 4:43 PM EDT [facility] Eosinophils Relative 3.3 0.0 - 6.0 % LAB HEMETOLOGY METHOD 01/13/2025 4:43 PM EDT [facility] Basophils Relative 0.3 0.0 - 2.0 % LAB HEMETOLOGY METHOD 01/13/2025 4:43 PM EDT [facility] Neutrophils Absolute 5.90 1.80 - 7.80 K/mcL LAB HEMETOLOGY METHOD 01/13/2025 4:43 PM EDT [facility] Lymphocytes Absolute 0.80(L) 1.00 - 3.20 K/mcL LAB HEMETOLOGY METHOD 01/13/2025 4:43 PM EDT [facility] Monocytes Absolute 0.40 0.00 - 0.80 K/mcL LAB HEMETOLOGY METHOD 01/13/2025 4:43 PM EDT [facility] Eosinophils Absolute 0.20 0.00 - 0.50 K/mcL LAB HEMETOLOGY METHOD 01/13/2025 4:43 PM EDT [facility] Basophils Absolute 0.00 0.00 - 0.20 K/mcL LAB HEMETOLOGY METHOD 01/13/2025 4:43 PM EDT [facility] Blood Venous blood specimen / Unknown Venipuncture / Unknown 01/13/2025 4:21 PM EDT 01/13/2025 4:37 PM EDT [facility] LAB BLOOD ORDERABLES Final Resul t Performing Organization Address City/[facility]/ZIP Co de Phone Number [facility] [address] [place] [address], [place] [phone] * hCG, serum, qualitative (01/13/2025 4:21 PM EDT) Pathologist [facility] hCG Qual Negative Negative LAB CHEMISTRY METHOD 01/13/2025 5:24 PM EDT [facility] Blood Venous blood specimen / Unknown Venipuncture / Unknown 01/13/2025 4:21 PM EDT 01/13/2025 4:37 PM EDT us Wally SOLIS LAB BLOOD ORDERABLES Final Resul t Performing Organization Address [facility] Co de Phone Number [facility] [address] [place] [address], [place] [phone] * B-type natriuretic peptide (01/13/2025 4:21 PM EDT) [facility] BNP 9 0 - 100 pcg/mL LAB CHEMISTRY METHOD 01/13/2025 5:23 PM EDT [facility] Blood Venous blood specimen / Unknown Venipuncture / Unknown 01/13/2025 4:21 PM EDT 01/13/2025 4:37 PM EDT us Wally SOLIS LAB BLOOD ORDERABLES Final Resul t Performing Organization Address City/[facility]/ZIP Co de Phone Number [facility] [address] [place] [address], [place] [phone] * Magnesium (01/13/2025 4:21 PM EDT) Pathologist [facility] Magnesium 2.1 1.7 - 2.8 mg/dL LAB CHEMISTRY METHOD 01/13/2025 5:12 PM EDT [facility] Blood Venous blood specimen / Unknown Venipuncture / Unknown 01/13/2025 4:21 PM EDT 01/13/2025 4:37 PM EDT us Wally SOLIS LAB BLOOD ORDERABLES Final Resul t Performing Organization Address [facility] Co de Phone Number [facility] [address] [place] [address], [place] [phone] * (ABNORMAL) Lipase (01/13/2025 4:21 PM EDT) Lipase 123(H) 11 - 82 unit/L LAB CHEMISTRY METHOD 01/13/2025 5:12 PM EDT [facility] Blood Venous blood specimen / Unknown Venipuncture / Unknown 01/13/2025 4:21 PM EDT 01/13/2025 4:37 PM EDT us Wally SOLIS LAB BLOOD ORDERABLES Final Resul t Performing Organization Address [facility] de Phone Number [facility] [address] [place] [address], [place] [phone] * (ABNORMAL) Creatine kinase (01/13/2025 4:21 PM EDT) Total CK 28(L) 30 - 135 unit/L LAB CHEMISTRY METHOD 01/13/2025 5:12 PM EDT [facility] Blood Venous blood specimen / Unknown Venipuncture / Unknown 01/13/2025 4:21 PM EDT 01/13/2025 4:37 PM EDT Neal Avery MD LAB BLOOD ORDERABLES Final Re sult Performing Organization Address City/[facility]/ZIP Co de Phone Number [facility] [address] [place] [address], [place] [phone] * Comprehensive metabolic panel (01/13/2025 4:21 PM EDT) Sodium 143 135 - 145 mmol/L LAB CHEMISTRY METHOD 01/13/2025 5:12 PM EDT [facility] Potassium 3.5 3.5 - 5.1 mmol/L LAB CHEMISTRY METHOD 01/13/2025 5:12 PM EDT [facility] Chloride 105 98 - 107 mmol/L LAB CHEMISTRY METHOD 01/13/2025 5:12 PM EDT [facility] CO2 27 24 - 32 mmol/L LAB CHEMISTRY METHOD 01/13/2025 5:12 PM EDT [facility] Anion Gap 11 5 - 14 LAB CHEMISTRY METHOD 01/13/2025 5:12 PM EDT [facility] Glucose 80 70 - 199 mg/dL LAB CHE[facility]STRY [facility] 9 7 - 17 mg/dL [facility]STR[facility] Creatinine 0.60 0.50 - 1.00 mg/dL LAB CHEMISTRY METHOD 01/13/2025 5:12 PM EDT [facility] eGFR 129 >=60 mL/min/1. 73m2 LAB CHEMISTRY METHOD 01/13/2025 5:12 PM EDT [facility] Comment:Calculation based on the Chronic Kidney Disease Epidemiology Collaboration (CKD-EPI) equation refit without adjustment for race. BUN/Creatinine Ratio 15.0 12.0 - 20.0 LAB CHEMISTRY METHOD 01/13/2025 5:12 PM EDT [facility] Calcium 8.6 8.4 - 10.2 mg/dL LAB CHEMISTRY METHOD 01/13/2025 5:12 PM [facility] LAB AST (SGOT) 17 5 - 40 unit/L LAB CHEMISTRY METHOD 01/13/2025 5:12 PM [facility] ED LAB ALT (SGPT) 28 7 - 52 unit/L LAB CHEMISTRY METHOD 01/13/2025 5:12 PM EDT [facility] Alkaline Phosphatase 66 34 - 104 unit/L LAB CHEMISTRY METHOD 01/13/2025 5:12 PM EDT [facility] Total Protein 6.8 6.4 - 8.5 g/dL LAB CHEMISTRY METHOD 01/13/2025 5:12 PM EDT [facility] Albumin 4.1 3.5 - 5.0 g/dL LAB CHEMISTRY METHOD 01/13/2025 5:12 PM EDT [facility] Total Bilirubin 0.4 0.3 - 1.0 mg/dL LAB CHEMISTRY METHOD 01/13/2025 5:12 PM EDT [facility] Blood Venous blood specimen / Unknown Venipuncture / Unknown 01/13/2025 4:21 PM EDT 01/13/2025 4:37 PM EDT Wally SOL[facility] LAB BLOOD ORDERABLES Final Resul t [facility] [address] [place] [address], [place] [phone] from Last 3 Months Insurance MEDICAID - [place] Care Teams Policy Cancellation Clerk Relationship Specialty Start Date End Date Physician, No Pcp PCP - General 01/13/25
--- OUTSIDE RECORDS SUMMARY | 2025-03-17 13:31 | XMS_ITS | Encounter Summary ---
Author Organization [employer] Address [address] [facility] [address] [place] [address] Care Team Providers Care Pizza Delivery Name Role Phone Cassie Saldana Primary Care Provider Fina Watt Unavailable Jaqueline Carver Unavailable Unavailable Gertrudis Hopkins RN Unavailable [phone] Alesia Pack Unavailable Reason for Visit * Reason Onset Date Comments Call Back Request 12/11/2023 Encounter Details Date Type Department Care Team (Late st Contact Info) Description 12/11/2023 Telephone [facility] MEDICINE [address] [place] [address] Cassie Saldana FNP [address] [place], [place] [phone] Call Back Request Social History Tobacco Use [...] from PCP in regards paperwork drop at [facility] that pt needs to be filled out ivette. documented in this encounter Plan of Treatment Not on file documented as of this encounter Visit Diagnoses Not on filedocumented in this encounter Care Teams Pizza Delivery Relationship Specialty Start Date End Date Cassie Saldana FNP [address] [place] [address] PCP - General Family Medicine 12/30/21 Fina Watt Registered Nurse 10/07/24 10/07/24 Jaqueline Carver 10/07/24 10/07/24 Gertrudis Hopkins, SHERLYN [address] [place], [place] [address] [address] Registered Nurse Family Medicine 12/23/24 Alesia Pack 12/23/24 documented as of this encounter
--- OUTSIDE RECORDS SUMMARY | 2025-03-17 13:31 | XMS_ITS | Encounter Summary ---
Author Organization [employer] Address [address] [place] [address] [address] [place] [address] Care Team Providers Care Physical Therapy Assistant Name Role Phone Cassie Saldana Primary Care Provider [phone] Gertrudis Hopkins RN Unavailable [phone] Alesia Pack Unavailable Reason for Visit * Reason Onset Date Comments Nurse Triage 01/13/2025 Encounter Details Date Type Department Care Team ([facility] st Contact Info) Description 01/13/2025 Telephone [facility] MED & PEDS [address] [place], [place] [phone] Cassie Saldana FNP [address] [place], [place] [phone] Nurse Triage Social History Tobacco Use Types [...] Center 01/15/2025 10:00 AM Adela Acosta CNP [facility] * Telephone Encounter - Farzaneh Urena RN - 01/13/2025 8:56 AM EDT Call returned to [facility] to triage below at [phone]. Reports having lower back pain x3 weeks. 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 Refills: 0. Gabapentin (gabapentin 300 mg oral [...] [facility] was sent to [facility] on Wednesday 01/10. Pt states left AMA on Thursday 01/11. Pt states was not discharged with any meds. Pt does have wheelchair. Still having back pain. Pt states did call Rheumatology but is looking to be referred to a different office as states this admission was of result from no follow up from them. Pt given HDF with [facility] provider thisweek. Pt advised to contact rheumotology and request appt within 1 week. Reviewed home care advise,ER precautions and reasons to call back. Protocol Used: Post-Hospitalization Follow-up Call (Adult) Protocol-Based Disposition: See in Office or Video Visit Today or Tomorrow Future Appointments Date Time Provider Department Center 01/15/2025 10:00 AM Adela Acosta CNP [facility] Insurance verified as active per Real Time Eligibility in [facility]. Positive Triage Question: * Patient wants [...] caller accepted this outcome. Contact pt at [phone] documented in this encounter Plan of Treatment Not on file documented as of this encounter Visit Diagnoses Not on filedocumented in this encounter Additional Health Concerns Assessment Noted Time PHQ-9 Depression Total Score: 10 024 11:22 AM EDT documented as of this encounter Care Teams Physical Therapy Assistant Relationship Specialty Start Date End Date Cassie Saldana FNP [address] [place] [address] PCP - General Family Medicine 12/30/21 Gertrudis Hopkins RN [address] [place] [address] Registered Nurse Family Medicine 12/23/24 Alesia Pack 12/23/24 documented as of this encounter
--- OUTSIDE RECORDS SUMMARY | 2025-03-17 13:31 | XMS_ITS | Encounter Summary ---
Author Organization [employer] Address [address] [facility] [address] [place] [address] Care Team Providers Care Fish Stringer Assembler Name Role Phone Cassie Saldana Primary Care Provider Fina Watt Unavailable Jaqueline Carver Unavailable Unavailable Gertrudis Hopkins RN Unavailable [phone] Alesia Pack Unavailable Reason for Visit * Reason Onset Date Comments Nurse Triage 01/12/2024 Encounter Details Date Type Department Care Team (Late st Contact Info) Description 01/12/2024 Telephone [facility] MEDICINE [address] [place] [address] Cassie Saldana FNP [address] [place], [place] [phone] Nurse Triage Social History Tobacco Use Types [...] time of call. Unable to come to [facility] today. Will attempt visit Monday AM. [...] on filedocumented in this encounter Care Teams Fish Stringer Assembler Relationship Specialty Start Date End Date Cassie Saldana FNP [address] [place] [address] PCP - General Family Medicine 12/30/21 Fina Watt Registered Nurse 10/07/24 10/07/24 Jaqueline Carver 10/07/24 10/07/24 Gertrudis Hopkins, SHERLYN [address] [place] [address] Registered Nurse Family Medicine 12/23/24 Alesia Pack 12/23/24 documented as of this encounter
--- OUTSIDE RECORDS SUMMARY | 2025-03-17 13:31 | XMS_ITS | Encounter Summary ---
Author Organization [employer] Address [address] [place] [address] [address] [place] [address] Care Team Providers Care Waste Cotton Cleaner Name Role Phone Cassie Saldana Primary Care Provider [phone] Gertrudis Hopkins RN Unavailable [phone] Alesia Pack Unavailable Reason for Visit * Reason Onset Date Comments Hospital Follow-up 01/13/2025 Encounter Details Date Type Department Care Team ([facility] st Contact Info) Description 01/13/2025 Telephone [facility] CHC MED & PEDS [address] [place], [place] [phone] Cassie Saldana FNP [address] [place], [place] [phone] Hospital Follow-up Social History Tobacco Use Types [...] from pt requesting a F appt. [facility] [facility] Date of admission: 12/21 Discharge date: 01/10 Diagnosed: Pelvic fracture on left side, Lupus flare, mass on pts back. *Send message to [facility] Clinical Care Coordinators Contact pt at [phone] documented in this encounter Plan of Treatment Not on file documented as of this encounter Visit Diagnoses Not on filedocumented in this encounter Additional Health Concerns Assessment Noted Time PHQ-9 Depression Total Score: 10 024 11:22 AM EDT documented as of this encounter Care Teams Waste Cotton Cleaner Relationship Specialty Start Date End Date Cassie Saldana FNP [address] [place] [address] PCP - General Family Medicine 12/30/21 Gertrudis Hopkins, SHERLYN [address] [place] [address] Registered Nurse Family Medicine 12/23/24 Alesia Pack 12/23/24 documented as of this encounter
[2025-03-17 14:22] LABS: MANUAL DIFF FLAG NO
[2025-03-17 14:30] LABS: Hematocrit 45.2 % (37.0-47.0); Hemoglobin 13.6 g/dl (12.0-16.0); Imm Gran Abs Auto 0.25 X10*3/uL (0.00-0.03); Imm Gran Pct Auto 2.5 % (0.0-0.4); Lymphocytes Absolute Auto 0.8 X10*3/uL (1.2-4.9); Mean Corpuscular HGB Conc 30.1 g/dl (31.0-35.0); Mean Corpuscular Hemoglobin 23.2 pg (27.0-33.0); Mean Corpuscular Volume 77.0 fL (80.0-98.0); NRBC Abs Auto 0.000 X10*3/uL (0.0-0.012); NRBC Pct Auto 0.0 /100WBC (0.0-0.2); Platelet Count 357 X10*3/uL (160-400); Red Blood Count 5.87 X10*6/uL (4.20-5.50); White Blood Count 9.9 X10*3/uL (4.8-10.8)
[2025-03-17 14:40] LABS: Appearance Urine Cloudy; Glucose Urine UA Negative (Negative); PH 5.5 (5.0-9.0); Specific Gravity - Urine 1.025 (1.005-1.025); UMIC TRIGGER UACC YES
[2025-03-17 14:45] LABS: UACC Culture Trigger YES
[2025-03-17 14:57] LABS: Alanine Aminotransferase 25 U/L (0-31); Albumin Level 4.4 g/dL (3.5-5.0); Alkaline Phosphatase 73 U/L (39-117); Anion Gap 13 (12-20); Aspartate Amino Transferase 27 U/L (5-31); Blood Urea Nitrogen 11 mg/dL (9-16); Calcium 8.9 mg/dL (8.4-10.2); Carbon Dioxide 25 mmol/L (22-29); Chloride 107 mmol/L (96-108); Estimated Glomerular Filt Rate > 60; Potassium 3.1 mmol/L (3.3-5.1); Sodium 142 mmol/L (135-145); Total Protein 7.1 g/dL (6.5-8.0)
[2025-03-17 15:16] LABS: Protein/Creatinine Ratio, Ur 0.05 (<0.2); Total Protein Urine Random 14 mg/dL (<12)
== END 2025-03-17 11:10 | disposition home or self-care (01) ==
LOC: HO.CHCLDS 11:09
PROVIDERS: Registered Nurse; PCP Student in an Organized Health Care Education/Training Program; Visit Provider Student in an Organized Health Care Education/Training Program
DX: Z68.31 Body mass index [BMI] 31.0-31.9, adult (principal); M32.9 Systemic lupus erythematosus, unspecified
CPT/HCPCS: 36415; 80053; 81001; 82570; 84156; 84443; 85025; 85652; 86140; 86160; 86225; 87086; 87088; 87186

== ENCOUNTER 2025-03-24 11:30 | Outpatient (RCR) | payer MEDICAID, SELFPAY ==
[2024-05-02 11:30] VITALS: BP 143/66; PULSE 105; RESP 16; TEMP 37.2; O2SAT 99; BMI 32.1
[2024-05-21 09:21] VITALS: BP 130/82; PULSE 89; RESP 16; TEMP 35.9; O2SAT 99
--- NOTE | 2024-05-21 09:24 | HO.INF ---
pt here for 2nd dose of benlysta. pt reports that after 1st dose of benlysta, she had body aches, headache pretty bad also reports a mild rash. no premeds were used for first dose. will premedicate today with ordered tylenol and benadryl. pt aware to report to ordering physician if sx persist after todays dose. awaiting benlysta from pharmacy
[2024-06-04 09:16] VITALS: BMI 32.3
[2024-06-04 09:17] VITALS: BP 133/94; PULSE 97; RESP 16; TEMP 36.9; O2SAT 96
[2024-09-23 09:34] VITALS: BMI 32.4
[2024-09-23 09:35] VITALS: BP 133/91; PULSE 102; RESP 16; TEMP 36.2; O2SAT 98
[2024-10-21 09:28] VITALS: BP 151/103; PULSE 86; RESP 16; TEMP 36.7; O2SAT 98
[2025-02-11 09:46] VITALS: BMI 32.8
[2025-02-11 09:49] VITALS: BP 153/104; PULSE 101; RESP 18; TEMP 36.6
[2025-02-11] MEDS: BELIMUMAB IV (10:42)
[2025-02-11] MEDS: SODIUM CHLORIDE 0.9% IV (10:42)
[2025-03-24 11:44] VITALS: BMI 32.0
[2025-03-24 11:47] VITALS: BP 139/80; PULSE 97; RESP 16; TEMP 36.7; O2SAT 98
[2025-03-24] MEDS: BELIMUMAB IV (12:55)
[2025-03-24] MEDS: SODIUM CHLORIDE 0.9% IV (12:55)
== END 2025-04-09 12:59 | disposition home or self-care (01) ==
LOC: HO.INF 11:30
PROVIDERS: Visit Provider Student in an Organized Health Care Education/Training Program
DX: M32.9 Systemic lupus erythematosus, unspecified (principal)
CPT/HCPCS: 96365; J0490